=== PATIENT | male | born 1945 | race Caucasian/White ===

== ENCOUNTER → 2016-10-19 | Outpatient (CLI) | payer OTHER ==
[~2016-10-19] MED LIST: ASPI81TA28 PO; ATOR-22 PO; DOCU-94 PO; LPT10 PO; PLV75 PO; SENN-65 PO
[2016-10-20 09:28] LABS: URINE APPEARANCE CLEAR (CLEAR); URINE BILIRUBIN NEG (NEG); URINE COLOR YELLOW; URINE EPITHELIAL CELL AUTO 20-30 /lpf (0-5); URINE NITRITE NEG (NEG); URINE PH 5.5 (4.5-7.5); URINE SPECIFIC GRAVITY 1.011 (1.000-1.030); UROBILINOGEN NEG (NEG)
[2016-10-20 09:30] LABS: MANUAL MICROSCOPIC REQUIRED? NO; REVIEW REQ? NO
== END ==
LOC: C.LABCC 14:24
PROVIDERS: ATTEND Internal Medicine
DX: R35.0 Frequency of micturition (principal)

== ENCOUNTER → 2016-10-28 | Outpatient (CLI) | payer OTHER ==
[2016-10-28 08:20] LABS: BASO % 0.3 %; BASO ABS # 0.03 K/uL (0-0.2); COMPLETE YES; EOS % 2.7 %; HEMATOCRIT 37.1 % (42-52); IG% 0.3 %; LYMPH % 29.9 %; LYMPH ABS # 2.67 K/uL (1.2-3.4); MEAN CELL VOLUME 93.2 fL (80-100); MEAN CORPUSCULAR HEMOGLOBIN 31.9 pg (25-34); MEAN CORPUSCULAR HGB CONC 34.2 g/dl (32-36); MEAN PLATELET VOLUME 9.6 fL (7.4-10.4); MONO % 8.3 %; NEUT % 58.5 %; PLATELET COUNT 250 K/uL (130-400); RED BLOOD COUNT 3.98 M/uL (4.7-6.1); WHITE BLOOD COUNT 8.92 K/uL (4.8-10.8)
[2016-10-28 08:27] LABS: ALT/SGPT 50 U/L (12-78); BLOOD UREA NITROGEN 18 mg/dl (7-18); BUN/CREATININE RATIO 23.6 (10-20); CALCIUM 8.3 mg/dl (8.5-10.1); CARBON DIOXIDE 28 mmol/L (21-32); CHLORIDE 108 mmol/L (98-107); CHOLESTEROL 141 mg/dl (0-200); CREATININE 0.76 mg/dl (0.60-1.40); GLUCOSE 89 mg/dl (70-99); SODIUM 143 mmol/L (136-145)
[2016-10-28 08:36] LABS: ALB/GLOB RATIO 1.3 (0.9-2); ALKALINE PHOSPHATASE 86 U/L (45-117); AST/SGOT 20 U/L (15-37); CHOLESTEROL/HDL RATIO 2.6; HDL CHOLESTEROL 54 mg/dl; LDL CHOLESTEROL CALCULATED 75 mg/dl; TRIGLYCERIDES 60 mg/dl (0-150); VERY LOW DENSITY LIPOPROT CALC 12 mg/dl
== END | disposition home or self-care (01) ==
LOC: C.LABCC 08:05
PROVIDERS: ATTEND Internal Medicine
DX: D64.9 Anemia, unspecified (principal); E87.6 Hypokalemia; E78.5 Hyperlipidemia, unspecified; E83.51 Hypocalcemia

== ENCOUNTER 2016-11-21 18:42 | Emergency (ER) | payer OTHER ==
[~2016-11-21] VITALS: Ht 165.1 cm; Wt 62.3 kg
[~2016-11-21 18:42] MED LIST changes: -DOCU-94 PO; -LPT10 PO; -SENN-65 PO
[2016-11-21 18:47] VITALS: TEMP 36.8; Ht 165.1 cm; Wt 62.3 kg
[2016-11-21] MEDS ORDERED: LPT10 PO (19:04)
[2016-11-21] MEDS ORDERED: DOCU-94 PO (19:10)
[2016-11-21] MEDS ORDERED: SENN-65 PO (19:10)
--- NOTE | 2016-11-21 19:41 | DIAGNOSTIC IMAGING REPORT ---
CT OF THE HEAD WITHOUT CONTRAST CLINICAL HISTORY: Fall. COMPARISON STUDY: Head CT July 19, 2016. CT DOSE: 601.98 mGy.cm TECHNIQUE: Helical axial images of the head were obtained without IV contrast. Automated exposure control was utilized for the study. FINDINGS: No acute intracranial hemorrhage, midline shift or mass effect is present. Old right basal ganglia and centrum semiovale infarcts are noted as well as an old infarct within the right parietal lobe. Ventricular system is unremarkable for age. Basilar cisterns are patent. There are no extra axial collections. The left globe is absent. No calvarial fracture is identified. IMPRESSION: 1. No acute intracranial findings. 2. No calvarial fracture. Electronically signed by: Adolfo Hernández M.D. 11/21/2016 7:40 PM Dictated Date/Time: 11/21/2016 7:37 PM
[2016-11-21] MEDS ORDERED: IBUPROFEN 200 MG TAB PO STA (20:06)
--- NOTE | 2016-11-21 20:12 | DIAGNOSTIC IMAGING REPORT ---
LEFT SHOULDER MIN 2 VIEWS ROUTINE CLINICAL HISTORY: Fall. COMPARISON: None FINDINGS: Alignment of the left shoulder is anatomic. There is no acute fracture. [id number]-[id number] arthritis is noted. There are several old left-sided rib fractures. IMPRESSION: No acute fracture or dislocation of the left shoulder. Electronically signed by: Adolfo Hernández M.D. 11/21/2016 8:10 PM Dictated Date/Time: 11/21/2016 8:09 PM
--- NOTE | 2016-11-21 20:13 | DIAGNOSTIC IMAGING REPORT ---
LEFT HUMERUS MIN 2 VIEWS ROUTINE CLINICAL HISTORY: Fall. Evaluate for fracture. COMPARISON: None FINDINGS: No acute fracture of the left humerus is identified. Alignment of the left elbow and shoulder is anatomic. There is soft tissue swelling overlying the olecranon. IMPRESSION: 1. No acute fracture of the left humerus. 2. Soft tissue swelling overlying the olecranon. Electronically signed by: Adolfo Hernández M.D. 11/21/2016 8:12 PM Dictated Date/Time: 11/21/2016 8:11 PM
--- NOTE | 2016-11-21 20:14 | DIAGNOSTIC IMAGING REPORT ---
LEFT ELBOW MIN 3 VIEWS ROUTINE CLINICAL HISTORY: Fall. Evaluate for fracture. COMPARISON: None FINDINGS: Alignment of left elbow is anatomic. There is no evidence for a joint effusion. There is extensive soft tissue swelling overlying the olecranon as well as the medial soft tissues of the left elbow. IMPRESSION: 1. No acute fracture or joint effusion of the left elbow. 2. Pronounced soft tissue swelling overlying the olecranon. This could reflect a contusion or olecranon bursitis. Electronically signed by: Adolfo Hernández M.D. 11/21/2016 8:13 PM Dictated Date/Time: 11/21/2016 8:12 PM
--- NOTE | 2016-11-21 20:17 | DIAGNOSTIC IMAGING REPORT ---
L-SPINE MIN 4 VIEWS ROUTINE CLINICAL HISTORY: Fall. COMPARISON: None FINDINGS: There is a suspected 6 mm left renal calculus. Alignment of lumbar spine is anatomic. There is a transitional vertebra at the lumbosacral junction which is designated as L5 on this exam. This is likely partially sacralized. When utilizing this numbering scheme, there is slight loss of height of the superior endplate of L4 with concavity. Mild multilevel degenerative changes are present. IMPRESSION: 1. Concavity with slight loss of height of the superior endplate of L4. This is likely old although a mild acute compression fracture could appear similar. 2. 6 mm left renal calculus. 3. Please see above numbering scheme of the lumbar spine with transitional vertebra at the lumbosacral junction. Electronically signed by: Adolfo Hernández M.D. 11/21/2016 8:16 PM Dictated Date/Time: 11/21/2016 8:13 PM
--- NOTE | 2016-11-21 20:19 | DIAGNOSTIC IMAGING REPORT ---
LEFT PELVIS/UNILATERAL HIP 2-3VIEWS CLINICAL HISTORY: Fall. COMPARISON: None FINDINGS: The sacroiliac joints and symphysis pubis are intact. No acute fracture within the pelvis or proximal right femur is identified. There is foreshortening of the left femoral neck. This may be technical. IMPRESSION: Foreshortening of the left femoral neck. This may be technical. However, a femoral neck fracture could appear similar. If persistent pain, a CT is recommended. Electronically signed by: Adolfo Hernández M.D. 11/21/2016 8:18 PM Dictated Date/Time: 11/21/2016 8:16 PM
--- NOTE | 2016-11-21 20:42 | EMERGENCY ROOM VISIT NOTE ---
History Report prepared by Viki: Nikolai Jain Under the Supervision of: Dr. Trevin Carter M.D. First contact with patient: 18:55 Chief Complaint: FALL Stated Complaint: FELL,HIT HEAD,HX STROKE History of Present Illness The patient is a 71 year old male who presents to the Emergency Room with complaints of constant left elbow and left hip pain due to a fall beginning just prior to arrival. He currently rates his discomfort as a 5/10 in severity. As per family, the patient complained of lower back pain following the fall. She notes the patient has a history of a stroke, in which, he has residual left sided weakness and short term memory issues. The patient states he was attempting to get out of the car, and when he went to grab the railing that he missed. He notes he hit his head but denies a loss of consciousness. The family member witnessed the fall, and states he was conscious throughout the event. She states the patient takes Aspirin and may be on Plavix. She notes the patient lives at [facility], and he was visiting them for the day. The patient denies a fever, vomiting, and chest pain. Source of History: patient, family Onset: just prior to arrival Position: elbow (left), pelvis (left hip) Symptom Intensity: 5/10 Timing: constant Associated Symptoms: + back pain, No chest pain, No fevers, No vomiting Note: Associated symptoms: left shoulder pain. Review of Systems See HPI for pertinent positives & negatives. A total of 10 systems reviewed and were otherwise negative. Past Medical & Surgical Medical Problems: (1) Acute right MCA stroke Surgical Problems: (1) History of enucleation of eye Family History Diabetes mellitus Social History Smoking Status: Never Smoker Drug Use: none Marital Status: Housing Status: other ([facility]) Occupation Status: retired Current/Historical Medications Scheduled Aspirin (Aspirin Ec), 81 MG PO DAILY Atorvastatin (Atorvastatin Calcium), 10 MG PO DAILY Clopidogrel Bisulfate (Clopidogrel), 75 MG PO QAM Docusate Sodium (Colace), 1 CAP PO BID Senna/Docusate Sod (Senokot S), 1 TAB PO BID Allergies Coded Allergies: No Known Allergies (Verified , 07/18/16) Physical Exam Vital Signs Date Time Temp Pulse Resp B/P Pulse Ox O2 Delivery O2 Flow Rate FiO2 11/21/16 18:47 36.8 74 20 129/72 96 Room Air Physical Exam Constitutional: Vital signs reviewed. Eyes: Pupils are equal round reactive to light. Conjunctiva are noninjected. ENT: Pharynx is clear without erythema or exudate. Mucous membranes are moist. Neck supple without meningeal signs. No midline tenderness to the cervical spine. Respiratory: Clear to auscultation bilaterally. Breath sounds are equal bilaterally. Cardiovascular: Regular rate and rhythm. No rubs or gallops. GI: Soft, nondistended and nontender. Bowel sounds are present. Musculoskeletal: Tenderness and swelling to the olecranon process of the left elbow. No deformity is noted. Tenderness and swelling to the left hip. No deformity or shortening. Integumentary: No cyanosis. Neurological: The patient is awake and alert. Left sided weakness from prior stroke. Psychiatric: Normal affect. Medical Decision & Procedures ER Provider Diagnostic Interpretation: Radiology results as stated below per my review and the radiologist's interpretation: CT OF THE HEAD WITHOUT CONTRAST CLINICAL HISTORY: Fall. COMPARISON STUDY: Head CT July 19, 2016. CT DOSE: 601.98 mGy.cm TECHNIQUE: Helical axial images of the head were obtained without IV contrast. Automated exposure control was utilized for the study. FINDINGS: No acute intracranial hemorrhage, midline shift or mass effect is present. Old right basal ganglia and centrum semiovale infarcts are noted as well as an old infarct within the right parietal lobe. Ventricular system is unremarkable for age. Basilar cisterns are patent. There are no extra axial collections. The left globe is absent. No calvarial fracture is identified. IMPRESSION: 1. No acute intracranial findings. 2. No calvarial fracture. Electronically signed by: Adolfo Hernández M.D. 11/21/2016 7:40 PM LEFT SHOULDER MIN 2 VIEWS ROUTINE CLINICAL HISTORY: Fall. COMPARISON: None FINDINGS: Alignment of the left shoulder is anatomic. There is no acute fracture. Xlop-vu-dnrfvopw arthritis is noted. There are several old left-sided rib fractures. IMPRESSION: No acute fracture or dislocation of the left shoulder. Electronically signed by: Adolfo Hernández M.D. 11/21/2016 8:10 PM LEFT HUMERUS MIN 2 VIEWS ROUTINE CLINICAL HISTORY: Fall. Evaluate for fracture. COMPARISON: None FINDINGS: No acute fracture of the left humerus is identified. Alignment of the left elbow and shoulder is anatomic. There is soft tissue swelling overlying the olecranon. IMPRESSION: 1. No acute fracture of the left humerus. 2. Soft tissue swelling overlying the olecranon. Electronically signed by: Adolfo Hernández M.D. 11/21/2016 8:12 PM LEFT ELBOW MIN 3 VIEWS ROUTINE CLINICAL HISTORY: Fall. Evaluate for fracture. COMPARISON: None FINDINGS: Alignment of left elbow is anatomic. There is no evidence for a joint effusion. There is extensive soft tissue swelling overlying the olecranon as well as the medial soft tissues of the left elbow. IMPRESSION: 1. No acute fracture or joint effusion of the left elbow. 2. Pronounced soft tissue swelling overlying the olecranon. This could reflect a contusion or olecranon bursitis. Electronically signed by: Adolfo Hernández M.D. 11/21/2016 8:13 PM L-SPINE MIN 4 VIEWS ROUTINE CLINICAL HISTORY: Fall. COMPARISON: None FINDINGS: There is a suspected 6 mm left renal calculus. Alignment of lumbar spine is anatomic. There is a transitional vertebra at the lumbosacral junction which is designated as L5 on this exam. This is likely partially sacralized. When utilizing this numbering scheme, there is slight loss of height of the superior endplate of L4 with concavity. Mild multilevel degenerative changes are present. IMPRESSION: 1. Concavity with slight loss of height of the superior endplate of L4. This is likely old although a mild acute compression fracture could appear similar. 2. 6 mm left renal calculus. 3. Please see above numbering scheme of the lumbar spine with transitional vertebra at the lumbosacral junction. Electronically signed by: Adolfo Hernández M.D. 11/21/2016 8:16 PM LEFT PELVIS/UNILATERAL HIP 2-3VIEWS CLINICAL HISTORY: Fall. COMPARISON: None FINDINGS: The sacroiliac joints and symphysis pubis are intact. No acute fracture within the pelvis or proximal right femur is identified. There is foreshortening of the left femoral neck. This may be technical. IMPRESSION: Foreshortening of the left femoral neck. This may be technical. However, a femoral neck fracture could appear similar. If persistent pain, a CT is recommended. Electronically signed by: Adolfo Hernández M.D. 11/21/2016 8:18 PM Medications Administered Medications (Trade) Dose Ordered Sig/Bashir Route Start Time Stop Time Status Last Admin Dose Admin Ibuprofen (Advil Tab) 400 mg NOW STAT PO 11/21/16 20:06 4/30/17 20:07 DC 11/21/16 20:06 400 MG ED Course 1857: The patient was evaluated in room D7. A complete history and physical exam was performed. 2004: As per nurse, the patient went to the bathroom and ambulated with assistance without difficulty. He is requesting Advil. 2005: Ordered Advil Tab 400 mg PO. 2021: Reevaluated and updated the patient at this time. He agrees with further imaging. Medical Decision This is a 71-year-old male who presents with injuries after fall. Differential diagnosis: Contusion, concussion, intracranial hemorrhage, hip fracture, elbow fracture. I did perform a limited focused review of portions of the patient's old chart on the electronic medical record. The patient has a history of a stroke in June. Blood work was done on October 28 that was fairly unremarkable other than some mild anemia. I did evaluate the patient as noted above. I did obtain history from the patient as well as his family. He did have a mechanical fall without LOC. I did order a CT of the head. I did review the images myself as well as the radiology report as described above. There is no ICH. I did order and personally review the patient's x-rays as described above. There appears to be an old compression fracture in the lumbar spine and a possible hip fracture. I did order a CT of the hip and lumbar spine. I did treat patient with Motrin per his request. The CAT scans are pending at this time. The patient was signed out to Dr. Pepper. Impression Primary Impression: Contusion of multiple sites Additional Impressions: Fall Acute head injury Injury of left hip Injury of left elbow Scribe Attestation The scribe's documentation has been prepared under my direct and personally reviewed by me in its entirety. I confirm that the note above accurately reflects all work, treatment, procedures, and medical decision making performed by me. Departure Information Dispostion Still a Patient (signed out to Dr. Pepper) Referrals RV. Nicholas MD (PCP) Patient Instructions [facility] Problem Qualifiers Additional Impressions: Fall Encounter type: initial encounter Qualified Codes: W19.XXXA - Unspecified fall, initial encounter Acute head injury Encounter type: initial encounter Qualified Codes: S09.90XA - Unspecified injury of head, initial encounter Injury of left hip Encounter type: initial encounter Qualified Codes: S79.912A - Unspecified injury of left hip, initial encounter Injury of left elbow Encounter type: initial encounter Qualified Codes: S59.902A - Unspecified injury of left elbow, initial encounter
--- NOTE | 2016-11-21 21:01 | DIAGNOSTIC IMAGING REPORT ---
CT LUMBAR SPINE WITHOUT CT DOSE: 1045.53 mGy.cm CLINICAL HISTORY: Fall. Evaluate for fracture. TECHNIQUE: Axial images of the lumbar spine were obtained without IV contrast. Sagittal and coronal reconstructions were viewed. COMPARISON STUDY: Lumbar spine radiographs performed earlier today. FINDINGS: Multiple bilateral renal calculi are noted. There is no hydronephrosis. Alignment of the lumbar spine is anatomic with the exception of slight anterolisthesis of L5 on S1. There is a right sided L5 pars defect. No acute lumbar spine fracture is identified. The possible fracture of L4 shown on prior radiograph was artifactual. Paravertebral soft tissues are unremarkable by CT. Mild to moderate multilevel degenerative disc disease and facet arthrosis is present. IMPRESSION: 1. No acute lumbar spine fracture or subluxation. 2. Mild to moderate multilevel degenerative disc disease and facet arthrosis. 3. Bilateral nephrolithiasis. Electronically signed by: Adolfo Hernández M.D. 11/21/2016 9:00 PM Dictated Date/Time: 11/21/2016 8:55 PM
--- NOTE | 2016-11-21 21:08 | DIAGNOSTIC IMAGING REPORT ---
CT OF THE LEFT HIP WITHOUT CONTRAST CLINICAL HISTORY: Left hip pain following fall. TECHNIQUE: Axial images of the left hip were obtained without IV contrast. Sagittal and coronal reconstructions were obtained. COMPARISON STUDY: Left hip and pelvis radiographs performed earlier today. FINDINGS: Alignment of the left hip is anatomic. There is no acute fracture of the proximal left femur or visualized portions of the left hemipelvis. There is a subcutaneous contusion of the lateral left thigh. No large hematoma is present. IMPRESSION: 1. No acute fracture or dislocation of the left hip. 2. Lateral left thigh subcutaneous contusion. Electronically signed by: Adolfo Hernández M.D. 11/21/2016 9:06 PM Dictated Date/Time: 11/21/2016 9:02 PM
--- NOTE | 2016-11-21 21:50 | EMERGENCY ROOM VISIT NOTE ---
ED Visit Note First contact with patient: 20:34 I assumed care at the change of shift. The patient was awaiting a CT of his lumbar spine and left hip. The CTs have returned, there is no acute fracture of the lumbar spine. No acute fracture of the left hip. A left hip hematoma was noted. The patient was told the results of his tests, he was reassured. He is being discharged back to rehabilitation. Ice and Tylenol were suggested. If worsening, he can return.
[2016-11-21 21:55] VITALS: BP 118/66; PULSE 69; O2SAT 96
== END 2016-11-21 21:57 ==
LOC: C.EDB 18:43 → C.EDD 21:57
DX: S59.902A Unspecified injury of left elbow, initial encounter (principal); S09.90XA Unspecified injury of head, initial encounter; S79.912A Unspecified injury of left hip, initial encounter; T14.8 Other injury of unspecified body region; W19.XXXA Unspecified fall, initial encounter; Z86.73 Personal history of transient ischemic attack (TIA), and cerebral infarction without residual deficits; Z79.82 Long term (current) use of aspirin; Z90.01 Acquired absence of eye; Z83.3 Family history of diabetes mellitus; Z79.899 Other long term (current) drug therapy

== ENCOUNTER → 2016-12-27 | Outpatient (CLI) | payer OTHER ==
[~2016-12-27] MED LIST changes: -ATOR-22 PO; +DOCU-94 PO; +LPT10 PO; +SENN-65 PO
[2016-12-27 14:54] LABS: BASO % 0.3 %; BASO ABS # 0.03 K/uL (0-0.2); COMPLETE YES; HEMATOCRIT 42.7 % (42-52); IG% 0.2 %; LYMPH % 25.6 %; LYMPH ABS # 2.59 K/uL (1.2-3.4); MEAN CELL VOLUME 95.1 fL (80-100); MEAN CORPUSCULAR HEMOGLOBIN 31.8 pg (25-34); MEAN CORPUSCULAR HGB CONC 33.5 g/dl (32-36); MONO % 7.3 %; NEUT % 64.6 %; PLATELET COUNT 264 K/uL (130-400); RED BLOOD COUNT 4.49 M/uL (4.7-6.1)
[2016-12-27 15:21] LABS: ALT/SGPT 60 U/L (12-78); BLOOD UREA NITROGEN 20 mg/dl (7-18); BUN/CREATININE RATIO 27.2 (10-20); CARBON DIOXIDE 28 mmol/L (21-32); CHLORIDE 103 mmol/L (98-107); CHOLESTEROL 171 mg/dl (0-200); CREATININE 0.74 mg/dl (0.60-1.40); GLUCOSE 91 mg/dl (70-99); POTASSIUM 4.1 mmol/L (3.5-5.1); SODIUM 139 mmol/L (136-145); TRIGLYCERIDES 117 mg/dl (0-150); VERY LOW DENSITY LIPOPROT CALC 23 mg/dl
[2016-12-27 15:24] LABS: ALB/GLOB RATIO 1.2 (0.9-2); ALKALINE PHOSPHATASE 96 U/L (45-117); AST/SGOT 30 U/L (15-37); CHOLESTEROL/HDL RATIO 3.1; HDL CHOLESTEROL 56 mg/dl; LDL CHOLESTEROL CALCULATED 92 mg/dl
== END | disposition home or self-care (01) ==
LOC: C.LAB1850 12:28
PROVIDERS: ATTEND Internal Medicine
DX: I63.231 Cerebral infarction due to unspecified occlusion or stenosis of right carotid arteries (principal)

== ENCOUNTER 2021-08-18 13:19 | Inpatient (IN) ==
[2021-08-18] MEDS ORDERED: SODIUM CHLORIDE 0.9% 500 ML IV STA (14:09)
[2021-08-18] MEDS ORDERED: OXYMETAZOLINE 0.05% 30 ML BTL ONE (14:09)
[2021-08-18] MEDS ORDERED: ONDANSETRON INJ 2 MG/ML 2 ML VIAL IV STA (14:09)
--- NOTE | 2021-08-18 14:16 | Emergency Department Note ---
Impression & Plan Leukocytosis, Epistaxis, Tachycardia, Anemia, Diarrhea ED Provider Note NAME: ONEIL LIVINGSTON AGE: 75 SEX: M : 1945 ARRIVES VIA: Ambulance INFORMANT: [Patient][daughter] ED PROVIDER(S): [Nickolas Pepper MD] CHIEF COMPLAINT: Nosebleed, diarrhea HISTORY OF PRESENT ILLNESS: The patient is a 75-year-old male who began with an intermittent left-sided nosebleed yesterday. It worsened quite a bit today. He vomited some blood and has swallowed some blood. Most of blood though he believes has come out the front. The patient in addition complains of some diarrhea, especially today. He has noticed the diarrhea for about 3 days or so. It is not black or bloody but loose and watery. He has diffuse abdominal cramping as well. The patient is here with his daughter. The patient is on aspirin and Plavix. The nosebleed now seems to have stopped. There was no intervention by EMS. The patient has history of stroke, his left arm is basically paralyzed. His left leg has some movement. Patient denies shortness of breath, chest pain or fever. There has been no cough or congestion. He has not felt chills. REVIEW OF SYSTEMS: See HPI for pertinent positives and negatives. A total of ten systems were reviewed and were otherwise negative. PMHx/PSHx: See Below SOCIAL HISTORY: See Below. PHYSICAL EXAM: GENERAL: Patient is in no acute distress. HEENT: No acute trauma, normocephalic atraumatic, mucous membranes moist, no nasal congestion, no scleral icterus. There is dried blood on his face. There is no active bleeding to the right or left side of the nose. There is a clot hanging down the back of the throat. NECK: No stridor, no adenopathy, no meningismus, trachea is midline. LUNGS: Clear to auscultation bilaterally, no wheeze, no rhonchi, breath sounds equal. Breath sounds diminished bilaterally. HEART: Tachycardic, distant tones, regular rhythm, no murmurs. ABDOMEN: Soft, mildly diffusely tender, bowel sounds positive, no hernias, no peritonitis. EXTREMITIES: No cyanosis or edema, full range of motion of all the joints with out pain or difficulty, no signs for acute trauma. NEUROLOGIC: Oriented x 3, basically no movement of the left upper extremity. Minimal movement of the left lower extremity. The right arm and leg are strong. SKIN: No rash, no jaundice, no diaphoresis. Pale. DIFFERENTIAL DIAGNOSIS: Anterior and posterior epistaxis, coagulopathy, anemia, electrolyte imbalance, dehydration, GI bleeding, diverticulitis, colitis, pancreatitis, generalized viral illness, bacterial or viral intestinal infection, among others. EMERGENCY DEPARTMENT COURSE/PROCEDURES: ECG: Indication was tachycardia. The ECG shows a sinus tachycardia with a rate of 102. There is a potential old septal infarct. There is no ST elevation, no PVCs. The QTc is 427. Continuous Cardiac Monitoring: An order was placed for continuous cardiac mon itoring. The monitor shows a rate of 99 with normal sinus rhythm. Critical Care Note: I have personally spent 41 minutes of critical care time in the direct management of this patient. This includes bedside care, interpretation of diagnostic studies, and testing, discussion with consultants, patient, and family members, and other required patient management activities. This 41 minutes is in excess of all separately billable procedures. Bladder scan showed over 400 cc, moderate retention. The patient was not able to urinate on his own, a straight cath urine was obtained. MEDICAL DECISION MAKING: There is a significant leukocytosis at 20,000, this certainly could be consistent with infection. The patient does have a mild anemia. His hemoglobin has dropped around 2 points compared to his baseline. There is a normal platelet count. INR slightly elevated at 1.2. Potassium slightly high at 5.3. No kidney failure. Lactic acid level is not elevated making severe sepsis less likely. No worrisome liver enzyme elevation. No evidence for pancreatitis. Urinalysis is suggestive of infection. Covid testing returned negative. Chest film does not show pneumonia or CHF. Abdominal and pelvis CT does not show any evidence for acute surgical pathology. No diverticulitis or colitis noted. On exam, the patient was not actively bleeding from his nose any longer. He appeared dehydrated clinically. He was tachycardic. The patient received IV saline, 1 L. Afrin spray was applied to both sides of his nose to prevent any further bleeding. He received IV Zofran for nausea. He was given IV cefepime as empiric antibiotic coverage. The patient's heart rate has improved. He does seem more comfortable. The patient requires a hospital stay. He has a marked leukocytosis. He has a UTI. He presents tachycardic and has lost some blood as a result of his epistaxis. I spoke with the patient and his daughter, I talked to case management, the on- call hospitalist was consulted. 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 Diverticulosis Internal hemorrhoids Tubular adenoma of colon Surgical History H/O eye surgery Family History Other No significant family history Denies family history of Ovarian cancer Prostate cancer Breast cancer Lung cancer Colorectal cancer Social History Smoking Status: Current every day smoker Tobacco Type: Cigarettes and Cigars Age Started Using Tobacco: 14; Cigarettes Per Day: 10; Second Hand Exposure: No; Hx Alcohol Use: Yes Alcohol type: beer Alcohol Intake Frequency: Monthly or Less Hx Substance Use: No Preferred Language: Arabic Communication Ability: Effective Visual Impairment: Limited Hearing Ability: Hard of Hearing marital status: / Current Living Situation: Family current occupational status: retired Feels Safe at Home: Yes Childhood Exposure to Second-Hand Smoke: Yes caffeine: No Dental Care, Regularly: No Physical Activity Frequency: Does not Exercise Seatbelt Use: always Sunscreen Use: No Allergies Allergies Allergy/AdvReac Type Severity Reaction Status Date / Time No Known Allergies Allergy Verified 03/26/21 14:54 Home Meds Home Medications Medication Instructions Recorded Confirmed cholecalciferol (vitamin D3) 25 1,000 units PO QAM 09/13/19 08/18/21 mcg (1,000 unit) capsule aspirin 81 mg tablet,delayed 81 mg PO QAM 08/18/21 08/18/21 release (Adult Aspirin Regimen) atorvastatin 80 mg tablet 80 mg PO HS 08/18/21 08/18/21 clopidogrel 75 mg tablet 75 mg PO HS 08/18/21 08/18/21 gabapentin 300 mg capsule 300 mg PO HS 08/18/21 08/18/21 Previous Rx's Medication Instructions Recorded diclofenac sodium 1 % topical gel 2 gm TOP QID #100 gm 04/03/19 bupropion HCl 100 mg tablet,12 hr 100 mg PO QAM #90 ea 01/30/21 sustained-release albuterol sulfate 90 mcg/actuation 1 inh INHALATION QID #8.5 g 02/13/21 aerosol inhaler Results & Data (ED) Vital Signs Vital Signs - 24 hr 08/18/21 13:20 08/18/21 15:00 08/18/21 15:49 Temperature 36.7 C Temperature Source Oral Pulse Rate 108 H 119 H Pulse Rate from SpO2 Sensor Respiratory Rate 20 24 Respiratory Effort / Characteristics Non-Labored Spontaneous Respiratory Depth Normal Respiratory Pattern Regular Blood Pressure 102/71 110/72 Blood Pressure Mean 81 84 Blood Pressure Position Sitting Pulse Oximetry 95 97 95 Oxygen Delivery Method Room Air Room Air Room Air Sepsis Recent Fever Within 48 Hours No Sepsis New/Unexplained Change in Mental Status No Sepsis Action Taken by Nursing No Action Required 08/18/21 16:00 08/18/21 17:00 08/18/21 17:30 Temperature Temperature Source Pulse Rate 99 H 94 H 91 H Pulse Rate from SpO2 Sensor 108 H 95 H Respiratory Rate 21 24 22 Respiratory Effort / Characteristics Respiratory Depth Respiratory Pattern Blood Pressure 114/79 141/90 H 123/77 Blood Pressure Mean 90 107 92 Blood Pressure Position Pulse Oximetry 94 98 98 Oxygen Delivery Method Room Air Room Air Room Air Sepsis Recent Fever Within 48 Hours Sepsis New/Unexplained Change in Mental Status Sepsis Action Taken by Nursing 08/18/21 18:30 08/18/21 19:00 08/18/21 19:05 Temperature Temperature Source Pulse Rate 86 88 85 Pulse Rate from SpO2 Sensor Respiratory Rate 21 21 20 Respiratory Effort / Characteristics Respiratory Depth Respiratory Pattern Blood Pressure 114/88 115/88 Blood Pressure Mean 96 97 Blood Pressure Position Pulse Oximetry 97 96 99 Oxygen Delivery Method Room Air Room Air Room Air Sepsis Recent Fever Within 48 Hours Sepsis New/Unexplained Change in Mental Status Sepsis Action Taken by Nursing 08/18/21 19:30 08/18/21 19:31 08/18/21 20:00 Temperature Temperature Source Pulse Rate 87 85 83 Pulse Rate from SpO2 Sensor Respiratory Rate 19 20 20 Respiratory Effort / Characteristics Respiratory Depth Respiratory Pattern Blood Pressure 126/79 126/79 127/67 Blood Pressure Mean 94 94 87 Blood Pressure Position Pulse Oximetry 98 98 Oxygen Delivery Method Room Air Room Air Sepsis Recent Fever Within 48 Hours Sepsis New/Unexplained Change in Mental Status Sepsis Action Taken by Nursing 08/18/21 20:30 08/18/21 20:31 08/18/21 21:00 Temperature Temperature Source Pulse Rate 90 92 H Pulse Rate from SpO2 Sensor Respiratory Rate 24 22 19 Respiratory Effort / Characteristics Respiratory Depth Respiratory Pattern Blood Pressure 117/65 122/78 Blood Pressure Mean 82 92 Blood Pressure Position Pulse Oximetry 99 Oxygen Delivery Method Room Air Sepsis Recent Fever Within 48 Hours Sepsis New/Unexplained Change in Mental Status Sepsis Action Taken by Jail Medications Current Medication List: was personally reviewed by me Laboratory Data Attestation: I reviewed the patient's lab results. Result diagrams: 08/18/21 14:46 08/18/21 14:46 Lab Results 08/18/21 08/18/21 08/18/21 Range/Units 14:46 14:46 14:46 WBC 20.46 H (4.8-10.8) K/uL RBC 3.62 L (4.7-6.1) M/uL Hgb 11.3 L (14.0-18.0) g/dL Hct 35.2 L (42-52) % MCV 97.2 (80-100) fL MCH 31.2 (25-34) pg MCHC 32.1 (32-36) g/dL RDW Std Deviation 48.4 H (36.4-46.3) fL RDW Coeff of Kailey 13.6 (11.5-14.5) % Plt Count 362 (130-400) K/uL MPV 10.3 (7.4-10.4) fL Immature Gran % (Auto) 0.6 % Neut % (Auto) 87.0 % Lymph % (Auto) 6.8 % [place] % (Auto) 5.5 % Eos % (Auto) 0.0 % Baso % (Auto) 0.1 % Neut # (Auto) 17.76 H (1.4-6.5) K/uL Lymph # (Auto) 1.40 (1.2-3.4) K/uL [place] # (Auto) 1.13 H (0.11-0.59) K/uL Eos # (Auto) 0.01 (0-0.5) K/uL Baso # (Auto) 0.03 (0-0.2) K/uL Immature Gran # (Auto) 0.13 H (0.00-0.02) K/uL PT 11.6 (9.0-12.0) Seconds INR 1.2 H (0.9-1.1) APTT 30.7 (21.0-31.0) Seconds PTT Ratio 1.2 Sodium (136-145) mmol/L Potassium (3.5-5.1) mmol/L Chloride (98-107) mmol/L Carbon Dioxide (21-32) mmol/L Anion Gap (3-11) BUN (6-23) mg/dl Creatinine (0.6-1.4) mg/dl Est Cr Clr Drug Dosing ml/min Est GFR ( Amer) ml/min Est GFR (Non-Af Amer) ml/min BUN/Creatinine Ratio (10-20) Glucose (70-99(Fasting)) mg/dl Lactate (0.4-2.0) mmol/L Calcium (8.5-10.1) mg/dl Total Bilirubin (0.2-1.0) mg/dl AST (13-39) U/L ALT (7-52) U/L Alkaline Phosphatase (34-104) U/L Troponin I (0-0.04) ng/ml Total Protein (6.0-8.3) gm/dl Albumin (3.4-5.0) gm/dl Globulin (2.5-4.0) gm/dl Albumin/Globulin Ratio (0.9-2) Lipase (11-82) U/L Urine Color Urine Appearance (Clear) Urine pH (4.5-7.5) Ur Specific [place] (1.000-1.030) Urine Protein (Negative) Urine Glucose (UA) (Negative) Urine Ketones (Negative) Urine Blood (Negative) Urine Nitrite (Negative) Urine Bilirubin (Negative) Urine Urobilinogen (Negative) Ur Leukocyte Esterase (Negative) Urine WBC (Auto) (0-5) /hpf Urine RBC (Auto) (0-4) /hpf U Hyaline Cast (Auto) (0-5) /lpf U Epithel Cells (Auto) (0-5) /lpf Urine Bacteria (Auto) (Negative) Urine Yeast SARS-CoV-2, RNA, NAAT (NEGATIVE) Blood Type A Negative Antibody Screen NEGATIVE 08/18/21 08/18/21 08/18/21 Range/Units 14:46 15:34 15:59 WBC (4.8-10.8) K/uL RBC (4.7-6.1) M/uL Hgb (14.0-18.0) g/dL Hct (42-52) % MCV (80-100) fL MCH (25-34) pg MCHC (32-36) g/dL RDW Std Deviation (36.4-46.3) fL RDW Coeff of Kailey (11.5-14.5) % Plt Count (130-400) K/uL MPV (7.4-10.4) fL Immature Gran % (Auto) % Neut % (Auto) % Lymph % (Auto) % [place] % (Auto) % Eos % (Auto) % Baso % (Auto) % Neut # (Auto) (1.4-6.5) K/uL Lymph # (Auto) (1.2-3.4) K/uL [place] # (Auto) (0.11-0.59) K/uL Eos # (Auto) (0-0.5) K/uL Baso # (Auto) (0-0.2) K/uL Immature Gran # (Auto) (0.00-0.02) K/uL PT (9.0-12.0) Seconds INR (0.9-1.1) APTT (21.0-31.0) Seconds PTT Ratio Sodium 139 (136-145) mmol/L Potassium 5.3 H (3.5-5.1) mmol/L Chloride 106 (98-107) mmol/L Carbon Dioxide 26 (21-32) mmol/L Anion Gap 7 (3-11) BUN 49 H (6-23) mg/dl Creatinine 1.13 (0.6-1.4) mg/dl Est Cr Clr Drug Dosing 49.1 ml/min Est GFR ( Amer) 73.3 ml/min Est GFR (Non-Af Amer) 63.2 ml/min BUN/Creatinine Ratio 43.4 H (10-20) Glucose 132 H (70-99(Fasting)) mg/dl Lactate 1.5 (0.4-2.0) mmol/L Calcium 8.7 (8.5-10.1) mg/dl Total Bilirubin 0.5 (0.2-1.0) mg/dl AST 24 (13-39) U/L ALT 32 (7-52) U/L Alkaline Phosphatase 109 H (34-104) U/L Troponin I < 0.03 (0-0.04) ng/ml Total Protein 6.6 (6.0-8.3) gm/dl Albumin 3.9 (3.4-5.0) gm/dl Globulin 2.7 (2.5-4.0) gm/dl Albumin/Globulin Ratio 1.4 (0.9-2) Lipase 35 (11-82) U/L Urine Color Urine Appearance (Clear) Urine pH (4.5-7.5) Ur Specific [place] (1.000-1.030) Urine Protein (Negative) Urine Glucose (UA) (Negative) Urine Ketones (Negative) Urine Blood (Negative) Urine Nitrite (Negative) Urine Bilirubin (Negative) Urine Urobilinogen (Negative) Ur Leukocyte Esterase (Negative) Urine WBC (Auto) (0-5) /hpf Urine RBC (Auto) (0-4) /hpf U Hyaline Cast (Auto) (0-5) /lpf U Epithel Cells (Auto) (0-5) /lpf Urine Bacteria (Auto) (Negative) Urine Yeast SARS-CoV-2, RNA, NAAT NEGATIVE (NEGATIVE) Blood Type Antibody Screen 08/18/21 Range/Units 16:50 WBC (4.8-10.8) K/uL RBC (4.7-6.1) M/uL Hgb (14.0-18.0) g/dL Hct (42-52) % MCV (80-100) fL MCH (25-34) pg MCHC (32-36) g/dL RDW Std Deviation (36.4-46.3) fL RDW Coeff of Kailey (11.5-14.5) % Plt Count (130-400) K/uL MPV (7.4-10.4) fL Immature Gran % (Auto) % Neut % (Auto) % Lymph % (Auto) % [place] % (Auto) % Eos % (Auto) % Baso % (Auto) % Neut # (Auto) (1.4-6.5) K/uL Lymph # (Auto) (1.2-3.4) K/uL [place] # (Auto) (0.11-0.59) K/uL Eos # (Auto) (0-0.5) K/uL Baso # (Auto) (0-0.2) K/uL Immature Gran # (Auto) (0.00-0.02) K/uL PT (9.0-12.0) Seconds INR (0.9-1.1) APTT (21.0-31.0) Seconds PTT Ratio Sodium (136-145) mmol/L Potassium (3.5-5.1) mmol/L Chloride (98-107) mmol/L Carbon Dioxide (21-32) mmol/L Anion Gap (3-11) BUN (6-23) mg/dl Creatinine (0.6-1.4) mg/dl Est Cr Clr Drug Dosing ml/min Est GFR ( Amer) ml/min Est GFR (Non-Af Amer) ml/min BUN/Creatinine Ratio (10-20) Glucose (70-99(Fasting)) mg/dl Lactate (0.4-2.0) mmol/L Calcium (8.5-10.1) mg/dl Total Bilirubin (0.2-1.0) mg/dl AST (13-39) U/L ALT (7-52) U/L Alkaline Phosphatase (34-104) U/L Troponin I (0-0.04) ng/ml Total Protein (6.0-8.3) gm/dl Albumin (3.4-5.0) gm/dl Globulin (2.5-4.0) gm/dl Albumin/Globulin Ratio (0.9-2) Lipase (11-82) U/L Urine Color Yellow Urine Appearance Clear (Clear) Urine pH 6.0 (4.5-7.5) Ur Specific [place] 1.021 (1.000-1.030) Urine Protein Negative (Negative) Urine Glucose (UA) Negative (Negative) Urine Ketones Trace H (Negative) Urine Blood Negative (Negative) Urine Nitrite Positive A (Negative) Urine Bilirubin Negative (Negative) Urine Urobilinogen Negative (Negative) Ur Leukocyte Esterase Trace H (Negative) Urine WBC (Auto) 5-10 H (0-5) /hpf Urine RBC (Auto) 0-4 (0-4) /hpf U Hyaline Cast (Auto) 1-5 (0-5) /lpf U Epithel Cells (Auto) 10-20 H (0-5) /lpf Urine Bacteria (Auto) 1+ H (Negative) Urine Yeast Not Reportable SARS-CoV-2, RNA, NAAT (NEGATIVE) Blood Type Antibody Screen Administered Medications Discontinued Medications Sodium Chloride (Nss) 500 mls @ 999 mls/hr IV .Q31M STA Stop: 08/18/21 14:39 Last Infusion: 08/18/21 16:08 Dose: 0 mls/hr Documented by: [id number] Admin: 08/18/21 15:32 Dose: 999 mls/hr Documented by: [id number] Sodium Chloride (Nss 1000ml) 500 mls @ 999 mls/hr IV .Q31M ONE Stop: 08/18/21 15:43 Last Infusion: 08/18/21 16:08 Dose: 0 mls/hr Documented by: [id number] Admin: 08/18/21 15:32 Dose: 999 mls/hr Documented by: [id number] Cefepime HCl (Maxipime) 2,000 mg in 20 mls @ 5 mls/min IV NOW STA; Protocol Stop: 08/18/21 15:16 Last Admin: 08/18/21 15:33 Dose: 5 mls/min Documented by: [id number] Ioversol (Optiray 320 100ml) 94 ml IV ONCE ONE Stop: 08/18/21 15:51 Last Admin: 08/18/21 15:50 Dose: 94 ml Documented by: [id number] Ondansetron HCl (Ondansetron Inj 2 Mg/Ml 2 Ml Vial) 4 mg IV NOW STA Stop: 08/18/21 14:10 Last Admin: 08/18/21 15:33 Dose: 4 mg Documented by: [id number] Oxymetazoline HCl (Oxymetazoline 0.05% 30 Ml Btl) 3 sprays NA NOW ONE Stop: 08/18/21 14:10 Last Admin: 08/18/21 14:50 Dose: 3 sprays Documented by: [id number] Imaging Data Radiologist's Impression: Abdomen/Pelvis CT 08/18/21 14:09 CT SCAN OF THE ABDOMEN AND PELVIS WITH IV CONTRAST CLINICAL HISTORY: Generalized abdominal pain. Diarrhea. COMPARISON STUDY: No priors. TECHNIQUE: Following the IV administration of 94 cc of Optiray 320, CT scan of the abdomen and pelvis is performed from the lung bases to the proximal femora. Images are reviewed in the axial, sagittal, and coronal planes. IV contrast was administered without complication. A dose lowering technique was utilized adhering to the principles of ALARA. The examination is compromised by motion artifact. CT DOSE: 381.91 mGy.cm FINDINGS: Lung bases: The heart is normal in size and without pericardial effusion. The coronary arteries are densely calcified. A tiny hiatal hernia is noted. Evaluation of the lung bases is compromised by motion artifact. There is no airspace consolidation or pleural effusion identified. Liver: The contrast-enhanced liver is normal in size, contour, and attenuation. There is no intrahepatic biliary ductal dilatation. The hepatic veins and portal veins are patent. Gallbladder: Unremarkable. Spleen: There is an approximately 3 cm perfusion defect seen in the superior pole of the spleen on axial image #59. This is also seen on the sagittal reformats and is suspicious for an age indeterminant splenic infarct. Pancreas: Unremarkable. Adrenal glands: Unremarkable. Kidneys: The contrast enhanced kidneys demonstrate cortical atrophy and are without hydronephrosis. The kidneys enhance symmetrically. Bilateral renal calculi are noted. Abdominal vasculature: There is advanced atherosclerotic calcification and ectasia of the abdominal aorta. Bowel: There is mild colonic diverticulosis without CT evidence of acute diverticulitis. No bowel obstruction is seen. Moderate fecal retention is noted throughout the colon. The appendix is well-visualized and normal. Peritoneum: There is no intraperitoneal free air or abdominal ascites. A fat-containing umbilical hernia is noted. Lymphadenopathy: None. Pelvic viscera: The prostate gland is enlarged and heterogeneous noting median lobe hypertrophy. The bladder wall is thickened and trabeculated indicating chronic outlet obstruction. The bladder is mildly distended. Tiny layering bladder calculi are suggested on image #345. There is a fat-containing left inguinal hernia. Skeletal structures: The skeletal structures are osteopenic. There is mild lumbosacral spondylosis. No lytic or blastic lesions are seen. IMPRESSION: 1. Motion compromised examination. 2. There is an approximately 3 cm perfusion defect in the upper pole of the spleen suspicious for an age indeterminant splenic infarct. Clinical correlation will be required. 3. Moderate constipation. 4. Bilateral nephrolithiasis. 5. Tiny bladder calculi are noted. 6. Additional findings as above. ACT 112: Negative or not required by law. Electronically signed by: Nickolas Madison M.D. 08/18/2021 4:03 PM Chest X-Ray 08/18/21 14:09 XR chest 1V portable CLINICAL HISTORY: abd pain TECHNIQUE: Single frontal radiograph of the chest was obtained. Comparison: Comparison is made to chest 2 views 11/17/2020 FINDINGS: No lines and tubes are seen. Calcified aortic knob is seen. The lungs are clear. No evidence of pleural effusion or pneumothorax. IMPRESSION: No acute chest disease. No evidence of pneumoperitoneum. ACT 112: Negative or not required by law. Electronically signed by: Joselito Ortiz M.D. 08/18/2021 2:54 PM Discharge Plan Visit Data Chief Complaint: Nose Bleed (Minor) Stated Complaint: NOSE BLEED ED Provider: Nickolas Pepper Patient Disposition: Admitted As Inpatient Condition: Fair Prescriptions Prescriptions: No Action diclofenac sodium 1 % gel 2 gm TOP QID Qty: 100 RF: 2 bupropion HCl 100 mg tablet sustained-release 12 hr 100 mg PO QAM Qty: 90 RF: 3 albuterol sulfate 90 mcg/actuation HFA aerosol inhaler 1 inh inhalation QID Qty: 8.5 RF: 2 cholecalciferol (vitamin D3) 25 mcg (1,000 unit) capsule 1,000 units PO QAM RF: 0 atorvastatin 80 mg tablet 80 mg PO HS RF: 0 clopidogrel 75 mg tablet 75 mg PO HS RF: 0 aspirin [Adult Aspirin Regimen] 81 mg tablet,delayed release (DR/EC) 81 mg PO QAM RF: 0 gabapentin 300 mg capsule 300 mg PO HS RF: 0
--- NOTE | 2021-08-18 14:55 | XRay Report ---
XR chest 1V portable CLINICAL HISTORY: abd pain TECHNIQUE: Single frontal radiograph of the chest was obtained. Comparison: Comparison is made to chest 2 views 11/17/2020 FINDINGS: No lines and tubes are seen. Calcified aortic knob is seen. The lungs are clear. No evidence of pleur al effusion or pneumothorax. IMPRESSION: No acute chest disease. No evidence of pneumoperitoneum. ACT 112: Negative or not required by law. Electronically signed by: Joselito Ortiz M.D. 08/18/2021 2:54 PM
[2021-08-18 14:57] LABS: Basophils # (auto) 0.03 K/uL (0-0.2); Basophils % (auto) 0.1 %; Eosinophils # (auto) 0.01 K/uL (0-0.5); Hematocrit (blood only) 35.2 % (42-52); Hemoglobin 11.3 g/dL (14.0-18.0); Immature Granulocytes # (auto) 0.13 K/uL (0.00-0.02); Immature Granulocytes % (auto) 0.6 %; Lymphocytes % (auto) 6.8 %; Mean Corpuscular Hemoglobin 31.2 pg (25-34); Mean Corpuscular Hgb Conc 32.1 g/dL (32-36); Mean Corpuscular Volume 97.2 fL (80-100); Mean Platelet Volume 10.3 fL (7.4-10.4); Monocytes # (auto) 1.13 K/uL (0.11-0.59); Monocytes % (auto) 5.5 %; Neutrophils # (auto) 17.76 K/uL (1.4-6.5); Platelet Count 362 K/uL (130-400); RDW Coefficient of Variation 13.6 % (11.5-14.5); RDW Standard Deviation 48.4 fL (36.4-46.3); Red Blood Count 3.62 M/uL (4.7-6.1); White Blood Count 20.46 K/uL (4.8-10.8)
[2021-08-18 15:09] LABS: INR 1.2 (0.9-1.1); Partial Thromboplastin Ratio 1.2; Partial Thromboplastin Time 30.7 Seconds (21.0-31.0); Prothrombin Time 11.6 Seconds (9.0-12.0)
[2021-08-18] MEDS ORDERED: CEFEPIME 2,000 MG/20 ML VIAL IV STA (15:13)
[2021-08-18] MEDS ORDERED: SODIUM CHLORIDE 0.9% 1000ML 500 ML IV ONE (15:13)
[2021-08-18 15:22] LABS: Alanine Aminotransferase 32 U/L (7-52); Albumin Globulin Ratio 1.4 (0.9-2); Albumin Level 3.9 gm/dl (3.4-5.0); Alkaline Phosphatase 109 U/L (34-104); Anion Gap 7 (3-11); Aspartate Aminotransferase 24 U/L (13-39); BUN Creatinine Ratio 43.4 (10-20); Bilirubin,Total 0.5 mg/dl (0.2-1.0); Blood Urea Nitrogen 49 mg/dl (6-23); Calcium 8.7 mg/dl (8.5-10.1); Carbon Dioxide 26 mmol/L (21-32); Chloride 106 mmol/L (98-107); Creatinine Clr Calc Pharmacy 49.1 ml/min; Est GFR (African American) 73.3 ml/min; Est GFR (Non-African American) 63.2 ml/min; Globulin 2.7 gm/dl (2.5-4.0); Glucose 132 mg/dl (70-99(Fasting)); Lipase 35 U/L (11-82); Potassium 5.3 mmol/L (3.5-5.1); Sodium 139 mmol/L (136-145); Total Protein 6.6 gm/dl (6.0-8.3)
[2021-08-18 15:23] LABS: Troponin I < 0.03 ng/ml (0-0.04)
[2021-08-18] MEDS ORDERED: OPTIRAY 320 100ml IV ONE (15:50)
--- NOTE | 2021-08-18 16:04 | CT Scan Report ---
CT SCAN OF THE ABDOMEN AND PELVIS WITH IV CONTRAST CLINICAL HISTORY: Generalized abdominal pain. Diarrhea. COMPARISON STUDY: No priors. TECHNIQUE: Following the IV administration of 94 cc of Optiray 320, CT scan of the abdomen and pelvi s is performed from the lung bases to the proximal femora. Images are reviewed in the axial, sagittal , and coronal planes. IV contrast was administered without complication. A dose lowering technique wa s utilized adhering to the principles of ALARA. The examination is compromised by motion artifact. CT DOSE: 381.91 mGy.cm FINDINGS: Lung bases: The heart is normal in size and without pericardial effusion. The coronary arteries are d ensely calcified. A tiny hiatal hernia is noted. Evaluation of the lung bases is compromised by motio n artifact. There is no airspace consolidation or pleural effusion identified. Liver: The contrast-enhanced liver is normal in size, contour, and attenuation. There is no intrahepa tic biliary ductal dilatation. The hepatic veins and portal veins are patent. Gallbladder: Unremarkable. Spleen: There is an approximately 3 cm perfusion defect seen in the superior pole of the spleen on ax ial image #59. This is also seen on the sagittal reformats and is suspicious for an age indeterminant splenic infarct. Pancreas: Unremarkable. Adrenal glands: Unremarkable. Kidneys: The contrast enhanced kidneys demonstrate cortical atrophy and are without hydronephrosis. T he kidneys enhance symmetrically. Bilateral renal calculi are noted. Abdominal vasculature: There is advanced atherosclerotic calcification and ectasia of the abdominal a hyacinth. Bowel: There is mild colonic diverticulosis without CT evidence of acute diverticulitis. No bowel obs truction is seen. Moderate fecal retention is noted throughout the colon. The appendix is well-visua lized and normal. Peritoneum: There is no intraperitoneal free air or abdominal ascites. A fat-containing umbilical her lesly is noted. Lymphadenopathy: None. Pelvic viscera: The prostate gland is enlarged and heterogeneous noting median lobe hypertrophy. The bladder wall is thickened and trabeculated indicating chronic outlet obstruction. The bladder is mild ly distended. Tiny layering bladder calculi are suggested on image #345. There is a fat-containing le ft inguinal hernia. Skeletal structures: The skeletal structures are osteopenic. There is mild lumbosacral spondylosis. N o lytic or blastic lesions are seen. IMPRESSION: 1. Motion compromised examination. 2. There is an approximately 3 cm perfusion defect in the upper pole of the spleen suspicious for an age indeterminant splenic infarct. Clinical correlation will be required. 3. Moderate constipation. 4. Bilateral nephrolithiasis. 5. Tiny bladder calculi are noted. 6. Additional findings as above. ACT 112: Negative or not required by law. Electronically signed by: Nickolas Madison M.D. 08/18/2021 4:03 PM
[2021-08-18 17:15] LABS: Appearance Urine Clear (Clear); Bacteria Urine Automated 1+ (Negative); Bilirubin Urine Negative (Negative); Blood Urine Negative (Negative); Color Urine Yellow; Glucose Urine UA Negative (Negative); Ketones Urine Trace (Negative); Leukocyte Esterase Urine Trace (Negative); Nitrite Urine Positive (Negative); Protein Urine Negative (Negative); RBC Urine Automated 0-4 /hpf (0-4); Specific Gravity Urine 1.021 (1.000-1.030); Urobilinogen Urine Negative (Negative)
--- NOTE | 2021-08-18 17:52 | History & Physical Report ---
Date of Service August 18, 2021 Assessment & Plan (1) Nasal bleeding: Plan: 75 yo male with PMHx of stroke and emphysema presented to ER for nose bleed and diarrhea. (1) Nose Bleed -left nostril since afternoon, stable, does not appear to be actively bleeding -Hgb: 11.3, baseline ~14 -INR 1.2 -Hold aspirin, Plavix. Will use SCD for DVT ppx. -Nose bleed protocol PRN -repeat CBC am (2) Watery Diarrhea -intermittent loose water stools since 2-3 weeks ago; tested positive for COVID around onset (now COVID negative) -likely ddx infection vs constipation -CT abd/pelvis: moderate constipation, mild colonic diverticulosis w/o evidence of diverticulitis -GI biofire ordered to r/o infection -miralax TID for overflow diarrhea -repeat BMP am (4) UTI, uncomplicated -WBC 20k -UA: trace leuk esterase + nitrites -CT abd/pelvis: enlarged prostate, bilateral nephrolithiasis, tiny bladder calculi, bladder wall thickened indicated chronic outlet obstruction; straight cath PRN -cefepime x1 given in ER -begin Rocephin tomorrow (5) Hyperkalemia, elevated BUN -likely secondary to swallowing blood -Cr 1.3 -repeat BMP am (6) Splenic infarct, age indeterminate -incidental finding on CT abd/pelvis -h/o of stroke; consider putting back on anti-platelet therapy once bleeding stable (7) H/o stroke w/ neuropathy -hold aspirin, plavix due to bleed. SCDs for DVT ppx. -cont. home gabapentin (8) Emphysema -cont. home albuterol DVT ppx: SCDs FEN/GI: Regular Code Status: DNR/DNI Dispo: med/surg History of Present Illness Chief Complaint: Nosebleed, Diarrhea Primary Care Provider: Job Bernabe DO 75 yo male with PMHx of stroke presented to ER for nose bleed and diarrhea. Daughter at bedside with patient. Patient is a poor historian so much of history obtained by daughter. Patient lives in an apartment by himself but his sisters rotate looking after him so he is never by himself. His nose bleed began through his left nostril, off and on since 3pm. Patient had been swallowing blood as well and had an episode of projectile vomiting. When walking over to the bathroom his nose continued to bleed and he had profuse diarrhea. His bleeds are worse when he sits up or stands up. They did try using cold ice packs at home for relief. He is currently on aspirin and plavix due to h/o stroke. Denies family history of bleeding disorders. His nose has never bled like this before. Drinks about 2 beers per week. At bedside, patient got up and sat on side of bed to pee and subsequently dripped blood through his left nostril. His diarrhea has been off and on for the last 2-3 weeks. Intermittent, not getting better or worse. Denies blood in stool, has been brown, loose and watery. He did test positive for COVID via home test around onset of diarrhea, otherwise reports no recent illness. Allergies Allergy/AdvReac Type Severity Reaction Status Date / Time No Known Allergies Allergy Verified 03/26/21 14:54 Home Medications Medication Instructions Recorded Confirmed Type diclofenac sodium 1 % topical gel 2 gm TOP QID #100 gm 04/03/19 08/18/21 Rx cholecalciferol (vitamin D3) 25 1,000 units PO QAM 09/13/19 08/18/21 History mcg (1,000 unit) capsule bupropion HCl 100 mg tablet,12 hr 100 mg PO QAM #90 ea 01/30/21 08/18/21 Rx sustained-release albuterol sulfate 90 mcg/actuation 1 inh INHALATION QID #8.5 g 02/13/21 08/18/21 Rx aerosol inhaler aspirin 81 mg tablet,delayed 81 mg PO QAM 08/18/21 08/18/21 History release (Adult Aspirin Regimen) atorvastatin 80 mg tablet 80 mg PO HS 08/18/21 08/18/21 History clopidogrel 75 mg tablet 75 mg PO HS 08/18/21 08/18/21 History gabapentin 300 mg capsule 300 mg PO HS 08/18/21 08/18/21 History 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 Diverticulosis Internal hemorrhoids Tubular adenoma of colon Surgical History H/O eye surgery Family History Other No significant family history Denies family history of Ovarian cancer Prostate cancer Breast cancer Lung cancer Colorectal cancer Social History Smoking Status: Current every day smoker Tobacco Type: Cigarettes and Cigars Age Started Using Tobacco: 14; Cigarettes Per Day: 10; Second Hand Exposure: Yes; Hx Alcohol Use: Yes Alcohol type: beer Alcohol Intake Frequency: Monthly or Less Hx Substance Use: No Preferred Language: Armenian Communication Ability: Effective Visual Impairment: Limited Hearing Ability: Hard of Hearing Graduate Rn Required: No Beliefs That Will Affect Care: None marital status: / Current Living Situation: Alone current occupational status: retired Feels Safe at Home: Yes Childhood Exposure to Second-Hand Smoke: Yes caffeine: No Dental Care, Regularly: No Physical Activity Frequency: Does not Exercise Seatbelt Use: always Sunscreen Use: No Assistive Devices: Wheelchair Review of Systems Review of Systems: Constitutional: +chronic fatigue, +chronic night sweats. denies fevers, chills, headache HEENT: denies difficulty swallowing CV: denies chest pain, palpitations Resp: +SOB with movements (chronic from emphysema), +cough (chronic from emphysema) GI: +abdominal pain when he has to poop. denies nausea : +urinary hesitancy. denies pain with urination, change in urinary frequency Musculoskeletal: denies recent injury Skin: denies new rash Neuro: denies new numbness, tingling, weakness Physical Exam Physical Exam: Constitutional: in no acute distress, pleasant, Vitals as below. HEENT: Glass left eye. Right eye PERRL. No scleral injection or discharge. Bright red blood in posterior oropharynx. No exudate. Dry blood in left nostril without obstruction. Tympanic membranes not visualized due to cerumen impaction. Neck: Supple without lymphadenopathy or thyromegaly. Trachea midline. Lungs: Wheezing heard in upper airways Cardiac: Regular rate and rhythm.No murmurs.No extremity edema. Abdomen: Bowel sounds present. Soft, nondistended, mild diffuse tenderness.No guarding. No hepatosplenomegaly. 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 Left leg stiff and weak as well. Right arm/leg: full ROM, good strength. Skin: No rashes, warm, dry. No ecchymoses or petechiae. Neurologic: Grossly intact cranial nerves. 2+ patellar reflex right leg. Not able to elicit reflex on left leg. Results & Data Results & Data ([place]) Vital Signs (Past 12 Hours) Vital Signs Temp Pulse Resp BP Pulse Ox 08/18/21 16:00 99 H 21 114/79 94 08/18/21 15:49 95 08/18/21 15:00 119 H 24 110/72 97 08/18/21 13:20 36.7 C 108 H 20 102/71 95 Supervising Physician Co-Signing Physician Notes Resident Physician Supervision Note: I interviewed and examined the patient. Discussed with Dr. Eliseo Ellis and agree with findings and plan as documented in the note. Any exceptions or clarifications are listed here PT is mildly confused, his epistaxis has stopped, mild right mid abdomen abdomen pain, no current diarrhea, seems comfortable Epistaxis on asa/plavix, mild acute blood loss anemia, hold asa/Plavix, nose bleed protocol, if not helpful use nasal packing leukocytosis with urinary symptoms, check ua, given cefepime, will use Rocephin, also with diarrhea check for infectious etiology stool load with diarrhea, will use laxative and follow Documented By: Trevin Estes MD Resident Activity Tracking Resident Involvement: Resident Care Provided Care Provided: Adult Hospital Medicine
--- NOTE | 2021-08-18 20:04 | Billing Data ---
Date of Service August 18, 2021 Coding Level of Care Code 58679 Subseq Hosp Care Lvl 2
[2021-08-18] MEDS ORDERED: MoRPHine SULFATE 2 MG/ML CARP IV PRN (21:57)
[2021-08-18] MEDS ORDERED: ONDANSETRON INJ 2 MG/ML 2 ML VIAL IV PRN (21:57)
[2021-08-18] MEDS ORDERED: ALUMINUM/MAGNESIUM SUSP 30 ML UDC PO PRN (21:57)
[2021-08-18] MEDS ORDERED: NITROGLYCERIN SL 0.4 MG/TAB TAB SL PRN (21:57)
[2021-08-18] MEDS ORDERED: OXYMETAZOLINE 0.05% 30 ML BTL PRN (21:57)
[2021-08-18] MEDS ORDERED: ACETAMINOPHEN 325 MG TAB PO PRN (21:57)
[2021-08-19] MEDS: POLYETHYLENE (MIRALAX) 17 GM PACK PO SCH ×4 (00:09→20:49)
[2021-08-19] MEDS: ATORVASTATIN 40 MG TAB PO SCH ×2 (00:09→20:48)
[2021-08-19] MEDS: GABAPENTIN 300 MG CAP PO SCH ×2 (00:09→20:48)
[2021-08-19] MEDS: ALBUTEROL HFA 8 GM INHALER INH SCH ×5 (00:26→19:40)
[2021-08-19 06:22] LABS: Albumin Globulin Ratio 1.5 (0.9-2); Bilirubin,Total 0.3 mg/dl (0.2-1.0); Calcium 7.5 mg/dl (8.5-10.1); Creatinine Clr Calc Pharmacy 54.7 ml/min; Est GFR (African American) 84.4 ml/min; Est GFR (Non-African American) 72.8 ml/min; Potassium 3.6 mmol/L (3.5-5.1)
[2021-08-19 07:39] LABS: Hemoglobin 7.6 g/dL (14.0-18.0); Mean Corpuscular Hemoglobin 32.1 pg (25-34); Mean Platelet Volume 10.2 fL (7.4-10.4); Platelet Count 264 K/uL (130-400); RDW Coefficient of Variation 13.7 % (11.5-14.5); RDW Standard Deviation 48.1 fL (36.4-46.3); Red Blood Count 2.37 M/uL (4.7-6.1); White Blood Count 11.21 K/uL (4.8-10.8)
[2021-08-19 08:07] LABS: Basophils # (auto) 0.01 K/uL (0-0.2); Basophils % (auto) 0.1 %; Eosinophils # (auto) 0.04 K/uL (0-0.5); Eosinophils % (auto) 0.4 %; Immature Granulocytes # (auto) 0.03 K/uL (0.00-0.02); Immature Granulocytes % (auto) 0.3 %; Lymphocytes # (auto) 3.65 K/uL (1.2-3.4); Lymphocytes % (auto) 32.6 %; Monocytes # (auto) 1.06 K/uL (0.11-0.59); Monocytes % (auto) 9.5 %; Neutrophils # (auto) 6.42 K/uL (1.4-6.5); Neutrophils % (auto) 57.1 %; RBC Morphology Unremarkable
[2021-08-19] MEDS ORDERED: SODIUM CHLORIDE 0.9% 250 ML IV PRN (08:11)
[2021-08-19] MEDS ORDERED: SODIUM CHLORIDE 0.9% 1000ML 500 ML IV ONE (08:24)
[2021-08-19] MEDS: cefTRIAXone SODIUM 1,000 MG in DEXTROSE 5% 50 ML IV SCH (08:43)
[2021-08-19] MEDS: buPROPion SR 100 MG TABCR PO SCH (08:43)
[2021-08-19] MEDS: PANTOprazole 40 MG in SYRINGE 0 ML IV SCH ×2 (09:26→20:49)
--- NOTE | 2021-08-19 15:50 | Electrocardiogram Report ---
Test Reason : Blood Pressure : / mmHG Vent. Rate : 102 BPM Atrial Rate : 102 BPM P-R Int : 202 ms QRS Dur : 072 ms QT Int : 328 ms P-R-T Axes : 073 074 089 degrees QTc Int : 427 ms Sinus tachycardia Abnormal ECG When compared with ECG of 20-JUL-2016 06:31, Vent. rate has increased BY 48 BPM Nonspecific T wave abnormality now evident in Anterior leads Confirmed by Josafat Zhou ([id number]) on 08/19/2021 3:50:26 PM Referred By: REFERRED SELF Confirmed By:Kenn Zhou
--- NOTE | 2021-08-19 19:02 | Hospitalist Progress Note ---
Date of Service August 19, 2021 Assessment & Plan (1) Nasal bleeding: Plan: 75 yo male with PMHx of stroke and emphysema presented to ER for nose bleed and diarrhea. Nose Bleed -No recurrence, hemoglobin decreased will transfuse 1 unit packed red blood cells -Holding aspirin, Plavix. SCD for DVT ppx. -Nose bleed protocol PRN Unsuspecting decrease in hemoglobin is from bleed Watery Diarrhea -intermittent loose water stools since 2-3 weeks ago; tested positive for COVID around onset (now COVID negative) -CT abd/pelvis: moderate constipation, mild colonic diverticulosis w/o evidence of diverticulitis -GI negative for infection -miralax TID for overflow diarrhea UTI, uncomplicated -WBC 20k -UA: trace leuk esterase + nitrites -CT abd/pelvis: enlarged prostate, bilateral nephrolithiasis, tiny bladder calculi, bladder wall thickened indicated chronic outlet obstruction; straight cath PRN Rocephin pinpoint growth re incubating Hyperkalemia, elevated BUN, potassium improved, BUN remains elevated -likely secondary to swallowing blood -Cr 1.3 -repeat BMP am Splenic infarct, age indeterminate -incidental finding on CT abd/pelvis -h/o of stroke; consider putting back on anti-platelet therapy once bleeding stable H/o stroke w/ neuropathy -hold aspirin, plavix due to bleed. SCDs for DVT ppx. -cont. home gabapentin Emphysema, stable -cont. home albuterol DVT ppx: SCDs Code Status: DNR/DNI Admission and Anticipated Discharge Date Admission Date: August 18, 2021 Subjective pt is doing well, no further bleeding, has declined rbc and will have transfusion, due to blood bank shortages was given A+ blood although is A-. otherwise no additional concern for bleeding or GI bleeding Review of Systems Review of Systems: Mild distress and fatigue no headache, has have a artificial eye no speech or swallowing issues no chest pain, pressure or palpitations no shortness of breath, cough or wheezes no abdominal pain, nausea or vomiting, diarrhea or constipation no dysuria, hematuria or frequency no focal joint pain or swelling no back pain, CVA tenderness or radicular pain no bruising, bleeding or rashes no focal signs of weakness or numbness or altered sensation no complaints of anxiety or depression.. Physical Exam Physical Exam: The patient appeared well Vital signs as documented. Lungs are clear to auscultation and appear unlabored Cardiac exam, Rhythm is regular.. No murmurs, rubs or gallops. Abdominal exam reveals normal bowel sounds, soft non tender, no masses Extremities are nonedematous and both pedal pulses are normal. Neurologic exam is alert and oriented, no focal loss of strength or sensation Skin is without bruises or rashes Psychologically is without concerns for anxiety or depression. Results & Data Results & Data ([facility]) Vital Signs (Past 12 Hours) Vital Signs Temp Pulse Pulse Resp BP BP Pulse Ox 08/19/21 18:05 97.9 F 60 18 98/66 L 95 08/19/21 16:20 98.2 F 58 L 18 101/60 98 08/19/21 16:06 98.6 F 58 L 106/58 L 97 08/19/21 15:50 98.2 F 54 L 18 96/58 L 95 08/19/21 15:28 59 L 18 95 08/19/21 15:20 98.6 F 58 L 18 106/52 L 99 08/19/21 14:50 97.9 F 60 18 99/57 L 99 08/19/21 14:35 98.2 F 59 L 18 103/58 L 08/19/21 14:18 98.1 F 60 18 103/58 L 96 08/19/21 11:06 97.7 F 57 L 18 93/53 L 95 08/19/21 11:01 70 18 90 08/19/21 07:36 77 18 95 08/19/21 07:00 98.4 F 77 18 92/58 L 92 PG Care Time/CCT Total # of Minutes Spent Total Time Spent with Patient: Total time spent is greater than 50% in coordination of care (as documented) at patient's floor/unit and/or counseling patient: Coding Level of Care Code 00756 Subseq Hosp Care Lvl 2 Diagnoses Nasal bleeding R04.0
[2021-08-20] MEDS: ALBUTEROL HFA 8 GM INHALER INH SCH ×3 (07:12→15:16)
[2021-08-20 07:46] VITALS: BP 111/52; TEMP 98.2
[2021-08-20 08:11] LABS: Hematocrit (blood only) 23.7 % (42-52); Hemoglobin 7.8 g/dL (14.0-18.0); Mean Corpuscular Hemoglobin 31.5 pg (25-34); Mean Corpuscular Hgb Conc 32.9 g/dL (32-36); Mean Corpuscular Volume 95.6 fL (80-100); Mean Platelet Volume 10.1 fL (7.4-10.4); Platelet Count 219 K/uL (130-400); RDW Coefficient of Variation 15.3 % (11.5-14.5); RDW Standard Deviation 53.1 fL (36.4-46.3); Red Blood Count 2.48 M/uL (4.7-6.1); White Blood Count 10.26 K/uL (4.8-10.8)
[2021-08-20] MEDS: cefTRIAXone SODIUM 1,000 MG in DEXTROSE 5% 50 ML IV SCH (08:45)
[2021-08-20] MEDS: buPROPion SR 100 MG TABCR PO SCH (08:46)
[2021-08-20] MEDS: PANTOprazole 40 MG in SYRINGE 0 ML IV SCH (08:46)
[2021-08-20] MEDS: POLYETHYLENE (MIRALAX) 17 GM PACK PO SCH (08:46)
[2021-08-20] MEDS ORDERED: guaiFENesin/DEXTROM SYRUP 200MG/20MG 10ML UDC PO PRN (08:59)
--- NOTE | 2021-08-20 10:40 | XRay Report ---
XR chest 2V PA/lateral HISTORY: 76 years-old Male r/o infiltrate follow-up study in a patient with possible pneumonia COMPARISON: Chest radiograph and CT abdomen and pelvis 08/18/2021, chest CT 02/03/2021 TECHNIQUE: Portable AP view of the chest FINDINGS: Calcified plaque of the thoracic aorta. The heart is normal in size. No pneumothorax or large pleural effusion. Linear airspace opacity of the lateral right midlung redemonstrated. Mild bilateral inters titial coarsening. Degenerative changes of the shoulders and spine. Limited lateral view secondary to upper extremity positioning. Lungs are hyperinflated with diaphragmatic flattening. IMPRESSION: Linear lateral right midlung airspace opacities have mildly progressed suggestive of atel ectasis versus pneumonia. ACT 112: Negative or not required by law. The above report was generated using voice recognition software. It may contain grammatical, syntax o r spelling errors. Electronically signed by: Danny Elizabeth M.D. 08/20/2021 10:39 AM
[2021-08-20 11:34] VITALS: PULSE 75
[2021-08-20 15:17] VITALS: O2SAT 97
--- NOTE | 2021-08-20 17:43 | Discharge Summary ---
Date of Service August 20, 2021 Admission HPI Per Admitting Provider 75 yo male with PMHx of stroke presented to ER for nose bleed and diarrhea. Daughter at bedside with patient. Patient is a poor historian so much of history obtained by daughter. Patient lives in an apartment by himself but his sisters rotate looking after him so he is never by himself. His nose bleed began through his left nostril, off and on since 3pm. Patient had been swallowing blood as well and had an episode of projectile vomiting. When walking over to the bathroom his nose continued to bleed and he had profuse diarrhea. His bleeds are worse when he sits up or stands up. They did try using cold ice packs at home for relief. He is currently on aspirin and plavix due to h/o stroke. Denies family history of bleeding disorders. His nose has never bled like this before. Drinks about 2 beers per week. At bedside, patient got up and sat on side of bed to pee and subsequently dripped blood through his left nostril. His diarrhea has been off and on for the last 2-3 weeks. Intermittent, not getting better or worse. Denies blood in stool, has been brown, loose and watery. He did test positive for COVID via home test around onset of diarrhea, otherwise reports no recent illness. Principal Diagnosis acute blood loss anemia, epistaxis bph with uti poa possible bronchitis Discharge Exam The patient appeared well Vital signs as documented. Lungs are rhonchi at the base the clear Cardiac exam, Rhythm is regular.. No murmurs, rubs or gallops. Abdominal exam reveals normal bowel sounds, soft non tender, no masses Extremities are nonedematous and both pedal pulses are normal. Neurologic exam is alert and oriented, no focal loss of strength or sensation Skin is without bruises or rashes Psychologically is without concerns for anxiety or depression. Discharge Data Allergies Allergy/AdvReac Type Severity Reaction Status Date / Time No Known Allergies Allergy Verified 03/26/21 14:54 Consultations 08/18/21 17:37 ED Decision to Admit Stat Ordered Studies 08/18/21 14:09 CT abd pelvis IV con only Stat Hospital Course (1) Nasal bleedin yo male with PMHx of stroke and emphysema presented to ER for nose bleed and diarrhea. Nose Bleed -No recurrence, hemoglobin decreased s/p transfuse 1 unit packed red blood cells -Holding aspirin, Plavix. start plavix in 5 days and aspirin 5 days later humidify room, use saline or lubricant to nares, use nasonex, Acute blood loss anemia, use multivitamin with iron and have recheck of blood work next week Watery Diarrhea, none since admission -CT abd/pelvis: moderate constipation, mild colonic diverticulosis w/o evidence of diverticulitis -GI negative for infection UTI, uncomplicated -WBC 20k -UA: trace leuk esterase + nitrites -CT abd/pelvis: enlarged prostate, bilateral nephrolithiasis, tiny bladder calculi, bladder wall thickened indicated chronic outlet obstruction; straight cath PRN Rocephin pinpoint growth re incubating.discharge on cefdinir Hyperkalemia, elevated BUN, potassium improved, BUN remains elevated -likely secondary to swallowing blood -Cr 1.3 -improvd Splenic infarct, age indeterminate -incidental finding on CT abd/pelvis -h/o of stroke; consider putting back on anti-platelet therapy once bleeding stable H/o stroke w/ neuropathy restart plavix first, then aspirin later -cont. home gabapentin Emphysema, stable -cont. home albuterol Code Status: DNR/DNI Total Time Total Time Spent Total Time Spent (In Minutes): It required greater than 30 minutes to prepare this patient for discharge Discharge Plan Discharge Items Patient Disposition: Home - Self-Care Reason For Visit: NOSE BLEED, DIARRHEA Discharge Diagnosis: acute blood loss anemia epistaxis bronchitis Condition on Discharge: Fair Activity: Per Instructions section Non-emergency contact: Primary Care Provider Call non-emergency contact if: your symptoms worsen and you have a fever Follow-up/Referrals: Job Bernabe DO [Primary Care Provider] - 08/24/21 11:30 am Diet: Regular Addtl Attending Provider Instructions: please complete antibiotics, this will treat any urine or bronchitis issues For your lower blood count, please take a multiple vitamin with iron or a vitamin for a month or as long as Dr Bernabe recommends to you humidify your bedroom consider using a nasal saline spray or water based lubricant on a q tip for your nose we have started you on a medication to help reduce your prostate size, Discuss with Dr Bernabe about a referral to Urology if you are still having trouble after being on proscar for a while Pending Studies at Discharge: Yes (final urine culture) Stand-Alone Forms: My [facility], Smoking Cessation Medications and DC Order Prescriptions: New finasteride [Proscar] 5 mg tablet 5 mg PO DAILY Qty: 30 RF: 0 mometasone [Nasonex] 50 mcg/actuation spray,non-aerosol 2 spray intranasal DAILY Qty: 17 RF: 0 cefdinir 300 mg capsule 300 mg PO BID 5 Days Qty: 10 RF: 0 Continued diclofenac sodium 1 % gel 2 gm TOP QID Qty: 100 RF: 2 bupropion HCl 100 mg tablet sustained-release 12 hr 100 mg PO QAM Qty: 90 RF: 3 albuterol sulfate 90 mcg/actuation HFA aerosol inhaler 1 inh inhalation QID Qty: 8.5 RF: 2 cholecalciferol (vitamin D3) 25 mcg (1,000 unit) capsule 1,000 units PO QAM RF: 0 atorvastatin 80 mg tablet 80 mg PO HS RF: 0 clopidogrel 75 mg tablet 75 mg PO HS RF: 0 aspirin [Adult Aspirin Regimen] 81 mg tablet,delayed release (DR/EC) 81 mg PO QAM RF: 0 gabapentin 300 mg capsule 300 mg PO HS RF: 0 Discharge Orders: Discharge Order (Routine); Ordered 08/20/21 Ordered By: Trevin Estes Admission Data Admit Date/Time: 08/18/21 19:47 Attending Provider: Trevin Estes Admit Provider: Eliseo Ellis Primary Care Provider: Job Bernabe Other Providers: Trevin Estes Other Interventions: Discharge Summary Assessment (RN) Last Done: 08/20/21 12:13 Coding Level of Care Code D/C DAY MANAGEMENT >30 MINS Diagnoses Nasal bleeding R04.0
== END 2021-08-20 15:41 | disposition home or self-care (01) | DRG 151 ==
LOC: ED 13:19 → 2N 19:47

== ENCOUNTER 2022-02-25 18:06 | Inpatient (IN) ==
[2022-02-25] MEDS ORDERED: SODIUM CHLORIDE 0.9% 1000ML 1,000 ML IV ONE ×3 (18:33→22:31)
[2022-02-25] MEDS ORDERED: ACETAMINOPHEN 10MG/ML CUSTOM DOSING (PED, LOW WT) IV ONE (18:37)
[2022-02-25 18:43] LABS: Basophils # (auto) 0.04 K/uL (0-0.2); Basophils % (auto) 0.3 %; Eosinophils # (auto) 0.02 K/uL (0-0.50); Eosinophils % (auto) 0.2 %; Hematocrit (blood only) 37.3 % (40.1-51.0); Hemoglobin 12.3 g/dl (14.0-18.0); Immature Granulocytes # (auto) 0.07 K/uL (0.00-0.02); Immature Granulocytes % (auto) 0.6 %; Lymphocytes # (auto) 0.67 K/uL (1.2-3.4); Lymphocytes % (auto) 5.7 %; Mean Corpuscular Hemoglobin 32.3 pg (25.0-34.0); Mean Corpuscular Volume 97.9 fL (80.0-100.0); Mean Platelet Volume 10.4 fL (9.4-12.4); Monocytes # (auto) 1.07 K/uL (0.24-0.82); Neutrophils # (auto) 9.97 K/uL (1.4-6.5); Neutrophils % (auto) 84.2 %; Platelet Count 183 K/uL (130-400); RDW Coefficient of Variation 14.3 % (11.5-14.5); RDW Standard Deviation 51.7 fL (36.4-46.3); Red Blood Count 3.81 M/uL (4.63-6.08); White Blood Count 11.84 K/ul (4.8-10.8)
[2022-02-25] MEDS ORDERED: ACETAMINOPHEN 1000 MG/100 ML IV IV ONE (18:43)
--- NOTE | 2022-02-25 18:48 | Emergency Department Note ---
Impression & Plan COVID-19, Hypoxia, Fever, COPD (chronic obstructive pulmonary disease) ED Provider Note NAME: ONEIL LIVINGSTON AGE: 76 SEX: M : 1945 ARRIVES VIA: Ambulance INFORMANT: Patient, the patient's daughters ED PROVIDER(S): Grant Perdomo DO CHIEF COMPLAINT: Altered mental status HPI: The patient is a 76-year-old male who presented to the emergency department for an evaluation of altered mental status. The patient's daughters brought into the emergency department because they thought he was confused. He has a history of stroke in the past. He was trying to use his motorized scooter and kept running into a wall. He did not fall or strike his head. He denies having any headache. Upon arrival to the emergency department the patient was noted to have a fever. The family states has had a couple episodes of urinary incont inence today. He is also been complaining of some back pain. He had an episode of nausea. He denies having any chest pain. He does complain of a cough which has been nonproductive but his daughter states that his chest sounds full. There is been no lower extremity swelling. He has been compliant with his outpatient medications including to his daughter. ROS: See above HPI for pertinent positives & negatives. A total of 10 systems reviewed and were otherwise negative. PAST MEDICAL HISTORY: See Below PAST SURGICAL HISTORY: See Below FAMILY HISTORY: See Below SOCIAL HISTORY: See Below HOME MEDICATIONS: See Below ALLERGIES: See Below VITALS: See Below PHYSICAL EXAMINATION: GENERAL: The patient is awake and looking around the room. He appears to be somewhat listless. EYES: The conjunctivae are clear. The pupils are round and reactive. EARS, NOSE, MOUTH AND THROAT: The nose is without any evidence of any deformity. Mucous membranes are dry. NECK: The neck is nontender and supple. RESPIRATORY: Diminished breath sounds are noted throughout. Scattered rhonchi were noted in all lung murguia. CARDIOVASCULAR: Regular rate and rhythm noted there no murmurs rubs or gallops normal S1 normal S2. GASTROINTESTINAL: The abdomen was soft and nondistended. There is no specific guarding rigidity. MUSCULOSKELETAL/EXTREMITIES: There is no evidence of gross deformity full range of motion is noted in the hips and shoulders. SKIN: Skin is warm and dry. Pedal edema was noted bilaterally. NEUROLOGIC: Patient is awake and oriented to person and place. He does recognize his daughters. MEDICAL DECISION MAKING: The patient is a 76-year-old male who presented to the emergency department with family members for an evaluation of altered mental status. He has a history of stroke in the past and his family was concerned he may have a stroke. The patient was found of a fever upon arrival to the emergency department. Laboratory and radiographic studies were obtained. Chest x-ray was not consistent with pneumonia. Urinalysis did not appear to be consistent with urinary tract infection. There were nitrates in urine however there were not significant amounts of white cells. The patient was treated with IV fluids in the emergency department. He was having significant shortness of breath with any exertion and was placed on supplemental oxygen. I discussed the patient's laboratory and radiographic studies with his family members. Given his altered mental status and other findings I will [facility] Nursing notes reviewed. Prior medical records reviewed Vital Signs: reviewed and remarkable for hypoxia and hypotension. Differential diagnosis: Infection, hypoglycemia, electrolyte abnormalities, overdose, toxicologic, cardiac sources, intracerebral event, neurologic, trauma, as well as other pathologies. ER treatment provided: See below Diagnostics interpreted by me: ECG: EKG was obtained in the emergency department. My interpretation is normal sinus rhythm at 77 bpm. There is no ectopy. Nonspecific inferior ST segment abnormalities were noted. This was compared to a tracing from August 18, 2021. No changes were noted. Cardiac Monitoring: An order was placed for continuous cardiac monitoring. The monitor shows a rate of 63 bpm with sinus rhythm. Laboratory studies: As stated above and show below. Imaging studies: See below Consultation(s): I discussed this case with Dr. Alves who is [facility]. 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 Diverticulosis Internal hemorrhoids Tubular adenoma of colon Surgical History H/O eye surgery Family History Other No significant family history Denies family history of Ovarian cancer Prostate cancer Breast cancer Lung cancer Colorectal cancer Social History Smoking Status: Current every day smoker Tobacco Type: Cigarettes and Cigars Age Started Using Tobacco: 14; Cigarettes Per Day: 10; Second Hand Exposure: Yes; Hx Alcohol Use: Yes Alcohol type: beer Alcohol Intake Frequency: Monthly or Less Hx Substance Use: No Preferred Language: Romanian Communication Ability: Effective Visual Impairment: Limited Hearing Ability: Hard of Hearing Dress Fitter Required: No Beliefs That Will Affect Care: None marital status: / Current Living Situation: Alone current occupational status: retired Feels Safe at Home: Yes Childhood Exposure to Second-Hand Smoke: Yes caffeine: No Dental Care, Regularly: No Physical Activity Frequency: Does not Exercise Seatbelt Use: always Sunscreen Use: No Assistive Devices: Brace/Splint/Immobilizer and Walker Allergies Allergies Allergy/AdvReac Type Severity Reaction Status Date / Time No Known Allergies Allergy Verified 03/26/21 14:54 Home Meds Home Medications Medication Instructions Recorded Confirmed cholecalciferol (vitamin D3) 25 1,000 units PO QAM 09/13/19 08/21/21 mcg (1,000 unit) capsule aspirin 81 mg tablet,delayed 81 mg PO QAM 08/18/21 08/21/21 release (Adult Aspirin Regimen) gabapentin 300 mg capsule 300 mg PO HS 08/18/21 08/21/21 Previous Rx's Medication Instructions Recorded diclofenac sodium 1 % topical gel 2 gm topical QID #100 grams 04/03/19 finasteride 5 mg tablet (Proscar) 5 mg PO DAILY #30 tabs 08/20/21 mometasone 50 mcg/actuation nasal 2 spray intranasal DAILY #17 grams 08/20/21 spray (Nasonex) albuterol sulfate 90 mcg/actuation 1 inh inhalation QID #8.5 grams 10/14/21 aerosol inhaler atorvastatin 80 mg tablet See Rx Instructions .Route 01/26/22 .COMPLEX #90 tabs bupropion HCl 100 mg tablet,12 hr See Rx Instructions .Route 01/26/22 sustained-release .COMPLEX #90 tabs Shower Chair #1 ea 01/27/22 clopidogrel 75 mg tablet 75 mg PO HS #90 tabs 02/01/22 Results & Data (ED) Vital Signs Vital Signs - 24 hr 02/25/22 18:19 02/25/22 18:49 02/25/22 18:57 Temperature 39.5 C H Temperature Source Oral Pulse Rate 88 76 Pulse Rate [Right Finger] Pulse Rhythm [Right Finger] Pulse Strength [Right Finger] Respiratory Rate 28 H 27 H Respiratory Effort / Characteristics Respiratory Depth Respiratory Pattern Blood Pressure 109/83 Blood Pressure [Left Arm] Blood Pressure Mean 91 Blood Pressure Mean [Left Arm] Blood Pressure Position [Left Arm] Pulse Oximetry 93 96 Oxygen Delivery Method Room Air Room Air Oxygen Flow Rate Sepsis Recent Fever Within 48 Hours Yes Sepsis New/Unexplained Change in Mental Status Yes Sepsis Action Taken by Nursing No Action Required 02/25/22 19:00 02/25/22 19:15 02/25/22 19:15 Temperature Temperature Source Pulse Rate 75 80 Pulse Rate [Right Finger] Pulse Rhythm [Right Finger] Pulse Strength [Right Finger] Respiratory Rate 31 H 32 H Respiratory Effort / Characteristics Respiratory Depth Respiratory Pattern Blood Pressure 96/53 L Blood Pressure [Left Arm] Blood Pressure Mean 67 Blood Pressure Mean [Left Arm] Blood Pressure Position [Left Arm] Pulse Oximetry 95 95 Oxygen Delivery Method Oxygen Flow Rate Sepsis Recent Fever Within 48 Hours Sepsis New/Unexplained Change in Mental Status Sepsis Action Taken by Nursing 02/25/22 19:30 02/25/22 19:03 02/25/22 20:30 Temperature Temperature Source Pulse Rate 76 Pulse Rate [Right Finger] Pulse Rhythm [Right Finger] Pulse Strength [Right Finger] Respiratory Rate 16 18 Respiratory Effort / Characteristics Non-Labored Non-Labored Respiratory Depth Respiratory Pattern Blood Pressure Blood Pressure [Left Arm] Blood Pressure Mean Blood Pressure Mean [Left Arm] Blood Pressure Position [Left Arm] Pulse Oximetry 93 95 97 Oxygen Delivery Method Nasal Cannula Nasal Cannula Oxygen Flow Rate 4 3 Sepsis Recent Fever Within 48 Hours Sepsis New/Unexplained Change in Mental Status Sepsis Action Taken by Nursing 02/25/22 20:30 02/25/22 21:03 02/25/22 21:03 Temperature 37.1 C Temperature Source Oral Pulse Rate Pulse Rate [Right Finger] 75 75 Pulse Rhythm [Right Finger] Regular Regular Pulse Strength [Right Finger] Normal Normal Respiratory Rate 18 22 22 Respiratory Effort / Characteristics Non-Labored Spontaneous Non-Labored Spontaneous Non-Labored Respiratory Depth Normal Normal Respiratory Pattern Regular Regular Blood Pressure Blood Pressure [Left Arm] 104/54 L 99/57 L Blood Pressure Mean Blood Pressure Mean [Left Arm] 70 71 Blood Pressure Position [Left Arm] Lying Lying Pulse Oximetry 97 96 96 Oxygen Delivery Method Nasal Cannula Nasal Cannula Nasal Cannula Oxygen Flow Rate 3 3 3 Sepsis Recent Fever Within 48 Hours Sepsis New/Unexplained Change in Mental Status Sepsis Action Taken by Nursing 02/25/22 20:45 02/25/22 21:15 02/25/22 21:30 Temperature Temperature Source Pulse Rate Pulse Rate [Right Finger] 71 69 Pulse Rhythm [Right Finger] Regular Pulse Strength [Right Finger] Normal Respiratory Rate 21 25 H 16 Respiratory Effort / Characteristics Non-Labored Spontaneous Non-Labored Respiratory Depth Normal Respiratory Pattern Regular Blood Pressure Blood Pressure [Left Arm] 100/57 L 101/60 Blood Pressure Mean Blood Pressure Mean [Left Arm] 71 73 Blood Pressure Position [Left Arm] Lying Pulse Oximetry 97 97 96 Oxygen Delivery Method Nasal Cannula Nasal Cannula Nasal Cannula Oxygen Flow Rate 3 3 3 Sepsis Recent Fever Within 48 Hours Sepsis New/Unexplained Change in Mental Status Sepsis Action Taken by Nursing 02/25/22 21:30 02/25/22 22:00 02/25/22 22:00 Temperature Temperature Source Pulse Rate Pulse Rate [Right Finger] 66 67 Pulse Rhythm [Right Finger] Pulse Strength [Right Finger] Respiratory Rate 16 22 22 Respiratory Effort / Characteristics Non-Labored Respiratory Depth Normal Respiratory Pattern Blood Pressure Blood Pressure [Left Arm] 106/58 L 111/60 Blood Pressure Mean Blood Pressure Mean [Left Arm] 74 77 Blood Pressure Position [Left Arm] Pulse Oximetry 95 96 96 Oxygen Delivery Method Nasal Cannula Nasal Cannula Nasal Cannula Oxygen Flow Rate 3 3 3 Sepsis Recent Fever Within 48 Hours Sepsis New/Unexplained Change in Mental Status Sepsis Action Taken by Nursing 02/25/22 21:45 02/25/22 22:15 Temperature Temperature Source Pulse Rate Pulse Rate [Right Finger] 66 63 Pulse Rhythm [Right Finger] Pulse Strength [Right Finger] Respiratory Rate 23 21 Respiratory Effort / Characteristics Respiratory Depth Normal Respiratory Pattern Blood Pressure Blood Pressure [Left Arm] 105/58 L 101/55 L Blood Pressure Mean Blood Pressure Mean [Left Arm] 73 70 Blood Pressure Position [Left Arm] Lying Pulse Oximetry 96 97 Oxygen Delivery Method Nasal Cannula Nasal Cannula Oxygen Flow Rate 3 3 Sepsis Recent Fever Within 48 Hours Sepsis New/Unexplained Change in Mental Status Sepsis Action Taken by Skilled Nursing Medications Current Medication List: was personally reviewed by me Laboratory Data Attestation: I reviewed the patient's lab results. Result diagrams: 02/25/22 18:38 02/25/22 18:38 Lab Results 02/25/22 02/25/22 02/25/22 Range/Units 18:38 18:38 18:38 WBC 11.84 H (4.8-10.8) K/ul RBC 3.81 L (4.63-6.08) M/uL Hgb 12.3 L (14.0-18.0) g/dl Hct 37.3 L (40.1-51.0) % MCV 97.9 (80.0-100.0) fL MCH 32.3 (25.0-34.0) pg MCHC 33.0 (32.0-36.0) g/dL RDW Std Deviation 51.7 H (36.4-46.3) fL RDW Coeff of Kailey 14.3 (11.5-14.5) % Plt Count 183 (130-400) K/uL MPV 10.4 (9.4-12.4) fL Immature Gran % (Auto) 0.6 % Neut % (Auto) 84.2 % Lymph % (Auto) 5.7 % Valencia % (Auto) 9.0 % Eos % (Auto) 0.2 % Baso % (Auto) 0.3 % Neut # (Auto) 9.97 H (1.4-6.5) K/uL Lymph # (Auto) 0.67 L (1.2-3.4) K/uL Valencia # (Auto) 1.07 H (0.24-0.82) K/uL Eos # (Auto) 0.02 (0-0.50) K/uL Baso # (Auto) 0.04 (0-0.2) K/uL Immature Gran # (Auto) 0.07 H (0.00-0.02) K/uL ESR 8 (0-20) mm/hr PT (9.0-12.0) Seconds INR (0.9-1.1) APTT (21.0-31.0) Seconds PTT Ratio Sodium 136 (136-145) mmol/L Potassium 3.9 (3.5-5.1) mmol/L Chloride 105 (98-107) mmol/L Carbon Dioxide 24 (21-32) mmol/L Anion Gap 7 (3-11) BUN 21 (6-23) mg/dl Creatinine 1.05 (0.6-1.4) mg/dl Est Cr Clr Drug Dosing 57.4 ml/min Est GFR ( Amer) 79.5 ml/min Est GFR (Non-Af Amer) 68.6 ml/min BUN/Creatinine Ratio 20.0 (10-20) Glucose 113 H (70-99(Fasting)) mg/dl Lactate (0.4-2.0) mmol/L Calcium 8.3 L (8.5-10.1) mg/dl Magnesium 1.7 (1.7-2.4) mg/dl Total Bilirubin 0.4 (0.2-1.0) mg/dl AST 32 (13-39) U/L ALT 36 (7-52) U/L Alkaline Phosphatase 107 H (34-104) U/L Troponin I High Sens 8.7 (0-20) pg/ml C-Reactive Protein 0.93 H (0-0.5) mg/dl Total Protein 6.5 (6.0-8.3) gm/dl Albumin 4.0 (3.4-5.0) gm/dl Globulin 2.5 (2.5-4.0) gm/dl Albumin/Globulin Ratio 1.6 (0.9-2) Procalcitonin (0-0.5) ng/ml Urine Color Urine Appearance (Clear) Urine pH (4.5-7.5) Ur Specific Hort[place] (1.000-1.030) Urine Protein (Negative) Urine Glucose (UA) (Negative) Urine Ketones (Negative) Urine Blood (Negative) Urine Nitrite (Negative) Urine Bilirubin (Negative) Urine Urobilinogen (Negative) Ur Leukocyte Esterase (Negative) Urine WBC (Auto) (0-5) /hpf Urine RBC (Auto) (0-4) /hpf U Hyaline Cast (Auto) (0-5) /lpf U Epithel Cells (Auto) (0-5) /lpf Urine Bacteria (Auto) (Negative) Amorphous Sediment (None Prsent) Urine Yeast SARS-CoV-2 (PCR) (Negative) Influenza Type A (PCR) (Neg) Influenza Type B (PCR) (Neg) RSV (RT-PCR) (Neg) 02/25/22 02/25/22 02/25/22 Range/Units 18:38 18:55 18:55 WBC (4.8-10.8) K/ul RBC (4.63-6.08) M/uL Hgb (14.0-18.0) g/dl Hct (40.1-51.0) % MCV (80.0-100.0) fL MCH (25.0-34.0) pg MCHC (32.0-36.0) g/dL RDW Std Deviation (36.4-46.3) fL RDW Coeff of Kailey (11.5-14.5) % Plt Count (130-400) K/uL MPV (9.4-12.4) fL Immature Gran % (Auto) % Neut % (Auto) % Lymph % (Auto) % Valencia % (Auto) % Eos % (Auto) % Baso % (Auto) % Neut # (Auto) (1.4-6.5) K/uL Lymph # (Auto) (1.2-3.4) K/uL Valencia # (Auto) (0.24-0.82) K/uL Eos # (Auto) (0-0.50) K/uL Baso # (Auto) (0-0.2) K/uL Immature Gran # (Auto) (0.00-0.02) K/uL ESR (0-20) mm/hr PT 12.6 H (9.0-12.0) Seconds INR 1.2 H (0.9-1.1) APTT 28.0 (21.0-31.0) Seconds PTT Ratio 1.0 Sodium (136-145) mmol/L Potassium (3.5-5.1) mmol/L Chloride (98-107) mmol/L Carbon Dioxide (21-32) mmol/L Anion Gap (3-11) BUN (6-23) mg/dl Creatinine (0.6-1.4) mg/dl Est Cr Clr Drug Dosing ml/min Est GFR ( Amer) ml/min Est GFR (Non-Af Amer) ml/min BUN/Creatinine Ratio (10-20) Glucose (70-99(Fasting)) mg/dl Lactate 0.9 (0.4-2.0) mmol/L Calcium (8.5-10.1) mg/dl Magnesium (1.7-2.4) mg/dl Total Bilirubin (0.2-1.0) mg/dl AST (13-39) U/L ALT (7-52) U/L Alkaline Phosphatase (34-104) U/L Troponin I High Sens (0-20) pg/ml C-Reactive Protein (0-0.5) mg/dl Total Protein (6.0-8.3) gm/dl Albumin (3.4-5.0) gm/dl Globulin (2.5-4.0) gm/dl Albumin/Globulin Ratio (0.9-2) Procalcitonin 0.10 (0-0.5) ng/ml Urine Color Urine Appearance (Clear) Urine pH (4.5-7.5) Ur Specific [place] (1.000-1.030) Urine Protein (Negative) Urine Glucose (UA) (Negative) Urine Ketones (Negative) Urine Blood (Negative) Urine Nitrite (Negative) Urine Bilirubin (Negative) Urine Urobilinogen (Negative) Ur Leukocyte Esterase (Negative) Urine WBC (Auto) (0-5) /hpf Urine RBC (Auto) (0-4) /hpf U Hyaline Cast (Auto) (0-5) /lpf U Epithel Cells (Auto) (0-5) /lpf Urine Bacteria (Auto) (Negative) Amorphous Sediment (None Prsent) Urine Yeast SARS-CoV-2 (PCR) (Negative) Influenza Type A (PCR) (Neg) Influenza Type B (PCR) (Neg) RSV (RT-PCR) (Neg) 02/25/22 02/25/22 Range/Units 19:12 20:41 WBC (4.8-10.8) K/ul RBC (4.63-6.08) M/uL Hgb (14.0-18.0) g/dl Hct (40.1-51.0) % MCV (80.0-100.0) fL MCH (25.0-34.0) pg MCHC (32.0-36.0) g/dL RDW Std Deviation (36.4-46.3) fL RDW Coeff of Kailey (11.5-14.5) % Plt Count (130-400) K/uL MPV (9.4-12.4) fL Immature Gran % (Auto) % Neut % (Auto) % Lymph % (Auto) % Valencia % (Auto) % Eos % (Auto) % Baso % (Auto) % Neut # (Auto) (1.4-6.5) K/uL Lymph # (Auto) (1.2-3.4) K/uL Valencia # (Auto) (0.24-0.82) K/uL Eos # (Auto) (0-0.50) K/uL Baso # (Auto) (0-0.2) K/uL Immature Gran # (Auto) (0.00-0.02) K/uL ESR (0-20) mm/hr PT (9.0-12.0) Seconds INR (0.9-1.1) APTT (21.0-31.0) Seconds PTT Ratio Sodium (136-145) mmol/L Potassium (3.5-5.1) mmol/L Chloride (98-107) mmol/L Carbon Dioxide (21-32) mmol/L Anion Gap (3-11) BUN (6-23) mg/dl Creatinine (0.6-1.4) mg/dl Est Cr Clr Drug Dosing ml/min Est GFR ( Amer) ml/min Est GFR (Non-Af Amer) ml/min BUN/Creatinine Ratio (10-20) Glucose (70-99(Fasting)) mg/dl Lactate (0.4-2.0) mmol/L Calcium (8.5-10.1) mg/dl Magnesium (1.7-2.4) mg/dl Total Bilirubin (0.2-1.0) mg/dl AST (13-39) U/L ALT (7-52) U/L Alkaline Phosphatase (34-104) U/L Troponin I High Sens (0-20) pg/ml C-Reactive Protein (0-0.5) mg/dl Total Protein (6.0-8.3) gm/dl Albumin (3.4-5.0) gm/dl Globulin (2.5-4.0) gm/dl Albumin/Globulin Ratio (0.9-2) Procalcitonin (0-0.5) ng/ml Urine Color Yellow Urine Appearance Clear (Clear) Urine pH 5.5 (4.5-7.5) Ur Specific [place] 1.021 (1.000-1.030) Urine Protein 1+ H (Negative) Urine Glucose (UA) Negative (Negative) Urine Ketones Trace H (Negative) Urine Blood 2+ H (Negative) Urine Nitrite Positive A (Negative) Urine Bilirubin Negative (Negative) Urine Urobilinogen Negative (Negative) Ur Leukocyte Esterase Negative (Negative) Urine WBC (Auto) 1-5 (0-5) /hpf Urine RBC (Auto) 0-4 (0-4) /hpf U Hyaline Cast (Auto) 0 (0-5) /lpf U Epithel Cells (Auto) 0-5 (0-5) /lpf Urine Bacteria (Auto) Negative (Negative) Amorphous Sediment Present A (None Prsent) Urine Yeast Not Reportable SARS-CoV-2 (PCR) POSITIVE A* (Negative) Influenza Type A (PCR) Negative (Neg) Influenza Type B (PCR) Negative (Neg) RSV (RT-PCR) Negative (Neg) Administered Medications Discontinued Medications Acetaminophen (Acetaminophen 10mg/Ml Pediatric Dosing) 1,000 mg IV ONCE ONE Stop: 02/25/22 18:38 Last Admin: 02/25/22 19:10 Dose: 1,000 mg Documented By: ILA Acetaminophen (Acetaminophen 1000 Mg/100 Ml Iv) Confirm Administered Dose 1,000 mg IV .STK-MED ONE Stop: 02/25/22 18:44 Last Admin: 02/25/22 19:11 Dose: Not Given Documented By: ILA Sodium Chloride (Nss 1000ml) 1,000 mls @ 999 mls/hr IV .Q1H1M ONE Stop: 02/25/22 19:33 Last Infusion: 02/25/22 21:34 Dose: 0 mls/hr Documented By: Admin: 02/25/22 19:10 Dose: 999 mls/hr Documented By: ILA Imaging Data Radiologist's Impression: Chest X-Ray 02/25/22 18:33 XR chest 1V portable HISTORY: SEPSIS COMPARISON: Chest 08/20/2021. FINDINGS: No pneumothorax. No pleural effusions. The cardiac silhouette is borderline enlarged. Mild interstitial thickening at the right lung base, unchanged. No new focal lung consolidations to suggest pneumonia. No evidence for pulmonary edema. Calcifications within the aortic knob. IMPRESSION: No acute process. ACT 112: Negative or not required by law. Electronically signed by: Yrn Collazo M.D. 02/25/2022 7:[address] 02/25/22 18:[address] DOSE: 614.27 mGy.cm HISTORY: Altered mental status. Fever. Weakness. TECHNIQUE: Multiaxial CT images of the head were performed without the use of intravenous contrast. Automated exposure control was utilized for this study. A dose lowering technique was utilized adhering to the principles of ALARA. Comparison: Head CT 08/06/2019. Findings: The paranasal sinuses and mastoid air cells are clear. The calvarium and skull base are intact. There is no mass, hematoma, midline shift, acute infarct. White matter hypodensity is nonspecific but suggestive of microvascular ischemic change. The ventricles and sulci demonstrate mild age-related involutional changes. Old right basal ganglia and old right occipital lobe infarct remains unchanged. 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 Impression: No significant change compared to the prior study. No acute intracranial abnormality. Old infarcts again noted. ACT 112: Negative or not required by law. Electronically signed by: Yrn Collazo M.D. 02/25/2022 8:27 PM Abdomen/Pelvis CT 02/25/22 18:[address] WITHOUT CONTRAST CT DOSE: 310.37 mGy.cm HISTORY: Weakness. Altered mental status. fever TECHNIQUE: Multiaxial CT images of the abdomen and pelvis were performed without contrast. A dose lowering technique was utilized adhering to the principles of ALARA. COMPARISON STUDY: Abdomen and pelvis CT 08/18/2021. FINDINGS: Right basilar linear densities consistent with subsegmental atelectasis. The left lung base is clear. No pneumoperitoneum. No pneumatosis. No fractures within the visualized osseous structures. Moderate coronary artery calcifications are noted. Mild motion artifact. Small fat-containing left inguinal hernia. Mild bladder wall thickening. This is likely due to chronic outlet obstruction from the enlarged prostate gland. This remains unchanged. The unenhanced liver, spleen, adrenal glands, and pancreas are unremarkable. No retroperitoneal lymphadenopathy. Moderate calcified plaque within the mildly ec tatic abdominal aorta measuring up to 2.4 cm in diameter. Bilateral nephrolithiasis, unchanged. No ureteral stones. No hydronephrosis. No pelvic lymphadenopathy. Suboptimal evaluation for bowel pathology due to the lack of intravenous and oral contrast. However, there is no definite bowel wall thick ening or obstruction. Colonic diverticulosis. No evidence for acute diverticulitis. Moderate well-formed stool within the colon. Normal appendix. There is a punctate stone within the bladder. IMPRESSION: 1. No definite bowel wall thickening or obstruction. 2. Colonic diverticulosis. No evidence for acute diverticulitis. 3. Normal appendix. 4. Moderate well-formed stool within the colon. 5. Bilateral nephrolithiasis. No ureteral stones. No hydronephrosis. 6. Mild bladder wall thickening, unchanged. This is likely due to chronic outlet obstruction from the prostate gland. 7. Bladder calculus. ACT 112: Negative or not required by law. Electronically signed by: Yrn Collazo M.D. 02/25/2022 8:18 PM Discharge Plan Visit Data Chief Complaint: Illness Stated Complaint: UTI? hx of stroke symptoms ED Provider: Grant Perdomo Discharge Problem: COVID-19, Hypoxia, Fever, COPD (chronic obstructive pulmonary disease) Forms Stand Alone Forms: My [facility] [employer] Prescriptions Prescriptions: No Action diclofenac sodium 1 % gel 2 gm TOP QID Qty: 100 2RF Rx Instructions: apply to single elbow, wrist or hand; for hand includes palm/fingers/back of hand albuterol sulfate 90 mcg/actuation HFA aerosol inhaler 1 inh inhalation QID Qty: 8.5 2RF bupropion HCl 100 mg tablet sustained-release 12 hr See Rx Instructions .ROUTE .COMPLEX Qty: 90 0RF Dose Instruction: TAKE 1 TABLET BY MOUTH IN THE MORNING Rx Instructions: TAKE 1 TABLET BY MOUTH IN THE MORNING atorvastatin 80 mg tablet See Rx Instructions .ROUTE .COMPLEX Qty: 90 0RF Dose Instruction: Take 1 tablet by mouth once daily Rx Instructions: Take 1 tablet by mouth once daily (DME) Shower Chair [facility] [place] See Rx Instructions .Route Qty: 1 0RF Rx Instructions: SHOWER TRANSFER BENCH DX: G81.94, I69.30, Z74.09 LENGTH OF NEED: 99 MONTHS clopidogrel 75 mg tablet 75 mg PO HS Qty: 90 3RF cholecalciferol (vitamin D3) 25 mcg (1,000 unit) capsule 1,000 units PO QAM aspirin [Adult Aspirin Regimen] 81 mg tablet,delayed release (DR/EC) 81 mg PO QAM gabapentin 300 mg capsule 300 mg PO HS finasteride [Proscar] 5 mg tablet 5 mg PO DAILY Qty: 30 0RF mometasone [Nasonex] 50 mcg/actuation spray,non-aerosol 2 spray intranasal DAILY Qty: 17 0RF Rx Instructions: administer into each nostril Referrals Referrals: Job Bernabe DO [Primary Care Provider] -
[2022-02-25 19:17] LABS: Troponin I High Sensitivity 8.7 pg/ml (0-20)
[2022-02-25 19:29] LABS: INR 1.2 (0.9-1.1); Prothrombin Time 12.6 Seconds (9.0-12.0)
[2022-02-25 19:36] LABS: Albumin Globulin Ratio 1.6 (0.9-2); Bilirubin,Total 0.4 mg/dl (0.2-1.0); C Reactive Protein 0.93 mg/dl (0-0.5); Calcium 8.3 mg/dl (8.5-10.1); Creatinine Clr Calc Pharmacy 57.4 ml/min; Est GFR (African American) 79.5 ml/min; Est GFR (Non-African American) 68.6 ml/min; Globulin 2.5 gm/dl (2.5-4.0); Magnesium 1.7 mg/dl (1.7-2.4); Total Protein 6.5 gm/dl (6.0-8.3)
--- NOTE | 2022-02-25 19:37 | XRay Report ---
XR chest 1V portable HISTORY: SEPSIS COMPARISON: Chest 08/20/2021. FINDINGS: No pneumothorax. No pleural effusions. The cardiac silhouette is borderline enlarged. Mild interstitial thickening at the right lung base, unchanged. No new focal lung consolidations to sugges t pneumonia. No evidence for pulmonary edema. Calcifications within the aortic knob. IMPRESSION: No acute process. ACT 112: Negative or not required by law. Electronically signed by: Yrn Collazo M.D. 02/25/2022 7:35 PM
[2022-02-25 19:51] LABS: Potassium 3.9 mmol/L (3.5-5.1)
[2022-02-25 20:10] LABS: Influenza A virus by PCR Negative (Neg); Influenza B virus by PCR Negative (Neg); RSV by PCR Negative (Neg)
--- NOTE | 2022-02-25 20:20 | CT Scan Report ---
ABDOMEN AND PELVIS CT WITHOUT CONTRAST CT DOSE: 310.37 mGy.cm HISTORY: Weakness. Altered mental status. fever TECHNIQUE: Multiaxial CT images of the abdomen and pelvis were performed without contrast. A dose lo wering technique was utilized adhering to the principles of ALARA. COMPARISON STUDY: Abdomen and pelvis CT 08/18/2021. FINDINGS: Right basilar linear densities consistent with subsegmental atelectasis. The left lung base is clear. No pneumoperitoneum. No pneumatosis. No fractures within the visualized osseous structures . Moderate coronary artery calcifications are noted. Mild motion artifact. Small fat-containing left inguinal hernia. Mild bladder wall thickening. This is likely due to chronic outlet obstruction from the enlarged prostate gland. This remains unchanged. The unenhanced liver, spleen, adrenal glands, an d pancreas are unremarkable. No retroperitoneal lymphadenopathy. Moderate calcified plaque within the mildly ectatic abdominal aorta measuring up to 2.4 cm in diameter. Bilateral nephrolithiasis, unchan ged. No ureteral stones. No hydronephrosis. No pelvic lymphadenopathy. Suboptimal evaluation for kristian l pathology due to the lack of intravenous and oral contrast. However, there is no definite bowel wal l thickening or obstruction. Colonic diverticulosis. No evidence for acute diverticulitis. Moderate w ell-formed stool within the colon. Normal appendix. There is a punctate stone within the bladder. IMPRESSION: 1. No definite bowel wall thickening or obstruction. 2. Colonic diverticulosis. No evidence for acute diverticulitis. 3. Normal appendix. 4. Moderate well-formed stool within the colon. 5. Bilateral nephrolithiasis. No ureteral stones. No hydronephrosis. 6. Mild bladder wall thickening, unchanged. This is likely due to chronic outlet obstruction from the prostate gland. 7. Bladder calculus. ACT 112: Negative or not required by law. Electronically signed by: Yrn Collazo M.D. 02/25/2022 8:18 PM
--- NOTE | 2022-02-25 20:29 | CT Scan Report ---
HEAD CT NONCONTRAST CT DOSE: 614.27 mGy.cm HISTORY: Altered mental status. Fever. Weakness. TECHNIQUE: Multiaxial CT images of the head were performed without the use of intravenous contrast. A utomated exposure control was utilized for this study. A dose lowering technique was utilized adheri ng to the principles of ALARA. Comparison: Head CT 08/06/2019. Findings: The paranasal sinuses and mastoid air cells are clear. The calvarium and skull base are int act. There is no mass, hematoma, midline shift, acute infarct. White matter hypodensity is nonspecifi c but suggestive of microvascular ischemic change. The ventricles and sulci demonstrate mild age-rela manny involutional changes. Old right basal ganglia and old right occipital lobe infarct remains unchan ged. 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 Impression: No significant change compared to the prior study. No acute intracranial abnormality. Old infarcts ag ain noted. ACT 112: Negative or not required by law. Electronically signed by: Yrn Collazo M.D. 02/25/2022 8:27 PM
[2022-02-25 21:01] LABS: Appearance Urine Clear (Clear); Bacteria Urine Automated Negative (Negative); Bilirubin Urine Negative (Negative); Blood Urine 2+ (Negative); Cast Urine Automated 0 /lpf (0-5); Color Urine Yellow; Epithelial Cell Urine Auto 0-5 /lpf (0-5); Glucose Urine UA Negative (Negative); Ketones Urine Trace (Negative); Leukocyte Esterase Urine Negative (Negative); Nitrite Urine Positive (Negative); Protein Urine 1+ (Negative); RBC Urine Automated 0-4 /hpf (0-4); Specific Gravity Urine 1.021 (1.000-1.030); Urobilinogen Urine Negative (Negative); pH Urine 5.5 (4.5-7.5)
[2022-02-25 21:12] LABS: SARS CoV2 RNA(COVID-19) InHosp POSITIVE (Negative)
[2022-02-25 21:32] LABS: Amorphous Sediment Urine Present (None Prsent)
[2022-02-25] MEDS ORDERED: dexAMETHasone**PF** 10 MG/ML VIAL IV ONE (22:31)
[2022-02-25] MEDS ORDERED: cefTRIAXone SODIUM 2,000 MG/70 ML BAG IV STA (22:50)
--- NOTE | 2022-02-25 22:58 | History & Physical Report ---
Date of Service February 25, 2022 History of Present Illness Primary Care Provider: Job Bernabe DO Allergies Allergy/AdvReac Type Severity Reaction Status Date / Time No Known Allergies Allergy Verified 03/26/21 14:54 Home Medications Medication Instructions Recorded Confirmed Type diclofenac sodium 1 % topical gel 2 gm topical QID #100 grams 04/03/19 08/21/21 Rx cholecalciferol (vitamin D3) 25 1,000 units PO QAM 09/13/19 08/21/21 History mcg (1,000 unit) capsule aspirin 81 mg tablet,delayed 81 mg PO QAM 08/18/21 08/21/21 History release (Adult Aspirin Regimen) gabapentin 300 mg capsule 300 mg PO HS 08/18/21 08/21/21 History finasteride 5 mg tablet (Proscar) 5 mg PO DAILY #30 tabs 08/20/21 08/21/21 Rx mometasone 50 mcg/actuation nasal 2 spray intranasal DAILY #17 grams 08/20/21 08/21/21 Rx spray (Nasonex) albuterol sulfate 90 mcg/actuation 1 inh inhalation QID #8.5 grams 10/14/21 Rx aerosol inhaler atorvastatin 80 mg tablet See Rx Instructions .Route 01/26/22 Rx .COMPLEX #90 tabs bupropion HCl 100 mg tablet,12 hr See Rx Instructions .Route 01/26/22 Rx sustained-release .COMPLEX #90 tabs Shower Chair #1 ea 01/27/22 Rx clopidogrel 75 mg tablet 75 mg PO HS #90 tabs 02/01/22 Rx 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 Diverticulosis Internal hemorrhoids Tubular adenoma of colon Surgical History H/O eye surgery Family History Other No significant family history Denies family history of Ovarian cancer Prostate cancer Breast cancer Lung cancer Colorectal cancer Social History Smoking Status: Current every day smoker Tobacco Type: Cigarettes and Cigars Age Started Using Tobacco: 14; Cigarettes Per Day: 10; Second Hand Exposure: Yes; Hx Alcohol Use: Yes Alcohol type: beer Alcohol Intake Frequency: Monthly or Less Hx Substance Use: No Preferred Language: Nepali Communication Ability: Effective Visual Impairment: Limited Hearing Ability: Hard of Hearing Tester Food Products Required: No Beliefs That Will Affect Care: None marital status: / Current Living Situation: Alone current occupational status: retired Feels Safe at Home: Yes Childhood Exposure to Second-Hand Smoke: Yes caffeine: No Dental Care, Regularly: No Physical Activity Frequency: Does not Exercise Seatbelt Use: always Sunscreen Use: No Assistive Devices: Brace/Splint/Immobilizer and Walker Results & Data Results & Data ([facility]) Vital Signs (Past 12 Hours) Vital Signs Temp Pulse Pulse Resp BP BP Pulse Ox 02/25/22 22:30 66 18 101/59 L 97 02/25/22 22:15 63 21 101/55 L 97 02/25/22 21:45 66 23 105/58 L 96 02/25/22 22:00 67 22 111/60 96 02/25/22 22:00 22 96 02/25/22 21:30 66 16 106/58 L 95 02/25/22 21:30 16 96 02/25/22 21:15 69 25 H 101/60 97 02/25/22 20:45 71 21 100/57 L 97 02/25/22 21:03 22 96 02/25/22 21:03 75 22 99/57 L 96 02/25/22 20:30 37.1 C 75 18 104/54 L 97 02/25/22 20:30 18 97 02/25/22 19:03 95 02/25/22 19:30 76 16 93 02/25/22 19:15 80 32 H 95 02/25/22 19:15 96/53 L 02/25/22 19:00 75 31 H 95 02/25/22 18:57 76 27 H 96 02/25/22 18:49 02/25/22 18:19 39.5 C H 88 28 H 109/83 93 O2 Del Method O2 Flow Rate 02/25/22 22:30 Nasal Cannula 3 02/25/22 22:15 Nasal Cannula 3 02/25/22 21:45 Nasal Cannula 3 02/25/22 22:00 Nasal Cannula 3 02/25/22 22:00 Nasal Cannula 3 02/25/22 21:30 Nasal Cannula 3 02/25/22 21:30 Nasal Cannula 3 02/25/22 21:15 Nasal Cannula 3 02/25/22 20:45 Nasal Cannula 3 02/25/22 21:03 Nasal Cannula 3 02/25/22 21:03 Nasal Cannula 3 02/25/22 20:30 Nasal Cannula 3 02/25/22 20:30 Nasal Cannula 3 02/25/22 19:03 Nasal Cannula 4 02/25/22 19:30 02/25/22 19:15 02/25/22 19:15 02/25/22 19:00 02/25/22 18:57 02/25/22 18:49 Room Air 02/25/22 18:19 Room Air
--- NOTE | 2022-02-25 23:43 | History & Physical Report ---
Date of Service February 25, 2022 Assessment & Plan (1) Confusion and disorientation: Plan: Multifactorial Contributing factors: COPD exacerbation, COVID-19 infection, BPH with LUTS and probable prostatitis, left great toe mild cellulitis, dehydration Given NSS 3 L with improvement in mentation (2) COPD exacerbation: Plan: Dexamethasone 6 mg IV Ceftriaxone 1 g IV daily Azithromycin 500 mg IV daily Guaifenesin extended release 12 mg p.o. twice daily Albuterol HFA 1 puff 4 times daily (3) COVID-19: Plan: Dexamethasone 10 mg IV given in ED Dexamethasone 6 mg IV every morning Continue vitamin D (4) Hypoxia: Plan: Hypoxia, with pulse ox 92% on room air Clinically appears to be more COPD exacerbation than COVID-19 infection, as both chest x-ray and CT abdomen pelvis shows clear lungs Oxygen nasal cannula titrate to keep pulse ox 92-94% (5) Left hemiplegia: Plan: Chronic issue since previous CVA He did run over his toe with his scooter, and was having difficulty riding a scooter earlier today Antibiotics as noted above to cover potential cellulitis (6) BPH w urinary obs/LUTS: Plan: Follow urinalysis, urine culture sensitivity Antibiotics to treat potential prostatitis as noted above (7) Depression: Plan: Continue bupropion and gabapentin (8) Hyperlipidemia: Plan: Continue atorvastatin 80 mg daily History of Present Illness Chief Complaint: The patient presents to the emergency department due to his daughter's concerns regarding confusion, with history of CVA, and patient will try and use his motorized scooter and Running into a wall. Primary Care Provider: Job Bernabe DO The patient is a 76-year-old male with a past medical history including COPD, left hemiplegia, impaired fasting glucose, urinary urge incontinence, depression, hyperlipidemia, nicotine dependence, right internal carotid artery occlusion and stroke with residual deficits. Upon arrival to the emergency department, he was noted to have a temperature. Work-up included the following abnormal findings: COVID-19 test positivity, hypoxia with pulse ox to 92% on room air, productive cough, urinary frequency, and injury to left big toe when he ran over it with the scooter. From the ED he was given the following treatment: Normal saline 3 L, dexamethasone 10 mg IV, and Tylenol 1 g IV. Of note, he does have chronic lower extremity/ankle swelling that family associates with him wearing a brace to walk with. Allergies Allergy/AdvReac Type Severity Reaction Status Date / Time No Known Allergies Allergy Verified 02/25/22 23:16 Home Medications Medication Instructions Recorded Confirmed Type diclofenac sodium 1 % topical gel 2 gm topical QID #100 grams 04/03/19 02/25/22 Rx cholecalciferol (vitamin D3) 25 1,000 units PO QAM 09/13/19 02/25/22 History mcg (1,000 unit) capsule aspirin 81 mg tablet,delayed 81 mg PO QAM 08/18/21 02/25/22 History release (Adult Aspirin Regimen) gabapentin 300 mg capsule 300 mg PO HS 08/18/21 02/25/22 History albuterol sulfate 90 mcg/actuation 1 inh inhalation QID #8.5 grams 10/14/21 02/25/22 Rx aerosol inhaler atorvastatin 80 mg tablet See Rx Instructions .Route 01/26/22 02/25/22 Rx .COMPLEX #90 tabs bupropion HCl 100 mg tablet,12 hr See Rx Instructions .Route 01/26/22 02/25/22 Rx sustained-release .COMPLEX #90 tabs Shower Chair #1 ea 01/27/22 02/25/22 Rx clopidogrel 75 mg tablet 75 mg PO HS #90 tabs 02/01/22 02/25/22 Rx sodium chloride 0.65 % nasal spray 2 spray intranasal DAILY 02/25/22 02/25/22 History aerosol ([place]) Past Med/Surg History Medical History (Updated 02/26/22 @ 02:36 by Vineet Broussard MD) 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 Acute right MCA stroke BPH w urinary obs/LUTS Diverticulosis Internal hemorrhoids Tubular adenoma of colon Surgical History H/O eye surgery Family History Other No significant family history Denies family history of Ovarian cancer Prostate cancer Breast cancer Lung cancer Colorectal cancer Social History Smoking Status: Current every day smoker Tobacco Type: Cigarettes and Cigars Age Started Using Tobacco: 14; Cigarettes Per Day: 10; Second Hand Exposure: Yes; Hx Alcohol Use: No Hx Substance Use: No Preferred Language: Tajik Communication Ability: Impaired Visual Impairment: Limited Hearing Ability: Hard of Hearing Director Sales Required: No Beliefs That Will Affect Care: None marital status: / Current Living Situation: Alone Current Living Situation Comment: Lives alone. Daughters assist in evenings and aids come in during the day. current occupational status: retired Feels Safe at Home: Yes Safety Concerns: Feels Safe At This Time Childhood Exposure to Second-Hand Smoke: Yes caffeine: No Dental Care, Regularly: No Physical Activity Frequency: Does not Exercise Seatbelt Use: always Sunscreen Use: No Assistive Devices: Brace/Splint/Immobilizer and Walker Assistive Devices Comment: Left Glass Eye Review of Systems Review of Systems: The patient denies chest pain, palpitations, lower extremity swelling, sore throat, fevers, chills, sweats, nausea, vomiting, diarrhea , constipation, abdominal pain, pelvic pain, blood in urine or stool, dysuria, urinary frequency or urgency, lightheadedness, dizziness, headache, memory loss, loss of consciousness, rash, abnormal bruising or bleeding, focal or generalized weakness, numbness or tingling in right arm or leg, generalized arthralgias or myalgias, back or neck pain, or night sweats. The review of systems is otherwise negative other than for that already noted above, and at least 10 systems have been reviewed. Physical Exam Physical Exam: The patient is awake, alert and oriented 3, well developed and well nourished, normocephalic and atraumatic, lying in bed and in no acute distress. HEENT--PERRL, EOMI, mucous membranes and oropharynx dry. Neck--supple. No JVD. No bruits. Thyroid normal, trachea midline, no adenopathy. Heart--normal S1 and S2. No murmurs, rubs or gallops. Lungs--few coarse breath sounds with scattered wheezes bilaterally. No respiratory distress, no accessory muscle use. Abdomen--normal bowel sounds and soft. Nontender. Nondistended, no hernias or masses, no organomegaly. Extremities--1+ pedal edema on left only Dermatologic--normal skin turgor, normal color, no abnormal lymph nodes, no rash. Neurologic--cranial nerves II through XII grossly intact. Left hemiplegia Rheumatologic--left hemiplegia Psychiatric--normal affect. Results & Data Results & Data ([facility]) Vital Signs (Past 12 Hours) Vital Signs Temp Pulse Pulse Resp BP BP Pulse Ox 02/25/22 23:30 71 27 H 94 02/25/22 23:30 124/71 02/25/22 23:15 62 22 92 02/25/22 23:15 106/59 L 02/25/22 23:00 63 22 94 02/25/22 23:00 103/60 02/25/22 22:45 63 24 97 02/25/22 22:45 98/56 L 02/25/22 23:18 92 02/25/22 22:30 66 18 101/59 L 97 02/25/22 22:15 63 21 101/55 L 97 02/25/22 21:45 66 23 105/58 L 96 02/25/22 22:00 67 22 111/60 96 02/25/22 22:00 22 96 02/25/22 21:30 66 16 106/58 L 95 02/25/22 21:30 16 96 02/25/22 21:15 69 25 H 101/60 97 02/25/22 20:45 71 21 100/57 L 97 02/25/22 21:03 22 96 02/25/22 21:03 75 22 99/57 L 96 02/25/22 20:30 37.1 C 75 18 104/54 L 97 02/25/22 20:30 18 97 02/25/22 19:03 95 02/25/22 19:30 76 16 93 02/25/22 19:15 80 32 H 95 02/25/22 19:15 96/53 L 02/25/22 19:00 75 31 H 95 02/25/22 18:57 76 27 H 96 02/25/22 18:49 02/25/22 18:19 39.5 C H 88 28 H 109/83 93 O2 Del Method O2 Flow Rate 02/25/22 23:30 02/25/22 23:30 02/25/22 23:15 02/25/22 23:15 02/25/22 23:00 02/25/22 23:00 02/25/22 22:45 02/25/22 22:45 02/25/22 23:18 Room Air 02/25/22 22:30 Nasal Cannula 3 02/25/22 22:15 Nasal Cannula 3 02/25/22 21:45 Nasal Cannula 3 02/25/22 22:00 Nasal Cannula 3 02/25/22 22:00 Nasal Cannula 3 02/25/22 21:30 Nasal Cannula 3 02/25/22 21:30 Nasal Cannula 3 02/25/22 21:15 Nasal Cannula 3 02/25/22 20:45 Nasal Cannula 3 02/25/22 21:03 Nasal Cannula 3 02/25/22 21:03 Nasal Cannula 3 02/25/22 20:30 Nasal Cannula 3 02/25/22 20:30 Nasal Cannula 3 02/25/22 19:03 Nasal Cannula 4 02/25/22 19:30 02/25/22 19:15 02/25/22 19:15 02/25/22 19:00 02/25/22 18:57 02/25/22 18:49 Room Air 02/25/22 18:19 Room Air Laboratory Results Laboratory Results WBC 11.84 K/ul (4.8-10.8) H 02/25/22 18:38 RBC 3.81 M/uL (4.63-6.08) L 02/25/22 18:38 Hgb 12.3 g/dl (14.0-18.0) L 02/25/22 18:38 Hct 37.3 % (40.1-51.0) L 02/25/22 18:38 MCV 97.9 fL (80.0-100.0) 02/25/22 18:38 MCH 32.3 pg (25.0-34.0) 02/25/22 18:38 MCHC 33.0 g/dL (32.0-36.0) 02/25/22 18:38 RDW Std Deviation 51.7 fL (36.4-46.3) H 02/25/22 18:38 RDW Coeff of Kailey 14.3 % (11.5-14.5) 02/25/22 18:38 Plt Count 183 K/uL (130-400) 02/25/22 18:38 MPV 10.4 fL (9.4-12.4) 02/25/22 18:38 Immature Gran % (Auto) 0.6 % 02/25/22 18:38 Neut % (Auto) 84.2 % 02/25/22 18:38 Lymph % (Auto) 5.7 % 02/25/22 18:38 Bee % (Auto) 9.0 % 02/25/22 18:38 Eos % (Auto) 0.2 % 02/25/22 18:38 Baso % (Auto) 0.3 % 02/25/22 18:38 Neut # (Auto) 9.97 K/uL (1.4-6.5) H 02/25/22 18:38 Lymph # (Auto) 0.67 K/uL (1.2-3.4) L 02/25/22 18:38 Bee # (Auto) 1.07 K/uL (0.24-0.82) H 02/25/22 18:38 Eos # (Auto) 0.02 K/uL (0-0.50) 02/25/22 18:38 Baso # (Auto) 0.04 K/uL (0-0.2) 02/25/22 18:38 Immature Gran # (Auto) 0.07 K/uL (0.00-0.02) H 02/25/22 18:38 ESR 8 mm/hr (0-20) 02/25/22 18:38 PT 12.6 Seconds (9.0-12.0) H 02/25/22 18:55 INR 1.2 (0.9-1.1) H 02/25/22 18:55 APTT 28.0 Seconds (21.0-31.0) 02/25/22 18:55 PTT Ratio 1.0 02/25/22 18:55 Sodium 136 mmol/L (136-145) 02/25/22 18:38 Potassium 3.9 mmol/L (3.5-5.1) 02/25/22 18:38 Chloride 105 mmol/L (98-107) 02/25/22 18:38 Carbon Dioxide 24 mmol/L (21-32) 02/25/22 18:38 Anion Gap 7 (3-11) 02/25/22 18:38 BUN 21 mg/dl (6-23) 02/25/22 18:38 Creatinine 1.05 mg/dl (0.6-1.4) 02/25/22 18:38 Est Cr Clr Drug Dosing 57.4 ml/min 02/25/22 18:38 Est GFR ( Amer) 79.5 ml/min 02/25/22 18:38 Est GFR (Non-Af Amer) 68.6 ml/min 02/25/22 18:38 BUN/Creatinine Ratio 20.0 (10-20) 02/25/22 18:38 Glucose 113 mg/dl (70-99(Fasting)) H 02/25/22 18:38 Lactate 0.9 mmol/L (0.4-2.0) 02/25/22 18:55 Calcium 8.3 mg/dl (8.5-10.1) L 02/25/22 18:38 Magnesium 1.7 mg/dl (1.7-2.4) 02/25/22 18:38 Total Bilirubin 0.4 mg/dl (0.2-1.0) 02/25/22 18:38 AST 32 U/L (13-39) 02/25/22 18:38 ALT 36 U/L (7-52) 02/25/22 18:38 Alkaline Phosphatase 107 U/L (34-104) H 02/25/22 18:38 Troponin I High Sens 8.7 pg/ml (0-20) 02/25/22 18:38 C-Reactive Protein 0.93 mg/dl (0-0.5) H 02/25/22 18:38 Total Protein 6.5 gm/dl (6.0-8.3) 02/25/22 18:38 Albumin 4.0 gm/dl (3.4-5.0) 02/25/22 18:38 Globulin 2.5 gm/dl (2.5-4.0) 02/25/22 18:38 Albumin/Globulin Ratio 1.6 (0.9-2) 02/25/22 18:38 Procalcitonin 0.10 ng/ml (0-0.5) 02/25/22 18:38 Urine Color Yellow 02/25/22 20:41 Urine Appearance Clear (Clear) 02/25/22 20:41 Urine pH 5.5 (4.5-7.5) 02/25/22 20:41 Ur Specific [place] 1.021 (1.000-1.030) 02/25/22 20:41 Urine Protein 1+ (Negative) H 02/25/22 20:41 Urine Glucose (UA) Negative (Negative) 02/25/22 20:41 Urine Ketones Trace (Negative) H 02/25/22 20:41 Urine Blood 2+ (Negative) H 02/25/22 20:41 Urine Nitrite Positive (Negative) A 02/25/22 20:41 Urine Bilirubin Negative (Negative) 02/25/22 20:41 Urine Urobilinogen Negative (Negative) 02/25/22 20:41 Ur Leukocyte Esterase Negative (Negative) 02/25/22 20:41 Urine WBC (Auto) 1-5 /hpf (0-5) 02/25/22 20:41 Urine RBC (Auto) 0-4 /hpf (0-4) 02/25/22 20:41 U Hyaline Cast (Auto) 0 /lpf (0-5) 02/25/22 20:41 U Epithel Cells (Auto) 0-5 /lpf (0-5) 02/25/22 20:41 Urine Bacteria (Auto) Negative (Negative) 02/25/22 20:41 Amorphous Sediment Present (None Prsent) A 02/25/22 20:41 Urine Yeast Not Reportable 02/25/22 20:41 SARS-CoV-2 (PCR) POSITIVE (Negative) A* 02/25/22 19:12 Influenza Type A (PCR) Negative (Neg) 02/25/22 19:12 Influenza Type B (PCR) Negative (Neg) 02/25/22 19:12 RSV (RT-PCR) Negative (Neg) 02/25/22 19:12 Impressions Chest X-Ray 02/25/22 18:33 XR chest 1V portable HISTORY: SEPSIS COMPARISON: Chest 08/20/2021. FINDINGS: No pneumothorax. No pleural effusions. The cardiac silhouette is borderline enlarged. Mild interstitial thickening at the right lung base, unchanged. No new focal lung consolidations to suggest pneumonia. No evidence for pulmonary edema. Calcifications within the aortic knob. IMPRESSION: No acute process. ACT 112: Negative or not required by law. Electronically signed by: Yrn Collazo M.D. 02/25/2022 7:[address] 02/25/22 18:[address] DOSE: 614.27 mGy.cm HISTORY: Altered mental status. Fever. Weakness. TECHNIQUE: Multiaxial CT images of the head were performed without the use of intravenous contrast. Automated exposure control was utilized for this study. A dose lowering technique was utilized adhering to the principles of ALARA. Comparison: Head CT 08/06/2019. Findings: The paranasal sinuses and mastoid air cells are clear. The calvarium and skull base are intact. There is no mass, hematoma, midline shift, acute i nfarct. White matter hypodensity is nonspecific but suggestive of microvascular ischemic change. The ventricles and sulci demonstrate mild age-related involutional changes. Old right basal ganglia and old right occipital lobe infarct remains unchanged. 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 Impression: No significant change compared to the prior study. No acute intracranial abnormality. Old infarcts again noted. ACT 112: Negative or not required by law. Electronically signed by: Yrn Collazo M.D. 02/25/2022 8:27 PM Abdomen/Pelvis CT 02/25/22 18:[address] WITHOUT CONTRAST CT DOSE: 310.37 mGy.cm HISTORY: Weakness. Altered mental status. fever TECHNIQUE: Multiaxial CT images of the abdomen and pelvis were performed without contrast. A dose lowering technique was utilized adhering to the principles of ALARA. COMPARISON STUDY: Abdomen and pelvis CT 08/18/2021. FINDINGS: Right basilar linear densities consistent with subsegmental atelectasis. The left lung base is clear. No pneumoperitoneum. No pneumatosis. No fractures within the visualized osseous structures. Moderate coronary artery calcifications are noted. Mild motion artifact. Small fat-containing left inguinal hernia. Mild bladder wall thickening. This is likely due to chronic outlet obstruction from the enlarged prostate gland. This remains unchanged. The unenhanced liver, spleen, adrenal glands, and pancreas are unremarkable. No retroperitoneal lymphadenopathy. Moderate calcified plaque within the mildly ectatic abdominal aorta measuring up to 2.4 cm in diameter. Bilateral nephrolithiasis, unchanged. No ureteral stones. No hydronephrosis. No pelvic lymphadenopathy. Suboptimal evaluation for bowel pathology due to the lack of intravenous and oral contrast. However, there is no definite bowel wall thickening or obstruction. Colonic diverticulosis. No evidence for acute diverticulitis. Moderate well-formed stool within the colon. Normal appendix. There is a punctate stone within the bladder. IMPRESSION: 1. No definite bowel wall thickening or obstruction. 2. Colonic diverticulosis. No evidence for acute diverticulitis. 3. Normal appendix. 4. Moderate well-formed stool within the colon. 5. Bilateral nephrolithiasis. No ureteral stones. No hydronephrosis. 6. Mild bladder wall thickening, unchanged. This is likely due to chronic outlet obstruction from the prostate gland. 7. Bladder calculus. ACT 112: Negative or not required by law. Electronically signed by: Yrn Collazo M.D. 02/25/2022 8:18 PM Code Status & VTE Plan Code Status Full code VTE Prophylaxis Plan VTE Prophylaxis will be ordered: Yes PG Care Time/CCT Total # of Minutes Spent Total Time Spent with Patient: Total time spent is greater than 50% in coordination of care (as documented) at patient's floor/unit and/or counseling patient: Coding Level of Care Code 85667 Initial Inpt Care Lvl 3 Diagnoses Confusion and disorientation R41.0 COPD exacerbation J44.1 COVID-19 U07.1 Hypoxia R09.02 Left hemiplegia G81.94 BPH w urinary obs/LUTS N40.1; N13.8 Depression F32.9 Hyperlipidemia E78.5
[2022-02-26] MEDS ORDERED: ONDANSETRON INJ 2 MG/ML 2 ML VIAL IV PRN (00:41)
[2022-02-26] MEDS: AZITHROMYCIN 500 MG in DEXTROSE 5% 250 ML IV SCH (02:12)
[2022-02-26] MEDS ORDERED: ACETAMINOPHEN 325 MG TAB PO PRN (06:00)
[2022-02-26] MEDS: ALBUTEROL HFA 8 GM INHALER INH SCH ×5 (07:11→23:59)
[2022-02-26] MEDS: dexAMETHasone 6 MG in SYRINGE 0 ML IV SCH (09:27)
[2022-02-26] MEDS: ENOXAPARIN INJ 40 MG/0.4 ML SYR SQ SCH (09:27)
[2022-02-26] MEDS: buPROPion SR 100 MG TABCR PO SCH (09:29)
[2022-02-26] MEDS: ATORVASTATIN 40 MG TAB PO SCH (09:29)
[2022-02-26] MEDS: guaiFENesin 600 MG TABCR PO SCH ×2 (09:29→21:27)
[2022-02-26] MEDS: CHOLECALCIFEROL 1,000 UNITS 25 MCG TAB PO SCH (09:30)
[2022-02-26] MEDS: ASPIRIN 81 MG ECTAB PO SCH (09:30)
[2022-02-26] MEDS: cefTRIAXone SODIUM 1,000 MG in DEXTROSE 5% 50 ML IV SCH (09:56)
[2022-02-26] MEDS: SODIUM CHLORIDE 0.65% NA SOLN 45 ML (OCEAN) NAE SCH (09:56)
--- NOTE | 2022-02-26 15:16 | Electrocardiogram Report ---
Test Reason : Blood Pressure : / mmHG Vent. Rate : 077 BPM Atrial Rate : 077 BPM P-R Int : 188 ms QRS Dur : 082 ms QT Int : 360 ms P-R-T Axes : 017 051 089 degrees QTc Int : 407 ms Normal sinus rhythm When compared with ECG of 18-AUG-2021 15:54, No significant change was found Confirmed by Josafat Zhou ([id number]) on 02/26/2022 3:16:30 PM Referred By: REFERRED SELF Confirmed By:Kenn Zhou
--- NOTE | 2022-02-26 16:27 | Hospitalist Progress Note ---
Date of Service February 26, 2022 Assessment & Plan (1) Confusion and disorientation: Plan: Multifactorial Contributing factors: COPD exacerbation, COVID-19 infection, BPH with LUTS and probable prostatitis, UTI, left great toe mild cellulitis, dehydration Given NSS 3 L with improvement in mentation CT head did not show any acute pathology, only chronic infarct (2) COPD exacerbation: Plan: Dexamethasone 6 mg IV Ceftriaxone 1 g IV daily Azithromycin 500 mg IV daily Guaifenesin extended release 12 mg p.o. twice daily Albuterol HFA 1 puff 4 times daily (3) COVID-19: Plan: Dexamethasone 10 mg IV given in ED Dexamethasone 6 mg IV every morning Continue vitamin D (4) Hypoxia: Plan: Hypoxia, with pulse ox 92% on room air Clinically appears to be more COPD exacerbation than COVID-19 infection, as both chest x-ray and CT abdomen pelvis shows clear lungs Oxygen nasal cannula titrate to keep pulse ox 92-94% (5) Left hemiplegia: Plan: Chronic issue since previous CVA He did run over his toe with his scooter, and was having difficulty riding a scooter earlier today Antibiotics as noted above to cover potential cellulitis (6) BPH w urinary obs/LUTS: Plan: Urinalysis suggests UTI currently on Ceftriaxone, will continue urine cultures pending (7) Depression: Plan: Continue bupropion and gabapentin (8) Hyperlipidemia: Plan: Continue atorvastatin 80 mg daily Admission and Anticipated Discharge Date Admission Date: February 25, 2022 Subjective patient seen and examined, still sob, but denies chest pain, still some confusion Review of Systems Review of Systems: All systems reviewed are negative, apart from the ones contained in the history. Physical Exam Physical Exam: The patient is awake, alert and oriented 3, well developed and well nourished, normocephalic and atraumatic, lying in bed and in no acute distress. HEENT--PERRL, EOMI, mucous membranes and oropharynx mildly dry Neck--supple. No JVD. No bruits. Thyroid normal, trachea midline, no adenopathy. Heart--normal S1 and S2. No murmurs, rubs or gallops. Lungs--clear bilaterally, no respiratory distress, no accessory muscle use. Abdomen--normal bowel sounds and soft. Mild epigastric and left sided abdominal pain Extremities--no cyanosis or clubbing. No edema. Dermatologic--normal skin turgor, normal color, no abnormal lymph nodes, no rash. Neurologic--cranial nerves II through XII grossly intact. Rheumatologic--normal range of motion. Psychiatric--normal affect. Results & Data Results & Data ([facility]) Vital Signs (Past 12 Hours) Vital Signs Pulse Resp BP Pulse Ox O2 Del Method O2 Flow Rate 02/26/22 15:19 55 L 16 92 Room Air 02/26/22 15:12 49 L 16 111/60 92 Room Air 02/26/22 11:05 50 L 20 96 Nasal Cannula 1 02/26/22 10:00 51 L 17 121/58 L 98 Nasal Cannula 2 02/26/22 07:09 63 18 93 Nasal Cannula 1.5 02/26/22 06:16 47 L 16 113/55 L 95 Nasal Cannula 1 PG Care Time/CCT Total # of Minutes Spent Total Time Spent with Patient: Total time spent is greater than 50% in coordination of care (as documented) at patient's floor/unit and/or counseling patient: Coding Level of Care Code 61772 Subseq Hosp Care Lvl 2 Diagnoses Confusion and disorientation R41.0 COPD exacerbation J44.1 COVID-19 U07.1 Hypoxia R09.02 Left hemiplegia G81.94 BPH w urinary obs/LUTS N40.1; N13.8 Depression F32.9 Hyperlipidemia E78.5 Time Spent (min) 35
[2022-02-26] MEDS: CLOPIDOGREL BISULFATE 75 MG TAB PO SCH (21:28)
[2022-02-26] MEDS: GABAPENTIN 300 MG CAP PO SCH (21:28)
[2022-02-27] MEDS: ALBUTEROL HFA 8 GM INHALER INH SCH ×5 (05:05→18:57)
[2022-02-27] MEDS ORDERED: BENZONATATE 100 MG CAPSULE PO PRN (05:05)
[2022-02-27 07:38] LABS: Hematocrit (blood only) 31.8 % (40.1-51.0); Hemoglobin 10.9 g/dl (14.0-18.0); Mean Corpuscular Hemoglobin 32.6 pg (25.0-34.0); Mean Corpuscular Hgb Conc 34.3 g/dL (32.0-36.0); Mean Corpuscular Volume 95.2 fL (80.0-100.0); Mean Platelet Volume 10.5 fL (9.4-12.4); Platelet Count 167 K/uL (130-400); RDW Coefficient of Variation 14.3 % (11.5-14.5); RDW Standard Deviation 49.8 fL (36.4-46.3); Red Blood Count 3.34 M/uL (4.63-6.08); White Blood Count 12.66 K/ul (4.8-10.8)
[2022-02-27] MEDS: guaiFENesin 600 MG TABCR PO SCH ×2 (08:04→19:53)
[2022-02-27] MEDS: buPROPion SR 100 MG TABCR PO SCH (08:05)
[2022-02-27] MEDS: SODIUM CHLORIDE 0.65% NA SOLN 45 ML (OCEAN) NAE SCH (08:05)
[2022-02-27] MEDS: ATORVASTATIN 40 MG TAB PO SCH (08:05)
[2022-02-27] MEDS: ENOXAPARIN INJ 40 MG/0.4 ML SYR SQ SCH (08:05)
[2022-02-27] MEDS: CHOLECALCIFEROL 1,000 UNITS 25 MCG TAB PO SCH (08:05)
[2022-02-27] MEDS: ASPIRIN 81 MG ECTAB PO SCH (08:05)
[2022-02-27] MEDS: cefTRIAXone SODIUM 1,000 MG in DEXTROSE 5% 50 ML IV SCH (08:06)
[2022-02-27] MEDS: dexAMETHasone 6 MG in SYRINGE 0 ML IV SCH (08:06)
[2022-02-27 08:08] LABS: BUN Creatinine Ratio 21.8 (10-20); Calcium 7.7 mg/dl (8.5-10.1); Creatinine Clr Calc Pharmacy 62.8 ml/min; Est GFR (African American) 97.2 ml/min; Est GFR (Non-African American) 83.8 ml/min
[2022-02-27] MEDS: AZITHROMYCIN 500 MG in DEXTROSE 5% 250 ML IV SCH (09:16)
[2022-02-27] MEDS ORDERED: STAT IV STA (12:44)
--- NOTE | 2022-02-27 12:53 | Hospitalist Progress Note ---
Date of Service February 27, 2022 Assessment & Plan (1) Confusion and disorientation: Plan: Multifactorial Contributing factors: COPD exacerbation, COVID-19 infection, BPH with LUTS and probable prostatitis, UTI, left great toe mild cellulitis, dehydration CT head did not show any acute pathology, only chronic infarct However, some improvement in mentation following treatment (2) COPD exacerbation: Plan: Dexamethasone 6 mg IV Ceftriaxone 1 g IV daily Azithromycin 500 mg IV daily Guaifenesin extended release 12 mg p.o. twice daily Albuterol HFA 1 puff 4 times daily (3) COVID-19: Plan: Dexamethasone 10 mg IV given in ED Dexamethasone 6 mg IV every morning Continue vitamin D (4) Hypoxia: Plan: Hypoxia, with pulse ox 92% on room air Clinically appears to be more COPD exacerbation than COVID-19 infection, as both chest x-ray and CT abdomen pelvis shows clear lungs Oxygen nasal cannula titrate to keep pulse ox 92-94% (5) Left hemiplegia: Plan: Chronic issue since previous CVA He did run over his toe with his scooter, and was having difficulty riding a scooter earlier today Antibiotics as noted above to cover potential cellulitis (6) BPH w urinary obs/LUTS: Plan: Urinalysis suggests UTI currently on Ceftriaxone, will continue urine cultures pending (7) Depression: Plan: Continue bupropion and gabapentin (8) Hyperlipidemia: Plan: Continue atorvastatin 80 mg daily Plan D/C to SNF when accepted Admission and Anticipated Discharge Date Admission Date: February 25, 2022 Subjective patient seen and examined, no new complaints, denies sob or chest pain Review of Systems Review of Systems: All systems reviewed are negative, apart from the ones contained in the history. Physical Exam Physical Exam: The patient is awake, alert and oriented 3, well developed and well nourished, normocephalic and atraumatic, lying in bed and in no acute distress. HEENT--PERRL, EOMI, mucous membranes and oropharynx mildly dry Neck--supple. No JVD. No bruits. Thyroid normal, trachea midline, no adenopathy. Heart--normal S1 and S2. No murmurs, rubs or gallops. Lungs--clear bilaterally, no respiratory distress, no accessory muscle use. Abdomen--normal bowel sounds and soft. Mild epigastric and left sided abdominal pain Extremities--no cyanosis or clubbing. No edema. Dermatologic--normal skin turgor, normal color, no abnormal lymph nodes, no rash. Neurologic--cranial nerves II through XII grossly intact. left hemiparesis Rheumatologic--normal range of motion. Psychiatric--normal affect. Results & Data Results & Data ([facility]) Vital Signs (Past 12 Hours) Vital Signs Temp Pulse Pulse Resp BP Pulse Ox O2 Del Method 02/27/22 11:55 51 L 18 92 Room Air 02/27/22 11:38 98.2 F 55 L 16 115/61 96 Room Air 02/27/22 08:49 97.9 F 58 L 18 118/64 95 Room Air 02/27/22 07:27 58 L 18 95 Room Air 02/27/22 07:12 54 L 02/27/22 05:05 52 L 18 96 Room Air 02/27/22 04:11 53 L 02/27/22 02:54 97.9 F 57 L 18 108/60 95 Room Air 02/27/22 03:21 55 L 24 95 Room Air PG Care Time/CCT Total # of Minutes Spent Total Time Spent with Patient: Total time spent is greater than 50% in coordination of care (as documented) at patient's floor/unit and/or counseling patient: Coding Level of Care Code 82471 Subseq Hosp Care Lvl 2 Diagnoses Confusion and disorientation R41.0 COPD exacerbation J44.1 COVID-19 U07.1 Hypoxia R09.02 Left hemiplegia G81.94 BPH w urinary obs/LUTS N40.1; N13.8 Depression F32.9 Hyperlipidemia E78.5 Time Spent (min) 35
[2022-02-27] MEDS ORDERED: CALCIUM GLUCONATE 10% 1,000 MG in DEXTROSE 5% 50 ML IV ONE (13:00)
[2022-02-27] MEDS: GABAPENTIN 300 MG CAP PO SCH (19:54)
[2022-02-27] MEDS: CLOPIDOGREL BISULFATE 75 MG TAB PO SCH (19:54)
[2022-02-28 06:15] LABS: BUN Creatinine Ratio 19.6 (10-20); Calcium 7.9 mg/dl (8.5-10.1); Creatinine Clr Calc Pharmacy 56.4 ml/min; Est GFR (African American) 87.5 ml/min; Est GFR (Non-African American) 75.5 ml/min
[2022-02-28] MEDS: ALBUTEROL HFA 8 GM INHALER INH SCH ×2 (07:39→11:37)
[2022-02-28] MEDS: ASPIRIN 81 MG ECTAB PO SCH (08:19)
[2022-02-28] MEDS: buPROPion SR 100 MG TABCR PO SCH (08:19)
[2022-02-28] MEDS: guaiFENesin 600 MG TABCR PO SCH (08:19)
[2022-02-28] MEDS: cefTRIAXone SODIUM 1,000 MG in DEXTROSE 5% 50 ML IV SCH (08:20)
[2022-02-28] MEDS: SODIUM CHLORIDE 0.65% NA SOLN 45 ML (OCEAN) NAE SCH (08:20)
[2022-02-28] MEDS: ATORVASTATIN 40 MG TAB PO SCH (08:20)
[2022-02-28] MEDS: CHOLECALCIFEROL 1,000 UNITS 25 MCG TAB PO SCH (08:20)
[2022-02-28] MEDS: dexAMETHasone 6 MG in SYRINGE 0 ML IV SCH (08:20)
[2022-02-28] MEDS: AZITHROMYCIN 500 MG in DEXTROSE 5% 250 ML IV SCH (09:05)
[2022-02-28] MEDS: ENOXAPARIN INJ 40 MG/0.4 ML SYR SQ SCH (09:13)
--- NOTE | 2022-02-28 13:56 | Discharge Summary ---
Date of Service February 28, 2022 Admission HPI Per Admitting Provider The patient is a 76-year-old male with a past medical history including COPD, left hemiplegia, impaired fasting glucose, urinary urge incontinence, depression, hyperlipidemia, nicotine dependence, right internal carotid artery occlusion and stroke with residual deficits. Upon arrival to the emergency department, he was noted to have a temperature. Work-up included the following abnormal findings: COVID-19 test positivity, hypoxia with pulse ox to 92% on room air, productive cough, urinary frequency, and injury to left big toe when he ran over it with the scooter. From the ED he was given the following treatme nt: Normal saline 3 L, dexamethasone 10 mg IV, and Tylenol 1 g IV. Of note, he does have chronic lower extremity/ankle swelling that family associates with him wearing a brace to walk with. Principal Diagnosis PNA, UTI Discharge Exam The patient is awake, alert and oriented 3, well developed and well nourished, normocephalic and atraumatic, lying in bed and in no acute distress. HEENT--PERRL, EOMI, mucous membranes and oropharynx mildly dry Neck--supple. No JVD. No bruits. Thyroid normal, trachea midline, no adenopathy. Heart--normal S1 and S2. No murmurs, rubs or gallops. Lungs--clear bilaterally, no respiratory distress, no accessory muscle use. Abdomen--normal bowel sounds and soft. Mild epigastric and left sided abdominal pain Extremities--no cyanosis or clubbing. No edema. Dermatologic--normal skin turgor, normal color, no abnormal lymph nodes, no rash. Neurologic--cranial nerves II through XII grossly intact. left hemiparesis Rheumatologic--normal range of motion. Psychiatric--normal affect. Discharge Data Allergies Allergy/AdvReac Type Severity Reaction Status Date / Time No Known Allergies Allergy Verified 02/25/22 23:16 Consultations 02/25/22 22:34 ED Decision to Admit Stat Ordered Studies 02/25/22 18:33 CT head/brain wo con Stat 02/25/22 18:35 CT abd pelvis wo con Stat Hospital Course (1) Confusion and disorientation: Multifactorial Contributing factors: COPD exacerbation, COVID-19 infection, BPH with LUTS and probable prostatitis, UTI, left great toe mild cellulitis, dehydration CT head did not show any acute pathology, only chronic infarct However, some improvement in mentation following treatment (2) COPD exacerbation: Dexamethasone 6 mg IV Ceftriaxone 1 g IV daily Azithromycin 500 mg IV daily Guaifenesin extended release 12 mg p.o. twice daily Albuterol HFA 1 puff 4 times daily (3) COVID-19: Dexamethasone 10 mg IV given in ED Dexamethasone 6 mg IV every morning Continue vitamin D (4) Hypoxia: Hypoxia, with pulse ox 92% on room air Clinically appears to be more COPD exacerbation than COVID-19 infection, as both chest x-ray and CT abdomen pelvis shows clear lungs Oxygen nasal cannula titrate to keep pulse ox 92-94% (5) Left hemiplegia: Chronic issue since previous CVA He did run over his toe with his scooter, and was having difficulty riding a scooter earlier today Antibiotics as noted above to cover potential cellulitis (6) BPH w urinary obs/LUTS: Urinalysis suggests UTI urine culture positive for coagulase negative staph discharge on DS Bactrim for 5 days (7) Depression: Continue bupropion and gabapentin (8) Hyperlipidemia: Continue atorvastatin 80 mg daily Plan D/C to SNF when accepted Total Time Total Time Spent Total Time Spent (In Minutes): 35 Discharge Plan Discharge Items Patient Disposition: Home - Self-Care Reason For Visit: COPD EXACERBATION,COVID 19 INFECTION Discharge Diagnosis: UTI, COVID Activity: Resume your previous activity Non-emergency contact: Primary Care Provider Call non-emergency contact if: you have any medication questions Follow-up/Referrals: Job Bernabe DO [Primary Care Provider] - 03/04/22 2:00 pm Diet: Regular Addtl Attending Provider Instructions: please make appointmeent to follow up with your pcp Pending Studies at Discharge: No Stand-Alone Forms: My [employer], Smoking Cessation Medications and DC Order Prescriptions: New sulfamethoxazole-trimethoprim [Bactrim DS] 800-160 mg tablet 1 tab PO DAILY 5 Days Qty: 5 0RF Continued diclofenac sodium 1 % gel 2 gm TOP QID Qty: 100 2RF Rx Instructions: apply to single elbow, wrist or hand; for hand includes palm/fingers/back of hand albuterol sulfate 90 mcg/actuation HFA aerosol inhaler 1 inh inhalation QID Qty: 8.5 2RF bupropion HCl 100 mg tablet sustained-release 12 hr See Rx Instructions .ROUTE .COMPLEX Qty: 90 0RF Dose Instruction: TAKE 1 TABLET BY MOUTH IN THE MORNING Rx Instructions: TAKE 1 TABLET BY MOUTH IN THE MORNING atorvastatin 80 mg tablet See Rx Instructions .ROUTE .COMPLEX Qty: 90 0RF Dose Instruction: Take 1 tablet by mouth once daily Rx Instructions: Take 1 tablet by mouth once daily (DME) Shower Chair Misc See Rx Instructions .Route Qty: 1 0RF Rx Instructions: SHOWER TRANSFER BENCH DX: G81.94, I69.30, Z74.09 LENGTH OF NEED: 99 MONTHS clopidogrel 75 mg tablet 75 mg PO HS Qty: 90 3RF cholecalciferol (vitamin D3) 25 mcg (1,000 unit) capsule 1,000 units PO QAM aspirin [Adult Aspirin Regimen] 81 mg tablet,delayed release (DR/EC) 81 mg PO QAM gabapentin 300 mg capsule 300 mg PO HS [place] Saline 0.65 % Aerosol,[place] 2 spray INTRANASAL DAILY Rx Instructions: while awake Discharge Orders: Discharge Order (Routine); Ordered 02/28/22 Ordered By: Muona Caba Admission Data Admit Date/Time: 02/25/22 23:41 Attending Provider: Mouna Caba Admit Provider: Vineet Broussard Primary Care Provider: Job Bernabe Other Providers: Vineet Broussard Other Interventions: Discharge Summary Assessment (RN) Last Done: 02/28/22 13:17 Coding Level of Care Code D/C DAY MANAGEMENT >30 MINS Diagnoses Confusion and disorientation R41.0 COPD exacerbation J44.1 COVID-19 U07.1 Hypoxia R09.02 Left hemiplegia G81.94 BPH w urinary obs/LUTS N40.1; N13.8 Depression F32.9 Hyperlipidemia E78.5 Time Spent (min) 35
--- NOTE | 2022-03-09 09:15 | Coding Query ---
PRESENT ON ADMISSION QUERY To promote full compliance with coding requirements relating to pateint care, physician participation is requested in all cases of tallow refiner uncertainty. Please assist us with the question(s) below: Please place an X within the parenthesis (x). The following diagnosis listed in this patient's medical record require physician assistance to determine if they were present on admission (POA) or not. Please advise for each diagnosis whether it was present on admission, not present on admission, or if it was clinically undetermined. 1. PNA (which is in our list of abbreviations as to mean Pneumonia) - is documented only on the Principal Diagnosis area of the Discharge Summary. ( ) Present On Admission (x ) Not Present On Admission ( ) Clinically Undetermined Thank you Hermila Linares *Definition of the present on admission (POA)-Present on admission is defined as present at the time the order for inpatient admission occurs. Conditions that develop during an outpatient encounter prior to a written order for inpatient admission (including emergency department, observation, or outpatient surgery) are considered present on admission. [facility]
== END 2022-02-28 14:26 | disposition home or self-care (01) | DRG 177 ==
LOC: ED 18:06 → SUATTDRO 23:41 → EDINP 23:41 → 2N 02-26 00:44

== ENCOUNTER 2024-08-08 22:30 | Inpatient (IN) ==
--- NOTE | 2024-08-08 23:08 | Emergency Department Note ---
Impression & Plan Sepsis, Complicated urinary tract infection, Encephalopathy acute, LUIS (acute kidney injury), Acute dehydration ED Provider Note NAME: ONEIL LIVINGSTON AGE: 78 SEX: M : 1945 ARRIVES VIA: Walk-In INFORMANT: Patient, family ED PROVIDER(S): Nolan Larson MD CHIEF COMPLAINT: Change in behavior, hand tingling MEDICAL DECISION MAKING: Patient presents for the above. IV was established and blood work is obtained. Sepsis protocols initiated as the patient did have a recent procedure completed. Daptomycin initiated given review of the patient's most recent culture which was to Staph epidermidis. Patient's blood work showed a white count of 15 with a hemoglobin of 12. This is chronic and stable. Platelet count is unremarkable. Kidney function with LUIS baseline creatinine of around 1 today almost 2. Sugar 135 but nonfasting and not DKA. Procalcitonin not elevated. Urinalysis and signs of infection. Patient's chest x-ray does not show any acute findings. CT head shows some encephalomalacia likely from prior stroke. CT abdomen pelvis right kidney shows mild hydronephrosis due to 10 mm stone in the right pelvis. Also seen on the left side. I did inform the patient the patient's family the findings do believe that his symptoms are secondary to his UTI this with the on-call hospital service Dr. Alves and the patient was admitted to the medicine service. Note the patient did have lower blood pressures but did improve after 30 cc/kg bolus which was 2500 total ordered. The patient's lactate was normal. Discussion w/ other healthcare providers: Dr. Alves inpatient medicine service Prior /Outside records reviewed: I reviewed the patient's most recent urine culture showed Staph epidermidis. Differential diagnosis: Dehydration, UTI, pneumonia, metabolic derangment, electrolyte abnormalities, hypovolemia, anemia, cellulitis among others were considered. Diagnostics, as interpreted by me: ECG: Sinus with first-degree AV block, rate of 72 prolonged TN, normal QRS, normal axis no obvious STEMI. Q wave noted in V2. Cardiac monitoring: An order was placed for continuous cardiac monitoring. The monitor shows a rate of 75 with sinus rhythm. Patient was placed on pulse oximetry Medical decision rules: None Imaging studies: I informally interpreted the patient's chest x-ray does not show obvious pneumonia or pneumothorax with formal report to follow. HPI: Patient presents due to concern for change in behavior. Patient reportedly was diagnosed with a UTI on Tuesday and started on Bactrim. Family does report that the patient has been acting more differently sometimes will thinking that things are there that are not and sometimes talking. I did report the patient had been complaining of some right hand tingling. No recent falls or trauma. They do believe he takes aspirin and Plavix but no other blood thinners. Prior history of stroke 7 years prior which left him with deficits of the left side. They do report that he has had some increasing weakness and cannot sit up on his own. No reported chest pains or shortness of breath. The patient is a smoker and does have chronic cough. They were concerned as he has had this change in behavior and were concerned about a possible stroke. PAST MEDICAL HISTORY: See Below PAST SURGICAL HISTORY: See Below SOCIAL HISTORY: See Below HOME MEDICATIONS: See Below ALLERGIES: See Below VITALS: See Below PHYSICAL EXAMINATION: GENERAL: NAD, non-toxic. EYE EXAM: Normal conjunctiva. PERRL, no anisocoria and EOM's grossly intact w/o pain. Prosthetic left eye. OROPHARYNX: Moist mucus membranes, grossly normal dentition. NECK: Trachea midline, no stridor. Supple, no nuchal rigidity, no adenopathy, non-tender. No signs of meningismus. FROM of the neck with good chin to chest and neck extension. LUNGS: Clear to auscultation. Normal chest wall mechanics. HEART: NSR, no MRG. ABDOMEN: Abdomen soft, non-tender, no masses, no rebound or guarding. BACK: No CVA TTP. SKIN: No rashes and no bruising. UPPER EXTREMITIES: Upper extremities are grossly normal. LOWER EXTREMITIES: Grossly normal, no edema. NEURO EXAM: A&O x3, cranial nerves II-XII grossly intact, normal speech, decreased motor function left upper extremity with 3-5 strength left lower extremity, 5 out of 5 strength right upper and right lower extremity. Normal sensation. 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 Impaired fasting glucose (Acute) Depression (Acute) Hyperlipidemia (Acute) Nicotine dependence (Acute) H/O: stroke with residual effects (Chronic) Medical History COPD (chronic obstructive pulmonary disease) seen 09/21/22 by PCP for COPD exacerbation: given medrol dose pack and zpack and encouraged to increase albuterol inhaler usage; pt still smoking Left hemiplegia s/p CVA 06/2016 Bladder cancer hx- turbt 2022 Neuropathy due to herpes zoster Kidney stone HTN (hypertension) Hyperlipidemia Depression BPH (benign prostatic hyperplasia) Acquired left foot drop Chronic cough History of anemia Occlusion of right internal carotid artery Elevated glucose hx of slightly elevated glucose; PCP monitoring Right internal carotid occlusion R ICA CVA 06/2016 Prosthetic eye globe left eye History of COVID-19 admitted [facility] 02/25-02/28/22; on [place] O2 while inpt; not D/C on any home O2 Diverticulosis Internal hemorrhoids Tubular adenoma of colon 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 uses a scooter to get around, able to stand and pivot with assistance if needed. and has mild short term memory loss. Surgical History History of colonoscopy H/O eye surgery lost his left eye (20+ years ago) at a work accident -- has a left glass eye Family History Other No significant family history Denies family history of Ovarian cancer Prostate cancer Breast cancer Lung cancer Colorectal cancer Social History Smoking Status: Never smoker Tobacco Type: Cigarettes Age Started Using Tobacco: 14; Cigarettes Per Day: 8 PER DAY - ADVISED; Second Hand Exposure: Yes (HX); Do You Dip or Chew Tobacco: No; Hx Alcohol Use: Yes Alcohol type: beer Alcohol Intake Frequency: Monthly or Less Hx Substance Use: No Preferred Language: Persian Communication Ability: Effective Visual Impairment: Limited Hearing Ability: Hard of Hearing Dealer Relationship Manager Required: No Beliefs That Will Affect Care: None marital status: / Current Living Situation: Alone Current Living Situation Comment: Lives alone. Daughters assist in evenings and aids come in during the day. current occupational status: retired Feels Safe at Home: Yes Childhood Exposure to Second-Hand Smoke: Yes Diet: regular caffeine: No Dental Care, Regularly: No Physical Activity Frequency: Does not Exercise Seatbelt Use: always Sunscreen Use: No Assistive Devices: Glasses, Hearing Aid - Bilateral, Prosthesis and Scooter/Electric Scooter Allergies Allergies Allergy/AdvReac Type Severity Reaction Status Date / Time No Known Drug Allergies Allergy Verified 08/03/24 08:07 Home Meds Home Medications Medication Instructions Recorded Confirmed cholecalciferol (vitamin D3) 25 1,000 units PO QAM 09/13/19 08/09/24 mcg (1,000 unit) capsule aspirin 81 mg tablet,delayed 81 mg PO QAM 08/18/21 08/09/24 release (Adult Aspirin Regimen) ibuprofen 200 mg tablet (Advil) 400 - 600 mg PO Q6H PRN Pain 06/01/22 08/09/24 multivitamin 1 tab PO QAM 06/01/22 08/09/24 cranberry 500 mg capsule 500 mg PO HS 09/27/22 08/09/24 sodium chloride 0.65 % nasal spray 2 spray intranasal DAILY PRN 07/15/23 08/09/24 aerosol ([place] Saline) Congestion albuterol sulfate 90 mcg/actuation 2 inh inhalation QID PRN Shortness 08/09/24 08/09/24 aerosol inhaler Of Breath Or Wheezing atorvastatin 80 mg tablet 80 mg PO HS 08/09/24 08/09/24 diclofenac sodium 1 % topical gel 2 gm topical QID PRN Pain 08/09/24 08/09/24 finasteride 5 mg tablet 5 mg PO QAM 08/09/24 08/09/24 lisinopril 10 mg tablet 10 mg PO QAM 08/09/24 08/09/24 mirabegron 50 mg tablet,extended 50 mg PO QAM 08/09/24 08/09/24 release 24 hr (Myrbetriq) tamsulosin 0.4 mg capsule 0.4 mg PO QAM 08/09/24 08/09/24 Previous Rx's Medication Instructions Recorded Shower Chair #1 ea 03/10/23 diaper,brief,adult,disposable #60 ea 10/20/22 bupropion HCl 100 mg tablet,12 hr 100 mg PO QAM #90 ea 11/22/22 sustained-release gabapentin 300 mg capsule 300 mg PO BID #120 caps 01/28/23 clopidogrel 75 mg tablet 75 mg PO HS #90 tabs 07/15/23 tiotropium bromide 2.5 2 puff inhalation QAM #4 grams 07/15/23 mcg/actuation mist for inhalation (Spiriva Respimat) sulfamethoxazole 800 1 tab PO BID 7 days #14 tabs 08/03/24 mg-trimethoprim 160 mg tablet (Bactrim DS) Results & Data (ED) Vital Signs Vital Signs - 24 hr 08/08/24 22:33 08/08/24 22:54 08/08/24 23:10 Temperature 36.5 C Temperature Source Temporal Artery Scan Pulse Rate 92 H 84 Pulse Rate [Apical] 78 Respiratory Rate 20 18 Respiratory Effort / Characteristics Non-Labored Spontaneous Spontaneous Respiratory Depth Normal Normal Respiratory Pattern Regular Regular Blood Pressure 94/62 L Blood Pressure [Right Arm] 82/70 L Blood Pressure Mean 72 Blood Pressure Mean [Right Arm] 74 Pulse Oximetry 94 92 Oxygen Delivery Method Room Air Room Air Sepsis Recent Fever Within 48 Hours No Sepsis New/Unexplained Change in Mental Status No Sepsis Action Taken by Nursing No Action Required 08/08/24 23:41 08/08/24 23:44 08/09/24 00:09 Temperature Temperature Source Pulse Rate Pulse Rate [Apical] 72 73 Respiratory Rate 20 18 Respiratory Effort / Characteristics Non-Labored Spontaneous Respiratory Depth Normal Respiratory Pattern Regular Blood Pressure Blood Pressure [Right Arm] 80/63 L 99/70 L Blood Pressure Mean Blood Pressure Mean [Right Arm] 68 79 Pulse Oximetry 92 93 93 Oxygen Delivery Method Room Air Room Air Room Air Sepsis Recent Fever Within 48 Hours Sepsis New/Unexplained Change in Mental Status Sepsis Action Taken by Nursing 08/09/24 00:30 08/09/24 01:00 08/09/24 01:30 Temperature Temperature Source Pulse Rate Pulse Rate [Apical] 73 75 79 Respiratory Rate 18 18 18 Respiratory Effort / Characteristics Respiratory Depth Respiratory Pattern Blood Pressure Blood Pressure [Right Arm] 113/79 119/73 115/75 Blood Pressure Mean Blood Pressure Mean [Right Arm] 90 88 88 Pulse Oximetry 93 93 95 Oxygen Delivery Method Room Air Room Air Room Air Sepsis Recent Fever Within 48 Hours Sepsis New/Unexplained Change in Mental Status Sepsis Action Taken by Nursing 08/09/24 02:15 08/09/24 02:45 08/09/24 03:00 Temperature Temperature Source Pulse Rate 78 Pulse Rate [Apical] 82 79 Respiratory Rate 18 20 14 Respiratory Effort / Characteristics Respiratory Depth Respiratory Pattern Blood Pressure 120/79 Blood Pressure [Right Arm] 124/86 107/63 Blood Pressure Mean Blood Pressure Mean [Right Arm] 98 77 Pulse Oximetry 93 91 93 Oxygen Delivery Method Room Air Room Air Room Air Sepsis Recent Fever Within 48 Hours Sepsis New/Unexplained Change in Mental Status Sepsis Action Taken by [place] Medications Current Medication List: was personally reviewed by me Laboratory Data Attestation: I reviewed the patient's lab results. 08/08/24 23:37 08/08/24 23:37 Lab Results 08/08/24 08/09/24 Range/Units 23:37 00:33 WBC 15.89 H (4.8-10.8) K/ul RBC 3.81 L (4.70-6.10) M/uL Hgb 12.1 L (14.0-18.0) g/dl Hct 36.3 L (42.0-52.0) % MCV 95.3 (80.0-100.0) fL MCH 31.8 (25.0-34.0) pg MCHC 33.3 (32.0-36.0) g/dL RDW Std Deviation 47.5 H (36.4-46.3) fL RDW Coeff of Kailey 13.6 (11.5-14.5) % Plt Count 278 (130-400) K/uL MPV 9.8 (9.4-12.4) fL Immature Gran % (Auto) 0.8 % Neut % (Auto) 84.9 % Lymph % (Auto) 8.1 % Heard % (Auto) 5.1 % Eos % (Auto) 0.8 % Baso % (Auto) 0.3 % Neut # (Auto) 13.51 H (1.40-6.50) K/uL Lymph # (Auto) 1.28 (1.20-3.40) K/uL Heard # (Auto) 0.81 H (0.11-0.59) K/uL Eos # (Auto) 0.12 (0.00-0.50) K/uL Baso # (Auto) 0.04 (0.00-0.20) K/uL Immature Gran # (Auto) 0.13 (0.01-0.20) K/uL Sodium 135 L (136-145) mmol/L Potassium 5.0 (3.5-5.1) mmol/L Chloride 102 (98-107) mmol/L Carbon Dioxide 26 (21-32) mmol/L Anion Gap 7 (3-11) BUN 21 (6-23) mg/dl Creatinine 1.96 H (0.6-1.4) mg/dl Est Cr Clr Drug Dosing 29.4 ml/min eGFR 34.35 BUN/Creatinine Ratio 10.7 (10-20) Glucose 135 H (70-99(Fasting)) mg/dl Lactate 1.9 (0.4-2.0) mmol/L Calcium 9.1 (8.6-10.3) mg/dl Magnesium 2.1 (1.7-2.4) mg/dl Total Bilirubin 0.3 (0.2-1.0) mg/dl Direct Bilirubin 0.1 (0-0.2) mg/dl AST 23 (13-39) U/L ALT 19 (7-52) U/L Alkaline Phosphatase 143 H (34-104) U/L Troponin I High Sens 4.8 (0-20) pg/ml Total Protein 6.6 (6.0-8.3) gm/dl Albumin 3.8 (3.4-5.0) gm/dl Procalcitonin 0.09 (0-0.5) ng/ml Urine Color [place] Urine Appearance Turbid A (Clear) Urine pH 6.5 (4.5-7.5) Ur Specific [place] 1.014 (1.000-1.030) Urine Protein 3+ H (Negative) Urine Glucose (UA) Negative (Negative) Urine Ketones Negative (Negative) Urine Blood 3+ H (Negative) Urine Nitrite Positive A (Negative) Urine Bilirubin 1+ H (Negative) Urine Urobilinogen Negative (Negative) Ur Leukocyte Esterase 3+ H (Negative) Urine WBC (Auto) >50 H (0-5) /hpf Urine RBC (Auto) >20 H (0-2) /hpf U Hyaline Cast (Auto) >20 H (0-2) /lpf U Epithel Cells (Auto) 0-2 (0-2) /hpf Urine Bacteria (Auto) None Seen (None Seen) Administered Medications Discontinued Medications Sodium Chloride (Nss) 500 mls @ 999 mls/hr IV .Q31M [place] Stop: 08/09/24 00:00 Last Infusion: 08/09/24 01:00 Dose: Infused Documented By: Admin: 08/09/24 00:11 Dose: 999 mls/hr Documented By: EMB Sodium Chloride (Nss) 1,000 mls @ 999 mls/hr IV .Q1H1M [place] Stop: 08/09/24 00:30 Last Infusion: 08/09/24 01:37 Dose: Infused Documented By: Admin: 08/09/24 00:10 Dose: 999 mls/hr Documented By: EMB Sodium Chloride (Nss) 1,000 mls @ 999 mls/hr IV .Q1H1M [facility] Stop: 08/09/24 01:30 Last Infusion: 08/09/24 01:37 Dose: Infused Documented By: Admin: 08/09/24 00:56 Dose: Not Given Documented By: Admin: 08/09/24 00:22 Dose: 999 mls/hr Documented By: EMB Daptomycin 375 mg/ Syringe 7.5 mls @ 3.75 mls/min IV NOW STA; Protocol Stop: 08/08/24 23:22 Last Admin: 08/09/24 00:19 Dose: 3.75 mls/min Documented By: EMB Doxycycline Hyclate 100 mg/ (Dextrose) 100 mls @ 50 mls/hr IV ONE ONE Stop: 08/09/24 02:59 Last Admin: 08/09/24 01:38 Dose: 50 mls/hr Documented By: EMB Imaging Data Radiologist's Impression: Chest X-Ray 08/08/24 23:18 EXAM: XR chest 1V portable CLINICAL HISTORY: SEPSIS F TECHNIQUE: An X-ray image of the chest is obtained using an AP projection. COMPARISON: No prior studies are available for comparison. FINDINGS: Pulmonary Parenchyma: Lungs are clear bilaterally. No evidence of consolidation, collapse, or focal opacities. No pulmonary nodules are identified. No evidence of pleural effusion or pleural thickening. Heart and Mediastinum: Heart size and shape are normal. No mediastinal widening or masses. No hilar or mediastinal lymphadenopathy. Bony Thorax: The bony thorax appears intact without fractures or deformities. Soft Tissues: Soft tissues overlying the chest wall are unremarkable. IMPRESSION: No acute cardiopulmonary abnormalities are identified. Electronically signed by Bebeto Damon 08-09-2024 02:[address] 08/08/24 23:18 EXAM: CT head/brain wo con CLINICAL HISTORY: CONFUSION TECHNIQUE: Multiple axial images are obtained from the skull base to the vertex without contrast. CT scan was performed according to ALARA (as low as reasonable achievable). COMPARISON: None. FINDINGS: Focal encephalomalacia/gliosis is noted involving right periventricular chairez radiata extending up to the basal ganglia causing ex vacuo dilatation of right lateral ventricle. There is cerebral atrophy. No evidence of space occupying lesion, hemorrhage, edema, mass effect, midline shift, extra axial collection, or hydrocephalus is noted. Basal cisterns are symmetric and normal in size and configuration. There are scattered periventricular hypodensities as can be seen with chronic microvascular ischemic changes. The browning-white matter differentiation is preserved. Visualized paranasal sinuses and mastoid air cells are well aerated. Orbital contents are within normal limits. Bony structures are intact. IMPRESSION: 1. No evidence of acute intracranial abnormality is demonstrated. 2. Chronic microvascular ischemic changes. 3. Cerebral atrophy. 4 Focal encephalomalacia/gliosis is noted involving right periventricular chairez radiata extending up to the basal ganglia causing ex vacuo dilatation of right lateral ventricle. - sequelae of previous insult. Electronically signed by Adarsh Bailey 08-09-2024 02:38 AM Abdomen/Pelvis CT 08/08/24 23:22 EXAM: CT abd pelvis wo con CLINICAL HISTORY: RECENT STENT REPLACEMENT, TECHNIQUE: Contiguous axial images were obtained from the level of the diaphragm to the pubic symphysis without intravenous or oral contrast. Coronal and sagittal reconstructions were likewise performed and indicated to increase the sensitivity for detecting clinically relevant pathology. CT scan was performed according to ALARA (as low as reasonable achievable). COMPARISON: None. FINDINGS: The visualized lung bases are clear. Evaluation of the abdominal and pelvic visceral organs is limited without intravenous contrast. The unenhanced liver, spleen, pancreas, and adrenal glands are grossly unremarkable. The gallbladder is present. The kidneys are normal in size and attenuation without obvious calcification Right kidney shows mild hydronephrosis due to a calculus of size 10 mm in right renal pelvis. Right kidney also shows multiple non-obstructing calculi of size 4-8 mm involving mid and lower calyx. DJ stent seen in-situ on left side. A calculus of size 8 mm and 10 mm is noted involving left upper ureter adjacent to the DJ stent. Left kidney shows non-obstructing calculi of size 6 mm in mid-calyx and 8 mm in lower calyx. No adenopathy or fluid collections are seen. No evidence of focal or diffuse bowel wall thickening or evidence of bowel obstruction is seen. The appendix is visualized in the right lower quadrant and appears within normal limits. The aorta is normal in caliber. The urinary bladder is normal in contour. Pelvic viscera are grossly unremarkable. No aggressive appearing osseous lesions are identified. Left sided fat containing inguinal hernia. IMPRESSION: Right kidney shows mild hydronephrosis due to a calculus of size 10 mm in right renal pelvis. Right kidney also shows multiple non-obstructing calculi of size 4-8 mm involving mid and lower calyx. DJ stent seen in-situ on left side. A calculus of size 8 mm and 10 mm is noted involving left upper ureter adjacent to the DJ stent. Left kidney shows non-obstructing calculi of size 6 mm in mid-calyx and 8 mm in lower calyx. Electronically signed by Adarsh Bailey 08-09-2024 02:47 AM Discharge Plan Visit Data Chief Complaint: TIA Symptoms Stated Complaint: STROKE ISSUE, HEADACHE, NO SPEECH AVAILABLE ED Provider: Nolan Larson Discharge Problem: Sepsis, Complicated urinary tract infection, Encephalopathy acute, LUIS (acute kidney injury), Acute dehydration Patient Disposition: Admitted As Inpatient Discharge Instructions Interventions: ED Discharge Assessment Last Done: 08/09/24 03:00 Forms Stand Alone Forms: [facility] Prescriptions Prescriptions: No Action (DME) Shower Chair Misc See Rx Instructions .Route Qty: 1 0RF Rx Instructions: As directed (DME) diaper,brief,adult,disposable Misc See Rx Instructions .Route Qty: 60 12RF Rx Instructions: As directed changing 1-2 times nightly bupropion HCl 100 mg tablet sustained-release 12 hr 100 mg PO QAM Qty: 90 3RF Rx Instructions: TAKE 1 TABLET BY MOUTH IN THE MORNING gabapentin 300 mg capsule 300 mg PO BID Qty: 120 1RF cholecalciferol (vitamin D3) 25 mcg (1,000 unit) capsule 1,000 units PO QAM clopidogrel 75 mg tablet 75 mg PO HS Qty: 90 3RF Spiriva Respimat 2.5 mcg/actuation mist 2 puff inhalation QAM Qty: 4 3RF aspirin [Adult Aspirin Regimen] 81 mg tablet,delayed release (DR/EC) 81 mg PO QAM [place] Saline 0.65 % aerosol,spray 2 spray INTRANASAL DAILY PRN (Reason: Congestion) Rx Instructions: while awake multivitamin Tablet 1 tab PO QAM ibuprofen [Advil] 200 mg Tablet 400 - 600 mg PO Q6H PRN (Reason: Pain) cranberry 500 mg Capsule 500 mg PO HS sulfamethoxazole-trimethoprim [Bactrim DS] 800-160 mg tablet 1 tab PO BID 7 Days Qty: 14 0RF albuterol sulfate 90 mcg/actuation HFA aerosol inhaler 2 inh inhalation QID PRN (Reason: Shortness Of Breath Or Wheezing) finasteride 5 mg tablet 5 mg PO QAM atorvastatin 80 mg tablet 80 mg PO HS Rx Instructions: Take 1 tablet by mouth once daily diclofenac sodium 1 % gel 2 gm TOP QID PRN (Reason: Pain) Rx Instructions: apply to single elbow, wrist or hand; for hand includes palm/fingers/back of hand lisinopril 10 mg tablet 10 mg PO QAM mirabegron [Myrbetriq] 50 mg tablet extended release 24 hr 50 mg PO QAM tamsulosin 0.4 mg capsule 0.4 mg PO QAM Referrals Referrals: Job Bernabe DO [Primary Care Provider] - Discharge Problem: Sepsis Qualifiers: Sepsis type: sepsis due to unspecified organism Sepsis acute organ dysfunction status: with acute organ dysfunction Severe sepsis acute organ dysfunction type: acute renal failure Acute renal failure type: unspecified Severe sepsis shock status: without septic shock Qualified Code(s): A41.9 - Sepsis, unspecified organism
[2024-08-08 23:55] LABS: Basophils # (auto) 0.04 K/uL (0.00-0.20); Basophils % (auto) 0.3 %; Eosinophils # (auto) 0.12 K/uL (0.00-0.50); Eosinophils % (auto) 0.8 %; Hematocrit (blood only) 36.3 % (42.0-52.0); Hemoglobin 12.1 g/dl (14.0-18.0); Immature Granulocytes # (auto) 0.13 K/uL (0.01-0.20); Immature Granulocytes % (auto) 0.8 %; Lymphocytes # (auto) 1.28 K/uL (1.20-3.40); Lymphocytes % (auto) 8.1 %; Mean Corpuscular Hemoglobin 31.8 pg (25.0-34.0); Mean Corpuscular Hgb Conc 33.3 g/dL (32.0-36.0); Mean Corpuscular Volume 95.3 fL (80.0-100.0); Mean Platelet Volume 9.8 fL (9.4-12.4); Monocytes # (auto) 0.81 K/uL (0.11-0.59); Monocytes % (auto) 5.1 %; Neutrophils # (auto) 13.51 K/uL (1.40-6.50); Neutrophils % (auto) 84.9 %; Platelet Count 278 K/uL (130-400); RDW Coefficient of Variation 13.6 % (11.5-14.5); RDW Standard Deviation 47.5 fL (36.4-46.3); Red Blood Count 3.81 M/uL (4.70-6.10); White Blood Count 15.89 K/ul (4.8-10.8)
[2024-08-09] MEDS: SODIUM CHLORIDE 0.9% 1,000 ML IV SCH ×3 (00:10→04:00)
[2024-08-09] MEDS: SODIUM CHLORIDE 0.9% 500 ML IV SCH (00:11)
[2024-08-09 00:13] LABS: Albumin Level 3.8 gm/dl (3.4-5.0); BUN Creatinine Ratio 10.7 (10-20); Bilirubin Direct 0.1 mg/dl (0-0.2); Bilirubin,Total 0.3 mg/dl (0.2-1.0); Calcium 9.1 mg/dl (8.6-10.3); Creatinine Clr Calc Pharmacy 29.4 ml/min; Magnesium 2.1 mg/dl (1.7-2.4); Total Protein 6.6 gm/dl (6.0-8.3)
[2024-08-09] MEDS: DAPTOmycin 375 MG in SYRINGE 0 ML IV STA (00:19)
[2024-08-09 00:20] LABS: Troponin I High Sensitivity 4.8 pg/ml (0-20)
--- NOTE | 2024-08-09 01:15 | History & Physical Report ---
Date of Service August 09, 2024 Assessment & Plan (1) LUIS (acute kidney injury): (2) Complicated urinary tract infection: (3) Hydronephrosis, left: (4) Left ureteral stone: Plan The patient is a 78-year-old male with a past medical history including complicated UTIs, ureteral stone, BPH with LUTS, hypertension, urothelial carcinoma of bladder, depression, hyperlipidemia, nicotine dependence, history of stroke with residual left-sided weakness, bladder spasm, COPD, and progress can generalized debilitation. The patient recently underwent a urologic procedure on 08/03/2024, where he underwent a cystoscopy, ureteral nephroscopy, retrograde pyelogram, and insertion of left catheter stent. Urinalysis at that time did ultimately grow Staph epidermidis, for which he had been placed on Bactrim DS, has not taken 3 days of pills twice daily. Due to worsening symptoms of confusion, generalized fatigue, decreased oral intake and concerns regarding recurrence of acute encephalopathy, patient's family arranged for him to come to the emergency department for assessment. #Acute kidney injury/dehydration/BPH with LUTS- N.p.o. except essential medications Creatinine 1.96 on admission, with base 1.01 Secondary to UTI and ureteral obstruction, now treated with ureteral stent vera cement on the left on 08/03/2024 Ureteral stone 8 and 10 mm noted adjacent to left ureteral stent on CT Status post 2.5 L normal saline boluses in the ED Also received daptomycin 375 mg IV x 1 from the ED, Continue on NSS 80 mL/h x 1 L Repeat CBC with differential, renal function panel and magnesium level in the a.m. Acetaminophen 650 mg by mouth every 6 hours as needed for mild pain or fever Continue tamsulosin 0.4 mg p.o. daily, vibegron 75 mg p.o. daily and finasteride 5 mg p.o. every morning Hold lisinopril Hold antiplatelet agents, aspirin and clopidogrel until determine whether a procedure will be performed #Staph epidermidis UTI- From urine culture on 08/03/2024 Received Bactrim DS twice daily x 3 days completed so far as outpatient of a potential 5-day course Concern whether part of his encephalopathy may be associated with reaction to Bactrim Placed on doxycycline 100 mg IV every 12 hours after having received daptomycin 375 mg IV as noted above #Sepsis with improving hypotension- Blood pressure was as low as 80/63 in the ED Symptoms did improve with 2.5 L IV fluid bolus as noted, to 122/71 Will follow on telemetry for potential recurrence of hypotension Mild right hydronephrosis- Associated with 10 mm right renal pelvis calculus. Right kidney also shows multiple nonobstructing calculi of size 4-8 mm involving the mid and lower calyx #Chronic medical issues: COPD-continue albuterol sulfate HFA 2 puffs 4 times daily as needed and Spiriva Anxiety and depression-continue bupropion when taking p.o. regularly Hyperlipidemia-continue atorvastatin when taking p.o. Cerebrovascular disease with left hemiparesis History of Present Illness Chief Complaint: The patient presents to the emergency department via Family concerns regarding worsening confusion, generalized fatigue, history of encephalopathy with concerns regarding reoccurrence, and having had recent urologic procedure performed. Primary Care Provider: Job Bernabe DO The patient is a 78-year-old male with a past medical history including complicated UTIs, ureteral stone, BPH with LUTS, hypertension, urothelial carcinoma of bladder, depression, hyperlipidemia, nicotine dependence, history of stroke with residual left-sided weakness, bladder spasm, COPD, and progressive generalized debilitation. The patient recently underwent a urologic procedure on 08/03/2024, where he underwent a cystoscopy, ureteral nephroscopy, retrograde pyelogram, and insertion of left catheter stent. Urinalysis at that time did ultimately grow Staph epidermidis, for which he had been placed on Bactrim DS, has not taken 3 days of pills twice daily. Due to worsening symptoms of confusion, generalized fatigue, decreased oral intake and concerns regarding recurrence of acute encephalopathy, patient's family arranged for him to come to the emergency department for assessment. Allergies Allergy/AdvReac Type Severity Reaction Status Date / Time No Known Drug Allergies Allergy Verified 08/03/24 08:07 Home Medications Medication Instructions Recorded Confirmed Type cholecalciferol (vitamin D3) 25 1,000 units PO QAM 09/13/19 08/09/24 History mcg (1,000 unit) capsule aspirin 81 mg tablet,delayed 81 mg PO QAM 08/18/21 08/09/24 History release (Adult Aspirin Regimen) ibuprofen 200 mg tablet (Advil) 400 - 600 mg PO Q6H PRN Pain 06/01/22 08/09/24 History multivitamin 1 tab PO QAM 06/01/22 08/09/24 History cranberry 500 mg capsule 500 mg PO HS 09/27/22 08/09/24 History Shower Chair #1 ea 10/01/22 08/09/24 Rx diaper,brief,adult,disposable #60 ea 10/20/22 08/09/24 Rx bupropion HCl 100 mg tablet,12 hr 100 mg PO QAM #90 ea 11/22/22 08/09/24 Rx sustained-release gabapentin 300 mg capsule 300 mg PO BID #120 caps 01/28/23 08/09/24 Rx clopidogrel 75 mg tablet 75 mg PO HS #90 tabs 07/15/23 08/09/24 Rx sodium chloride 0.65 % nasal spray 2 spray intranasal DAILY PRN 07/15/23 08/09/24 History aerosol ([place]mes Saline) Congestion tiotropium bromide 2.5 2 puff inhalation QAM #4 grams 07/15/23 08/09/24 Rx mcg/actuation mist for inhalation (Spiriva Respimat) sulfamethoxazole 800 1 tab PO BID 7 days #14 tabs 08/03/24 08/09/24 Rx mg-trimethoprim 160 mg tablet (Bactrim DS) albuterol sulfate 90 mcg/actuation 2 inh inhalation QID PRN Shortness 08/09/24 08/09/24 History aerosol inhaler Of Breath Or Wheezing atorvastatin 80 mg tablet 80 mg PO HS 08/09/24 08/09/24 History diclofenac sodium 1 % topical gel 2 gm topical QID PRN Pain 08/09/24 08/09/24 History finasteride 5 mg tablet 5 mg PO QAM 08/09/24 08/09/24 History lisinopril 10 mg tablet 10 mg PO QAM 08/09/24 08/09/24 History mirabegron 50 mg tablet,extended 50 mg PO QAM 08/09/24 08/09/24 History release 24 hr (Myrbetriq) tamsulosin 0.4 mg capsule 0.4 mg PO QAM 08/09/24 08/09/24 History 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 Impaired fasting glucose (Acute) Depression (Acute) Hyperlipidemia (Acute) Nicotine dependence (Acute) H/O: stroke with residual effects (Chronic) Medical History COPD (chronic obstructive pulmonary disease) seen 09/21/22 by PCP for COPD exacerbation: given medrol dose pack and zpack and encouraged to increase albuterol inhaler usage; pt still smoking Left hemiplegia s/p CVA 06/2016 Bladder cancer hx- turbt 2022 Neuropathy due to herpes zoster Kidney stone HTN (hypertension) Hyperlipidemia Depression BPH (benign prostatic hyperplasia) Acquired left foot drop Chronic cough History of anemia Occlusion of right internal carotid artery Elevated glucose hx of slightly elevated glucose; PCP monitoring Right internal carotid occlusion R ICA CVA 06/2016 Prosthetic eye globe left eye History of COVID-19 admitted [facility] 02/25-02/28/22; on [place] O2 while inpt; not D/C on any home O2 Diverticulosis Internal hemorrhoids Tubular adenoma of colon 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 uses a scooter to get around, able to stand and pivot with assistance if needed. and has mild short term memory loss. Surgical History History of colonoscopy H/O eye surgery lost his left eye (20+ years ago) at a work accident -- has a left glass eye Family History Other No significant family history Denies family history of Ovarian cancer Prostate cancer Breast cancer Lung cancer Colorectal cancer Social History Smoking Status: Current every day smoker Tobacco Type: Cigarettes Age Started Using Tobacco: 14; Cigarettes Per Day: 10; Second Hand Exposure: Yes (HX); Do You Dip or Chew Tobacco: No; Hx Alcohol Use: Yes Alcohol type: hard liquor Alcohol Intake Frequency: Monthly or Less Hx Substance Use: Yes Last Used Substance: Just Prior to Arrival Preferred Language: Azeri Communication Ability: Impaired Visual Impairment: Limited Hearing Ability: Hard of Hearing Meat Cutter Required: No Beliefs That Will Affect Care: None marital status: / Current Living Situation: Family Current Living Situation Comment: Lives alone. Daughters assist in evenings and aids come in during the day. current occupational status: retired Other Information That Helps Us Care for You: No Feels Safe at Home: Yes Safety Concerns: Feels Safe At This Time Childhood Exposure to Second-Hand Smoke: Yes Diet: regular caffeine: No Dental Care, Regularly: No Physical Activity Frequency: Does not Exercise Seatbelt Use: always Sunscreen Use: No Assistive Devices: Scooter/Electric Scooter and Wheelchair Review of Systems Review of Systems: The patient denies chest pain, palpitations, shortness of breath, dyspnea on exertion, cough, lower extremity swelling, sore throat, fevers, chills, sweats, vomiting, diarrhea , constipation, abdominal pain, pelvic pain, blood in urine or stool, lightheadedness, dizziness, headache, memory loss, loss of consciousness, rash, abnormal bruising or bleeding, focal weakness, numbness or tingling in arms or legs, generalized arthralgias or myalgias, back or neck pain, or night sweats. The review of systems is otherwise negative other than for that already noted above, and at least 10 systems have been reviewed. Physical Exam Physical Exam: The patient is awake, alert and oriented 3, well developed and well nourished, normocephalic and atraumatic, lying in bed and in no acute distress. HEENT--PERRL, EOMI, mucous membranes and oropharynx mildly dry. Neck--supple. No JVD. No bruits. Thyroid normal, trachea midline, no adenopathy. Heart--normal S1 and S2. No murmurs, rubs or gallops. Lungs--clear bilaterally, no respiratory distress, no accessory muscle use. Abdomen--normal bowel sounds and soft. Nontender. Nondistended, no hernias or masses, no organomegaly. Extremities--no cyanosis or clubbing. No edema. Dermatologic--normal skin turgor, normal color, no abnormal lymph nodes, no rash. Neurologic--cranial nerves II through XII grossly intact. Rheumatologic--normal range of motion. Psychiatric--normal affect. Results & Data Results & Data Vital Signs (Past 12 Hours) Vital Signs Temp Pulse Pulse Resp BP BP Pulse Ox 08/09/24 01:00 75 18 119/73 93 08/09/24 00:30 73 18 113/79 93 08/09/24 00:09 73 18 99/70 L 93 08/08/24 23:44 72 20 80/63 L 93 08/08/24 23:41 92 08/08/24 23:10 78 18 82/70 L 92 08/08/24 22:54 84 08/08/24 22:33 36.5 C 92 H 20 94/62 L 94 O2 Del Method 08/09/24 01:00 Room Air 08/09/24 00:30 Room Air 08/09/24 00:09 Room Air 08/08/24 23:44 Room Air 08/08/24 23:41 Room Air 08/08/24 23:10 Room Air 08/08/24 22:54 08/08/24 22:33 Room Air Laboratory Results Laboratory Results WBC 15.89 K/ul (4.8-10.8) H 08/08/24 23:37 RBC 3.81 M/uL (4.70-6.10) L 08/08/24 23:37 Hgb 12.1 g/dl (14.0-18.0) L 08/08/24 23:37 Hct 36.3 % (42.0-52.0) L 08/08/24 23:37 MCV 95.3 fL (80.0-100.0) 08/08/24 23:37 MCH 31.8 pg (25.0-34.0) 08/08/24 23:37 MCHC 33.3 g/dL (32.0-36.0) 08/08/24 23:37 RDW Std Deviation 47.5 fL (36.4-46.3) H 08/08/24 23:37 RDW Coeff of Kailey 13.6 % (11.5-14.5) 08/08/24 23:37 Plt Count 278 K/uL (130-400) 08/08/24 23:37 MPV 9.8 fL (9.4-12.4) 08/08/24 23:37 Immature Gran % (Auto) 0.8 % 08/08/24 23:37 Neut % (Auto) 84.9 % 08/08/24 23:37 Lymph % (Auto) 8.1 % 08/08/24 23:37 Reynolds % (Auto) 5.1 % 08/08/24 23:37 Eos % (Auto) 0.8 % 08/08/24 23:37 Baso % (Auto) 0.3 % 08/08/24 23:37 Neut # (Auto) 13.51 K/uL (1.40-6.50) H 08/08/24 23:37 Lymph # (Auto) 1.28 K/uL (1.20-3.40) 08/08/24 23:37 Reynolds # (Auto) 0.81 K/uL (0.11-0.59) H 08/08/24 23:37 Eos # (Auto) 0.12 K/uL (0.00-0.50) 08/08/24 23:37 Baso # (Auto) 0.04 K/uL (0.00-0.20) 08/08/24 23:37 Immature Gran # (Auto) 0.13 K/uL (0.01-0.20) 08/08/24 23:37 Sodium 135 mmol/L (136-145) L 08/08/24 23:37 Potassium 5.0 mmol/L (3.5-5.1) 08/08/24 23:37 Chloride 102 mmol/L (98-107) 08/08/24 23:37 Carbon Dioxide 26 mmol/L (21-32) 08/08/24 23:37 Anion Gap 7 (3-11) 08/08/24 23:37 BUN 21 mg/dl (6-23) 08/08/24 23:37 Creatinine 1.96 mg/dl (0.6-1.4) H 08/08/24 23:37 Est Cr Clr Drug Dosing 29.4 ml/min 08/08/24 23:37 eGFR 34.35 08/08/24 23:37 BUN/Creatinine Ratio 10.7 (10-20) 08/08/24 23:37 Glucose 135 mg/dl (70-99(Fasting)) H 08/08/24 23:37 Lactate 1.9 mmol/L (0.4-2.0) 08/08/24 23:37 Calcium 9.1 mg/dl (8.6-10.3) 08/08/24 23:37 Magnesium 2.1 mg/dl (1.7-2.4) 08/08/24 23:37 Total Bilirubin 0.3 mg/dl (0.2-1.0) 08/08/24 23:37 Direct Bilirubin 0.1 mg/dl (0-0.2) 08/08/24 23:37 AST 23 U/L (13-39) 08/08/24 23:37 ALT 19 U/L (7-52) 08/08/24 23:37 Alkaline Phosphatase 143 U/L (34-104) H 08/08/24 23:37 Troponin I High Sens 4.8 pg/ml (0-20) 08/08/24 23: Total Protein 6.6 gm/dl (6.0-8.3) 08/08/24 23:37 Albumin 3.8 gm/dl (3.4-5.0) 08/08/24 23:37 Procalcitonin 0.09 ng/ml (0-0.5) 08/08/24 23:37 Urine Color [place] 08/09/24 00:33 Urine Appearance Turbid (Clear) A 08/09/24 00: Urine pH 6.5 (4.5-7.5) 08/09/24 00:33 Ur Specific [place] 1.014 (1.000-1.030) 08/09/24 00:33 Urine Protein 3+ (Negative) H 08/09/24 00:33 Urine Glucose (UA) Negative (Negative) 08/09/24 00: Urine Ketones Negative (Negative) 08/09/24 00: Urine Blood 3+ (Negative) H 08/09/24 00:33 Urine Nitrite Positive (Negative) A 08/09/24 00: Urine Bilirubin 1+ (Negative) H 08/09/24 00:33 Urine Urobilinogen Negative (Negative) 08/09/24 00: Ur Leukocyte Esterase 3+ (Negative) H 08/09/24 00:33 Urine WBC (Auto) >50 /hpf (0-5) H 08/09/24 00:33 Urine RBC (Auto) >20 /hpf (0-2) H 08/09/24 00:33 U Hyaline Cast (Auto) >20 /lpf (0-2) H 08/09/24 00:33 U Epithel Cells (Auto) 0-2 /hpf (0-2) 08/09/24 00:33 Urine Bacteria (Auto) None Seen (None Seen) 08/09/24 00:33 Impressions Chest X-Ray 08/08/24 23:18 EXAM: XR chest 1V portable CLINICAL HISTORY: SEPSIS JMF TECHNIQUE: An X-ray image of the chest is obtained using an AP projection. COMPARISON: No prior studies are available for comparison. FINDINGS: Pulmonary Parenchyma: Lungs are clear bilaterally. No evidence of consolidation, collapse, or focal opacities. No pulmonary nodules are identified. No evidence of pleural effusion or pleural thickening. Heart and Mediastinum: Heart size and shape are normal. No mediastinal widening or masses. No hilar or mediastinal lymphadenopathy. Bony Thorax: The bony thorax appears intact without fractures or deformities. Soft Tissues: Soft tissues overlying the chest wall are unremarkable. IMPRESSION: No acute cardiopulmonary abnormalities are identified. Electronically signed by Bebeto Damon 08-09-2024 02:[address] 08/08/24 23:18 EXAM: CT head/brain wo con CLINICAL HISTORY: CONFUSION TECHNIQUE: Multiple axial images are obtained from the skull base to the vertex without contrast. CT scan was performed according to ALARA (as low as reasonable achievable). COMPARISON: None. FINDINGS: Focal encephalomalacia/gliosis is noted involving right periventricular chairez radiata extending up to the basal ganglia causing ex vacuo dilatation of right lateral ventricle. There is cerebral atrophy. No evidence of space occupying lesion, hemorrhage, edema, mass effect, midline shift, extra axial collection, or hydrocephalus is noted. Basal cisterns are symmetric and normal in size and configuration. There are scattered periventricular hypodensities as can be seen with chronic microvascular ischemic changes. The browning-white matter differentiation is preserved. Visualized paranasal sinuses and mastoid air cells are well aerated. Orbital contents are within normal limits. Bony structures are intact. IMPRESSION: 1. No evidence of acute intracranial abnormality is demonstrated. 2. Chronic microvascular ischemic changes. 3. Cerebral atrophy. 4 Focal encephalomalacia/gliosis is noted involving right periventricular chairez radiata extending up to the basal ganglia causing ex vacuo dilatation of right lateral ventricle. - sequelae of previous insult. Electronically signed by Adarsh Bailey 08-09-2024 02:38 AM Abdomen/Pelvis CT 08/08/24 23:22 EXAM: CT abd pelvis wo con CLINICAL HISTORY: RECENT STENT REPLACEMENT, TECHNIQUE: Contiguous axial images were obtained from the level of the diaphragm to the pubic symphysis without intravenous or oral contrast. Coronal and sagittal reconstructions were likewise performed and indicated to increase the sensitivity for detecting clinically relevant pathology. CT scan was performed according to ALARA (as low as reasonable achievable). COMPARISON: None. FINDINGS: The visualized lung bases are clear. Evaluation of the abdominal and pelvic visceral organs is limited without intravenous contrast. The unenhanced liver, spleen, pancreas, and adrenal glands are grossly unremarkable. The gallbladder is present. The kidneys are normal in size and attenuation without obvious calcification Right kidney shows mild hydronephrosis due to a calculus of size 10 mm in right renal pelvis. Right kidney also shows multiple non-obstructing calculi of size 4-8 mm involving mid and lower calyx. DJ stent seen in-situ on left side. A calculus of size 8 mm and 10 mm is noted involving left upper ureter adjacent to the DJ stent. Left kidney shows non-obstructing calculi of size 6 mm in mid-calyx and 8 mm in lower calyx. No adenopathy or fluid collections are seen. No evidence of focal or diffuse bowel wall thickening or evidence of bowel obstruction is seen. The appendix is visualized in the right lower quadrant and appears within normal limits. The aorta is normal in caliber. The urinary bladder is normal in contour. Pelvic viscera are grossly unremarkable. No aggressive appearing osseous lesions are identified. Left sided fat containing inguinal hernia. IMPRESSION: Right kidney shows mild hydronephrosis due to a calculus of size 10 mm in right renal pelvis. Right kidney also shows multiple non-obstructing calculi of size 4-8 mm involving mid and lower calyx. DJ stent seen in-situ on left side. A calculus of size 8 mm and 10 mm is noted involving left upper ureter adjacent to the DJ stent. Left kidney shows non-obstructing calculi of size 6 mm in mid-calyx and 8 mm in lower calyx. Electronically signed by Adarsh Bailey 08-09-2024 02:47 AM Code Status & VTE Plan Code Status Full code VTE Prophylaxis Plan VTE Prophylaxis will be ordered: Yes PG Care Time/CCT Total # of Minutes Spent Total Time Spent with Patient: Total time spent is greater than 50% in coordination of care (as documented) at patient's floor/unit and/or counseling patient: Coding Level of Care Code 73868 INT INP/OBS CARE MIN Diagnoses LUIS (acute kidney injury) N17.9 Complicated urinary tract infection N39.0 Hydronephrosis, left N13.30 Left ureteral stone N20.1
[2024-08-09 01:28] LABS: Appearance Urine Turbid (Clear); Bacteria Urine Automated None Seen (None Seen); Bilirubin Urine 1+ (Negative); Blood Urine 3+ (Negative); Cast Urine Automated >20 /lpf (0-2); Color Urine Orange; Epithelial Cell Urine Auto 0-2 /hpf (0-2); Glucose Urine UA Negative (Negative); Ketones Urine Negative (Negative); Leukocyte Esterase Urine 3+ (Negative); Nitrite Urine Positive (Negative); Protein Urine 3+ (Negative); RBC Urine Automated >20 /hpf (0-2); Specific Gravity Urine 1.014 (1.000-1.030); Urobilinogen Urine Negative (Negative); WBC Urine Automated >50 /hpf (0-5); pH Urine 6.5 (4.5-7.5)
[2024-08-09] MEDS: DOXYCYCLINE HYCLATE 100 MG in DEXTROSE 5% MINI-B 100 ML IV ONE (01:38)
--- NOTE | 2024-08-09 02:18 | XRay Report ---
EXAM: XR chest 1V portable CLINICAL HISTORY: SEPSIS JMF TECHNIQUE: An X-ray image of the chest is obtained using an AP projection. COMPARISON: No prior studies are available for comparison. FINDINGS: Pulmonary Parenchyma: Lungs are clear bilaterally. No evidence of consolidation, collapse, or focal opacities. No pulmonary nodules are identified. No evidence of pleural effusion or pleural thickening. Heart and Mediastinum: Heart size and shape are normal. No mediastinal widening or masses. No hilar or mediastinal lymphadenopathy. Bony Thorax: The bony thorax appears intact without fractures or deformities. Soft Tissues: Soft tissues overlying the chest wall are unremarkable. IMPRESSION: No acute cardiopulmonary abnormalities are identified. Electronically signed by Bebeto Damon 08-09-2024 02:16 AM
--- NOTE | 2024-08-09 02:39 | CT Scan Report ---
EXAM: CT head/brain wo con CLINICAL HISTORY: CONFUSION TECHNIQUE: Multiple axial images are obtained from the skull base to the vertex without contrast. CT scan was performed according to ALARA (as low as reasonable achievable). COMPARISON: None. FINDINGS: Focal encephalomalacia/gliosis is noted involving right periventricular chairez radiata extending up to the basal ganglia causing ex vacuo dilatation of right lateral ventricle. There is cerebral atrophy. No evidence of space occupying lesion, hemorrhage, edema, mass effect, midline shift, extra axial collection, or hydrocephalus is noted. Basal cisterns are symmetric and normal in size and configuration. There are scattered periventricular hypodensities as can be seen with chronic microvascular ischemic changes. The browning-white matter differentiation is preserved. Visualized paranasal sinuses and mastoid air cells are well aerated. Orbital contents are within normal limits. Bony structures are intact. IMPRESSION: 1. No evidence of acute intracranial abnormality is demonstrated. 2. Chronic microvascular ischemic changes. 3. Cerebral atrophy. 4 Focal encephalomalacia/gliosis is noted involving right periventricular chairez radiata extending up to the basal ganglia causing ex vacuo dilatation of right lateral ventricle. - sequelae of previous insult. Electronically signed by Adarsh Bailey 08-09-2024 02:38 AM
--- NOTE | 2024-08-09 02:48 | CT Scan Report ---
EXAM: CT abd pelvis wo con CLINICAL HISTORY: RECENT STENT REPLACEMENT, TECHNIQUE: Contiguous axial images were obtained from the level of the diaphragm to the pubic symphysis without intravenous or oral contrast. Coronal and sagittal reconstructions were likewise performed and indicated to increase the sensitivity for detecting clinically relevant pathology. CT scan was performed according to ALARA (as low as reasonable achievable). COMPARISON: None. FINDINGS: The visualized lung bases are clear. Evaluation of the abdominal and pelvic visceral organs is limited without intravenous contrast. The unenhanced liver, spleen, pancreas, and adrenal glands are grossly unremarkable. The gallbladder is present. The kidneys are normal in size and attenuation without obvious calcification Right kidney shows mild hydronephrosis due to a calculus of size 10 mm in right renal pelvis. Right kidney also shows multiple non-obstructing calculi of size 4-8 mm involving mid and lower calyx. DJ stent seen in-situ on left side. A calculus of size 8 mm and 10 mm is noted involving left upper ureter adjacent to the DJ stent. Left kidney shows non-obstructing calculi of size 6 mm in mid-calyx and 8 mm in lower calyx. No adenopathy or fluid collections are seen. No evidence of focal or diffuse bowel wall thickening or evidence of bowel obstruction is seen. The appendix is visualized in the right lower quadrant and appears within normal limits. The aorta is normal in caliber. The urinary bladder is normal in contour. Pelvic viscera are grossly unremarkable. No aggressive appearing osseous lesions are identified. Left sided fat containing inguinal hernia. IMPRESSION: Right kidney shows mild hydronephrosis due to a calculus of size 10 mm in right renal pelvis. Right kidney also shows multiple non-obstructing calculi of size 4-8 mm involving mid and lower calyx. DJ stent seen in-situ on left side. A calculus of size 8 mm and 10 mm is noted involving left upper ureter adjacent to the DJ stent. Left kidney shows non-obstructing calculi of size 6 mm in mid-calyx and 8 mm in lower calyx. Electronically signed by Adarsh Bailey 08-09-2024 02:47 AM
[2024-08-09] MEDS ORDERED: ACETAMINOPHEN 325 MG TAB PO PRN (03:37)
[2024-08-09] MEDS ORDERED: ONDANSETRON INJ 2 MG/ML 2 ML VIAL IV PRN ×2 (03:37→15:46)
[2024-08-09] MEDS ORDERED: ALBUTEROL HFA 8 GM INHALER INH PRN (03:37)
[2024-08-09 06:43] LABS: Basophils # (auto) 0.05 K/uL (0.00-0.20); Basophils % (auto) 0.3 %; Eosinophils # (auto) 0.18 K/uL (0.00-0.50); Eosinophils % (auto) 1.1 %; Hematocrit (blood only) 33.4 % (42.0-52.0); Hemoglobin 11.2 g/dl (14.0-18.0); Immature Granulocytes # (auto) 0.12 K/uL (0.01-0.20); Immature Granulocytes % (auto) 0.8 %; Lymphocytes # (auto) 2.74 K/uL (1.20-3.40); Lymphocytes % (auto) 17.4 %; Mean Corpuscular Hemoglobin 32.4 pg (25.0-34.0); Mean Corpuscular Hgb Conc 33.5 g/dL (32.0-36.0); Mean Corpuscular Volume 96.5 fL (80.0-100.0); Mean Platelet Volume 9.8 fL (9.4-12.4); Monocytes # (auto) 0.97 K/uL (0.11-0.59); Monocytes % (auto) 6.1 %; Neutrophils # (auto) 11.73 K/uL (1.40-6.50); Neutrophils % (auto) 74.3 %; Platelet Count 244 K/uL (130-400); RDW Coefficient of Variation 13.7 % (11.5-14.5); RDW Standard Deviation 48.7 fL (36.4-46.3); Red Blood Count 3.46 M/uL (4.70-6.10); White Blood Count 15.79 K/ul (4.8-10.8)
[2024-08-09 07:16] LABS: Albumin Level 3.2 gm/dl (3.4-5.0); BUN Creatinine Ratio 15.4 (10-20); Calcium 8.3 mg/dl (8.6-10.3); Creatinine Clr Calc Pharmacy 40.3 ml/min; Phosphorus 2.9 mg/dl (2.5-4.9); Potassium 4.5 mmol/L (3.5-5.1)
[2024-08-09] MEDS: UMECLIDINIUM BROMIDE 62.5MCG/BLISTER 7 PUFFS/INHALER INH SCH (09:42)
[2024-08-09] MEDS: TAMSULOSIN HCL 0.4 MG CAP PO SCH (09:43)
[2024-08-09] MEDS: FINASTERIDE 5 MG TAB PO SCH (09:43)
[2024-08-09] MEDS: CHOLECALCIFEROL 25 MCG (1000 UNITS) TAB PO SCH (09:43)
[2024-08-09] MEDS: GABAPENTIN 300 MG CAP PO SCH (09:43)
[2024-08-09] MEDS: VIBEGRON 75 MG TAB PO SCH (09:43)
--- NOTE | 2024-08-09 12:08 | Urology Consultation ---
<Statement entered by Forest Lopez MD - 08/09/24 13:04> I have discussed Mr. Evans's case with DAT Weeks and agree with the above documentation. Due to concern for infection in the urine and obstructing stone, we will plan on cystoscopy, right retrograde pyelogram and right ureteral stent placement under anesthesia. -Forest Lopez MD. Date of Consultation August 09, 2024 Assessment & Plan (1) Complicated urinary tract infection: (2) Sepsis: (3) Right ureteral stone: 78-year-old male admitted for acute encephalopathy, right ureteral stone and complicated UTI. CT on arrival showed an obstructing 10 mm calculus in the right renal pelvis with mild hydronephrosis. He is recently status post left ureteral stent placement on 08/03/24 due to left ureteral calculus, lithotripsy was not performed at that time due to concern for infection. He was initiated on Bactrim. Kidney aspirate grew out Staph epidermidis. Patient is currently afebrile and hemodynamically stable Labs reviewedcreatinine 1.43, WBC 15.79, hemoglobin 11.2 Urine and blood cultures are pending He was treated with daptomycin on arrival, transitioned to IV doxycycline Continue with antibiotics and narrow per sensitivity data when available CT reviewed and discussedan obstructing 10 mm calculus in the right renal pelvis with mild hydronephrosis; left stent in good position Given obstructing right ureteral calculus and concern for infection, recommend cystoscopy and right ureteral stent placement Patient is agreeable to proceed with surgical intervention Proceed to the OR today for cystoscopy and right ureteral stent placement Risks and benefits of procedure to be reviewed with patient by Dr. Lopez Keep NPO for procedure Continue supportive care, antibiotics and medical management per hospital medicine team Discussed plan of care with patient's daughter (Tia) History of Present Illness Reason for Consultation: recent stent, stone, flank pain Attending Physician: Mouna Caba MD History of Present Illness This is a 78-year-old male with past medical history of CVA, urothelial carcinoma of bladder, BPH with incomplete emptying, and nephrolithiasis who presented to the emergency department for evaluation of change in behavior and weakness. He is s/p scheduled cystoscopy, left ureteronephroscopy and left ureteral stent placement on 08/03/[address] Lopez. Lithotripsy was not performed because patient was noted to have cloudy urine in the bladder and turbid urine in the kidney, sent for culture. He was discharged with course of Bactrim. Kidney aspirate grew out Staph epidermidis. On arrival to ED, he was afebrile, mildly tachycardic and hypotensive. Lab work showed white count of 15.89, hemoglobin 12.1, creatinine 1.96, and sodium 135. Urinalysis showed 3+ blood, positive nitrates, 3+ LE, >50 WBC, >20 RBC, 0-2 epithelial cells and negative for bacteria. Workup included CT abdomen pelvis which showed an obstructing 10 mm stone in the right renal pelvis with mild hydronephrosis. Additional nonobstructing right renal calculi. Left ureteral stent in appropriate position, stone adjacent to the stent. Left kidney with nonobstructing renal calculi. ED course: 2500 mL of NSS, daptomycin, doxycycline. He was admitted to the hospital medicine service for left ureteral stone and complicated UTI. Urology is consulted for recent stent, stone, flank pain. Patient seen and examined at bedside this morning. He is awake and resting in bed. He is hard of hearing. Denies flank pain at present. He is voiding spontaneously, incontinent. Denies dysuria. No fever or chills. He is currently NPO. Allergies Allergy/AdvReac Type Severity Reaction Status Date / Time No Known Drug Allergies Allergy Verified 08/03/24 08:07 Home Medications Medication Instructions Recorded Confirmed Type cholecalciferol (vitamin D3) 25 1,000 units PO QAM 09/13/19 08/09/24 History mcg (1,000 unit) capsule aspirin 81 mg tablet,delayed 81 mg PO QAM 08/18/21 08/09/24 History release (Adult Aspirin Regimen) ibuprofen 200 mg tablet (Advil) 400 - 600 mg PO Q6H PRN Pain 06/01/22 08/09/24 History multivitamin 1 tab PO QAM 06/01/22 08/09/24 History cranberry 500 mg capsule 500 mg PO HS 09/27/22 08/09/24 History Shower Chair #1 ea 10/01/22 08/09/24 Rx diaper,brief,adult,disposable #60 ea 10/20/22 08/09/24 Rx bupropion HCl 100 mg tablet,12 hr 100 mg PO QAM #90 ea 11/22/22 08/09/24 Rx sustained-release gabapentin 300 mg capsule 300 mg PO BID #120 caps 01/28/23 08/09/24 Rx clopidogrel 75 mg tablet 75 mg PO HS #90 tabs 07/15/23 08/09/24 Rx sodium chloride 0.65 % nasal spray 2 spray intranasal DAILY PRN 07/15/23 08/09/24 History aerosol ([place] Saline) Congestion tiotropium bromide 2.5 2 puff inhalation QAM #4 grams 07/15/23 08/09/24 Rx mcg/actuation mist for inhalation (Spiriva Respimat) sulfamethoxazole 800 1 tab PO BID 7 days #14 tabs 08/03/24 08/09/24 Rx mg-trimethoprim 160 mg tablet (Bactrim DS) albuterol sulfate 90 mcg/actuation 2 inh inhalation QID PRN Shortness 08/09/24 08/09/24 History aerosol inhaler Of Breath Or Wheezing atorvastatin 80 mg tablet 80 mg PO HS 08/09/24 08/09/24 History diclofenac sodium 1 % topical gel 2 gm topical QID PRN Pain 08/09/24 08/09/24 History finasteride 5 mg tablet 5 mg PO QAM 08/09/24 08/09/24 History lisinopril 10 mg tablet 10 mg PO QAM 08/09/24 08/09/24 History mirabegron 50 mg tablet,extended 50 mg PO QAM 08/09/24 08/09/24 History release 24 hr (Myrbetriq) tamsulosin 0.4 mg capsule 0.4 mg PO QAM 08/09/24 08/09/24 History Patient History Medical History COPD (chronic obstructive pulmonary disease) seen 09/21/22 by PCP for COPD exacerbation: given medrol dose pack and zpack and encouraged to increase albuterol inhaler usage; pt still smoking Left hemiplegia s/p CVA 06/2016 Bladder cancer hx- turbt 2022 Neuropathy due to herpes zoster Kidney stone HTN (hypertension) Hyperlipidemia Depression BPH (benign prostatic hyperplasia) Acquired left foot drop Chronic cough History of anemia Occlusion of right internal carotid artery Elevated glucose hx of slightly elevated glucose; PCP monitoring Right internal carotid occlusion R ICA CVA 06/2016 Prosthetic eye globe left eye History of COVID-19 admitted [facility] 02/25-02/28/22; on [place] O[place] while inpt; not D/C on any home O2 Diverticulosis Internal hemorrhoids Tubular adenoma of colon 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 uses a scooter to get around, able to stand and pivot with assistance if needed. and has mild short term memory loss. Surgical History History of colonoscopy H/O eye surgery lost his left eye (20+ years ago) at a work accident -- has a left glass eye Family History Other No significant family history Denies family history of Ovarian cancer Prostate cancer Breast cancer Lung cancer Colorectal cancer Social History Smoking Status: Current every day smoker Tobacco Type: Cigarettes Age Started Using Tobacco: 14; Cigarettes Per Day: 10; Second Hand Exposure: Yes (HX); Do You Dip or Chew Tobacco: No; Hx Alcohol Use: Yes Alcohol type: hard liquor Alcohol Intake Frequency: Monthly or Less Hx Substance Use: Yes Last Used Substance: Just Prior to Arrival Preferred Language: French Communication Ability: Impaired Visual Impairment: Limited Hearing Ability: Hard of Hearing Financial Operations Consultant Required: No Beliefs That Will Affect Care: None marital status: / Current Living Situation: Family Current Living Situation Comment: Lives alone. Daughters assist in evenings and aids come in during the day. current occupational status: retired Other Information That Helps Us Care for You: No Feels Safe at Home: Yes Safety Concerns: Feels Safe At This Time Childhood Exposure to Second-Hand Smoke: Yes Diet: regular caffeine: No Dental Care, Regularly: No Physical Activity Frequency: Does not Exercise Seatbelt Use: always Sunscreen Use: No Assistive Devices: Scooter/Electric Scooter and Wheelchair Review of Systems Review of Systems: All systems reviewed & are unremarkable except as noted in HPI & below Physical Exam Constitutional: no acute distress Respiratory: normal respiratory effort; no respiratory distress and no labored breathing Gastrointestinal (Abdomen): Inspection/Auscultation: abdomen normal to inspection Musculoskeletal: Head/Neck/Chest: normocephalic Neurologic: moves all extremities and awake Psychiatric: Orientation: alert, oriented to person and cooperative Results & Data Vital Signs (Past 12 Hours) Vital Signs Temp Pulse Pulse Resp BP BP Pulse Ox 08/09/24 10:25 36.8 C 84 18 137/77 91 08/09/24 08:03 36.8 C 74 20 118/74 97 08/09/24 07:00 80 08/09/24 04:12 79 08/09/24 03:49 08/09/24 03:37 36.9 C 80 18 122/71 92 08/09/24 03:37 08/09/24 03:00 78 14 120/79 93 08/09/24 02:45 79 20 107/63 91 08/09/24 02:15 82 18 124/86 93 08/09/24 01:30 79 18 115/75 95 08/09/24 01:00 75 18 119/73 93 08/09/24 00:30 73 18 113/79 93 08/09/24 00:09 73 18 99/70 L 93 Pulse Ox O2 Del Method O2 Del Method 08/09/24 10:25 Room Air 08/09/24 08:03 Room Air 08/09/24 07:00 08/09/24 04:12 08/09/24 03:49 Room Air 08/09/24 03:37 Room Air 08/09/24 03:37 92 Room Air 08/09/24 03:00 Room Air 08/09/24 02:45 Room Air 08/09/24 02:15 Room Air 08/09/24 01:30 Room Air 08/09/24 01:00 Room Air 08/09/24 00:30 Room Air 08/09/24 00:09 Room Air PG Care Time/CCT Total # of Minutes Spent Total Time Spent with Patient: Total time spent is greater than 50% in coordination of care (as documented) at patient's floor/unit and/or counseling patient: Coding Level of Care Code 15913 INT INP/OBS CARE 2/55MIN Diagnoses Complicated urinary tract infection N39.0 Sepsis A41.9; R65.20; N17.9 Acute renal failure type: unspecified Sepsis acute organ dysfunction status: with acute organ dysfunction Sepsis type: sepsis due to unspecified organism Severe sepsis acute organ dysfunction type: acute renal failure Severe sepsis shock status: without septic shock Right ureteral stone N20.1 (2) Sepsis Acute renal failure type: unspecified Sepsis acute organ dysfunction status: with acute organ dysfunction Sepsis type: sepsis due to unspecified organism Severe sepsis acute organ dysfunction type: acute renal failure Severe sepsis shock status: without septic shock Qualified Code(s): A41.9 - Sepsis, unspecified organism; R65.20 - Severe sepsis without septic shock; N17.9 - Acute kidney failure, unspecified
[2024-08-09] MEDS: DOXYCYCLINE HYCLATE 100 MG in DEXTROSE 5% MINI-B 100 ML IV SCH (13:10)
[2024-08-09] MEDS ORDERED: ATROPINE SULFATE 0.1 MG/ML 10ML SYR IV PRN (15:46)
[2024-08-09] MEDS ORDERED: ePHEDrine sulfate 50 MG/ML AMP IV PRN (15:46)
[2024-08-09] MEDS ORDERED: fentaNYL citrate PF 100 MCG/2 ML VIAL IV PRN (15:46)
--- NOTE | 2024-08-09 15:46 | Anesthesiology Consultation ---
Date of Service August 09, 2024 Assessment & Plan (1) Encounter for pre-operative examination: Chart Review Chart Review: Acceptable Risk for Surgery and Patient NOT seen in Pre Admission Testing Consults Requested none ASA ASA3 Proposed Anesthesia Anesthesia Type: MAC Risk / Benefits Reviewed With: PT / POA / Parent / Guardian, Accepts Plan and Informed Consent Obtained History Surgery Operation Date: 08/09/24 10:25 Proposed Procedures p Cystoscopy, Right Ureteral Stent Placement - Forest Lopez MD Height/Weight Height: 5 ft 5 in Weight: 75 kg Allergies Allergy/AdvReac Type Severity Reaction Status Date / Time No Known Drug Allergies Allergy Verified 08/03/24 08:07 Medications Home Medications Medication Instructions Recorded Confirmed Last Taken cholecalciferol (vitamin D3) 25 1,000 units PO QAM 09/13/19 08/09/24 08/08/24 mcg (1,000 unit) capsule aspirin 81 mg tablet,delayed 81 mg PO QAM 08/18/21 08/09/24 08/08/24 release (Adult Aspirin Regimen) ibuprofen 200 mg tablet (Advil) 400 - 600 mg PO Q6H PRN Pain 06/01/22 08/09/24 10/03/22 18:00 multivitamin 1 tab PO QAM 06/01/22 08/09/24 08/08/24 cranberry 500 mg capsule 500 mg PO HS 09/27/22 08/09/24 08/07/24 Shower Chair #1 ea 10/01/22 08/09/24 Unknown diaper,brief,adult,disposable #60 ea 10/20/22 08/09/24 Unknown bupropion HCl 100 mg tablet,12 hr 100 mg PO QAM #90 ea 11/22/22 08/09/24 08/08/24 sustained-release gabapentin 300 mg capsule 300 mg PO BID #120 caps 01/28/23 08/09/24 08/08/24 clopidogrel 75 mg tablet 75 mg PO HS #90 tabs 07/15/23 08/09/24 08/08/24 sodium chloride 0.65 % nasal spray 2 spray intranasal DAILY PRN 07/15/23 08/09/24 Unknown aerosol ([place] Saline) Congestion tiotropium bromide 2.5 2 puff inhalation QAM #4 grams 07/15/23 08/09/24 08/08/24 mcg/actuation mist for inhalation (Spiriva Respimat) sulfamethoxazole 800 1 tab PO BID 7 days #14 tabs 08/03/24 08/09/24 08/08/24 mg-trimethoprim 160 mg tablet AM (Bactrim DS) albuterol sulfate 90 mcg/actuation 2 inh inhalation QID PRN Shortness 08/09/24 08/09/24 Unknown aerosol inhaler Of Breath Or Wheezing atorvastatin 80 mg tablet 80 mg PO HS 08/09/24 08/09/24 08/08/24 diclofenac sodium 1 % topical gel 2 gm topical QID PRN Pain 08/09/24 08/09/24 08/08/24 finasteride 5 mg tablet 5 mg PO QAM 08/09/24 08/09/24 08/09/24 lisinopril 10 mg tablet 10 mg PO QAM 08/09/24 08/09/24 08/08/24 mirabegron 50 mg tablet,extended 50 mg PO QAM 08/09/24 08/09/24 08/08/24 release 24 hr (Myrbetriq) tamsulosin 0.4 mg capsule 0.4 mg PO QAM 08/09/24 08/09/24 08/08/24 Active Medications Generic Name Dose Route Start Last Admin Trade Name Freq PRN Reason Stop Dose Admin Finasteride 5 mg 08/09/24 09:00 08/09/24 09:43 Finasteride 5 Mg Tab PO 09/08/24 08:59 5 mg QAM BROOKE Administration Gabapentin 300 mg 08/09/24 09:00 08/09/24 09:43 Gabapentin 300 Mg Cap PO 09/08/24 08:59 300 mg BID BROOKE Administration Doxycycline Hyclate 100 mg/ 100 mls @ 50 mls/hr 08/09/24 13:00 08/09/24 15:13 Dextrose IV 08/19/24 00:59 Infused Q12H BROOKE Infusion Sodium Chloride 1,000 mls @ 80 mls/hr 08/09/24 03:37 08/09/24 04:00 Nss IV 08/09/24 16:06 80 mls/hr .[id number] BROOKE Administration Tamsulosin HCl 0.4 mg 08/09/24 09:00 08/09/24 09:43 Tamsulosin Hcl 0.4 Mg Cap PO 09/08/24 08:59 0.4 mg DAILY BROOKE Administration Umeclidinium [place] 1 puffs 08/09/24 09:00 08/09/24 09:42 Umeclidinium [place] 62.5mcg/Blister 7 Puffs/Inhaler INH 09/08/24 08:59 1 puffs QAM BROOKE Administration Vibegron 75 mg 08/09/24 09:00 08/09/24 09:43 Vibegron 75 Mg Tab PO 09/08/24 08:59 75 mg DAILY BROOKE Administration Vitamin D 25 mcg 08/09/24 09:00 08/09/24 09:43 Cholecalciferol 25 Mcg (1000 Units) Tab PO 09/08/24 08:59 25 mcg QAM BROOKE Administration NPO Date Last Intake of Fluids: 08/09/24 Time Last Intake of Fluids: 02:00 Date Last Intake of Solids: 08/08/24 Time Last Intake of Solids: 19:00 Past Medical History Medical History COPD (chronic obstructive pulmonary disease) seen 09/21/22 by PCP for COPD exacerbation: given medrol dose pack and zpack and encouraged to increase albuterol inhaler usage; pt still smoking Left hemiplegia s/p CVA 06/2016 Bladder cancer hx- turbt 2022 Neuropathy due to herpes zoster Kidney stone HTN (hypertension) Hyperlipidemia Depression BPH (benign prostatic hyperplasia) Acquired left foot drop Chronic cough History of anemia Occlusion of right internal carotid artery Elevated glucose hx of slightly elevated glucose; PCP monitoring Right internal carotid occlusion R ICA CVA 06/2016 Prosthetic eye globe left eye History of COVID-19 admitted [facility] 02/25-02/28/22; on [place] O[place] while inpt; not D/C on any home O2 Diverticulosis Internal hemorrhoids Tubular adenoma of colon 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 uses a scooter to get around, able to stand and pivot with assistance if needed. and has mild short term memory loss. Exercise / Class Metabolic Activity II 4-5 Yardwork/Stairs/Walk up hill Past Family History Family History Other No significant family history Denies family history of Ovarian cancer Prostate cancer Breast cancer Lung cancer Colorectal cancer Past Surgical History Surgical History History of colonoscopy H/O eye surgery lost his left eye (20+ years ago) at a work accident -- has a left glass eye Past Anesthesia History No Hx of Anesthesia Complications and No Family Hx of Anesthesia Complications History of PONV No Hx of PONV and No Hx of Motion Sickness Social History Smoking Status: Current every day smoker tobacco type: cigarettes Smoking cigarettes per day: 10 Do You Dip or Chew Tobacco: No Hx Alcohol Use: Yes Alcohol type: hard liquor alcohol intake frequency: 3 or more drinks per day Alcohol Intake Frequency Comment: 3-4 [employer]als a day Hx Substance Use: Yes substance use type: marijuana Last Used Substance: Just Prior to Arrival Physical Exam Vital Signs Last Vital Signs Temp 99.0 F 08/09/24 15:26 Pulse 106 H 08/09/24 15:26 Resp 20 08/09/24 15:26 BP 158/94 H 08/09/24 15:26 Pulse Ox 93 08/09/24 15:26 O2 Del Method Room Air 08/09/24 15:26 ENMT Mouth: + edentulous; no dentition abnormality Thyromental Distance: > or= 3.5 Finger Breadths Mallampati Class: II Neck normal visual inspection and + facial hair Respiratory normal respiratory effort Auscultation: lungs clear to auscultation bilaterally Cardiovascular Rate/Rhythm: regular rate and regular rhythm Neurologic moves all extremities Psychiatric Orientation: alert; + not oriented x 3 Testing Laboratory Results 08/09/24 05:51 08/09/24 05:51 Urine Color [place] 08/09/24 00:33 Urine Appearance Turbid (Clear) A 08/09/24 00:33 Urine pH 6.5 (4.5-7.5) 08/09/24 00:33 Ur Specific [place] 1.014 (1.000-1.030) 08/09/24 00:33 Urine Protein 3+ (Negative) H 08/09/24 00:33 Urine Glucose (UA) Negative (Negative) 08/09/24 00:33 Urine Ketones Negative (Negative) 08/09/24 00:33 Urine Nitrite Positive (Negative) A 08/09/24 00:33 Ur Leukocyte Esterase 3+ (Negative) H 08/09/24 00:33 Urine WBC (Auto) >50 /hpf (0-5) H 08/09/24 00:33 Urine RBC (Auto) >20 /hpf (0-2) H 08/09/24 00:33 U Hyaline Cast (Auto) >20 /lpf (0-2) H 08/09/24 00:33 U Epithel Cells (Auto) 0-2 /hpf (0-2) 08/09/24 00:33 Urine Bacteria (Auto) None Seen (None Seen) 08/09/24 00:33 Electrocardiogram Date: 08/09/24 Findings: + NSR @ (1st degree AV block)
[2024-08-09] MEDS ORDERED: LIDOCAINE 2% 2 ML VIAL/AMP(20MG/ML) INFIL ONE (15:49)
[2024-08-09] MEDS ORDERED: PROPOFOL IV EMULSION 10 MG/ML 20 ML VIAL IV ONE ×2 (15:49→16:52)
[2024-08-09] MEDS ORDERED: fentaNYL citrate PF 100 MCG/2 ML VIAL ONE (16:05)
[2024-08-09] MEDS ORDERED: PHENYLEPHRINE 100MCG/ML 5ML SYR ONE (16:43)
[2024-08-09] MEDS: DIATRIZOATE MEGLUMINE 30% 100ML VIAL INSTIL ONE (16:50)
[2024-08-09] MEDS ORDERED: ONDANSETRON INJ 2 MG/ML 2 ML VIAL ONE (16:54)
--- NOTE | 2024-08-09 16:57 | Operative Report ---
PG Post Operative Report Pre & Post Diagnosis Operation Date: 08/09/24 10:25 Pre-Op Diagnosis: (1) LUIS (acute kidney injury): (2) Complicated urinary tract infection: (3) Hydronephrosis, left: (4) Left ureteral stone: Post-Op Diagnosis: (1) LUIS (acute kidney injury): (2) Complicated urinary tract infection: (3) Hydronephrosis, left: (4) Left ureteral stone: I identified the patient and participated in the time-out.: Yes Procedure Operation Date: 08/09/24 10:25 Cystoscopy, right retrograde pyelogram, right ureteral stent placement Surgeon Forest Lopez MD Truck Trailer Final Inspector None Estimated Blood Loss 0 Findings Consistent with Post-Op Diagnosis Specimens None Drains 6 Iranian x 26 cm double-J ureteral stent in the right ureter Anesthesia Type MAC Complications none Disposition Accompanied Patient To Recovery: Yes Disposition: Recovery Room Indications This is a 78-year-old male followed by urology for nephrolithiasis. He recently underwent left ureteral stent placement, however started to pass a stone on the right side. Due to concern for concurrent infection, he presents to the OR for right ureteral stent placement. Description of Procedure The patient was identified in the holding area and informed consent was confirmed. He was marked on the right side, then was taken to the operating room where anesthesia was initiated. He was placed in the dorsal lithotomy position with all pressure points appropriately padded. He was prepped and draped in the usual sterile fashion and a preoperative timeout was performed. A well-lubricated cystoscope was inserted per urethra and panendoscopy was performed. The pendulous urethra was normal with no strictures or mucosal abnormalities. The prostate was of normal size. Bladder was somewhat irritated. The stent on the left side was present. A 5 [place] open-ended catheter was inserted and used to intubate the right ureteral orifice. A retrograde pyelogram was performed using Cystografin. There was some J hooking near the ureteral orifice, but otherwise the ureter appeared normal in course and caliber. In the proximal ureter was a shadow suggesting the stone with hydronephrosis in the kidney. A 0.038 inch zip wire was advanced up to the kidney under fluoroscopic guidance. Over the wire, a 6 Iranian x 26 cm double-J ureteral stent was advanced. When the wire was removed, there was a good curl in the kidney under fluoroscopic guidance. A curl was visualized in the bladder with the cystoscope. Due to concern for incomplete emptying, I left an 18 Iranian coud catheter with 10 cc in the balloon. Catheter was attached to gravity drainage. The patient was then awakened from anesthesia and was brought to the PACU in stable condition. I attest to the content of the Intraoperative Record and any orders documented therein. Any exceptions are noted below.
--- NOTE | 2024-08-09 18:23 | Anesthesiology Progress Note ---
Date of Service August 09, 2024 Anesthesia Post Procedure Vital Signs Vital Signs: Temp Pulse Pulse Resp BP BP Pulse Ox 08/09/24 17:20 98.1 F 90 16 154/84 H 96 08/09/24 17:10 94 H 16 132/92 93 08/09/24 17:03 97.0 F L 95 H 18 131/88 95 08/09/24 15:26 99.0 F 106 H 20 158/94 H 93 08/09/24 15:13 98.5 F 99 H 18 164/78 H 92 08/09/24 10:25 98.2 F 84 18 137/77 91 08/09/24 08:03 98.2 F 74 20 118/74 97 08/09/24 07:00 80 08/09/24 04:12 79 08/09/24 03:49 08/09/24 03:37 98.4 F 80 18 122/71 92 08/09/24 03:37 08/09/24 03:00 78 14 120/79 93 08/09/24 02:45 79 20 107/63 91 08/09/24 02:15 82 18 124/86 93 08/09/24 01:30 79 18 115/75 95 08/09/24 01:00 75 18 119/73 93 08/09/24 00:30 73 18 113/79 93 08/09/24 00:09 73 18 99/70 L 93 08/08/24 23:44 72 20 80/63 L 93 08/08/24 23:41 92 08/08/24 23:10 78 18 82/70 L 92 08/08/24 22:54 84 08/08/24 22:33 97.7 F 92 H 20 94/62 L 94 Pulse Ox O2 Del Method O2 Del Method O2 Flow Rate 08/09/24 17:20 Nasal Cannula 2 08/09/24 17:10 Nasal Cannula 2 08/09/24 17:03 Nasal Cannula 2 08/09/24 15:26 Room Air 08/09/24 15:13 Room Air 08/09/24 10:25 Room Air 08/09/24 08:03 Room Air 08/09/24 07:00 08/09/24 04:12 08/09/24 03:49 Room Air 08/09/24 03:37 Room Air 08/09/24 03:37 92 Room Air 08/09/24 03:00 Room Air 08/09/24 02:45 Room Air 08/09/24 02:15 Room Air 08/09/24 01:30 Room Air 08/09/24 01:00 Room Air 08/09/24 00:30 Room Air 08/09/24 00:09 Room Air 08/08/24 23:44 Room Air 08/08/24 23:41 Room Air 08/08/24 23:10 Room Air 08/08/24 22:54 08/08/24 22:33 Room Air Transfer of Care Handoff Completed per policy Notes Mental Status: alert / awake / arousable and participated in evaluation Patient Amnestic to Procedure: Yes Nausea / Vomiting: adequately controlled Pain: adequately controlled Airway Patency, RR, SpO2: stable & adequate BP & HR: stable & adequate Hydration State: stable & adequate Anesthetic Complications: no major complications apparent and Pt Satisfied with anesthetic care
[2024-08-09] MEDS: MoRPHine SULFATE 2 MG/ML CARP IV STA (18:40)
[2024-08-10 07:39] LABS: Basophils # (auto) 0.05 K/uL (0.00-0.20); Basophils % (auto) 0.4 %; Eosinophils # (auto) 0.33 K/uL (0.00-0.50); Eosinophils % (auto) 2.5 %; Hematocrit (blood only) 34.5 % (42.0-52.0); Hemoglobin 11.6 g/dl (14.0-18.0); Immature Granulocytes # (auto) 0.07 K/uL (0.01-0.20); Immature Granulocytes % (auto) 0.5 %; Lymphocytes # (auto) 1.67 K/uL (1.20-3.40); Lymphocytes % (auto) 12.7 %; Mean Corpuscular Hgb Conc 33.6 g/dL (32.0-36.0); Mean Corpuscular Volume 95.3 fL (80.0-100.0); Monocytes % (auto) 6.8 %; Neutrophils # (auto) 10.15 K/uL (1.40-6.50); Neutrophils % (auto) 77.1 %; Platelet Count 277 K/uL (130-400); RDW Coefficient of Variation 13.2 % (11.5-14.5); RDW Standard Deviation 46.8 fL (36.4-46.3); Red Blood Count 3.62 M/uL (4.70-6.10); White Blood Count 13.17 K/ul (4.8-10.8)
--- NOTE | 2024-08-10 07:53 | Fluoroscopy Report ---
FL retrograde includes kub CLINICAL HISTORY: RIGHT STENTstatus post placement of a right ureteral stent COMPARISON STUDY: CT 08/08/2024 FLUOROSCOPY TIME: 11.7 seconds FLUOROSCOPY IMAGES: 4 EXPOSURE DOSE: 2.78 mGy FINDINGS: Bilateral ureteral stents are present which appear to be in satisfactory positioning. The p roximal left ureteral stent was not imaged. IMPRESSION: Fluoroscopic assistance as above. ACT 112: Negative or not required by law. Electronically signed by: Danny Elizabeth M.D. 08/10/2024 7:52 AM
[2024-08-10 08:06] LABS: Albumin Level 3.6 gm/dl (3.4-5.0); BUN Creatinine Ratio 12.7 (10-20); Calcium 8.7 mg/dl (8.6-10.3); Creatinine Clr Calc Pharmacy 52.4 ml/min; Magnesium 1.8 mg/dl (1.7-2.4); Phosphorus 2.1 mg/dl (2.5-4.9); Potassium 4.3 mmol/L (3.5-5.1)
--- NOTE | 2024-08-10 08:56 | Hospitalist Progress Note ---
Date of Service August 10, 2024 Assessment & Plan (1) LUIS (acute kidney injury): (2) Complicated urinary tract infection: (3) Hydronephrosis, left: (4) Left ureteral stone: Plan The patient is a 78-year-old male with a past medical history including complicated UTIs, ureteral stone, BPH with LUTS, hypertension, urothelial carcinoma of bladder, depression, hyperlipidemia, nicotine dependence, history of stroke with residual left-sided weakness, bladder spasm, COPD, and progress can generalized debilitation. The patient recently underwent a urologic procedure on 08/03/2024, where he underwent a cystoscopy, ureteral nephroscopy, retrograde pyelogram, and insertion of left catheter stent. Urinalysis at that time did ultimately grow Staph epidermidis, for which he had been placed on Bactrim DS, has only taken 3 days of pills twice daily. Due to worsening symptoms of confusion, generalized fatigue, decreased oral intake and concerns regarding recurrence of acute encephalopathy, patient's family arranged for him to come to the emergency department for assessment. #Acute kidney injury/dehydration/BPH with LUTS- - Creatinine 1.96 on admission, now at baseline (1.1) - Secondary to UTI and ureteral obstruction, now treated with ureteral stent placement on the left on 08/03/2024 - Ureteral stone 8 and 10 mm noted adjacent to left ureteral stent on CT, also r ight kidney shows mild hydronephrosis due to a calculus of size 10 mm in right renal pelvis - Status post 2.5 L normal saline boluses in the ED - Also received daptomycin 375 mg IV x 1 from the ED, continue on NSS 80 mL/h x 1 L - Acetaminophen 650 mg by mouth every 6 hours as needed for mild pain or fever, prn tramadol for mod to severe pain - Continue tamsulosin 0.4 mg p.o. daily, vibegron 75 mg p.o. daily and finasteride 5 mg p.o. every morning - Hold lisinopril - resumed DAPT #Mild right hydronephrosis- - Associated with 10 mm right renal pelvis calculus. - Right kidney also shows multiple nonobstructing calculi of size 4-8 mm involving the mid and lower calyx - Urology recs appreciated, s/p right ureteral stent placement , maintain brown, cleared for d/c on 08/11/24 #Staph epidermidis UTI- - From urine culture on 08/03/2024 - Received Bactrim DS twice daily x 3 days completed so far as outpatient of a potential 5-day course - Concern whether part of his encephalopathy may be associated with reaction to Bactrim - Placed on doxycycline 100 mg IV every 12 hours after having received daptomycin 375 mg IV as noted above #Sepsis with improving hypotension- - Blood pressure was as low as 80/63 in the ED - Symptoms did improve with 2.5 L IV fluid bolus as noted, to 122/71 - Will follow on telemetry for potential recurrence of hypotension - BCx NGTD #Chronic medical issues: - COPD-continue albuterol sulfate HFA 2 puffs 4 times daily as needed and Spiriva - Anxiety and depression-continue bupropion when taking p.o. regularly - Hyperlipidemia-continue atorvastatin when taking p.o. - Cerebrovascular disease with left hemiparesis Admission and Anticipated Discharge Date Admission Date: August 09, 2024 Subjective No acute events overnight Some right flank pain with urination Mild blood in the urine Pt counseled on keeping brown catheter below the bladder Review of Systems Review of Systems: Comprehensive ROS neg Physical Exam Physical Exam: Gen: NAD HEENT: NC/AT, MMM Lungs: CTAB CVS: s1s2nl, RRR Abd: soft, nT, nl bowel sounds : +brown with blood in the urine Ext: no edema Results & Data Results & Data Vital Signs (Past 12 Hours) Vital Signs Temp Pulse Resp BP Pulse Ox Pulse Ox O2 Del Method 08/10/24 03:37 94 08/10/24 02:14 36.9 C 70 16 137/76 96 Nasal Cannula 08/09/24 23:18 94 08/09/24 22:00 37.0 C 109 H 21 133/87 94 Nasal Cannula 08/09/24 21:00 Nasal Cannula O2 Del Method O2 Flow Rate O2 Flow Rate 08/10/24 03:37 Nasal Cannula 2 08/10/24 02:14 2 08/09/24 23:18 Nasal Cannula 2 08/09/24 22:00 2 08/09/24 21:00 2 PG Care Time/CCT Total # of Minutes Spent Total Time Spent with Patient: Total time spent is greater than 50% in coordination of care (as documented) at patient's floor/unit and/or counseling patient: Coding Level of Care Code 18963 SUB INP/OBS CARE 235MIN Diagnoses LUIS (acute kidney injury) N17.9 Complicated urinary tract infection N39.0 Hydronephrosis, left N13.30 Left ureteral stone N20.1
--- NOTE | 2024-08-10 16:15 | Urology Progress Note ---
<Statement entered by Forest Lopez MD - 08/10/24 18:28> SHould have adequate source control with bilateral stents in place. I suspect he does not consistently empty his bladder to completion, however as he is improving clinically, voiding trial can be performed, would recommend on 08/11/2024. We will arrange outpatient follow up to coordinate stone removal. Date of Service August 10, 2024 Assessment & Plan (1) LUIS (acute kidney injury): (2) Complicated urinary tract infection: (3) Right ureteral stone: Plan Postop day #1 status post cystoscopy and right ureteral stent placement He is afebrile and hemodynamically stable Labs show a white count of 13.17, hemoglobin 11.6, creatinine 1.10 Urine and blood cultures preliminary no growth Leigh intact and draining pink-tinged urine No further intervention warranted Continue antibiotics and tailor per culture sensitivities Maintain Leigh catheter Anticoagulation per primary team Will arrange outpatient follow-up with our service Urology to sign off. Please call with any further questions or concerns Admission and Anticipated Discharge Date Admission Date: August 09, 2024 Subjective Pt seen at bedside today Awake and resting in bed on arrival No acute distress Leigh intact draining pink tinged urine Review of Systems Constitutional: as per Subjective / HPI Genitourinary: + as per Subjective / HPI Physical Exam Constitutional: no acute distress Respiratory: no respiratory distress and no labored breathing Neurologic: awake Psychiatric: Orientation: alert, oriented to person and cooperative Genitourinary: Leigh intact Results & Data Vital Signs (Past 12 Hours) Vital Signs Temp Pulse Pulse Resp BP Pulse Ox O2 Del Method 08/10/24 15:32 36.6 C 77 18 127/72 94 Room Air 08/10/24 15:26 105 H 08/10/24 10:56 36.6 C 94 H 18 154/83 H 94 Room Air 08/10/24 08:59 36.4 C L 76 18 156/77 H 91 Room Air 08/10/24 07:00 88 PG Care Time/CCT Total # of Minutes Spent Total Time Spent with Patient: Total time spent is greater than 50% in coordination of care (as documented) at patient's floor/unit and/or counseling patient: Coding Level of Care Code 60013 SUB INP/OBS CARE 2/35MIN Diagnoses LUIS (acute kidney injury) N17.9 Complicated urinary tract infection N39.0 Right ureteral stone N20.1
[2024-08-10] MEDS: traMADol HCL 50 MG TABLET PO PRN (17:45)
--- NOTE | 2024-08-10 21:56 | Electrocardiogram Report ---
Test Reason : Blood Pressure : */* mmHG Vent. Rate : 72 BPM Atrial Rate : 72 BPM P-R Int : 210 ms QRS Dur : 74 ms QT Int : 376 ms P-R-T Axes : 86 58 70 degrees QTcB Int : 411 ms Sinus rhythm with 1st degree A-V block Low voltage QRS Septal infarct (cited on or before 18-Aug-2021) Abnormal ECG When compared with ECG of 19-Nov-2023 13:36, No significant change was found Confirmed by Edgar Mosley ([id number]) on 08/10/2024 9:56:07 PM Referred By: REFERRED SELF Confirmed By: Edgar Mosley
[2024-08-11 07:56] LABS: Basophils # (auto) 0.04 K/uL (0.00-0.20); Basophils % (auto) 0.3 %; Eosinophils # (auto) 0.57 K/uL (0.00-0.50); Eosinophils % (auto) 4.9 %; Hematocrit (blood only) 36.2 % (42.0-52.0); Hemoglobin 12.3 g/dl (14.0-18.0); Immature Granulocytes # (auto) 0.04 K/uL (0.01-0.20); Immature Granulocytes % (auto) 0.3 %; Lymphocytes # (auto) 2.41 K/uL (1.20-3.40); Lymphocytes % (auto) 20.8 %; Mean Corpuscular Hemoglobin 32.1 pg (25.0-34.0); Mean Corpuscular Volume 94.5 fL (80.0-100.0); Mean Platelet Volume 10.1 fL (9.4-12.4); Monocytes # (auto) 0.99 K/uL (0.11-0.59); Monocytes % (auto) 8.5 %; Neutrophils # (auto) 7.54 K/uL (1.40-6.50); Neutrophils % (auto) 65.2 %; Platelet Count 282 K/uL (130-400); RDW Coefficient of Variation 13.3 % (11.5-14.5); RDW Standard Deviation 45.6 fL (36.4-46.3); Red Blood Count 3.83 M/uL (4.70-6.10); White Blood Count 11.59 K/ul (4.8-10.8)
[2024-08-11 08:16] LABS: Albumin Level 3.6 gm/dl (3.4-5.0); BUN Creatinine Ratio 14.5 (10-20); Calcium 8.8 mg/dl (8.6-10.3); Creatinine Clr Calc Pharmacy 48.1 ml/min; Magnesium 1.9 mg/dl (1.7-2.4); Phosphorus 2.4 mg/dl (2.5-4.9)
--- NOTE | 2024-08-11 08:24 | Hospitalist Progress Note ---
Date of Service August 11, 2024 Assessment & Plan (1) LUIS (acute kidney injury): (2) Complicated urinary tract infection: (3) Hydronephrosis, left: (4) Left ureteral stone: Plan The patient is a 78-year-old male with a past medical history including complicated UTIs, ureteral stone, BPH with LUTS, hypertension, urothelial carcinoma of bladder, depression, hyperlipidemia, nicotine dependence, history of stroke with residual left-sided weakness, bladder spasm, COPD, and progress can generalized debilitation. The patient recently underwent a urologic procedure on 08/03/2024, where he underwent a cystoscopy, ureteral nephroscopy, retrograde pyelogram, and insertion of left catheter stent. Urinalysis at that time did ultimately grow Staph epidermidis, for which he had been placed on Bactrim DS, has only taken 3 days of pills twice daily. Due to worsening symptoms of confusion, generalized fatigue, decreased oral intake and concerns regarding recurrence of acute encephalopathy, patient's family arranged for him to come to the emergency department for assessment. #Acute kidney injury/dehydration/BPH with LUTS- - Creatinine 1.96 on admission, now at baseline (1.1) - Secondary to UTI and ureteral obstruction, now treated with ureteral stent placement on the left on 08/03/2024 - Ureteral stone 8 and 10 mm noted adjacent to left ureteral stent on CT, also r ight kidney shows mild hydronephrosis due to a calculus of size 10 mm in right renal pelvis - Status post 2.5 L normal saline boluses in the ED - Also received daptomycin 375 mg IV x 1 from the ED, continue on NSS 80 mL/h x 1 L - Acetaminophen 650 mg by mouth every 6 hours as needed for mild pain or fever, prn tramadol for mod to severe pain - Continue tamsulosin 0.4 mg p.o. daily, vibegron 75 mg p.o. daily and finasteride 5 mg p.o. every morning - Hold lisinopril - resumed DAPT #Mild right hydronephrosis- - Associated with 10 mm right renal pelvis calculus. - Right kidney also shows multiple nonobstructing calculi of size 4-8 mm involving the mid and lower calyx - Urology recs appreciated, s/p right ureteral stent placement , maintain brown, cleared for d/c on 08/11/24 #Staph epidermidis UTI- - From urine culture on 08/03/2024 - Received Bactrim DS twice daily x 3 days completed so far as outpatient of a potential 5-day course - Concern whether part of his encephalopathy may be associated with reaction to Bactrim - Placed on doxycycline 100 mg IV every 12 hours after having received daptomycin 375 mg IV as noted above #Sepsis with improving hypotension- - Blood pressure was as low as 80/63 in the ED - Symptoms did improve with 2.5 L IV fluid bolus as noted, to 122/71 - Will follow on telemetry for potential recurrence of hypotension - BCx NGTD #Chronic medical issues: - COPD-continue albuterol sulfate HFA 2 puffs 4 times daily as needed and Spiriva - Anxiety and depression-continue bupropion when taking p.o. regularly - Hyperlipidemia-continue atorvastatin when taking p.o. - Cerebrovascular disease with left hemiparesis Admission and Anticipated Discharge Date Admission Date: August 09, 2024 Subjective No acute events overnight Some right flank pain with urination Mild blood in the urine Pt counseled on keeping brown catheter below the bladder Review of Systems Review of Systems: Comprehensive ROS neg Physical Exam Physical Exam: Gen: NAD HEENT: NC/AT, MMM Lungs: CTAB CVS: s1s2nl, RRR Abd: soft, nT, nl bowel sounds : +brown with blood in the urine Ext: no edema Results & Data Results & Data Vital Signs (Past 12 Hours) Vital Signs Temp Pulse Pulse Resp BP Pulse Ox O2 Del Method 08/11/24 07:31 81 08/11/24 03:43 36.8 C 85 18 118/74 95 Room Air 08/10/24 23:16 85 08/10/24 23:00 36.9 C 84 18 119/73 94 Room Air PG Care Time/CCT Total # of Minutes Spent Total Time Spent with Patient: Total time spent is greater than 50% in coordination of care (as documented) at patient's floor/unit and/or counseling patient: Coding Diagnoses LUIS (acute kidney injury) N17.9 Complicated urinary tract infection N39.0 Hydronephrosis, left N13.30 Left ureteral stone N20.1
[2024-08-11] MEDS: CLOPIDOGREL BISULFATE 75 MG TAB PO SCH (08:28)
[2024-08-11] MEDS: ASPIRIN 81 MG ECTAB PO SCH (08:28)
[2024-08-11] MEDS: MAGNESIUM OXIDE 400 MG TAB PO ONE (09:41)
[2024-08-11] MEDS: POT PHOSPHATE MONOBASIC W/ SOD TAB PO ONE (09:41)
[2024-08-11 10:47] VITALS: BP 145/85; RESP 17; TEMP 98.4; O2SAT 95
--- NOTE | 2024-08-11 13:53 | Discharge Summary ---
Discharge Summary Date of Service August 11, 2024 Principal Dx & Hospital Course #1 = Principal Diagnosis (1) LUIS (acute kidney injury): (2) Complicated urinary tract infection: (3) Hydronephrosis, left: (4) Left ureteral stone: Plan The patient is a 78-year-old male with a past medical history including complicated UTIs, ureteral stone, BPH with LUTS, hypertension, urothelial carcinoma of bladder, depression, hyperlipidemia, nicotine dependence, history of stroke with residual left-sided weakness, bladder spasm, COPD, and progressive generalized debilitation. The patient recently underwent a urologic procedure on 08/03/2024, where he underwent a cystoscopy, ureteral nephroscopy, retrograde pyelogram, and insertion of left catheter stent. Urinalysis at that time did ultimately grow Staph epidermidis, for which he had been placed on Bactrim DS, has only taken 3 days of pills twice daily. Due to worsening symptoms of confusion, generalized fatigue, decreased oral intake and concerns regarding recurrence of acute encephalopathy, patient's family arranged for him to come to the emergency department for assessment. #Acute kidney injury/dehydration/BPH with LUTS- - Creatinine 1.96 on admission, now at baseline (1.1) - Secondary to UTI and ureteral obstruction, now treated with ureteral stent placement on the left on 08/03/2024 - Ureteral stone 8 and 10 mm noted adjacent to left ureteral stent on CT, also r ight kidney shows mild hydronephrosis due to a calculus of size 10 mm in right renal pelvis - Status post 2.5 L normal saline boluses in the ED - Also received daptomycin 375 mg IV x 1 from the ED, continue on NSS 80 mL/h x 1 L - Acetaminophen 650 mg by mouth every 6 hours as needed for mild pain or fever, prn tramadol for mod to severe pain - Continue tamsulosin 0.4 mg p.o. daily, vibegron 75 mg p.o. daily and finasteride 5 mg p.o. every morning - lisinopril resumed on discharge - brown to be maintained on discharge - resumed DAPT - tramadol prn for stent related pain #Mild right hydronephrosis- - Associated with 10 mm right renal pelvis calculus. - Right kidney also shows multiple nonobstructing calculi of size 4-8 mm involving the mid and lower calyx - Urology recs appreciated, s/p right ureteral stent placement , resume DAPT, maintain brown, cleared for d/c on 08/11/24 #Staph epidermidis UTI- - From urine culture on 08/03/2024 - Received Bactrim DS twice daily x 3 days completed so far as outpatient of a potential 5-day course - Concern whether part of his encephalopathy may be associated with reaction to Bactrim - Placed on doxycycline 100 mg IV every 12 hours after having received daptomycin 375 mg IV as noted above - pt will be discharged on 3 more days of doxycycline for a total of 7 days of abx course including bactrim #Sepsis with improving hypotension- resolved - Blood pressure was as low as 80/63 in the ED - Symptoms did improve with 2.5 L IV fluid bolus as noted, to 122/71 - BCx NGTD #Chronic medical issues: - COPD-continue albuterol sulfate HFA 2 puffs 4 times daily as needed and Spiriva - Anxiety and depression-continue bupropion when taking p.o. regularly - Hyperlipidemia-continue atorvastatin when taking p.o. - Cerebrovascular disease with left hemiparesis 08/10: daughter at bedside Admission HPI Per Admitting Provider The patient is a 78-year-old male with a past medical history including complicated UTIs, ureteral stone, BPH with LUTS, hypertension, urothelial carcinoma of bladder, depression, hyperlipidemia, nicotine dependence, history of stroke with residual left-sided weakness, bladder spasm, COPD, and progressive generalized debilitation. The patient recently underwent a urologic procedure on 08/03/2024, where he underwent a cystoscopy, ureteral nephroscopy, retrograde pyelogram, and insertion of left catheter stent. Urinalysis at that time did ultimately grow Staph epidermidis, for which he had been placed on Bactrim DS, has not taken 3 days of pills twice daily. Due to worsening symptoms of confusion, generalized fatigue, decreased oral intake and concerns regarding recurrence of acute encephalopathy, patient's family arranged for him to come to the emergency department for assessment. Discharge Plan Discharge Items Patient Disposition: Home - Self-Care Reason For Visit: SEPSIS DUE TO UTI, LUIS, L URETERAL STENT 08/03/24 Discharge Diagnosis: R ureteral stone / stent Activity: Resume your previous activity Non-emergency contact: Urologist Call non-emergency contact if: your symptoms worsen Follow-up/Referrals: Forest Lopez MD [Physician] - Job Bernabe DO [Primary Care Provider] - Diet: Heart Healthy Addtl Attending Provider Instructions: 1. follow up with your primary care doctor in about 7 to 10 days 2. follow up with urology team 3. you might still have blood tinged urine, however, if the bleeding gets worse, please call your urology team immediately 4. please ensure your brown bag is below your bladder level at all times to avoid infection Pending Studies at Discharge: No Stand-Alone Forms: My [facility] [employer], Smoking Cessation Medications and DC Order Prescriptions: New tramadol 50 mg Tablet 50 mg PO Q4H PRN (Reason: pain) 5 Days Qty: 20 0RF doxycycline hyclate 100 mg capsule 100 mg PO BID 3 Days Qty: 6 0RF Continued (DME) Shower Chair Misc See Rx Instructions .Route Qty: 1 0RF Rx Instructions: As directed (DME) diaper,brief,adult,disposable Misc See Rx Instructions .Route Qty: 60 12RF Rx Instructions: As directed changing 1-2 times nightly bupropion HCl 100 mg tablet sustained-release 12 hr 100 mg PO QAM Qty: 90 3RF Rx Instructions: TAKE 1 TABLET BY MOUTH IN THE MORNING gabapentin 300 mg capsule 300 mg PO BID Qty: 120 1RF cholecalciferol (vitamin D3) 25 mcg (1,000 unit) capsule 1,000 units PO QAM clopidogrel 75 mg tablet 75 mg PO HS Qty: 90 3RF Spiriva Respimat 2.5 mcg/actuation mist 2 puff inhalation QAM Qty: 4 3RF aspirin [Adult Aspirin Regimen] 81 mg tablet,delayed release (DR/EC) 81 mg PO QAM [place] Saline 0.65 % aerosol,spray 2 spray INTRANASAL DAILY PRN (Reason: Congestion) Rx Instructions: while awake multivitamin Tablet 1 tab PO QAM cranberry 500 mg Capsule 500 mg PO HS albuterol sulfate 90 mcg/actuation HFA aerosol inhaler 2 inh inhalation QID PRN (Reason: Shortness Of Breath Or Wheezing) finasteride 5 mg tablet 5 mg PO QAM atorvastatin 80 mg tablet 80 mg PO HS Rx Instructions: Take 1 tablet by mouth once daily lisinopril 10 mg tablet 10 mg PO QAM mirabegron [Myrbetriq] 50 mg tablet extended release 24 hr 50 mg PO QAM tamsulosin 0.4 mg capsule 0.4 mg PO QAM Discontinued ibuprofen [Advil] 200 mg Tablet 400 - 600 mg PO Q6H PRN (Reason: Pain) sulfamethoxazole-trimethoprim [Bactrim DS] 800-160 mg tablet 1 tab PO BID 7 Days Qty: 14 0RF diclofenac sodium 1 % gel 2 gm TOP QID PRN (Reason: Pain) Rx Instructions: apply to single elbow, wrist or hand; for hand includes palm/fingers/back of hand Discharge Orders: Discharge Order (Routine); Ordered 08/11/24 Ordered By: Yolanda Delgado Admission Data Admit Date/Time: 08/09/24 01:15 Attending Provider: Yolanda Delgado Admit Provider: Vineet Broussard Primary Care Provider: Job Bernabe Other Providers: Vineet Broussard; Forest Lopez Hospital Stay Data Consultations 08/09/24 00:31 ED Decision to Admit Stat 08/09/24 09:17 Consult Urology Routine Procedures Performed Operation Date: 08/09/24 10:25 Actual Procedures p Cystoscopy, Right Ureteral Stent Placement(Not Applicable) - Forest Lopez MD Diagnostic Imagining Performed 08/08/24 23:18 CT head/brain wo con Stat 08/08/24 23:22 CT abd pelvis wo con Stat 08/09/24 [place] retrograde includes kub Routine Pending Results Patient Have Any Pending Studies at Discharge: No Discharge Instructions Given to Patient (Per Discharging Provider) 1. follow up with your primary care doctor in about 7 to 10 days 2. follow up with urology team 3. you might still have blood tinged urine, however, if the bleeding gets worse, please call your urology team immediately 4. please ensure your brown bag is below your bladder level at all times to avoid infection Total Time Total Time Spent Total Time Spent (In Minutes): 45 Coding Level of Care Code 78030 INP/OBS DISCH >30 MIN Diagnoses LUIS (acute kidney injury) N17.9 Complicated urinary tract infection N39.0 Hydronephrosis, left N13.30 Left ureteral stone N20.1
[2024-08-11 16:06] VITALS: PULSE 87
== END 2024-08-11 17:47 | disposition home or self-care (01) | DRG 853 ==
LOC: ED 22:30 → 2S 08-09 01:15 → SUATTDRO 08-09 01:15 → 2S 08-09 03:00

== ENCOUNTER 2024-11-28 17:10 | Inpatient (IN) ==
--- NOTE | 2024-11-28 18:25 | Emergency Department Note ---
History of Present Illness General Chief complaint: Confusion Stated complaint: CONFUSION Time Seen by Provider: 11/28/24 18:04 History of Present Illness This is a 79-year-old male presenting to the emergency department from home via EMS for evaluation of worsening confusion. Patient is accompanied at bedside by family who primarily provides history. Patient does have a history of previous stroke with residual left-sided deficit. Patient evidently took a 300 mg marijuana edible gummy around lunchtime. Patient subsequently had several episodes of nausea, vomiting, and worsening slurring of speech from baseline. Patient seems to have more left-sided deficit than normal according to family. Patient does not report any pain himself. No recent fevers or chills. No falls. Discomfort is currently rated 2/10. Home Medications Medication Instructions Recorded Confirmed Type cholecalciferol (vitamin D3) 25 1,000 units PO QAM 09/13/19 11/28/24 History mcg (1,000 unit) capsule aspirin 81 mg tablet,delayed 81 mg PO QAM 08/18/21 11/28/24 History release (Adult Aspirin Regimen) multivitamin 1 tab PO QAM 06/01/22 11/28/24 History cranberry 500 mg capsule 500 mg PO HS 09/27/22 11/28/24 History Shower Chair #1 ea 10/01/22 09/07/24 Rx diaper,brief,adult,disposable #60 ea 10/20/22 09/07/24 Rx bupropion HCl 100 mg tablet,12 hr 100 mg PO QAM #90 ea 11/22/22 11/28/24 Rx sustained-release gabapentin 300 mg capsule 300 mg PO BID #120 caps 01/28/23 11/28/24 Rx clopidogrel 75 mg tablet 75 mg PO HS #90 tabs 07/15/23 11/28/24 Rx sodium chloride 0.65 % nasal spray 2 spray intranasal DAILY PRN 07/15/23 11/28/24 History aerosol (Ramona Saline) Congestion tiotropium bromide 2.5 2 puff inhalation QAM #4 grams 07/15/23 11/28/24 Rx mcg/actuation mist for inhalation (Spiriva Respimat) albuterol sulfate 90 mcg/actuation 2 inh inhalation QID PRN Shortness 08/09/24 11/28/24 History aerosol inhaler Of Breath Or Wheezing atorvastatin 80 mg tablet 80 mg PO HS 08/09/24 11/28/24 History finasteride 5 mg tablet 5 mg PO QAM 08/09/24 11/28/24 History lisinopril 10 mg tablet 10 mg PO QAM 08/09/24 11/28/24 History mirabegron 50 mg tablet,extended 50 mg PO QAM 08/09/24 11/28/24 History release 24 hr (Myrbetriq) tamsulosin 0.4 mg capsule 0.4 mg PO QAM 08/09/24 11/28/24 History Allergies Allergy/AdvReac Type Severity Reaction Status Date / Time No Known Allergies Allergy Verified 11/28/24 20:07 Past Med/Surg History Problem List (Updated 11/29/24 @ 00:50 by Rc Romero PA-C) Generalized weakness (Acute) Nausea vomiting and diarrhea (Acute) Right ureteral stone Acute dehydration (Acute) LUIS (acute kidney injury) (Acute) Encephalopathy acute (Acute) Complicated urinary tract infection (Acute) Sepsis (Acute) Hydronephrosis, left Left ureteral stone Incomplete bladder emptying Hypertension 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 gabapentin dosage increased at 09/21/22 PCP visit BPH w urinary obs/LUTS Abnormal liver function 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 Impaired fasting glucose (Acute) Depression (Acute) Hyperlipidemia (Acute) Nicotine dependence (Acute) H/O: stroke with residual effects (Chronic) Medical History COPD (chronic obstructive pulmonary disease) seen 09/21/22 by PCP for COPD exacerbation: given medrol dose pack and zpack and encouraged to increase albuterol inhaler usage; pt still smoking Left hemiplegia s/p CVA 06/2016 Bladder cancer hx- turbt 2022 Neuropathy due to herpes zoster Kidney stone HTN (hypertension) Hyperlipidemia Depression BPH (benign prostatic hyperplasia) Acquired left foot drop Chronic cough History of anemia Occlusion of right internal carotid artery Elevated glucose hx of slightly elevated glucose; PCP monitoring Right internal carotid occlusion R ICA CVA 06/2016 Prosthetic eye globe left eye History of COVID-19 admitted [facility] 02/25-02/28/22; on [place] O2 while inpt; not D/C on any home O2 Diverticulosis Internal hemorrhoids Tubular adenoma of colon 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 uses a scooter to get around, able to stand and pivot with assistance if needed. and has mild short term memory loss. Surgical History S/P cystoscopy with ureteral stent placement x2, most recent 08/09/24 [facility] History of transurethral resection of bladder tumor (TURBT) History of colonoscopy H/O eye surgery lost his left eye (20+ years ago) at a work accident -- has a left glass eye Family History Other No significant family history Denies family history of Ovarian cancer Prostate cancer Breast cancer Lung cancer Colorectal cancer Social History Smoking Status: Current every day smoker Tobacco Type: Cigarettes Age Started Using Tobacco: 14; Cigarettes Per Day: <5; Second Hand Exposure: Yes (hx); Do You Dip or Chew Tobacco: No; Tobacco Cessation Education Requested by Patient: No Hx Alcohol Use: Yes Alcohol type: beer and hard liquor Alcohol Intake Frequency: Monthly or Less Hx Substance Use: Yes Last Used Substance: Just Prior to Arrival Preferred Language: Mongolian Communication Ability: Impaired Visual Impairment: Limited Hearing Ability: Hard of Hearing Taxation Inspector Required: No Beliefs That Will Affect Care: None marital status: / Current Living Situation: Alone Current Living Situation Comment: Pt has 24 hour care givers current occupational status: retired Other Information That Helps Us Care for You: No Feels Safe at Home: Yes Safety Concerns: Feels Safe At This Time Childhood Exposure to Second-Hand Smoke: Yes Diet: regular caffeine: No Dental Care, Regularly: No Physical Activity Frequency: Does not Exercise Seatbelt Use: always Sunscreen Use: No Assistive Devices: Wheelchair Assistive Devices Comment: Glass eye in left Review of Systems A total of 10 systems reviewed and were otherwise negative Physical Exam Vital Signs Vital Signs - 24 hr 11/28/24 17:17 11/28/24 17:20 11/28/24 17:22 Temperature 36.5 C Temperature Source Oral Pulse Rate 68 67 Pulse Rate [Apical] Pulse Rate from SpO2 Sensor Respiratory Rate 16 Respiratory Effort / Characteristics Non-Labored Spontaneous Respiratory Depth Normal Respiratory Pattern Regular Blood Pressure 104/66 Blood Pressure [Right Arm] Blood Pressure Mean 78 Blood Pressure Mean [Right Arm] Pulse Oximetry 93 93 Oxygen Delivery Method Room Air Room Air Sepsis Recent Fever Within 48 Hours No Sepsis New/Unexplained Change in Mental Status No Sepsis Action Taken by Nursing No Action Required 11/28/24 17:27 11/28/24 17:33 11/28/24 18:03 Temperature Temperature Source Pulse Rate 67 68 59 L Pulse Rate [Apical] Pulse Rate from SpO2 Sensor 67 66 60 Respiratory Rate 18 16 15 Respiratory Effort / Characteristics Respiratory Depth Respiratory Pattern Blood Pressure Blood Pressure [Right Arm] Blood Pressure Mean Blood Pressure Mean [Right Arm] Pulse Oximetry 94 93 94 Oxygen Delivery Method Room Air Room Air Room Air Sepsis Recent Fever Within 48 Hours Sepsis New/Unexplained Change in Mental Status Sepsis Action Taken by Nursing 11/28/24 18:39 11/28/24 19:00 11/28/24 19:33 Temperature Temperature Source Pulse Rate 60 58 L Pulse Rate [Apical] 60 Pulse Rate from SpO2 Sensor 60 57 L Respiratory Rate 20 18 15 Respiratory Effort / Characteristics Non-Labored Spontaneous Respiratory Depth Normal Respiratory Pattern Regular Blood Pressure Blood Pressure [Right Arm] 119/80 Blood Pressure Mean Blood Pressure Mean [Right Arm] 93 Pulse Oximetry 95 95 96 Oxygen Delivery Method Room Air Sepsis Recent Fever Within 48 Hours Sepsis New/Unexplained Change in Mental Status Sepsis Action Taken by Nursing 11/28/24 20:06 11/28/24 20:30 11/28/24 21:04 Temperature Temperature Source Pulse Rate 60 61 Pulse Rate [Apical] Pulse Rate from SpO2 Sensor 61 61 Respiratory Rate 13 16 Respiratory Effort / Characteristics Respiratory Depth Respiratory Pattern Blood Pressure 127/85 Blood Pressure [Right Arm] Blood Pressure Mean 89 Blood Pressure Mean [Right Arm] Pulse Oximetry 95 95 Oxygen Delivery Method Sepsis Recent Fever Within 48 Hours Sepsis New/Unexplained Change in Mental Status Sepsis Action Taken by Nursing 11/28/24 21:06 11/28/24 21:16 11/28/24 22:12 Temperature Temperature Source Pulse Rate 64 67 60 Pulse Rate [Apical] Pulse Rate from SpO2 Sensor 64 61 Respiratory Rate 17 16 Respiratory Effort / Characteristics Respiratory Depth Respiratory Pattern Blood Pressure Blood Pressure [Right Arm] Blood Pressure Mean Blood Pressure Mean [Right Arm] Pulse Oximetry 96 94 Oxygen Delivery Method Sepsis Recent Fever Within 48 Hours Sepsis New/Unexplained Change in Mental Status Sepsis Action Taken by Nursing 11/28/24 22:15 11/28/24 22:30 11/28/24 22:42 Temperature Temperature Source Pulse Rate 63 Pulse Rate [Apical] Pulse Rate from SpO2 Sensor 62 Respiratory Rate 16 Respiratory Effort / Characteristics Respiratory Depth Respiratory Pattern Blood Pressure 142/90 H 115/74 Blood Pressure [Right Arm] Blood Pressure Mean 118 93 Blood Pressure Mean [Right Arm] Pulse Oximetry 94 Oxygen Delivery Method Sepsis Recent Fever Within 48 Hours Sepsis New/Unexplained Change in Mental Status Sepsis Action Taken by Nursing 11/29/24 00:06 Temperature Temperature Source Pulse Rate 77 Pulse Rate [Apical] Pulse Rate from SpO2 Sensor Respiratory Rate 16 Respiratory Effort / Characteristics Respiratory Depth Respiratory Pattern Blood Pressure 132/81 Blood Pressure [Right Arm] Blood Pressure Mean 98 Blood Pressure Mean [Right Arm] Pulse Oximetry 95 Oxygen Delivery Method Room Air Sepsis Recent Fever Within 48 Hours Sepsis New/Unexplained Change in Mental Status Sepsis Action Taken by Nursing VITALS: Vitals are noted on the nurse's note and reviewed by myself. Vital signs stable. GENERAL: White male appears in no acute distress HEAD: Normocephalic atraumatic. MOUTH: Mucous membranes moist. Tonsils are not enlarged. NECK: Supple without nuchal rigidity. No lymphadenopathy. No thyromegaly. Cervical spine is nontender. HEART: Regular rate and rhythm without murmurs gallops or rubs. LUNGS: Clear to auscultation bilaterally without wheezes, rales or rhonchi. No retractions or accessory muscle use. ABDOMEN: Positive normal bowel sounds x 4. Soft, nontender, without masses or organomegaly. No guarding or rebound tenderness. MUSCULOSKELETAL: No muscle atrophy, erythema, or edema noted. Mild decreased motor function to left upper and left lower extremity. NEURO: Patient was alert and oriented to person place and time. CN II through XII grossly intact. SKIN: The skin was without rashes, erythema, edema, or bruising. Course Administered Medications Aspirin (Aspirin 81 Mg Ectab) 81 mg PO QAM [facility] Stop: 12/29/24 08:59 Last Admin: 11/30/24 08:12 Dose: 81 mg Documented By: Admin: 11/29/24 09:58 Dose: 81 mg Documented By: DEEPA Atorvastatin Calcium (Atorvastatin 40 Mg Tab) 80 mg PO [facility] Stop: 12/29/24 20:59 Last Admin: 11/29/24 20:34 Dose: 80 mg Documented By: KELSI Bupropion HCl (Bupropion Sr 100 Mg Tabcr) 100 mg PO [facility] Stop: 12/29/24 08:59 Last Admin: 11/30/24 08:12 Dose: 100 mg Documented By: Admin: 11/29/24 09:58 Dose: 100 mg Documented By: DEEPA Clopidogrel Bisulfate (Clopidogrel Bisulfate 75 Mg Tab) 75 mg PO [facility] Stop: 12/29/24 20:59 Last Admin: 11/29/24 20:34 Dose: 75 mg Documented By: KELSI Finasteride (Finasteride 5 Mg Tab) 5 mg PO [facility] Stop: 12/29/24 08:59 Last Admin: 11/30/24 08:12 Dose: 5 mg Documented By: Admin: 11/29/24 09:58 Dose: 5 mg Documented By: DEEPA Gabapentin (Gabapentin 300 Mg Cap) 300 mg PO BID [facility] Stop: 12/29/24 08:59 Last Admin: 11/30/24 08:12 Dose: 300 mg Documented By: Admin: 11/29/24 20:34 Dose: 300 mg Documented By: Admin: 11/29/24 09:58 Dose: 300 mg Documented By: DEEPA Vancomycin HCl 1,250 mg/ (Sodium Chloride) 275 mls @ 200 mls/hr IV Q24H [facility] Stop: 12/09/24 17:59 Last Infusion: 11/29/24 19:18 Dose: Infused Documented By: Admin: 11/29/24 17:34 Dose: 200 mls/hr Documented By: DEEPA Lisinopril (Lisinopril 10 Mg Tab) 10 mg PO [facility] Stop: 12/29/24 08:59 Last Admin: 11/30/24 08:12 Dose: 10 mg Documented By: Admin: 11/29/24 09:58 Dose: 10 mg Documented By: DEEPA Tamsulosin HCl (Tamsulosin Hcl 0.4 Mg Cap) 0.4 mg PO [facility] Stop: 12/29/24 08:59 Last Admin: 11/30/24 08:12 Dose: 0.4 mg Documented By: Admin: 11/29/24 09:58 Dose: 0.4 mg Documented By: DEEPA Umeclidinium [place] (Umeclidinium [place] 62.5mcg/Blister 7 Puffs/Inhaler) 1 puffs INH [facility] Stop: 12/29/24 08:59 Last Admin: 11/30/24 08:12 Dose: 1 puffs Documented By: Admin: 11/29/24 09:58 Dose: 1 puffs Documented By: DEEPA Discontinued Medications Lactated Ringer's (Lr) 1,000 mls @ 100 mls/hr IV .Q10H [facility] Stop: 11/29/24 21:54 Last Infusion: 11/29/24 23:49 Dose: Infused Documented By: Admin: 11/29/24 13:46 Dose: 100 mls/hr Documented By: Infusion: 11/29/24 13:15 Dose: Infused Documented By: Admin: 11/29/24 03:15 Dose: 100 mls/hr Documented By: Vancomycin HCl 1,500 mg/ (Sodium Chloride) 530 mls @ 200 mls/hr IV NOW ONE Stop: 11/29/24 10:38 Last Infusion: 11/29/24 10:59 Dose: Infused Documented By: Admin: 11/29/24 08:20 Dose: 200 mls/hr Documented By: DEEPA Ioversol (Optiray 320 125ml) 115 ml IV ONCE ONE Stop: 11/28/24 18:47 Last Admin: 11/28/24 18:46 Dose: 115 ml Documented By: REECE Medical Decision Making Differential Diagnosis Differential diagnosis: Etiologies such as marijuana use, stroke, benign positional vertigo, labrynthitis, dehydration, hypovolemia, anemia, tumor, infection, hypoglycemia, electrolyte abnormalities, cardiac sources, toxicological sources, central neurologic process, as well as others were entertained. Laboratory Data 11/29/24 05:24 11/29/24 05:24 Lab Results 11/28/24 11/28/24 Range/Units 18:35 18:36 WBC 16.90 H (4.8-10.8) K/ul RBC 4.42 L (4.70-6.10) M/uL Hgb 13.8 L (14.0-18.0) g/dl Hct 41.7 L (42.0-52.0) % MCV 94.3 (80.0-100.0) fL MCH 31.2 (25.0-34.0) pg MCHC 33.1 (32.0-36.0) g/dL RDW Std Deviation 46.5 H (36.4-46.3) fL RDW Coeff of Kailey 13.4 (11.5-14.5) % Plt Count 188 (130-400) K/uL MPV 10.1 (9.4-12.4) fL Immature Gran % (Auto) 0.8 % Neut % (Auto) 89.2 % Lymph % (Auto) 5.6 % Louisa % (Auto) 4.1 % Eos % (Auto) 0.1 % Baso % (Auto) 0.2 % Neut # (Auto) 15.07 H (1.40-6.50) K/uL Lymph # (Auto) 0.94 L (1.20-3.40) K/uL Louisa # (Auto) 0.70 H (0.11-0.59) K/uL Eos # (Auto) 0.02 (0.00-0.50) K/uL Baso # (Auto) 0.04 (0.00-0.20) K/uL Immature Gran # (Auto) 0.13 (0.01-0.20) K/uL PT 11.7 (9.0-12.0) Seconds INR 1.1 (0.9-1.1) APTT 26 (21-31) Seconds PTT Ratio 1.0 Sodium 140 (136-145) mmol/L Potassium 4.4 (3.5-5.1) mmol/L Chloride 105 (98-107) mmol/L Carbon Dioxide 31 (21-32) mmol/L Anion Gap 4 (3-11) BUN 16 (6-23) mg/dl Creatinine 1.26 (0.6-1.4) mg/dl Est Cr Clr Drug Dosing Not Reportable eGFR 58.02 BUN/Creatinine Ratio 12.7 (10-20) Glucose 161 H (70-99(Fasting)) mg/dl POC Glucose 150 H (70-99) mg/dl Calcium 9.1 (8.6-10.3) mg/dl Magnesium 2.1 (1.7-2.4) mg/dl Total Bilirubin 0.4 (0.2-1.0) mg/dl AST 25 (13-39) U/L ALT 25 (7-52) U/L Alkaline Phosphatase 167 H (34-104) U/L Troponin I High Sens 5.0 (0-20) pg/ml Total Protein 7.0 (6.0-8.3) gm/dl Albumin 4.1 (3.4-5.0) gm/dl Globulin 2.9 (2.5-4.0) gm/dl Albumin/Globulin Ratio 1.4 (0.9-2) Imaging Data Radiologist's Impression: Head CT 11/28/24 18:18 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 TECHNIQUE: Axial computed tomography images of the head/brain without intravenous contrast. CTDI is 68.31 mGy and DLP is 1098.96 mGy-cm. Automated exposure control was utilized for the study. A dose lowering technique was utilized adhering to the principles of ALARA. COMPARISON: 08/08/2024 FINDINGS: Brain: Age-appropriate generalized atrophy. No acute stroke. Encephalomalacia within the right frontal, temporal and parietal lobes associated predominately frontal subcortical white matter changes. Old right basal ganglia and external capsule infarct. Dilatation of the ipsilateral right lateral ventricle. Consistent with remote infarcts. Old left caudate head lacunar infarct. Mild supratentorial periventricular and subcortical white matter changes. No acute hemorrhage or abnormal extra-axial fluid collection. Ventricles: No hydrocephalus. No midline shift. Bones/joints: Unremarkable. No acute fracture. Soft tissues: Unchanged left globe prosthesis. Sinuses: Unremarkable as visualized. No acute sinusitis. IMPRESSION: No acute stroke or hemorrhage. 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 Small old left caudate head lacunar infarct. Non-specific white matter changes, most commonly seen with small vessel disease. Electronically signed by: Dioni Padilla M.D. 11/28/24 22:06 PM Head CTA 11/28/24 18:18 CR 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 TECHNIQUE: Axial computed tomographic angiography images of the head with intravenous contrast. CTDI is 68.31 mGy and DLP is 1098.96 mGy-cm. Automated exposure control was utilized for the study. A dose lowering technique was utilized adhering to the principles of ALARA. 3D and MIP reconstructed images were created and reviewed. CONTRAST: Patient received 115 ml optiray 320 of IV contrast COMPARISON: CT Brain 11-28-2024. FINDINGS: Right internal carotid artery: Occluded right internal carotid artery from the skull base to the supraclinoid segment. Calcified plaque at the cavernous segment. Minimal retrograde flow through the supraclinoid segment from the anterior cerebral artery. Right anterior cerebral artery: Patent anterior communicating artery with opacification of the right anterior cerebral artery. No occlusion or significant stenosis. No aneurysm. Right middle cerebral artery: Filling via the right anterior cerebral artery with out acute thrombus. Relatively small and attenuated trifurcation vessel runoff. No aneurysm. Right posterior cerebral artery: Unremarkable. No occlusion or significant stenosis. No aneurysm. Right vertebral artery: Unremarkable as visualized. Left internal carotid artery: Mild calcified plaque at the cavernous internal carotid artery with intact distal runoff. No aneurysm. Left anterior cerebral artery: Unremarkable. No occlusion or significant stenosis. No aneurysm. Left middle cerebral artery: Unremarkable. No occlusion or significant stenosis. No aneurysm. Left posterior cerebral artery: origin. No occlusion or significant stenosis. No aneurysm. Left vertebral artery: Severely hypoplastic with near occlusion although intact distal runoff to the vertebral artery. Basilar artery: Unremarkable. No occlusion or significant stenosis. No aneurysm. 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 Patent anterior communicating artery supplying the right anterior cerebral artery as well as the right middle cerebral artery. Attenuated right middle cerebral artery trifurcation branches in the region of a old infarcts seen on noncontrast CT the head. 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 No definite acute large vessel occlusion. Communications: Call Doctor Above results Electronically signed by: Dioni Padilla M.D. 11/28/24 22:18 PM Neck CTA 11/28/24 18:18 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 TECHNIQUE: Routine carotid CT angiography protocol was performed with intravenous contrast. NASCET criteria using the distal ICAs for comparison were used for evaluation of stenoses. CTDI is 12.19 mGy and DLP is 460.79 mGy-cm. Automated exposure control was utilized for the study. A dose lowering technique was utilized adhering to the principles of ALARA. 3D and MIP reconstructed images were created and reviewed. CONTRAST: Patient received 115 ml optiray 320 of IV contrast COMPARISON: None. FINDINGS: VASCULATURE: Right common carotid artery: Unremarkable. No occlusion or significant stenosis. No dissection. Right internal carotid artery: Calcified and noncalcified plaque at the right carotid bulb with complete occlusion. No distal reconstitution. Right external carotid artery: Unremarkable. No occlusion. Right vertebral artery: Unremarkable. No occlusion or significant stenosis. No dissection. Left common carotid artery: Unremarkable. No occlusion or significant stenosis. No dissection. Left internal carotid artery: Mild calcified plaque at the carotid bulb without a hemodynamically significant stenosis. No dissection. Left external carotid artery: Unremarkable. No occlusion. Left vertebral artery: Diffusely hypoplastic from its origin with intact distal runoff. No dissection. NECK: Bones/joints: Degenerative changes of the spine. No acute fracture. Soft tissues: Unremarkable. Lung apices: Clear. CAROTID STENOSIS REFERENCE USING NASCET CRITERIA: % ICA stenosis = (1 - narrowest ICA diameter/diameter of distal cervical ICA) x 100. Mild - <50% stenosis. Moderate - 50-69% stenosis. Severe - 70-94% stenosis. Near occlusion - 95-99% stenosis. Occluded - 100% stenosis. 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 Mild calcified plaque at the left carotid bulb without a hemodynamically significant stenosis. 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 Electronically signed by: Dioni Padilla M.D. 11/28/24 22:21 PM [facility] Narrative Physical exam and history were performed. Nursing notes, EMR, and Medication List were personally reviewed. No social concerns were identified as barriers to patients care. History was provided by the Patient and family at bedside. Patient appears to have worsening slurring of speech and left-sided deficit. Patient has had nausea and vomiting today, and it is unknown if symptoms are related to exacerbation of chronic underlying medical disease, new event, or marijuana use. IV access was established and labs were obtained. Patient was sent to CT scan for stroke rule out. An order was placed for continuous cardiac monitoring. The monitor shows a rate of 77 with normal sinus rhythm. Patient's blood work is as above and was reviewed. He does have an elevated white count of 16. He does not have significant anemia or gross electrolyte imbalance. Transaminases not diagnostic. Troponin x 1 is negative. Urine has been ordered, but patient has not provided a sample at this point. CT scans were performed and independently reviewed by myself and radiology. He seems to have several chronic findings, but no distinctly acute findings. Escalation of care was considered, and seems to be necessary. The patient is different from his baseline, and it is unclear the etiology of this. Case was discussed with my attending, who remained involved in care decision making. Case was also discussed with the on-call hospitalist team, who agreed to evaluate the patient here in the ER. Please see their dictation for further patient course, plan, disposition. The chart was completed utilizing [employer] Speech Voice Recognition Software. Grammatical errors, random word insertions, pronoun errors, and incomplete sentences are an occasional consequence of this system due to software limitations, ambient noise, and hardware issues. Any formal questions or concerns about the content, text, or information contained within the body of this dictation should be directly addressed to the provider for clarification. Attending Attestation: I Antonio Paez MD I have reviewed the advanced practitioner's documentation and agree with the plan of care. Discussed with the radiologist CT findings appear chronic. I accept the responsibility for the associated risk of managing the patient. I performed a substantive portion of the visit including involvement in all aspects of medical decision making. Impression & Plan Generalized weakness, Nausea vomiting and diarrhea Discharge Plan Visit Data Chief Complaint: Confusion Stated Complaint: CONFUSION ED Provider: Antonio Paez ED Midlevel Provider: Rc Romero Discharge Problem: Generalized weakness, Nausea vomiting and diarrhea Patient Disposition: Admitted As Inpatient Condition: Fair Discharge Instructions Interventions: ED Discharge Assessment Last Done: 11/29/24 01:54
[2024-11-28] MEDS: OPTIRAY 320 125ml IV ONE (18:46)
[2024-11-28 19:03] LABS: Basophils # (auto) 0.04 K/uL (0.00-0.20); Basophils % (auto) 0.2 %; Eosinophils # (auto) 0.02 K/uL (0.00-0.50); Eosinophils % (auto) 0.1 %; Hematocrit (blood only) 41.7 % (42.0-52.0); Hemoglobin 13.8 g/dl (14.0-18.0); Immature Granulocytes # (auto) 0.13 K/uL (0.01-0.20); Immature Granulocytes % (auto) 0.8 %; Lymphocytes # (auto) 0.94 K/uL (1.20-3.40); Lymphocytes % (auto) 5.6 %; Mean Corpuscular Hemoglobin 31.2 pg (25.0-34.0); Mean Corpuscular Hgb Conc 33.1 g/dL (32.0-36.0); Mean Corpuscular Volume 94.3 fL (80.0-100.0); Mean Platelet Volume 10.1 fL (9.4-12.4); Monocytes % (auto) 4.1 %; Neutrophils # (auto) 15.07 K/uL (1.40-6.50); Neutrophils % (auto) 89.2 %; Platelet Count 188 K/uL (130-400); RDW Coefficient of Variation 13.4 % (11.5-14.5); RDW Standard Deviation 46.5 fL (36.4-46.3); Red Blood Count 4.42 M/uL (4.70-6.10)
[2024-11-28 19:17] LABS: Alanine Aminotransferase 25 U/L (7-52); Albumin Globulin Ratio 1.4 (0.9-2); Albumin Level 4.1 gm/dl (3.4-5.0); Alkaline Phosphatase 167 U/L (34-104); Anion Gap 4 (3-11); Aspartate Aminotransferase 25 U/L (13-39); BUN Creatinine Ratio 12.7 (10-20); Bilirubin,Total 0.4 mg/dl (0.2-1.0); Blood Urea Nitrogen 16 mg/dl (6-23); Calcium 9.1 mg/dl (8.6-10.3); Carbon Dioxide 31 mmol/L (21-32); Chloride 105 mmol/L (98-107); Globulin 2.9 gm/dl (2.5-4.0); Glucose 161 mg/dl (70-99(Fasting)); Magnesium 2.1 mg/dl (1.7-2.4); Potassium 4.4 mmol/L (3.5-5.1); Sodium 140 mmol/L (136-145)
[2024-11-28 19:42] LABS: INR 1.1 (0.9-1.1); Partial Thromboplastin Time 26 Seconds (21-31); Prothrombin Time 11.7 Seconds (9.0-12.0)
--- NOTE | 2024-11-28 22:06 | CT Scan Report ---
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 TECHNIQUE: Axial computed tomography images of the head/brain without intravenous contrast. CTDI is 68.31 mGy and DLP is 1098.96 mGy-cm. Automated exposure control was utilized for the study. A dose lowering technique was utilized adhering to the principles of ALARA. COMPARISON: 08/08/2024 FINDINGS: Brain: Age-appropriate generalized atrophy. No acute stroke. Encephalomalacia within the right frontal, temporal and parietal lobes associated predominately frontal subcortical white matter changes. Old right basal ganglia and external capsule infarct. Dilatation of the ipsilateral right lateral ventricle. Consistent with remote infarcts. Old left caudate head lacunar infarct. Mild supratentorial periventricular and subcortical white matter changes. No acute hemorrhage or abnormal extra-axial fluid collection. Ventricles: No hydrocephalus. No midline shift. Bones/joints: Unremarkable. No acute fracture. Soft tissues: Unchanged left globe prosthesis. Sinuses: Unremarkable as visualized. No acute sinusitis. IMPRESSION: No acute stroke or hemorrhage. 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 Small old left caudate head lacunar infarct. Non-specific white matter changes, most commonly seen with small vessel disease. Electronically signed by: Dioni Padilla M.D. 11/28/24 22:06 PM
--- NOTE | 2024-11-28 22:19 | CT Scan Report ---
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 TECHNIQUE: Axial computed tomographic angiography images of the head with intravenous contrast. CTDI is 68.31 mGy and DLP is 1098.96 mGy-cm. Automated exposure control was utilized for the study. A dose lowering technique was utilized adhering to the principles of ALARA. 3D and MIP reconstructed images were created and reviewed. CONTRAST: Patient received 115 ml optiray 320 of IV contrast COMPARISON: CT Brain 11-28-2024. FINDINGS: Right internal carotid artery: Occluded right internal carotid artery from the skull base to the supraclinoid segment. Calcified plaque at the cavernous segment. Minimal retrograde flow through the supraclinoid segment from the anterior cerebral artery. Right anterior cerebral artery: Patent anterior communicating artery with opacification of the right anterior cerebral artery. No occlusion or significant stenosis. No aneurysm. Right middle cerebral artery: Filling via the right anterior cerebral artery with out acute thrombus. Relatively small and attenuated trifurcation vessel runoff. No aneurysm. Right posterior cerebral artery: Unremarkable. No occlusion or significant stenosis. No aneurysm. Right vertebral artery: Unremarkable as visualized. Left internal carotid artery: Mild calcified plaque at the cavernous internal carotid artery with intact distal runoff. No aneurysm. Left anterior cerebral artery: Unremarkable. No occlusion or significant stenosis. No aneurysm. Left middle cerebral artery: Unremarkable. No occlusion or significant stenosis. No aneurysm. Left posterior cerebral artery: origin. No occlusion or significant stenosis. No aneurysm. Left vertebral artery: Severely hypoplastic with near occlusion although intact distal runoff to the vertebral artery. Basilar artery: Unremarkable. No occlusion or significant stenosis. No aneurysm. 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 Patent anterior communicating artery supplying the right anterior cerebral artery as well as the right middle cerebral artery. Attenuated right middle cerebral artery trifurcation branches in the region of a old infarcts seen on noncontrast CT the head. 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 No definite acute large vessel occlusion. Communications: Call Doctor Above results Electronically signed by: Dioni Padilla M.D. 11/28/24 22:18 PM
--- NOTE | 2024-11-28 22:22 | CT Scan Report ---
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 TECHNIQUE: Routine carotid CT angiography protocol was performed with intravenous contrast. NASCET criteria using the distal ICAs for comparison were used for evaluation of stenoses. CTDI is 12.19 mGy and DLP is 460.79 mGy-cm. Automated exposure control was utilized for the study. A dose lowering technique was utilized adhering to the principles of ALARA. 3D and MIP reconstructed images were created and reviewed. CONTRAST: Patient received 115 ml optiray 320 of IV contrast COMPARISON: None. FINDINGS: VASCULATURE: Right common carotid artery: Unremarkable. No occlusion or significant stenosis. No dissection. Right internal carotid artery: Calcified and noncalcified plaque at the right carotid bulb with complete occlusion. No distal reconstitution. Right external carotid artery: Unremarkable. No occlusion. Right vertebral artery: Unremarkable. No occlusion or significant stenosis. No dissection. Left common carotid artery: Unremarkable. No occlusion or significant stenosis. No dissection. Left internal carotid artery: Mild calcified plaque at the carotid bulb without a hemodynamically significant stenosis. No dissection. Left external carotid artery: Unremarkable. No occlusion. Left vertebral artery: Diffusely hypoplastic from its origin with intact distal runoff. No dissection. NECK: Bones/joints: Degenerative changes of the spine. No acute fracture. Soft tissues: Unremarkable. Lung apices: Clear. CAROTID STENOSIS REFERENCE USING NASCET CRITERIA: % ICA stenosis = (1 - narrowest ICA diameter/diameter of distal cervical ICA) x 100. Mild - <50% stenosis. Moderate - 50-69% stenosis. Severe - 70-94% stenosis. Near occlusion - 95-99% stenosis. Occluded - 100% stenosis. 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 Mild calcified plaque at the left carotid bulb without a hemodynamically significant stenosis. 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 Electronically signed by: Dioni Padilla M.D. 11/28/24 22:21 PM
--- NOTE | 2024-11-28 23:12 | History & Physical Report ---
Date of Service November 28, 2024 Assessment & Plan (1) Nausea vomiting and diarrhea: (2) Generalized weakness: (3) HTN (hypertension): (4) Hyperlipidemia: (5) Depression: Plan 79-year-old male with history of COPD, prior stroke with left hemiplegia, hypertension hyperlipidemia presenting from home after several episodes of diarrhea, nausea vomiting and generalized weakness. Patient appears mildly dehydrated on physical exam. Labs as above significant for WBC = 16.9, renal function electrolytes are within normal limits Family reports concern for ongoing slurred speech Patient reports he is almost near his baseline #Nausea/vomiting/diarrheahas resolved at this time Admit to medical telemetry Gentle IV fluidLR at 100 mL/h x 1 L Zofran as needed for nausea If recurrent symptoms will send stool sample #Generalized weaknesslikely secondary to episodes of nausea/vomiting/diarrhea mild dehydration Gentle hydration as above PT/OT evaluation Neurochecks given family concern for ongoing slurred speech #Prior stroke with left-sided hemiparesis Continue aspirin 81 mg p.o. every morning Continue Plavix 75 mg p.o. nightly Continue Lipitor 80 mg p.o. nightly #Depression/mental health Continue bupropion 100 mg p.o. every morning #COPD Continue Spiriva Albuterol as needed #BPH Continue Flomax Continue Proscar #Hypertension Continue lisinopril History of Present Illness Chief Complaint: Nausea, vomiting, diarrhea, weakness Primary Care Provider: Job Bernabe DO Milton Evans is a 79-year-old male with history of prior stroke with left hemiplegia (unable to use left upper extremity, minimal strength present in left lower extremity), hypertension, hyperlipidemia and COPD presenting from home with generalized weakness. Patient reports he had diarrhea yesterday - Two or possibly more episodes of watery, brown, nonbloody/nonmucoid diarrhea. This afternoon patient was outside with his aide when he developed acute onset of nausea with 1 episode of nonbloody/nonbilious vomiting. He came inside and was having difficulty transferring to his chair. Patient with chronic left-sided hemiparesis but can typically hold himself up and assist with transfers. Today he was unable to assist and had significant weakness. Patient then proceeded to have multiple additional episodes of nonbloody/nonbilious emesis. Last episode approximately 1620 hrs. Patient denies abdominal pain or fever. Denies chest pain, palpitations, shortness of breath Daughter is at bedside and reports that he still looks pale and states that his speech is not at baselinemore slurred than usual In the ER patient afebrile, hemodynamically stable and nontoxic in appearance Allergies Allergy/AdvReac Type Severity Reaction Status Date / Time No Known Allergies Allergy Verified 11/28/24 20:07 Home Medications Medication Instructions Recorded Confirmed Type cholecalciferol (vitamin D3) 25 1,000 units PO QAM 09/13/19 11/28/24 History mcg (1,000 unit) capsule aspirin 81 mg tablet,delayed 81 mg PO QAM 08/18/21 11/28/24 History release (Adult Aspirin Regimen) multivitamin 1 tab PO QAM 06/01/22 11/28/24 History cranberry 500 mg capsule 500 mg PO HS 09/27/22 11/28/24 History Shower Chair #1 ea 10/01/22 09/07/24 Rx diaper,brief,adult,disposable #60 ea 10/20/22 09/07/24 Rx bupropion HCl 100 mg tablet,12 hr 100 mg PO QAM #90 ea 11/22/22 11/28/24 Rx sustained-release gabapentin 300 mg capsule 300 mg PO BID #120 caps 01/28/23 11/28/24 Rx clopidogrel 75 mg tablet 75 mg PO HS #90 tabs 07/15/23 11/28/24 Rx sodium chloride 0.65 % nasal spray 2 spray intranasal DAILY PRN 07/15/23 11/28/24 History aerosol ([place] Saline) Congestion tiotropium bromide 2.5 2 puff inhalation QAM #4 grams 07/15/23 11/28/24 Rx mcg/actuation mist for inhalation (Spiriva Respimat) albuterol sulfate 90 mcg/actuation 2 inh inhalation QID PRN Shortness 08/09/24 11/28/24 History aerosol inhaler Of Breath Or Wheezing atorvastatin 80 mg tablet 80 mg PO HS 08/09/24 11/28/24 History finasteride 5 mg tablet 5 mg PO QAM 08/09/24 11/28/24 History lisinopril 10 mg tablet 10 mg PO QAM 08/09/24 11/28/24 History mirabegron 50 mg tablet,extended 50 mg PO QAM 08/09/24 11/28/24 History release 24 hr (Myrbetriq) tamsulosin 0.4 mg capsule 0.4 mg PO QAM 08/09/24 11/28/24 History Past Med/Surg History Problem List (Updated 11/29/24 @ 00:14 by Angela Gerard DO) Generalized weakness Nausea vomiting and diarrhea Right ureteral stone Acute dehydration (Acute) LUIS (acute kidney injury) (Acute) Encephalopathy acute (Acute) Complicated urinary tract infection (Acute) Sepsis (Acute) Hydronephrosis, left Left ureteral stone Incomplete bladder emptying Hypertension 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 gabapentin dosage increased at 09/21/22 PCP visit BPH w urinary obs/LUTS Abnormal liver function 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 Impaired fasting glucose (Acute) Depression (Acute) Hyperlipidemia (Acute) Nicotine dependence (Acute) H/O: stroke with residual effects (Chronic) Medical History COPD (chronic obstructive pulmonary disease) seen 09/21/22 by PCP for COPD exacerbation: given medrol dose pack and zpack and encouraged to increase albuterol inhaler usage; pt still smoking Left hemiplegia s/p CVA 06/2016 Bladder cancer hx- turbt 2022 Neuropathy due to herpes zoster Kidney stone HTN (hypertension) Hyperlipidemia Depression BPH (benign prostatic hyperplasia) Acquired left foot drop Chronic cough History of anemia Occlusion of right internal carotid artery Elevated glucose hx of slightly elevated glucose; PCP monitoring 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 uses a scooter to get around, able to stand and pivot with assistance if needed. and has mild short term memory loss. Surgical History S/P cystoscopy with ureteral stent placement x2, most recent 08/09/24 [facility] History of transurethral resection of bladder tumor (TURBT) History of colonoscopy H/O eye surgery lost his left eye (20+ years ago) at a work accident -- has a left glass eye Family History Other No significant family history Denies family history of Ovarian cancer Prostate cancer Breast cancer Lung cancer Colorectal cancer Social History Smoking Status: Current every day smoker Tobacco Type: Cigarettes Age Started Using Tobacco: 14; Cigarettes Per Day: <5; Second Hand Exposure: Yes (hx); Do You Dip or Chew Tobacco: No; Hx Alcohol Use: Yes Alcohol type: beer Alcohol Intake Frequency: Monthly or Less Hx Substance Use: No Preferred Language: Urdu Communication Ability: Effective Visual Impairment: Limited Hearing Ability: Hard of Hearing Kit Assembler Required: No Beliefs That Will Affect Care: None marital status: / Current Living Situation: Alone Current Living Situation Comment: dtr help in the evenings, care aids come during the day current occupational status: retired Feels Safe at Home: Yes Childhood Exposure to Second-Hand Smoke: Yes Diet: regular caffeine: No Dental Care, Regularly: No Physical Activity Frequency: Does not Exercise Seatbelt Use: always Sunscreen Use: No Assistive Devices: Glasses, Hearing Aid - Bilateral, Prosthesis and Scooter/Electric Scooter Review of Systems Review of Systems: All systems reviewed & are unremarkable except as noted in HPI & below Physical Exam Physical Exam: General: patient resting comfortably, NAD, non-toxic in appearance, AA&O x 4 Skin: warm, dry, intact, no rashes or lesions HEENT: NC/AT, patient with prosthetic left eye, anicteric sclera, conjunctiva without injection, external ear normal to inspection and nontender, nares patent, slightly dry mucus membranes, dentition intact, no oropharyngeal lesions, neck supple, trachea midline, no LAD, no thyromegaly, no JVD Heart: +S1/S2, regular, no m/r/g Lungs: equal air entry bilaterally, no rales/rhonchi/wheezes Abd: +BS, soft, NT/ND, no masses/organomegaly/ascites Ext: warm, 2+ pulses in UE/LE bilaterally, no clubbing/cyanosis or edema Neuro: left-sided hemiparesis with left upper extremity 0 out of 5 strength, left lower extremity 2 out of 5 strength, right upper extremity and right lower extremity 5 out of 5 Results & Data Results & Data Vital Signs (Past 12 Hours) Vital Signs Temp Pulse Pulse Resp BP BP Pulse Ox 11/28/24 22:42 63 16 94 11/28/24 22:30 115/74 11/28/24 22:15 142/90 H 11/28/24 22:12 60 16 94 11/28/24 21:16 67 11/28/24 21:06 64 17 96 11/28/24 21:04 127/85 11/28/24 20:30 61 16 95 11/28/24 20:06 60 13 95 11/28/24 19:33 58 L 15 96 11/28/24 19:00 60 18 95 11/28/24 18:39 60 20 119/80 95 11/28/24 18:03 59 L 15 94 11/28/24 17:33 68 16 93 11/28/24 17:27 67 18 94 11/28/24 17:22 93 11/28/24 17:20 67 11/28/24 17:17 36.5 C 68 16 104/66 93 O2 Del Method 11/28/24 22:42 11/28/24 22:30 11/28/24 22:15 11/28/24 22:12 11/28/24 21:16 11/28/24 21:06 11/28/24 21:04 11/28/24 20:30 11/28/24 20:06 11/28/24 19:33 11/28/24 19:00 11/28/24 18:39 Room Air 11/28/24 18:03 Room Air 11/28/24 17:33 Room Air 11/28/24 17:27 Room Air 11/28/24 17:22 Room Air 11/28/24 17:20 11/28/24 17:17 Room Air Laboratory Results Laboratory Results WBC 16.90 K/ul (4.8-10.8) H 11/28/24 18:36 RBC 4.42 M/uL (4.70-6.10) L 11/28/24 18:36 Hgb 13.8 g/dl (14.0-18.0) L 11/28/24 18:36 Hct 41.7 % (42.0-52.0) L 11/28/24 18:36 MCV 94.3 fL (80.0-100.0) 11/28/24 18:36 MCH 31.2 pg (25.0-34.0) 11/28/24 18:36 MCHC 33.1 g/dL (32.0-36.0) 11/28/24 18:36 RDW Std Deviation 46.5 fL (36.4-46.3) H 11/28/24 18:36 RDW Coeff of Kailey 13.4 % (11.5-14.5) 11/28/24 18:36 Plt Count 188 K/uL (130-400) 11/28/24 18:36 MPV 10.1 fL (9.4-12.4) 11/28/24 18:36 Immature Gran % (Auto) 0.8 % 11/28/24 18:36 Neut % (Auto) 89.2 % 11/28/24 18:36 Lymph % (Auto) 5.6 % 11/28/24 18:36 Parke % (Auto) 4.1 % 11/28/24 18:36 Eos % (Auto) 0.1 % 11/28/24 18:36 Baso % (Auto) 0.2 % 11/28/24 18:36 Neut # (Auto) 15.07 K/uL (1.40-6.50) H 11/28/24 18:36 Lymph # (Auto) 0.94 K/uL (1.20-3.40) L 11/28/24 18:36 Parke # (Auto) 0.70 K/uL (0.11-0.59) H 11/28/24 18:36 Eos # (Auto) 0.02 K/uL (0.00-0.50) 11/28/24 18:36 Baso # (Auto) 0.04 K/uL (0.00-0.20) 11/28/24 18:36 Immature Gran # (Auto) 0.13 K/uL (0.01-0.20) 11/28/24 18:36 PT 11.7 Seconds (9.0-12.0) 11/28/24 18:36 INR 1.1 (0.9-1.1) 11/28/24 18:36 APTT 26 Seconds (21-31) 11/28/24 18:36 PTT Ratio 1.0 11/28/24 18:36 Sodium 140 mmol/L (136-145) 11/28/24 18:36 Potassium 4.4 mmol/L (3.5-5.1) 11/28/24 18:36 Chloride 105 mmol/L (98-107) 11/28/24 18:36 Carbon Dioxide 31 mmol/L (21-32) 11/28/24 18:36 Anion Gap 4 (3-11) 11/28/24 18:36 BUN 16 mg/dl (6-23) 11/28/24 18:36 Creatinine 1.26 mg/dl (0.6-1.4) 11/28/24 18:36 Est Cr Clr Drug Dosing Not Reportable 11/28/24 18:36 eGFR 58.02 11/28/24 18:36 BUN/Creatinine Ratio 12.7 (10-20) 11/28/24 18:36 Glucose 161 mg/dl (70-99(Fasting)) H 11/28/24 18:36 POC Glucose 150 mg/dl (70-99) H 11/28/24 18:35 Calcium 9.1 mg/dl (8.6-10.3) 11/28/24 18:36 Magnesium 2.1 mg/dl (1.7-2.4) 11/28/24 18:36 Total Bilirubin 0.4 mg/dl (0.2-1.0) 11/28/24 18:36 AST 25 U/L (13-39) 11/28/24 18:36 ALT 25 U/L (7-52) 11/28/24 18:36 Alkaline Phosphatase 167 U/L (34-104) H 11/28/24 18:36 Troponin I High Sens 5.0 pg/ml (0-20) 11/28/24 18:36 Total Protein 7.0 gm/dl (6.0-8.3) 11/28/24 18:36 Albumin 4.1 gm/dl (3.4-5.0) 11/28/24 18:36 Globulin 2.9 gm/dl (2.5-4.0) 11/28/24 18:36 Albumin/Globulin Ratio 1.4 (0.9-2) 11/28/24 18:[address] 11/28/24 18:18 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 TECHNIQUE: Axial computed tomography images of the head/brain without intravenous contrast. CTDI is 68.31 mGy and DLP is 1098.96 mGy-cm. Automated exposure control was utilized for the study. A dose lowering technique was utilized adhering to the principles of ALARA. COMPARISON: 08/08/2024 FINDINGS: Brain: Age-appropriate generalized atrophy. No acute stroke. Encephalomalacia within the right frontal, temporal and parietal lobes associated predominately frontal subcortical white matter changes. Old right basal ganglia and external capsule infarct. Dilatation of the ipsilateral right lateral ventricle. Consistent with remote infarcts. Old left caudate head lacunar infarct. Mild supratentorial periventricular and subcortical white matter changes. No acute hemorrhage or abnormal extra-axial fluid collection. Ventricles: No hydrocephalus. No midline shift. Bones/joints: Unremarkable. No acute fracture. Soft tissues: Unchanged left globe prosthesis. Sinuses: Unremarkable as visualized. No acute sinusitis. IMPRESSION: No acute stroke or hemorrhage. 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 Small old left caudate head lacunar infarct. Non-specific white matter changes, most commonly seen with small vessel disease. Electronically signed by: Dioni Padilla M.D. 11/28/24 22:06 PM Head CTA 11/28/24 18:18 CR 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 TECHNIQUE: Axial computed tomographic angiography images of the head with intravenous contrast. CTDI is 68.31 mGy and DLP is 1098.96 mGy-cm. Automated exposure control was utilized for the study. A dose lowering technique was utilized adhering to the principles of ALARA. 3D and MIP reconstructed images were created and reviewed. CONTRAST: Patient received 115 ml optiray 320 of IV contrast COMPARISON: CT Brain 11-28-2024. FINDINGS: Right internal carotid artery: Occluded right internal carotid artery from the skull base to the supraclinoid segment. Calcified plaque at the cavernous segment. Minimal retrograde flow through the supraclinoid segment from the anterior cerebral artery. Right anterior cerebral artery: Patent anterior communicating artery with opacification of the right anterior cerebral artery. No occlusion or significant stenosis. No aneurysm. Right middle cerebral artery: Filling via the right anterior cerebral artery with out acute thrombus. Relatively small and attenuated trifurcation vessel runoff. No aneurysm. Right posterior cerebral artery: Unremarkable. No occlusion or significant stenosis. No aneurysm. Right vertebral artery: Unremarkable as visualized. Left internal carotid artery: Mild calcified plaque at the cavernous internal carotid artery with intact distal runoff. No aneurysm. Left anterior cerebral artery: Unremarkable. No occlusion or significant stenosis. No aneurysm. Left middle cerebral artery: Unremarkable. No occlusion or significant stenosis. No aneurysm. Left posterior cerebral artery: origin. No occlusion or significant stenosis. No aneurysm. Left vertebral artery: Severely hypoplastic with near occlusion although intact distal runoff to the vertebral artery. Basilar artery: Unremarkable. No occlusion or significant stenosis. No aneurysm. 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 Patent anterior communicating artery supplying the right anterior cerebral artery as well as the right middle cerebral artery. Attenuated right middle cerebral artery trifurcation branches in the region of a old infarcts seen on noncontrast CT the head. 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 No definite acute large vessel occlusion. Communications: Call Doctor Above results Electronically signed by: Dioni Padilla M.D. 11/28/24 22:18 PM Neck CTA 11/28/24 18:18 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 TECHNIQUE: Routine carotid CT angiography protocol was performed with intravenous contrast. NASCET criteria using the distal ICAs for comparison were used for evaluation of stenoses. CTDI is 12.19 mGy and DLP is 460.79 mGy-cm. Automated exposure control was utilized for the study. A dose lowering technique was utilized adhering to the principles of ALARA. 3D and MIP reconstructed images were created and reviewed. CONTRAST: Patient received 115 ml optiray 320 of IV contrast COMPARISON: None. FINDINGS: VASCULATURE: Right common carotid artery: Unremarkable. No occlusion or significant stenosis. No dissection. Right internal carotid artery: Calcified and noncalcified plaque at the right carotid bulb with complete occlusion. No distal reconstitution. Right external carotid artery: Unremarkable. No occlusion. Right vertebral artery: Unremarkable. No occlusion or significant stenosis. No dissection. Left common carotid artery: Unremarkable. No occlusion or significant stenosis. No dissection. Left internal carotid artery: Mild calcified plaque at the carotid bulb without a hemodynamically significant stenosis. No dissection. Left external carotid artery: Unremarkable. No occlusion. Left vertebral artery: Diffusely hypoplastic from its origin with intact distal runoff. No dissection. NECK: Bones/joints: Degenerative changes of the spine. No acute fracture. Soft tissues: Unremarkable. Lung apices: Clear. CAROTID STENOSIS REFERENCE USING NASCET CRITERIA: % ICA stenosis = (1 - narrowest ICA diameter/diameter of distal cervical ICA) x 100. Mild - <50% stenosis. Moderate - 50-69% stenosis. Severe - 70-94% stenosis. Near occlusion - 95-99% stenosis. Occluded - 100% stenosis. 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 Mild calcified plaque at the left carotid bulb without a hemodynamically significant stenosis. 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 Electronically signed by: Dioni Padilla M.D. 11/28/24 22:21 PM Code Status & VTE Plan VTE Prophylaxis Plan VTE Prophylaxis will be ordered: Yes PG Care Time/CCT Total # of Minutes Spent Total Time Spent with Patient: Total time spent is greater than 50% in coordination of care (as documented) at patient's floor/unit and/or counseling patient: Coding Level of Care Code 98911 INT INP/OBS CARE 3/75MIN Diagnoses Nausea vomiting and diarrhea R11.2; R19.7 Generalized weakness R53.1 HTN (hypertension) I10 Hyperlipidemia E78.5 Depression F32.A
[2024-11-29 00:12] LABS: Appearance Urine Clear (Clear); Bacteria Urine Automated 4+ (None Seen); Bilirubin Urine Negative (Negative); Blood Urine Negative (Negative); Calcium Oxalate Crystals Urine Present (None Prsent); Cast Urine Automated >20 /lpf (0-2); Color Urine Yellow; Epithelial Cell Urine Auto 0-2 /hpf (0-2); Glucose Urine UA Negative (Negative); Ketones Urine Trace (Negative); Leukocyte Esterase Urine 1+ (Negative); Nitrite Urine Positive (Negative); Protein Urine Trace (Negative); Specific Gravity Urine > 1.045 (1.000-1.030); Urobilinogen Urine Negative (Negative); WBC Urine Automated 21-50 /hpf (0-5)
[2024-11-29 00:31] LABS: Amphetamines+Metham, Urine Neg (Neg); Barbiturates, Urine Neg (Neg); Benzodiazepine, Urine Neg (Neg); Cocaine, Urine Neg (Neg); Fentanyl, Urine Neg (Neg); MDMA (Ecstacy), Urine Neg (Neg); Marijuana, Urine Pos (Neg); Methadone, Urine Neg (Neg); Opiate, Urine Neg (Neg); Phencyclidine, Urine Neg (Neg)
[2024-11-29] MEDS ORDERED: ONDANSETRON INJ 2 MG/ML 2 ML VIAL IV PRN (01:55)
[2024-11-29] MEDS ORDERED: ALBUTEROL HFA 8 GM INHALER INH PRN (01:55)
[2024-11-29] MEDS ORDERED: ACETAMINOPHEN 325 MG TAB PO PRN (01:55)
[2024-11-29] MEDS ORDERED: SODIUM CHLORIDE 0.65% NA SOLN 45 ML (OCEAN) PRN (01:55)
[2024-11-29] MEDS: LACTATED RINGER'S 1,000 ML IV SCH (03:15)
[2024-11-29 05:47] LABS: Mean Corpuscular Hemoglobin 31.8 pg (25.0-34.0); Mean Corpuscular Hgb Conc 34.3 g/dL (32.0-36.0); Mean Corpuscular Volume 92.8 fL (80.0-100.0); Mean Platelet Volume 10.3 fL (9.4-12.4); Platelet Count 163 K/uL (130-400); RDW Coefficient of Variation 13.2 % (11.5-14.5); RDW Standard Deviation 45.5 fL (36.4-46.3); Red Blood Count 3.77 M/uL (4.70-6.10); White Blood Count 10.71 K/ul (4.8-10.8)
[2024-11-29 06:04] LABS: Anion Gap 4 (3-11); BUN Creatinine Ratio 16.7 (10-20); Blood Urea Nitrogen 17 mg/dl (6-23); Calcium 8.3 mg/dl (8.6-10.3); Carbon Dioxide 28 mmol/L (21-32); Chloride 105 mmol/L (98-107); Glucose 99 mg/dl (70-99(Fasting)); Potassium 3.9 mmol/L (3.5-5.1); Sodium 137 mmol/L (136-145)
[2024-11-29] MEDS ORDERED: VANCOMYCIN CONSULT ACTIVE PRN (06:54)
[2024-11-29] MEDS ORDERED: VANCOMYCIN HCL 1,000 MG/270 ML BAG IV SCH (07:00)
[2024-11-29] MEDS ORDERED: Patient's HEIGHT &/or WEIGHT Needed SCH (07:15)
[2024-11-29] MEDS: VANCOMYCIN HCL 1,500 MG in SODIUM CHLORIDE 0.9% 500 ML IV ONE (08:20)
--- NOTE | 2024-11-29 09:48 | Pharmacy Report ---
Pharmacy PK ABX Note - Date of Service November 29, 2024 - Assessment and Plan Assessment 79 year old M receiving vancomycin for treatment of complicated UTI- history of stevenson-sensitive staph epidermiditis July 2024 treated with Bactrim. Pertinent microbiologic data includes: urine culture pending. Day # 1 of antimicrobial therapy. Plan Vancomycin * Loading dose: 1500 mg IV x 1 * Maintenance dose: 1250 mg IV every 24 hours * Regimen is predicted to achieve target AUC/RUDY of 400-600 mg/L.hr * Random level ordered for: 11/29/24 with AM labs to guide dosing Pharmacy will continue to follow and will adjust dose/frequency as necessary. Thank you. Pharmacy has transitioned to AUC monitoring for vancomycin. AUC/RUDY is the preferred PK/PD target and is associated with decreased risk of nephrotoxicity compared to traditional trough targets.
[2024-11-29] MEDS: FINASTERIDE 5 MG TAB PO SCH (09:58)
[2024-11-29] MEDS: UMECLIDINIUM BROMIDE 62.5MCG/BLISTER 7 PUFFS/INHALER INH SCH (09:58)
[2024-11-29] MEDS: TAMSULOSIN HCL 0.4 MG CAP PO SCH (09:58)
[2024-11-29] MEDS: ASPIRIN 81 MG ECTAB PO SCH (09:58)
[2024-11-29] MEDS: GABAPENTIN 300 MG CAP PO SCH (09:58)
[2024-11-29] MEDS: buPROPion SR 100 MG TABCR PO SCH (09:58)
[2024-11-29] MEDS: lisinopril 10 MG TAB PO SCH (09:58)
[2024-11-29] MEDS: VANCOMYCIN HCL 1,250 MG in SODIUM CHLORIDE 0.9% 250 ML IV SCH (17:34)
--- NOTE | 2024-11-29 18:51 | Hospitalist Progress Note ---
Date of Service November 29, 2024 Assessment & Plan (1) Nausea vomiting and diarrhea: (2) Generalized weakness: (3) HTN (hypertension): (4) Hyperlipidemia: (5) Depression: Plan 79 years old right-hand dominant male with PMH of FULL CODE @ home, overweight with BMI 25.6 (height 165.1 cm; weight 69.8 kg), hyperlipidemia, HTN, former tobacco abuse with subsequent diagnosis of COPD, not on home O2 or home steroids, CVD s/p right cerebral CVA, now with left arm paralysis, who presented to [facility] ER on 11/28/2024, after several episodes of nausea, non-bilious emesis without hematemesis, watery, non-bloody, non-oily diarrhea, and generalized weakness. Patient appeared mildly dehydrated on physical exam. Patient was subsequently admitted to the inpatient hospitalist service @ [facility] on 11/28/2024 with the following diagnoses: #Nausea/vomiting/diarrhea RESOLVED Admit to medical telemetry Gentle IV fluidLR at 100 mL/h x 1 L Zofran as needed for nausea If recurrent symptoms will send stool sample #Generalized weaknesslikely secondary to episodes of nausea/vomiting/diarrhea mild dehydration Gentle hydration as above Continue daily PT/OT evaluations Neurochecks given family concern for ongoing slurred speech #Prior stroke with left-sided hemiparesis Continue aspirin 81 mg p.o. every morning Continue Plavix 75 mg p.o. nightly Continue Lipitor 80 mg p.o. nightly #Depression/mental health Continue bupropion 100 mg p.o. every morning #COPD Continue Spiriva Albuterol as needed #BPH Continue Flomax Continue Proscar #Hypertension Continue lisinopril Admission and Anticipated Discharge Date Admission Date: November 28, 2024 Subjective "I feel fine. No complaints today." Review of Systems Constitutional: Negative for antecedent/coincident fevers, chills, diaphoresis, cough, wheeze, sore throat, hemoptysis, chest pains, palpitations, pleurisy, nausea, vomiting, diarrhea, abdominal pain, pelvic pain, hematemesis, hematochezia, melena, hematuria, dysuria, frequency, urgency, headaches, dizziness, lightheadedness, visual changes, hearing changes, weakness, falls, syncope, trauma, travel history, sick contacts, or food/drug ingestions novel or new. All other review of systems are reported as negative by the patient on 11/29/2024. Physical Exam Constitutional: General: Comfortable, coherent, cooperative. Wide awake and alert. Not confused, lethargic, or obtunded. Patient speaks in complete, fluent, and articulate sentences without pause, cough, or wheeze, with O2 sat 96% on room air (11/29/2024, 4:09 pm). HEENT: Normocephalic, atraumatic. Extra-ocular muscles intact. Pupils equally round and reactive to light. No nystagmus, gaze paresis, anisocoria, miosis, mydriasis, hyphema, scleral injection, conjunctivitis, or pterygium. No otorrhea or rhinorrhea. No pharyngeal erythema, edema, or di scharge. Neck: Supple, no stridor, bruit, goiter, or hepato-jugular reflux. Jugular venous pressure is estimated to be 3 cm above the sternal angle of Daniel, which in turn, is 5 cm above the level of the right atrium; with jugular venous pressure estimated to be 8 cm, then, there is no jugular venous distention on 11/29/2024. Lymphatics: No cervical (anterior/posterior), supraclavicular, infraclavicular, axillary, epitrochlear, or inguinal adenopathy. Chest: Symmetric rise and fall with respirations. Non-tender to palpation. Lungs: Coarse breath sounds bilaterally. Heart: Regular rate and rhythm. S1 and S2 noted. No S3 or S4 summation gallop. No tripartite friction rub. Grade II/ early systolic murmur @ LLSB without radiation to the carotids, axilla, or back, and which remains invariant in regards to the respiratory cycle. Abdomen: Soft, non-tender, non-distended. No rebound, guarding, Valera's sign, or organomegaly. Bowel sounds auscultated in all 4 quadrants. Drain in situ on right. Extremities: No clubbing, cyanosis, or edema. 2+ pedal pulses bilaterally. Skin: No decubitus ulcer, exanthem, or enanthem. Genito-urinary: No urethral discharge. No brown catheter. Urinal at bedside, empty on 11/29/2024. Neurology: Alert and oriented in regards to person, place, time, and situation. DTR+ and symmetric. 5/5 motor strength in LLE, RLE, RUE. 0/5 motor strength in LUE due to old R cerebral CVA. s/p left caudate head CVA. No pronator drift. No facial droop. No dysarthria. Psychiatry: No homicidal ideation. No suicidal ideation. No flat affect; smiles appropriately. Results & Data Results & Data Vital Signs (Past 12 Hours) Vital Signs Temp Pulse Pulse Resp BP Pulse Ox O2 Del Method 11/29/24 16:09 36.8 C 56 L 16 111/56 L 96 Room Air 11/29/24 13:11 61 11/29/24 11:38 36.7 C 83 16 164/81 H 95 Room Air 11/29/24 07:51 36.4 C L 64 16 134/76 94 Room Air 11/29/24 07:40 66 Laboratory Results Abnormal lab results 11/28/24 11/28/24 11/29/24 Range/Units 18:36 23:47 05:24 WBC 16.90 H (4.8-10.8) K/ul RBC 4.42 L 3.77 L (4.70-6.10) M/uL Hgb 13.8 L 12.0 L (14.0-18.0) g/dl Hct 41.7 L 35.0 L (42.0-52.0) % RDW Std Deviation 46.5 H (36.4-46.3) fL Neut # (Auto) 15.07 H (1.40-6.50) K/uL Lymph # (Auto) 0.94 L (1.20-3.40) K/uL [place] # (Auto) 0.70 H (0.11-0.59) K/uL Glucose 161 H (70-99(Fasting)) mg/dl Calcium 8.3 L (8.6-10.3) mg/dl Alkaline Phosphatase 167 H (34-104) U/L Ur Specific [place] > 1.045 H (1.000-1.030) Urine Protein Trace H (Negative) Urine Ketones Trace H (Negative) Urine Nitrite Positive A (Negative) Ur Leukocyte Esterase 1+ H (Negative) Urine WBC (Auto) 21-50 H (0-5) /hpf Urine RBC (Auto) 3-5 H (0-2) /hpf U Hyaline Cast (Auto) >20 H (0-2) /lpf Urine Bacteria (Auto) 4+ H (None Seen) Calcium Oxalate Crystal Present A (None Prsent) U Marijuana (THC) Screen Pos H (Neg) PG Care Time/CCT Total # of Minutes Spent Total Time Spent with Patient: Total time spent is greater than 50% in coordination of care (as documented) at patient's floor/unit and/or counseling patient: Coding Level of Care Code 38146 SUB INP/OBS CARE 2/35MIN Diagnoses Nausea vomiting and diarrhea R11.2; R19.7 Generalized weakness R53.1 HTN (hypertension) I10 Hyperlipidemia E78.5 Depression F32.A
[2024-11-29] MEDS: ATORVASTATIN 40 MG TAB PO SCH (20:34)
[2024-11-29] MEDS: CLOPIDOGREL BISULFATE 75 MG TAB PO SCH (20:34)
--- NOTE | 2024-11-29 23:07 | Electrocardiogram Report ---
Test Reason : Blood Pressure : */* mmHG Vent. Rate : 63 BPM Atrial Rate : 63 BPM P-R Int : 192 ms QRS Dur : 70 ms QT Int : 410 ms P-R-T Axes : 36 39 71 degrees QTcB Int : 419 ms Normal sinus rhythm Low voltage QRS Borderline ECG When compared with ECG of 09-Aug-2024 00:15, Criteria for Septal infarct are no longer Present Confirmed by Edgar Mosley ([id number]) on 11/29/2024 11:06:54 PM Referred By: REFERRED SELF Confirmed By: Edgar Mosley
[2024-11-30 08:14] VITALS: RESP 20
[2024-11-30 08:59] LABS: Creatinine Clr Calc Pharmacy 49.2 ml/min
[2024-11-30 11:28] VITALS: BP 124/69; TEMP 97.3; O2SAT 96
--- NOTE | 2024-11-30 14:13 | Discharge Summary ---
Discharge Summary Date of Service November 30, 2024 Principal Dx & Hospital Course #1 = Principal Diagnosis (1) Nausea vomiting and diarrhea: (2) Generalized weakness: (3) HTN (hypertension): (4) Hyperlipidemia: (5) Depression: Plan 79 years old right-hand dominant male with PMH of FULL CODE @ home, overweight with BMI 25.6 (height 165.1 cm; weight 69.8 kg), hyperlipidemia, HTN, former tobacco abuse with subsequent diagnosis of COPD, not on home O2 or home steroids, CVD s/p right cerebral CVA, now with left arm paralysis, who presented to [facility] ER on 11/28/2024, after several episodes of nausea, non-bilious emesis without hematemesis, watery, non-bloody, non-oily diarrhea, and generalized weakness. Patient appeared mildly dehydrated on physical exam. Patient was subsequently admitted to the inpatient hospitalist service @ [facility] on 11/28/2024 with the following diagnoses: #Nausea/vomiting/diarrhea RESOLVED Admit to medical telemetry Gentle IV fluidLR at 100 mL/h x 1 L Zofran as needed for nausea Of note, urine culture (11/28/2024, 11:47 pm) Corynebacterium striatum group is most likely a contaminant; patient received vancomycin 1.5g IV x 1 dose (11/29/2024, 8:20am) and vancomycin 1.25g IV x 1 dose (11/29/2024, 5:34am) empirically given past medical history of Staphylococcal epidermidis + urine culture (08/03/2024, 9:22 am). Patient will not continue empiric antibiotics on hospital discharge back to his home on 11/30/2024. #Generalized weaknesslikely secondary to episodes of nausea/vomiting/diarrhea mild dehydration; RESOLVED with daily PT/OT Service evaluations #Prior stroke with chronic left-sided hemiparesis Continue aspirin 81 mg p.o. every morning Continue Plavix 75 mg p.o. nightly Continue Lipitor 80 mg p.o. nightly #Depression/mental health Continue bupropion 100 mg p.o. every morning #COPD Continue Spiriva Albuterol as needed #BPH Continue Flomax Continue Proscar #Hypertension Continue lisinopril Patient was subsequently discharged back to his home on 11/30/2024 and will follow up with his PCP Dr. Job Bernabe within 5 days of hospital discharge. Admission HPI Per Admitting Provider Milton Evans is a 79-year-old male with history of prior stroke with left hemiplegia (unable to use left upper extremity, minimal strength present in left lower extremity), hypertension, hyperlipidemia and COPD presenting from home with generalized weakness. Patient reports he had diarrhea yesterday - Two or possibly more episodes of watery, brown, nonbloody/nonmucoid diarrhea. This afternoon patient was outside with his aide when he developed acute onset of nausea with 1 episode of nonbloody/nonbilious vomiting. He came inside and was having difficulty transferring to his chair. Patient with chronic left-sided hemiparesis but can typically hold himself up and assist with transfers. Today he was unable to assist and had significant weakness. Patient then proceeded to have multiple additional episodes of nonbloody/nonbilious emesis. Last episode approximately 1620 hrs. Patient denies abdominal pain or fever. Denies chest pain, palpitations, shortness of breath Daughter is at bedside and reports that he still looks pale and states that his speech is not at baselin[place] slurred than usual In the ER patient afebrile, hemodynamically stable and nontoxic in appearance Discharge Exam Constitutional General: Comfortable, coherent, cooperative. Wide awake and alert. Not confused, lethargic, or obtunded. Patient speaks in complete, fluent, and articulate sentences without pause, cough, or wheeze, with O2 sat 96% on room air (11/30/2024, 2:13 pm). HEENT: Normocephalic, atraumatic. Extra-ocular muscles intact. Pupils equally round and reactive to light. No nystagmus, gaze paresis, anisocoria, miosis, mydriasis, hyphema, scleral injection, conjunctivitis, or pterygium. No otorrhea or rhinorrhea. No pharyngeal erythema, edema, or discharge. Neck: Supple, no stridor, bruit, goiter, or hepato-jugular reflux. Jugular venous pressure is estimated to be 3 cm above the sternal angle of Daniel, which in turn, is 5 cm above the level of the right atrium; with jugular venous pressure estimated to be 8 cm, then, there is no jugular venous distention on 11/30/2024. Lymphatics: No cervical (anterior/posterior), supraclavicular, infraclavicular, axillary, epitrochlear, or inguinal adenopathy. Chest: Symmetric rise and fall with respirations. Non-tender to palpation. Lungs: Clear to auscultation and percussion. Heart: Regular rate and rhythm. S1 and S2 noted. No S3 or S4 summation gallop. No tripartite friction rub. Grade II/ early systolic murmur @ LLSB without radiation to the carotids, axilla, or back, and which remains invariant in regards to the respiratory cycle. Abdomen: Soft, non-tender, non-distended. No rebound, guarding, Valera's sign, or organomegaly. Bowel sounds auscultated in all 4 quadrants. Extremities: No clubbing, cyanosis, or edema. 2+ pedal pulses bilaterally. Skin: No decubitus ulcer, exanthem, or enanthem. Genito-urinary: No urethral discharge. No brown catheter. Urinal at bedside, empty on 11/30/2024. Neurology: Alert and oriented in regards to person, place, time, and situation. DTR+ and symmetric. 5/5 motor strength in LLE, RLE, RUE. 0/5 motor strength in LUE due to old R cerebral CVA. s/p left caudate head CVA. No pronator drift. No facial droop. No dysarthria. Psychiatry: No homicidal ideation. No suicidal ideation. No flat affect; smiles appropriately. Discharge Plan Discharge Items Patient Disposition: Home - Self-Care Reason For Visit: NAUSEA, VOMITING, WEAKNESS Discharge Diagnosis: Nausea, vomiting, generalized weakness Condition on Discharge: Fair Activity: Resume your previous activity Lifting: Gradually increase as tolerated Bathing: No limitations Sexual Activity: When tolerated Exercise/Sports: Gradually increase as tolerated Non-emergency contact: Primary Care Provider Call non-emergency contact if: you have any medication questions Follow-up/Referrals: Job Bernabe DO [Primary Care Provider] - 12/07/24 9:30 am Diet: Heart Healthy Addtl Attending Provider Instructions: See your PCP Dr. Job Bernabe within 5 days of hospital discharge. Pending Studies at Discharge: No Stand-Alone Forms: My [employer], Smoking Cessation Medications and DC Order Prescriptions: Continued (DME) Shower Chair Misc See Rx Instructions .Route Qty: 1 0RF Rx Instructions: As directed (DME) diaper,brief,adult,disposable Misc See Rx Instructions .Route Qty: 60 12RF Rx Instructions: As directed changing 1-2 times nightly bupropion HCl 100 mg tablet sustained-release 12 hr 100 mg PO QAM Qty: 90 3RF Rx Instructions: TAKE 1 TABLET BY MOUTH IN THE MORNING gabapentin 300 mg capsule 300 mg PO BID Qty: 120 1RF cholecalciferol (vitamin D3) 25 mcg (1,000 unit) capsule 1,000 units PO QAM clopidogrel 75 mg tablet 75 mg PO HS Qty: 90 3RF Patient Comments: Patient's daughter states may have taken no later than 2/10 Spiriva Respimat 2.5 mcg/actuation mist 2 puff inhalation QAM Qty: 4 3RF aspirin [Adult Aspirin Regimen] 81 mg tablet,delayed release (DR/EC) 81 mg PO QAM [place] Saline 0.65 % aerosol,spray 2 spray INTRANASAL DAILY PRN (Reason: Congestion) Rx Instructions: while awake multivitamin Tablet 1 tab PO QAM cranberry 500 mg Capsule 500 mg PO HS albuterol sulfate 90 mcg/actuation HFA aerosol inhaler 2 inh inhalation QID PRN (Reason: Shortness Of Breath Or Wheezing) finasteride 5 mg tablet 5 mg PO QAM atorvastatin 80 mg tablet 80 mg PO HS Rx Instructions: Take 1 tablet by mouth once daily lisinopril 10 mg tablet 10 mg PO QAM mirabegron [Myrbetriq] 50 mg tablet extended release 24 hr 50 mg PO QAM tamsulosin 0.4 mg capsule 0.4 mg PO QAM Discharge Orders: Discharge Order (Routine); Ordered 11/30/24 Ordered By: Forest Joshi Admission Data Admit Date/Time: 11/28/24 23:12 Attending Provider: Forest Joshi Admit Provider: Angela Gerard Primary Care Provider: Job Bernabe Other Providers: Angela Gerard Other Interventions: Discharge Summary Assessment (RN) Last Done: 11/30/24 14:13 Hospital Stay Data Consultations 11/28/24 22:51 ED Decision to Admit Stat Diagnostic Imagining Performed 11/28/24 18:18 CT angio head w con Stat CT angio neck with con Stat CT head/brain wo con Stat Pending Results Patient Have Any Pending Studies at Discharge: No Discharge Instructions Given to Patient (Per Discharging Provider) See your PCP Dr. Job Bernabe within 5 days of hospital discharge. Total Time Total Time Spent Total Time Spent (In Minutes): 35 minutes. Of this time period, 19 minutes were spent in coordinating patient's discharge. Coding Level of Care Code 30458 INP/OBS DISCH >30 MIN Diagnoses Nausea vomiting and diarrhea R11.2; R19.7 Generalized weakness R53.1 HTN (hypertension) I10 Hyperlipidemia E78.5 Depression F32.A
[2024-11-30 14:27] VITALS: PULSE 58
[2024-12-02 12:23] LABS: Marijuana Quant, GCMS Urine 149 ng/mL (<5)
== END 2024-11-30 16:06 | disposition home or self-care (01) | DRG 392 ==
LOC: ED 17:10 → SUATTDRO 23:12 → EDINP 23:12 → 2N 11-29 01:54

== ENCOUNTER 2025-02-20 15:11 | Inpatient (IN) ==
[2025-02-20 15:44] LABS: Hematocrit (blood only) 39.8 % (42.0-52.0); Hemoglobin 13.4 g/dl (14.0-18.0); Immature Granulocytes # (auto) 0.06 K/uL (0.01-0.20); Immature Granulocytes % (auto) 0.4 %; Mean Corpuscular Hemoglobin 31.2 pg (25.0-34.0); Mean Corpuscular Volume 92.8 fL (80.0-100.0); Platelet Count 252 K/uL (130-400); RDW Standard Deviation 47.5 fL (36.4-46.3); Red Blood Count 4.29 M/uL (4.70-6.10); White Blood Count 16.98 K/ul (4.8-10.8)
--- NOTE | 2025-02-20 15:44 | Emergency Department Note ---
Impression & Plan Generalized weakness, Sepsis, Acute confusion, Acute hypoxemic respiratory failure, Leukocytosis, Rhinovirus infection, Enterovirus infection, Pneumonia ED Provider Note HISTORY OF PRESENT ILLNESS: Patient is a 79-year-old male presenting with dizziness and shortness of breath. Daughter helps provide most of history. Reports that the patient was seen by DC nurse yesterday and the DC nurse thought that the patient had bronchitis. He was ordered a antibiotic and a steroid but they have not been delivered from the mail order pharmacy yet. Daughter reports that today the patient has been unable to get up and get around at home which is abnormal for him. States that the patient is stating that he feels very dizzy and weak. He has had a cough productive of green mucus over the last 3 days. His shortness of breath has progressively worsened over that timeframe. He has not been on any recent antibiotics or steroids. No reported DVT or PE history. He is not on any anticoagulation or antiplatelet therapy. He denies any history of cardiac stents. Patient states that when he gets up he feels very unsteady on his feet and very weak and woozy. Daughter reports that patient seems much more confused today than he normally does. He does not wear any supplemental oxygen at baseline. ROS: as above PHYSICAL EXAM: Constitutional: Patient appears in no acute distress. HENT: Head: Normocephalic and atraumatic. Eyes: EOMI, PERRL Mouth/Throat: Mucous membranes moist. Neck: Trachea midline. Neck supple. Cardiovascular: Tachycardic with regular rhythm. No murmurs, rubs or gallops. Intact distal pulses. Pulmonary/Chest: No respiratory distress. Breath sounds clear and equal bilaterally. No wheezes or rales. Abdominal: Abdomen soft, no tenderness, rebound or guarding. Musculoskeletal: No edema, tenderness or deformity noted. Skin: Warm and dry. No rash, erythema, pallor or cyanosis Psychiatric: Appropriate mood and affect for situation. Neurological: Alert and keenly responsive. Facies symmetric. MDM: - Vitals signs showed tachycardia and hypoxia. Patient placed on 2 L supplemental oxygen. - History obtained via patient and patient's daughter. History as above. - Chronic conditions affecting care: HLD; depression; HTN; urothelial carcinoma of bladder - Differential diagnoses include, but are not limited to: Congestive heart failure; acute coronary syndrome; COPD/asthma exacerbation; pulmonary edema; pulmonary embolism; pneumonia; pneumothorax; viral syndrome - Order placed for continuous cardiac monitoring. At this time, monitor showed rate of 104 bpm with normal sinus rhythm, per my interpretation. - External medical records reviewed. Discharge summary dated 11/30/2024 was reviewed. Patient was admitted at that time due to nausea, vomiting and diarrhea. - EKG image interpreted by myself showed normal sinus rhythm. Rate tachycardic at 123 bpm. QT 276. No acute ischemic changes. - Laboratory workup interpreted by myself showed leukocytosis (WBC 16.98); normal PT/INR; stable electrolytes; normal lactate; normal troponin; normal procalcitonin; normal BNP - Patient empirically given 2g IV rocephin and 100 mg doxycycline for antibiotic coverage. - Given patient's tachypnea, tachycardia and leukocytosis, and high concern for possible pneumonia - he meets sepsis criteria. - CXR image reviewed by myself is new for pneumonia, per my interpretation. - Viral respiratory panel positive for rhinovirus/enterovirus infections - CT head wo contrast negative for acute intracranial pathology. - CT PE shows no evidence of a PE. Noted to have severe coronary artery calcifications. Also noted to have mild patchy consolidation in the posterior right lower lobe concerning for potential pneumonitis versus pneumonia. This patchy consolidation is likely pneumonia in the setting of the patient's new hypoxia, cough and shortness of breath. - Blood cultures obtained - Given 2L NS. Patient's sepsis fluid volume calculation based on ideal body weight is 1854.30 mL. - Patient's tachycardia did improve after fluid resuscitation. - Discussion was had with case folder about patient's case and need for admission - Hospitalist consulted for admission - Patient admitted to [facility] for further evaluation and management. ASSESSMENT AND PLAN: Diagnosis: generalized weakness; acute confusion; sepsis; acute hypoxemic respiratory failure; leukocytosis; rhinovirus infection; enterovirus infection; pneumonia Plan: admit Past Med/Surg History Problem List (Updated 02/20/25 @ 18:05 by Rosana Lambert MD) Pneumonia (Acute) Enterovirus infection (Acute) Rhinovirus infection (Acute) Leukocytosis (Acute) Acute hypoxemic respiratory failure (Acute) Acute confusion (Acute) Sepsis (Acute) Generalized weakness (Acute) Right ureteral stone Acute dehydration (Acute) LUIS (acute kidney injury) (Acute) Encephalopathy acute (Acute) Complicated urinary tract infection (Acute) Sepsis (Acute) Hydronephrosis, left Left ureteral stone Incomplete bladder emptying Hypertension 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 gabapentin dosage increased at 09/21/22 PCP visit BPH w urinary obs/LUTS Abnormal liver function 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 Impaired fasting glucose (Acute) Depression (Acute) Hyperlipidemia (Acute) Nicotine dependence (Acute) H/O: stroke with residual effects (Chronic) Medical History COPD (chronic obstructive pulmonary disease) seen 09/21/22 by PCP for COPD exacerbation: given medrol dose pack and zpack and encouraged to increase albuterol inhaler usage; pt still smoking Left hemiplegia s/p CVA 06/2016 Bladder cancer hx- turbt 2022 Neuropathy due to herpes zoster Kidney stone HTN (hypertension) Hyperlipidemia Depression BPH (benign prostatic hyperplasia) Acquired left foot drop Chronic cough History of anemia Occlusion of right internal carotid artery Elevated glucose hx of slightly elevated glucose; PCP monitoring Right internal carotid occlusion R ICA CVA 06/2016 Prosthetic eye globe left eye History of COVID-19 admitted [facility] 02/25-02/28/22; on [place] O2 while inpt; not D/C on any home O2 Diverticulosis Internal hemorrhoids Tubular adenoma of colon 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 uses a scooter to get around, able to stand and pivot with assistance if needed. and has mild short term memory loss. Surgical History S/P cystoscopy with ureteral stent placement x2, most recent 08/09/24 [facility] History of transurethral resection of bladder tumor (TURBT) History of colonoscopy H/O eye surgery lost his left eye (20+ years ago) at a work accident -- has a left glass eye Family History Other No significant family history Denies family history of Ovarian cancer Prostate cancer Breast cancer Lung cancer Colorectal cancer Social History Smoking Status: Current every day smoker Tobacco Type: Cigarettes Age Started Using Tobacco: 14; Cigarettes Per Day: <5; Second Hand Exposure: Yes (hx); Do You Dip or Chew Tobacco: No; Hx Alcohol Use: Yes Alcohol type: beer and hard liquor Alcohol Intake Frequency: Monthly or Less Hx Substance Use: Yes Last Used Substance: Just Prior to Arrival Preferred Language: Norwegian Communication Ability: Impaired Visual Impairment: Limited Hearing Ability: Hard of Hearing Mattress Packer Required: No Beliefs That Will Affect Care: None marital status: / Current Living Situation: Alone Current Living Situation Comment: Pt has 24 hour care givers current occupational status: retired Feels Safe at Home: Yes Childhood Exposure to Second-Hand Smoke: Yes Diet: regular caffeine: No Dental Care, Regularly: No Physical Activity Frequency: Does not Exercise Seatbelt Use: always Sunscreen Use: No Assistive Devices: Wheelchair Allergies Allergies Allergy/AdvReac Type Severity Reaction Status Date / Time No Known Allergies Allergy Verified 11/28/24 20:07 Home Meds Home Medications Medication Instructions Recorded Confirmed cholecalciferol (vitamin D3) 25 1,000 units PO QAM 09/13/19 11/28/24 mcg (1,000 unit) capsule aspirin 81 mg tablet,delayed 81 mg PO QAM 08/18/21 11/28/24 release (Adult Aspirin Regimen) multivitamin 1 tab PO QAM 06/01/22 11/28/24 cranberry 500 mg capsule 500 mg PO 09/27/22 11/28/24 sodium chloride 0.65 % nasal spray 2 spray intranasal DAILY PRN 07/15/23 11/28/24 aerosol ([place] Saline) Congestion albuterol sulfate 90 mcg/actuation 2 inh inhalation QID PRN Shortness 08/09/24 11/28/24 aerosol inhaler Of Breath Or Wheezing atorvastatin 80 mg tablet 80 mg PO 08/09/24 11/28/24 finasteride 5 mg tablet 5 mg PO QAM 08/09/24 11/28/24 lisinopril 10 mg tablet 10 mg PO [facility] 08/09/24 11/28/24 mirabegron 50 mg tablet,extended 50 mg PO QA 08/09/24 11/28/24 release 24 hr (Myrbetriq) tamsulosin 0.4 mg capsule 0.4 mg PO QAM 08/09/24 11/28/24 Previous Rx's Medication Instructions Recorded Shower Chair #1 ea 10/01/22 diaper,brief,adult,disposable #60 ea 10/20/22 bupropion HCl 100 mg tablet,12 hr 100 mg PO QAM #90 ea 11/22/22 sustained-release gabapentin 300 mg capsule 300 mg PO BID #120 caps 01/28/23 clopidogrel 75 mg tablet 75 mg PO HS #90 tabs 07/15/23 tiotropium bromide 2.5 2 puff inhalation QAM #4 grams 07/15/23 mcg/actuation mist for inhalation (Spiriva Respimat) Results & Data (ED) Vital Signs Vital Signs - 24 hr 02/20/25 15:11 02/20/25 15:13 02/20/25 15:16 Temperature 37.3 C Temperature Source Oral Pulse Rate 127 H Pulse Rate from SpO2 Sensor Respiratory Rate 20 Respiratory Effort / Characteristics Non-Labored Spontaneous Respiratory Depth Normal Respiratory Pattern Regular Blood Pressure 126/68 Blood Pressure Mean 87 Blood Pressure Position Sitting Pulse Oximetry 89 L 91 Oxygen Delivery Method Nasal Cannula Room Air Nasal Cannula Oxygen Flow Rate 2 2 Sepsis Recent Fever Within 48 Hours No Sepsis New/Unexplained Change in Mental Status No Sepsis Action Taken by Nursing No Action Required Oxygen Flow Rate - Titration Pulse Oximetry Post Tiitration 02/20/25 15:18 02/20/25 16:13 02/20/25 16:41 Temperature Temperature Source Pulse Rate 114 H 104 H Pulse Rate from SpO2 Sensor 104 H Respiratory Rate 28 H Respiratory Effort / Characteristics Respiratory Depth Respiratory Pattern Blood Pressure 125/74 Blood Pressure Mean 91 Blood Pressure Position Pulse Oximetry 89 L 92 Oxygen Delivery Method Room Air Oxygen Flow Rate Sepsis Recent Fever Within 48 Hours Sepsis New/Unexplained Change in Mental Status Sepsis Action Taken by Nursing Oxygen Flow Rate - Titration 2 Pulse Oximetry Post Tiitration 91 Laboratory Data 02/20/25 15:23 02/20/25 15:23 Lab Results 02/20/25 Range/Units 15:23 WBC 16.98 H (4.8-10.8) K/ul RBC 4.29 L (4.70-6.10) M/uL Hgb 13.4 L (14.0-18.0) g/dl Hct 39.8 L (42.0-52.0) % MCV 92.8 (80.0-100.0) fL MCH 31.2 (25.0-34.0) pg MCHC 33.7 (32.0-36.0) g/dL RDW Std Deviation 47.5 H (36.4-46.3) fL RDW Coeff of Kailey 13.8 (11.5-14.5) % Plt Count 252 (130-400) K/uL MPV 9.8 (9.4-12.4) fL Immature Gran % (Auto) 0.4 % Neut % (Auto) 87.2 % Lymph % (Auto) 6.4 % [place] % (Auto) 5.7 % Eos % (Auto) 0.1 % Baso % (Auto) 0.2 % Neut # (Auto) 14.82 H (1.40-6.50) K/uL Lymph # (Auto) 1.08 L (1.20-3.40) K/uL [place] # (Auto) 0.97 H (0.11-0.59) K/uL Eos # (Auto) 0.02 (0.00-0.50) K/uL Baso # (Auto) 0.03 (0.00-0.20) K/uL Immature Gran # (Auto) 0.06 (0.01-0.20) K/uL PT 11.6 (9.0-12.0) Seconds INR 1.1 (0.9-1.1) APTT 26 (21-31) Seconds PTT Ratio 1.0 Sodium 136 (136-145) mmol/L Potassium 4.0 (3.5-5.1) mmol/L Chloride 103 (98-107) mmol/L Carbon Dioxide 25 (21-32) mmol/L Anion Gap 8 (3-11) BUN 17 (6-23) mg/dl Creatinine 0.99 (0.6-1.4) mg/dl Est Cr Clr Drug Dosing Not Reportable eGFR 77.49 BUN/Creatinine Ratio 17.2 (10-20) Glucose 116 H (70-99(Fasting)) mg/dl Lactate 1.5 (0.4-2.0) mmol/L Calcium 9.1 (8.6-10.3) mg/dl Magnesium 1.8 (1.7-2.4) mg/dl Total Bilirubin 0.6 (0.2-1.0) mg/dl AST 24 (13-39) U/L ALT 22 (7-52) U/L Alkaline Phosphatase 134 H (34-104) U/L Troponin I High Sens 7.3 (0-20) pg/ml B-Natriuretic Peptide 74 (0-100) pg/ml Total Protein 7.6 (6.0-8.3) gm/dl Albumin 4.3 (3.4-5.0) gm/dl Globulin 3.3 (2.5-4.0) gm/dl Albumin/Globulin Ratio 1.3 (0.9-2) Procalcitonin 0.12 (0-0.5) ng/ml Adenovirus (PCR) Not Detected (NotDetected) B. pertussis DNA (PCR) Not Detected (NotDetected) B.parapertussis DNA PCR Not Detected (NotDetected) C. pneumoniae DNA (PCR) Not Detected (NotDetected) Coronavirus OC43 (PCR) Not Detected (NotDetected) Coronavirus HKU1 (PCR) Not Detected (NotDetected) Coronavirus 229E (PCR) Not Detected (NotDetected) SARS-CoV-2 (PCR) Not Detected (NotDetected) Coronavirus NL63 (PCR) Not Detected (NotDetected) Human Metapneumovir PCR Not Detected (NotDetected) Influenza Type A (PCR) Not Detected (NotDetected) Influenza Type B (PCR) Not Detected (NotDetected) M. pneumoniae (PCR) Not Detected (NotDetected) Parainfluenza 1 (PCR) Not Detected (NotDetected) Parainfluenza 2 (PCR) Not Detected (NotDetected) Parainfluenza 3 (PCR) Not Detected (NotDetected) Parainfluenza 4 (PCR) Not Detected (NotDetected) RSV (PCR) Not Detected (NotDetected) Entero/Rhino (PCR) DETECTED A (NotDetected) Administered Medications Discontinued Medications Doxycycline Hyclate (Doxycycline Hyclate 100 Mg Cap) 100 mg PO NOW STA Stop: 02/20/25 16:14 Last Admin: 02/20/25 16:45 Dose: 100 mg Documented By: MONY Sodium Chloride (Nss) 1,000 mls @ 999 mls/hr IV .Q1H1M ONE Stop: 02/20/25 17:13 Last Admin: 02/20/25 17:09 Dose: 999 mls/hr Documented By: Infusion: 02/20/25 17:09 Dose: Infused Documented By: Admin: 02/20/25 16:51 Dose: 999 mls/hr Documented By: MONY Ceftriaxone Sodium (Rocephin) 2,000 mg in 50 mls @ 100 mls/hr IV NOW STA Stop: 02/20/25 16:42 Last Infusion: 02/20/25 17:29 Dose: Infused Documented By: Admin: 02/20/25 16:45 Dose: 100 mls/hr Documented By: MONY Sodium Chloride (Nss) 1,000 mls @ 999 mls/hr IV .Q1H1M ONE Stop: 02/20/25 17:52 Last Admin: 02/20/25 17:09 Dose: 999 mls/hr Documented By: MONY Ioversol (Optiray 320 125ml) 115 ml IV ONCE ONE Stop: 02/20/25 16:36 Last Admin: 02/20/25 16:36 Dose: 115 ml Documented By: REECE Imaging Data Radiologist's Impression: Chest X-Ray 02/20/25 15:16 Clinical History: Chest pain Technique: 2 frontal views of the chest were obtained Comparison is made to the prior examination dated 08/08/2024 Findings: There are no definite pulmonary infiltrates. The heart size is within normal limits. No pleural effusion or pneumothorax is seen. There is suspected mild right lung base atelectasis There are old fractures of the left fourth and fifth ribs Impression: Mild right lung base atelectasis Electronically signed by Adam Cisneros 02-20-2025 5:15 PM Chest CTA 02/20/25 15:44 Exam: CT angiogram chest, PE protocol. Reason for exam: Questionable pulmonary embolus. Previous :chest radiograph 02/20/2025 FINDINGS: There is good opacification of the pulmonary arteries. At this time no persistent filling defect to indicate pulmonary embolus is seen on either side. Pulmonary arteries do not appear enlarged and there is no suspicious evidence of right ventricular strain. The aorta shows moderately extensive atherosclerotic vascular calcification but no significant aneurysm or dissection at the examined levels. Moderately severe coronary calcification seen in the right and left coronary arterial systems. No significant stenosis noted in the great arteries. Mild patchy area of consolidation is seen in the posterior right lower lobe which might indicate minimal bronchopneumonia versus chronic interstitial lung opacity. Otherwise the lungs are free of active infiltrate or edema. No pleural effusion or pneumothorax is noted. IMPRESSION: 1. Negative for pulmonary embolus. 2. Negative for aortic dissection. 3. Moderately severe coronary artery calcification. 4. Mild patchy consolidation in the posterior basal right lower lobe. This may indicate mild or early pneumonitis and appears not to be present on a previous chest radiograph 12 08/08/2024. Lungs otherwise clear at this time. Electronically signed by Pepe Ray 02-20-2025 5:[address] 02/20/25 15:44 Clinical History: Dizziness and confusion Technique: Axial computed tomography images were obtained of the brain without intravenous contrast. Comparison is made to the prior CT dated 08/08/2024 Findings: There is unchanged cerebral atrophy, within expected limits for the patient's age. Areas of decreased attenuation are seen within the periventricular white matter, likely representing chronic small vessel ischemic disease. Again seen are old infarcts of the right thalamus, right basal ganglia, and right external capsule. There is also an apparent old infarct at the junction of the right parietal and right occipital lobes. There is no definite sign of acute infarction. No intracranial hemorrhage is evident. No definite mass lesion is seen on this noncontrast examination. There is no midline shift or other form of herniation. No hydrocephalus is seen. No fracture is identified. The orbits and the visualized paranasal sinuses appear unremarkable. The mastoid air cells appear clear. Impression: 1. Unchanged cerebral atrophy, old infarcts, and chronic small vessel ischemic disease 2. Otherwise unremarkable noncontrast CT of the brain Electronically signed by Adam Cisneros 02-20-2025 5:02 PM Discharge Plan Visit Data Chief Complaint: Shortness of Breath/Dyspnea Stated Complaint: TROUBLE BREATHING, LIGHTHEADED, DIZZY ED Provider: Rosana Lambert Discharge Problem: Generalized weakness, Sepsis, Acute confusion, Acute hypoxemic respiratory failure, Leukocytosis, Rhinovirus infection, Enterovirus infection, Pneumonia Condition: Fair Forms Stand Alone Forms: My [employer] Prescriptions Prescriptions: No Action (DME) Shower Chair Misc See Rx Instructions .Route Qty: 1 0RF Rx Instructions: As directed (DME) diaper,brief,adult,disposable Misc See Rx Instructions .Route Qty: 60 12RF Rx Instructions: As directed changing 1-2 times nightly bupropion HCl 100 mg tablet sustained-release 12 hr 100 mg PO QAM Qty: 90 3RF Rx Instructions: TAKE 1 TABLET BY MOUTH IN THE MORNING gabapentin 300 mg capsule 300 mg PO BID Qty: 120 1RF cholecalciferol (vitamin D3) 25 mcg (1,000 unit) capsule 1,000 units PO QAM clopidogrel 75 mg tablet 75 mg PO HS Qty: 90 3RF Patient Comments: Patient's daughter states may have taken no later than 2/ Spiriva Respimat 2.5 mcg/actuation mist 2 puff inhalation QAM Qty: 4 3RF aspirin [Adult Aspirin Regimen] 81 mg tablet,delayed release (DR/EC) 81 mg PO QAM [place] Saline 0.65 % aerosol,spray 2 spray INTRANASAL DAILY PRN (Reason: Congestion) Rx Instructions: while awake multivitamin Tablet 1 tab PO QAM cranberry 500 mg Capsule 500 mg PO HS albuterol sulfate 90 mcg/actuation HFA aerosol inhaler 2 inh inhalation QID PRN (Reason: Shortness Of Breath Or Wheezing) finasteride 5 mg tablet 5 mg PO QAM atorvastatin 80 mg tablet 80 mg PO HS Rx Instructions: Take 1 tablet by mouth once daily lisinopril 10 mg tablet 10 mg PO QAM mirabegron [Myrbetriq] 50 mg tablet extended release 24 hr 50 mg PO QAM tamsulosin 0.4 mg capsule 0.4 mg PO QAM Referrals Referrals: Job Bernabe DO [Primary Care Provider] -
[2025-02-20 16:01] LABS: Alanine Aminotransferase 22 U/L (7-52); Albumin Globulin Ratio 1.3 (0.9-2); Alkaline Phosphatase 134 U/L (34-104); Anion Gap 8 (3-11); Bilirubin,Total 0.6 mg/dl (0.2-1.0); Blood Urea Nitrogen 17 mg/dl (6-23); Calcium 9.1 mg/dl (8.6-10.3); Carbon Dioxide 25 mmol/L (21-32); Chloride 103 mmol/L (98-107); Globulin 3.3 gm/dl (2.5-4.0); Glucose 116 mg/dl (70-99(Fasting)); Magnesium 1.8 mg/dl (1.7-2.4); Potassium 4.0 mmol/L (3.5-5.1); Sodium 136 mmol/L (136-145); Total Protein 7.6 gm/dl (6.0-8.3)
[2025-02-20 16:12] LABS: INR 1.1 (0.9-1.1); Partial Thromboplastin Time 26 Seconds (21-31); Prothrombin Time 11.6 Seconds (9.0-12.0)
[2025-02-20] MEDS: OPTIRAY 320 125ml IV ONE (16:36)
[2025-02-20] MEDS: DOXYCYCLINE HYCLATE 100 MG CAP PO STA (16:45)
[2025-02-20] MEDS: cefTRIAXone SODIUM 2,000 MG/50 ML BAG IV STA (16:45)
[2025-02-20 16:48] LABS: Chlamydia pneumoniae PCR Not Detected (NotDetected); Coronavirus 229E PCR Not Detected (NotDetected); Coronavirus CoV-2 (COVID19)PCR Not Detected (NotDetected); Coronavirus HKU1 PCR Not Detected (NotDetected); Coronavirus NL63 PCR Not Detected (NotDetected); Coronavirus OC43PCR Not Detected (NotDetected); Human Metapneumovirus PCR Not Detected (NotDetected); Parainfluenza Virus 1 PCR Not Detected (NotDetected); Parainfluenza Virus 2 PCR Not Detected (NotDetected); Parainfluenza Virus 3 PCR Not Detected (NotDetected); Parainfluenza Virus 4 PCR Not Detected (NotDetected); Respiratory Syncytial VirusPCR Not Detected (NotDetected); Rhinovirus/Enterovirus PCR DETECTED (NotDetected)
[2025-02-20] MEDS: SODIUM CHLORIDE 0.9% 1,000 ML IV ONE ×2 (16:51→17:09)
--- NOTE | 2025-02-20 17:03 | CT Scan Report ---
Clinical History: Dizziness and confusion Technique: Axial computed tomography images were obtained of the brain without intravenous contrast. Comparison is made to the prior CT dated 08/08/2024 Findings: There is unchanged cerebral atrophy, within expected limits for the patient's age. Areas of decreased attenuation are seen within the periventricular white matter, likely representing chronic small vessel ischemic disease. Again seen are old infarcts of the right thalamus, right basal ganglia, and right external capsule. There is also an apparent old infarct at the junction of the right parietal and right occipital lobes. There is no definite sign of acute infarction. No intracranial hemorrhage is evident. No definite mass lesion is seen on this noncontrast examination. There is no midline shift or other form of herniation. No hydrocephalus is seen. No fracture is identified. The orbits and the visualized paranasal sinuses appear unremarkable. The mastoid air cells appear clear. Impression: 1. Unchanged cerebral atrophy, old infarcts, and chronic small vessel ischemic disease 2. Otherwise unremarkable noncontrast CT of the brain Electronically signed by Adam Cisneros 02-20-2025 5:02 PM
--- NOTE | 2025-02-20 17:16 | XRay Report ---
Clinical History: Chest pain Technique: 2 frontal views of the chest were obtained Comparison is made to the prior examination dated 08/08/2024 Findings: There are no definite pulmonary infiltrates. The heart size is within normal limits. No pleural effusion or pneumothorax is seen. There is suspected mild right lung base atelectasis There are old fractures of the left fourth and fifth ribs Impression: Mild right lung base atelectasis Electronically signed by Adam Cisneros 02-20-2025 5:15 PM
--- NOTE | 2025-02-20 17:40 | CT Scan Report ---
Exam: CT angiogram chest, PE protocol. Reason for exam: Questionable pulmonary embolus. Previous :chest radiograph 02/20/2025 FINDINGS: There is good opacification of the pulmonary arteries. At this time no persistent filling defect to indicate pulmonary embolus is seen on either side. Pulmonary arteries do not appear enlarged and there is no suspicious evidence of right ventricular strain. The aorta shows moderately extensive atherosclerotic vascular calcification but no significant aneurysm or dissection at the examined levels. Moderately severe coronary calcification seen in the right and left coronary arterial systems. No significant stenosis noted in the great arteries. Mild patchy area of consolidation is seen in the posterior right lower lobe which might indicate minimal bronchopneumonia versus chronic interstitial lung opacity. Otherwise the lungs are free of active infiltrate or edema. No pleural effusion or pneumothorax is noted. IMPRESSION: 1. Negative for pulmonary embolus. 2. Negative for aortic dissection. 3. Moderately severe coronary artery calcification. 4. Mild patchy consolidation in the posterior basal right lower lobe. This may indicate mild or early pneumonitis and appears not to be present on a previous chest radiograph 12 08/08/2024. Lungs otherwise clear at this time. Electronically signed by Pepe Ray 02-20-2025 5:40 PM
--- NOTE | 2025-02-20 18:17 | History & Physical Report ---
"Date of Service February 20, 2025 Assessment & Plan (1) Acute hypoxemic respiratory failure: (2) Rhinovirus infection: (3) Pneumonia: (4) COPD (chronic obstructive pulmonary disease): (5) Left hip pain: Plan 79-year-old male with history of COPD, prior stroke with left hemiplegia 06/25 016, hypertension hyperlipidemia presenting from home With worsening cough, fevers and chills. Initial evaluation positive for rhino enterovirus and concerning for possible concomitant pneumonia. Admitted for IV antibiotics, steroids and oxygen titration #Hypoxia | Rhino/enterovirus | PNA | Sepsis - febrile, leukocytosis and tachycardic on admission Received 2 L IV fluid boluscontinue maintenance fluid overnight with poor appetite Continue Ceftriaxone and doxycycline Methylpred 40mg IV now, continue qAM Continue home inhalers Blood Cultures pending Sputum culture ordered Supportive care: PRN nebs, IS, FV AM CBC and BMP #Left hip pain Check left hip x-ray wheelchair dependent but can transfer at baseline PT/OT #history of CVA Continue aspirin, atorvastatin and plavix (per last neurology note in 2019, which was 4 years after stroke continued DAPT was recommended) #Mental health - continue Wellbutrin #chronic paincontinue gabapentin and as needed tramadol #hypertensioncontinue lisinopril #BPHcontinue finasteride and Myrbetriq and Flomax Dispo: admit to med/tele DVT proh: sam daughters updated at bedside on admission Admission and Anticipated Discharge Date Admission Date: Attending Attestation & Admission Note: Pt seen/examined, chart reviewed, admit care plan d/w DIAMOND Myers. I agree w/ the de components of her admit documentation. 79yo male with COPD, ongoing tobacco dependence, h/o bladder cancer s/p TURBT, h/o right-sided MCA territory stroke with resulting left-sided hemiparesis. Presents with worsening cough, chest congestion, wheezing, sputum production, and dyspnea. Tested + for rhinovirus on respiratory [employer] today. CT chest with RLL infiltrates. He also c/o left hip pain. Hurts to lay on the left hip. Present for several days. No fall or injury to the left hip. PMH/PSH/allergies/meds/sochx - reviewed vitals - o2 sats 89% in RA, otherwise VSS gen - appears chronically unwell, severe bronchial cough with sputum production, mildly dysarthric speech neck - no JVD heart - RRR, s1 s2, no murmur lungs - extensive wheezing b/l, R basilar rales, coughing; no increased work of breathing abd - soft NT ND BS+ ext - no edema, pulses 2+ b/l neuro - left-sided hemiparesis musculo - left hip - no pain of hip joint with log-rolling; no pain with flexion of hip; left trochanteric bursa tender to palpation; pain with forced adduction of left hip/leg; left leg is shorter than right leg labs reviewed imaging reviewed biofire + for rhinovirus A/P: 1. acute hypoxic resp failure 2nd to COPD exacerbation from rhinovirus infection 2. probable RLL pneumonia - viral vs bacterial; favor latter 3. left hip pain - suspect trochanteric bursitis -IV steroids for COPD flare; nebs; etc. -rocephin/doxy for #2 -steroids being used for COPD should help #3 -droplet precautions for rhinovirus infection Alexis Billings MD History of Present Illness Primary Care Provider: Job Bernabe, 79-year-old male with history of COPD, prior stroke with left hemiplegia, hypertension hyperlipidemia presenting from home With worsening cough, fevers and chills. Daughters at bedside help to provide additional history. Milton reports that he is hide a productive cough for the last month, getting worse in the last 3 days. Reports green sputum production. He also reports fevers and chills for the last 3 days. Poor appetite and minimal p.o. intake in the last few days. [facility] Saw him yesterday and thought he had bronchitis yesterday ordered steroids and antiobiotics yesterday, but they were not delivered yet. also with weakness. Mainly wheelchair/scooter bound but is able to transfer. Family reports that today he was unable to stand or bear weight on his left leg and transfer, which is abnormal for him. They also report that he is been reporting increased left hip pain over the last few weeks. He did take his medications this morning ED course: NSS 2L doxcycline 100mg PO Ceftriaxone 2g IV Allergies Allergy/AdvReac Type Severity Reaction Status Date / Time No Known Allergies Allergy Verified 02/20/25 18:17 Home Medications Medication Instructions Recorded Confirmed Type cholecalciferol (vitamin D3) 25 1,000 units PO QAM 09/13/19 02/20/25 History mcg (1,000 unit) capsule aspirin 81 mg tablet,delayed 81 mg PO QAM 08/18/21 02/20/25 History release (Adult Aspirin Regimen) cranberry 500 mg capsule 500 mg PO DAILY 09/27/22 02/20/25 History Shower Chair #1 ea 10/01/22 09/07/24 Rx diaper,brief,adult,disposable #60 ea 10/20/22 09/07/24 Rx bupropion HCl 100 mg tablet,12 hr 100 mg PO QAM #90 ea 11/22/22 02/20/25 Rx sustained-release gabapentin 300 mg capsule 300 mg PO BID #120 caps 01/28/23 02/20/25 Rx clopidogrel 75 mg tablet 75 mg PO HS #90 tabs 07/15/23 02/20/25 Rx tiotropium bromide 2.5 2 puff inhalation QAM #4 grams 07/15/23 02/20/25 Rx mcg/actuation mist for inhalation (Spiriva Respimat) albuterol sulfate 90 mcg/actuation 2 inh inhalation Q6H PRN Shortness 08/09/24 02/20/25 History aerosol inhaler Of Breath Or Wheezing atorvastatin 80 mg tablet 80 mg PO HS 08/09/24 02/20/25 History finasteride 5 mg tablet 5 mg PO HS 08/09/24 02/20/25 History lisinopril 10 mg tablet 10 mg PO QAM 08/09/24 02/20/25 History mirabegron 50 mg tablet,extended 50 mg PO QAM 08/09/24 02/20/25 History release 24 hr (Myrbetriq) tamsulosin 0.4 mg capsule 0.4 mg PO QAM 08/09/24 02/20/25 History doxycycline hyclate 100 mg capsule 100 mg PO BID 02/20/25 02/20/25 History miconazole nitrate 2 % topical 1 applic topical DAILY PRN 02/20/25 02/20/25 History powder NEEDED multivitamin with minerals 1 tab PO DAILY 02/20/25 02/20/25 History prednisone 5 mg tablet 5 mg PO DIRECTED 02/20/25 02/20/25 History tramadol 50 mg tablet 50 mg PO Q4H PRN Pain 02/20/25 02/20/25 History Past Med/Surg History Problem List (Updated 02/20/25 @ 20:43 by Background Dalilli) Left hip pain Pneumonia (Acute) Enterovirus infection (Acute) Rhinovirus infection (Acute) Leukocytosis (Acute) Acute hypoxemic respiratory failure (Acute) Acute confusion (Acute) Sepsis (Acute) Generalized weakness (Acute) Right ureteral stone Acute dehydration (Acute) LUIS (acute kidney injury) (Acute) Encephalopathy acute (Acute) Complicated urinary tract infection (Acute) Sepsis (Acute) Hydronephrosis, left Left ureteral stone Incomplete bladder emptying Hypertension 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 gabapentin dosage increased at 09/21/22 PCP visit BPH w urinary obs/LUTS Abnormal liver function 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 Impaired fasting glucose (Acute) Depression (Acute) Hyperlipidemia (Acute) Nicotine dependence (Acute) H/O: stroke with residual effects (Chronic) Medical History COPD (chronic obstructive pulmonary disease) seen 09/21/22 by PCP for COPD exacerbation: given medrol dose pack and zpack and encouraged to increase albuterol inhaler usage; pt still smoking Left hemiplegia s/p CVA 06/2016 Bladder cancer hx- turbt 2022 Neuropathy due to herpes zoster Kidney stone HTN (hypertension) Hyperlipidemia Depression BPH (benign prostatic hyperplasia) Acquired left foot drop Chronic cough History of anemia Occlusion of right internal carotid artery Elevated glucose hx of slightly elevated glucose; PCP monitoring Right internal carotid occlusion R ICA CVA 06/2016 Prosthetic eye globe left eye History of COVID-19 admitted [facility] 02/25-02/28/22; on [place] O2 while inpt; not D/C on any home O2 Diverticulosis Internal hemorrhoids Tubular adenoma of colon 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 uses a scooter to get around, able to stand and pivot with assistance if needed. and has mild short term memory loss. Surgical History S/P cystoscopy with ureteral stent placement x2, most recent 08/09/24 [facility] History of transurethral resection of bladder tumor (TURBT) History of colonoscopy H/O eye surgery lost his left eye (20+ years ago) at a work accident -- has a left glass eye Family History Other No significant family history Denies family history of Ovarian cancer Prostate cancer Breast cancer Lung cancer Colorectal cancer Social History Smoking Status: Current every day smoker Tobacco Type: Cigarettes Age Started Using Tobacco: 14; Cigarettes Per Day: <5; Second Hand Exposure: Yes (hx); Do You Dip or Chew Tobacco: No; Hx Alcohol Use: Yes Alcohol type: beer and hard liquor Alcohol Intake Frequency: Monthly or Less Hx Substance Use: Yes Last Used Substance: Just Prior to Arrival Preferred Language: Croatian Communication Ability: Impaired Visual Impairment: Limited Hearing Ability: Hard of Hearing Geek [employer] Agent Required: No Beliefs That Will Affect Care: None marital status: / Current Living Situation: Alone Current Living Situation Comment: Pt has 24 hour care givers current occupational status: retired Other Information That Helps Us Care for You: No Feels Safe at Home: Yes Safety Concerns: Feels Safe At This Time Childhood Exposure to Second-Hand Smoke: Yes Diet: regular caffeine: No Dental Care, Regularly: No Physical Activity Frequency: Does not Exercise Seatbelt Use: always Sunscreen Use: No Assistive Devices: Wheelchair Review of Systems Review of Systems: All systems reviewed & are unremarkable except as noted in Subjective Physical Exam Physical Exam: General: NAD, VS as above Resp: normal respiratory effort, lungs coarse in bases, on 2L CV: RRR, no murmur, Abd: normal bowel sounds, non tender, Extremities: Moves all extremities, no LE edema Neuro: A&O x3, chronic left sided deficits from prior stroke Skin: intact, no lesions noted Results & Data Results & Data Vital Signs (Past 12 Hours) Vital Signs Temp Pulse Resp BP Pulse Ox O2 Del Method O2 Flow Rate 02/20/25 16:41 104 H 28 H 125/74 92 02/20/25 16:13 114 H 02/20/25 15:18 89 L Room Air 02/20/25 15:16 91 Nasal Cannula 2 02/20/25 15:13 99.1 F 127 H 20 126/68 89 L Room Air 02/20/25 15:11 Nasal Cannula 2 Laboratory Results cbc and chemistry reviewed PG Care Time/CCT Total # of Minutes Spent Total Time Spent with Patient: Total time spent is greater than 50% in coordination of care (as documented) at patient's floor/unit and/or counseling patient: Coding Level of Care Code 20479 INT INP/OBS CARE 75MIN Diagnoses Acute hypoxemic respiratory failure J96.01 Rhinovirus infection B34.8 Pneumonia J18.9 COPD (chronic obstructive pulmonary disease) J44.9 COPD type: unspecified COPD Left hip pain M25.552 (4) COPD (chronic obstructive pulmonary disease) COPD type: unspecified COPD Qualified Code(s): J44.9 - Chronic obstructive pulmonary disease, unspecified"
[2025-02-20] MEDS: Patient's HEIGHT &/or WEIGHT Needed STA (19:04)
[2025-02-20] MEDS ORDERED: ACETAMINOPHEN 500 MG TAB PO PRN (20:52)
[2025-02-20] MEDS ORDERED: ONDANSETRON INJ 2 MG/ML 2 ML VIAL IV PRN (20:52)
[2025-02-20] MEDS ORDERED: POLYETHYLENE (MIRALAX) 17 GM PACK PO PRN (20:52)
--- NOTE | 2025-02-20 21:14 | XRay Report ---
EXAM: XR hip LT 2V w pelvis CLINICAL HISTORY: L hip pain TECHNIQUE: X-ray images of the left hip joints in AP and lateral and pelvis were obtained in anteroposterior (AP) projection. COMPARISON: No prior studies available for comparison. FINDINGS: Pelvic Bones: No evidence of fractures, dislocations, or significant osseous lesions. Acetabular structures appear normal and intact. No signs of acetabular fracture or dysplasia. Femoral heads are normal and centered within the acetabulum. No evidence of fractures, avascular necrosis, or significant deformities. Hip Joints: Mild bilateral hip joints osteoarthritis are seen manifested by narrowing of joint space with sclerosis of the opposing articular surfaces. No evidence of hip dislocation, subluxation. Sacroiliac joints appear normal and unremarkable. No evidence of sacroiliitis or significant degenerative changes. Symphysis Pubis: Symphysis pubis is normal and intact. No evidence of separation or widening. Soft Tissues: Visualized soft tissues are normal and unremarkable. No soft tissue swelling, calcifications, or masses. IMPRESSION: 1. Mild bilateral hip joints osteoarthritis. 2. No evidence of acute fractures or dislocations. Disclaimer: A subtle bone abnormality or fracture may not be readily apparent on X-rays, thus clinical correlation and further imaging including follow-up CT, MRI, or follow-up X-rays are advised as needed. Electronically signed by Ruiz Little 02-20-2025 9:14 PM
[2025-02-20] MEDS: LACTATED RINGER'S 1,000 ML IV SCH (21:31)
[2025-02-20] MEDS: MICONAZOLE NITRATE POWDER 85 GM TOP PRN (21:35)
[2025-02-20] MEDS: CLOPIDOGREL BISULFATE 75 MG TAB PO SCH (21:37)
[2025-02-20] MEDS: ATORVASTATIN 40 MG TAB PO SCH (21:37)
[2025-02-20] MEDS: GABAPENTIN 300 MG CAP PO SCH (21:38)
[2025-02-20] MEDS: FINASTERIDE 5 MG TAB PO SCH (22:04)
[2025-02-20] MEDS: ALBUT/IPRATROP 3MG/0.5MG NEB 3 ML VIAL NEB PRN (23:39)
[2025-02-21] MEDS: DOXYCYCLINE HYCLATE 100 MG in DEXTROSE 5% MINI-B 100 ML IV SCH (03:46)
[2025-02-21 09:47] LABS: Hematocrit (blood only) 32.0 % (42.0-52.0); Hemoglobin 10.8 g/dl (14.0-18.0); Immature Granulocytes # (auto) 0.10 K/uL (0.01-0.20); Immature Granulocytes % (auto) 0.6 %; Mean Corpuscular Hemoglobin 31.4 pg (25.0-34.0); Mean Corpuscular Volume 93.0 fL (80.0-100.0); Platelet Count 222 K/uL (130-400); RDW Standard Deviation 46.7 fL (36.4-46.3); Red Blood Count 3.44 M/uL (4.70-6.10); White Blood Count 16.15 K/ul (4.8-10.8)
[2025-02-21 10:08] LABS: Anion Gap 6.0 (3-11); Blood Urea Nitrogen 18.0 mg/dl (6-23); Calcium 8.2 mg/dl (8.6-10.3); Carbon Dioxide 23.0 mmol/L (21-32); Chloride 109.0 mmol/L (98-107); Creatinine Clr Calc Pharmacy 56.5 ml/min; Glucose 130.0 mg/dl (70-99(Fasting)); Magnesium 1.9 mg/dl (1.7-2.4); Potassium 3.6 mmol/L (3.5-5.1); Sodium 138.0 mmol/L (136-145)
--- NOTE | 2025-02-21 11:00 | Hospitalist Progress Note ---
"Date of Service February 21, 2025 Assessment & Plan (1) Acute hypoxemic respiratory failure: (2) Rhinovirus infection: (3) Pneumonia: (4) COPD (chronic obstructive pulmonary disease): (5) Left hip pain: Plan 79-year-old male with history of COPD, prior stroke with left hemiplegia 06/25 016, hypertension hyperlipidemia presenting from home With worsening cough, fevers and chills. Initial evaluation positive for rhino enterovirus and concerning for possible concomitant pneumonia. Admitted for IV antibiotics, steroids and oxygen titration #Hypoxia | Rhino/enterovirus | PNA | Sepsis - febrile, leukocytosis and tachycardic on admission Received 2 L IV fluid bolus with 1 L additional maintenance fluids. Appetite is improving, no further IV fluids needed at this time Continue Ceftriaxone and doxycycline Methylpred 40mg IV qAM Continue home inhalers Blood Cultures pending Sputum culture plan Supportive care: PRN nebs, IS, FV Baseline is room air continue to wean O2, goal greater than 90% overall lung sounds are improving, sputum production is less. Will continue course. with frequent loose stools will check C. difficile #Left hip pain left hip x-ray showing osteoarthritis but no fracture wheelchair dependent but can transfer at baseline PT/OT - think that patient is pretty close to his baseline and safe to return home with his caregivers #history of CVA Continue aspirin, atorvastatin and plavix (per last neurology note in 2019, which was 4 years after stroke continued DAPT was recommended) #Mental health - continue Wellbutrin #chronic paincontinue gabapentin and as needed tramadol #hypertensioncontinue lisinopril #BPHcontinue finasteride and Myrbetriq and Flomax Dispo: continued inpatient stay for IV antibiotics and oxygen titration, stable for downgrade to medical DVT proh: lovenox daughters updated at bedside on admission and 02/21 Admission and Anticipated Discharge Date Admission Date: February 20, 2025 Subjective Patient seen lying in bed, daughter present at bedside. Reports that his chest is feeling better. Eager to go home, however, still requiring oxygen sputum production is less has not been seen by PT/OT yet multiple loose stools - diarrhea is abnormal for him telemetry sinus rhythm in the 70s Review of Systems Review of Systems: All systems reviewed & are unremarkable except as noted in Subjective Physical Exam Physical Exam: General: NAD, VS as above Resp: normal respiratory effort, lungs coarse in bases - improved from yesterday. on 1.5L CV: RRR, no murmur, Abd: normal bowel sounds, non tender, Extremities: Moves all extremities, no LE edema Neuro: A&O x3, chronic left sided deficits from prior stroke Skin: intact, no lesions noted Results & Data Results & Data Vital Signs (Past 12 Hours) Vital Signs Temp Pulse Pulse Resp BP Pulse Ox O2 Del Method 02/21/25 08:56 97.7 F 67 18 112/62 95 Nasal Cannula 02/21/25 07:17 64 02/21/25 03:15 97.9 F 63 20 107/65 93 Nasal Cannula 02/20/25 23:40 61 15 99 Nasal Cannula O2 Flow Rate 02/21/25 08:56 3 02/21/25 07:17 02/21/25 03:15 3 02/20/25 23:40 2 Laboratory Results CBC and chemistry reviewed Diagnostic Findings hip x-ray reviewed PG Care Time/CCT Total # of Minutes Spent Total Time Spent with Patient: Total time spent is greater than 50% in coordination of care (as documented) at patient's floor/unit and/or counseling patient: Coding Level of Care Code 13603 SUB INP/OBS CARE 3/50MIN Diagnoses Acute hypoxemic respiratory failure J96.01 Rhinovirus infection B34.8 Pneumonia J18.9 COPD (chronic obstructive pulmonary disease) J44.9 COPD type: unspecified COPD Left hip pain M25.552 (4) COPD (chronic obstructive pulmonary disease) COPD type: unspecified COPD Qualified Code(s): J44.9 - Chronic obstructive pulmonary disease, unspecified"
[2025-02-21] MEDS: TAMSULOSIN HCL 0.4 MG CAP PO SCH (11:11)
[2025-02-21] MEDS: ASPIRIN 81 MG ECTAB PO SCH (11:11)
[2025-02-21] MEDS: UMECLIDINIUM BROMIDE 62.5MCG/BLISTER 7 PUFFS/INHALER INH SCH (11:11)
[2025-02-21] MEDS: VIBEGRON 75 MG TAB PO SCH (11:12)
[2025-02-21] MEDS: ENOXAPARIN INJ 40 MG/0.4 ML SYR SQ SCH (11:13)
[2025-02-21 13:30] LABS: Cdiff Toxin B Gene (2yr or >) Negative Cdiff Gene (Neg)
[2025-02-21] MEDS: cefTRIAXone SODIUM 2,000 MG/50 ML BAG IV SCH (15:35)
[2025-02-21 19:59] VITALS: RESP 18
[2025-02-22 07:47] VITALS: BP 118/66; TEMP 99.5
[2025-02-22 09:46] VITALS: PULSE 69; O2SAT 91
--- NOTE | 2025-02-22 09:51 | Discharge Summary ---
"Discharge Summary Date of Service February 22, 2025 Principal Dx & Hospital Course #1 = Principal Diagnosis (1) Acute hypoxemic respiratory failure: (2) Rhinovirus infection: (3) Pneumonia: (4) COPD (chronic obstructive pulmonary disease): (5) Left hip pain: Plan #Hypoxia | Rhino/enterovirus | PNA | Sepsis - 79-year-old male with history of COPD, prior stroke with left hemiplegia 06/2016, hypertension hyperlipidemia presenting from home With worsening cough, fevers and chills. Initial evaluation positive for rhino enterovirus and concerning for possible concomitant pneumonia. received his sepsis fluid bolu s. Did well with IV troxidone, doxycycline and methylprednisolone. Sputum culture grew normal didi. Discharged with doxycycline, cefpodoxime and a prednisone taper. Continue to use home inhalers and as needed albuterol inhaler. Confirmed with daughter that he has plenty of albuterol inhaler at home. doing well on room air and stable for discharge home. Blood cultures negative at 24 hours #Left hip pain left hip x-ray showing osteoarthritis but no fracture wheelchair dependent but can transfer at baseline PT/OT - think that patient is pretty close to his baseline and safe to return home with his caregivers #history of CVA Continue aspirin, atorvastatin and plavix (per last neurology note in 2019, which was 4 years after stroke continued DAPT was recommended) #Mental health - continue Wellbutrin #chronic paincontinue gabapentin and as needed tramadol #hypertensioncontinue lisinopril #BPHcontinue finasteride and Myrbetriq and Flomax Dispo: discharged home today with caregivers daughters updated at bedside on admission and 02/21 and via phone 02/22 Admission HPI Per Admitting Provider 79-year-old male with history of COPD, prior stroke with left hemiplegia, hypertension hyperlipidemia presenting from home With worsening cough, fevers and chills. Daughters at bedside help to provide additional history. Milton reports that he is hide a productive cough for the last month, getting worse in the last 3 days. Reports green sputum production. He also reports fevers and chills for the last 3 days. Poor appetite and minimal p.o. intake in the last few days. [facility] yesterday and thought he had bronchitis yesterday ordered steroids and antiobiotics yesterday, but they were not delivered yet. also with weakness. Mainly wheelchair/scooter bound but is able to transfer. Family reports that today he was unable to stand or bear weight on his left leg and transfer, which is abnormal for him. They also report that he is been reporting increased left hip pain over the last few weeks. He did take his medications this morning ED course: NSS 2L doxcycline 100mg PO Ceftriaxone 2g IV Discharge Exam General: NAD, VS as above , sitting up in bed, hard of hearing Resp: normal respiratory effort, minimal expiratory wheezing, on room air CV: RRR, no murmur, Abd: normal bowel sounds, non tender, Extremities: Moves all extremities, no LE edema Neuro: A&O x3, chronic left sided deficits from prior stroke Skin: intact, no lesions noted Discharge Plan Discharge Items Patient Disposition: Home - Self-Care Reason For Visit: RHINO/ENTERO Discharge Diagnosis: Rhinovirus, pneumonia Condition on Discharge: Fair Activity: Resume your previous activity Weightbearing: Full weightbearing Non-emergency contact: Primary Care Provider Call non-emergency contact if: you have any medication questions, your symptoms worsen, your pain is worsening and your temperature is above 101 Follow-up/Referrals: Job Bernabe DO [Primary Care Provider] - 03/01/25 11:30 am () Diet: Regular Diet Texture: Easy to Chew Addtl Attending Provider Instructions: Mr. Evans, Mikael were hospitalized after having worsening shortness of breath and weakness this was found to be from pneumonia and Rhino-enterovirus. You have done well with IV antibiotics, steroids and nebulizer treatments. You will be discharged with oral antibiotics and a steroid taper. Recommendations: - Start doxycycline - first dose tonight 8/1PM. Please take this sitting up with a whole glass of water. This can cause upset stomach and should be also taken with meal - Start Cefpodoxime - first dose AM 8/2 - Start Prednisone taper - first dose AM 8/2 - Continue home inhalers - Continue to use albuterol inhaler every 4 hours as needed for shortness of breath or wheezing You have blood cultures pending at the time of discharge, they are negative at 24 hours but take 5 days to get final results. If they turn positive you will be notified, you can also check in with your PCP or the [facility] portal. However, given your symptoms I do not expect they will be positive. No changes to your home medications, please follow up with your PCP within one week. CONTACT YOUR PRIMARY CARE PROVIDER if you experience any of the following: Shortness of breath or difficulty breathing Fevers or chills Feeling tired with normal activity or experiencing dizziness or fainting Difficulty following your treatment plan, or difficulty taking medications CALL 911 OR GO TO THE EMERGENCY DEPARTMENT if you experience any of the followin g: Severe abdominal pain or nausea/vomiting Severe chest pain, or chest pain that radiates (moves) to your jaw or arm Sudden, severe shortness of breath or difficulty breathing Thank you for allowing us to participate in your care. Pending Studies at Discharge: Yes (blood cultures ) Stand-Alone Forms: My [facility] [employer], Smoking Cessation Medications and DC Order Prescriptions: New doxycycline hyclate 100 mg capsule 100 mg PO BID Qty: 11 0RF cefpodoxime 200 mg tablet 200 mg PO BID Qty: 10 0RF Rx Instructions: must administer with a meal/food prednisone 10 mg tablet See Taper PO DIRECTED Qty: 21 0RF Taper: Taper, Blank 40 mg DAILY for 3 Days 20 mg DAILY for 3 Days 10 mg DAILY for 3 Days Rx Instructions: see taper instructions Continued (DME) Shower Chair Misc See Rx Instructions .Route Qty: 1 0RF Rx Instructions: As directed (DME) diaper,brief,adult,disposable Misc See Rx Instructions .Route Qty: 60 12RF Rx Instructions: As directed changing 1-2 times nightly bupropion HCl 100 mg tablet sustained-release 12 hr 100 mg PO QAM Qty: 90 3RF gabapentin 300 mg capsule 300 mg PO BID Qty: 120 1RF cholecalciferol (vitamin D3) 25 mcg (1,000 unit) capsule 1,000 units PO QAM clopidogrel 75 mg tablet 75 mg PO HS Qty: 90 3RF Patient Comments: Patient's daughter states may have taken no later than 2/ Spiriva Respimat 2.5 mcg/actuation mist 2 puff inhalation QAM Qty: 4 3RF aspirin [Adult Aspirin Regimen] 81 mg tablet,delayed release (DR/EC) 81 mg PO QAM cranberry 500 mg Capsule 500 mg PO DAILY miconazole nitrate 2 % Powder 1 applic TOPICAL DAILY PRN (Reason: NEEDED) Rx Instructions: APPLY BETWEEN TOES NEEDED. tramadol 50 mg tablet 50 mg PO Q4H PRN (Reason: Pain) multivitamin with minerals Tablet 1 tab PO DAILY Rx Instructions: HOLD WHILE ON ANTIBIOTICS albuterol sulfate 90 mcg/actuation HFA aerosol inhaler 2 inh inhalation Q6H PRN (Reason: Shortness Of Breath Or Wheezing) finasteride 5 mg tablet 5 mg PO HS atorvastatin 80 mg tablet 80 mg PO HS lisinopril 10 mg tablet 10 mg PO QAM mirabegron [Myrbetriq] 50 mg tablet extended release 24 hr 50 mg PO QAM tamsulosin 0.4 mg capsule 0.4 mg PO QAM Discontinued doxycycline hyclate 100 mg Capsule 100 mg PO BID Rx Instructions: DATE RELEASED 02/20/25 FOR 7 DAYS, UNSURE IF STARTED. HOLD VITAMINS WHILE ON ANTIBIOTICS prednisone 5 mg Tablet 5 mg PO DIRECTED Rx Instructions: RELEASED 02/20/25---4 TABS X 2 DAYS, 3 TABS X 2 DAYS, 2 TABS X 2 DAYS, 1 TAB X 2 DAYS, THEN STOP. Discharge Orders: Discharge Order (Routine); Ordered 02/22/25 Ordered By: Claire Myers Admission Data Admit Date/Time: 02/20/25 18:48 Attending Provider: Abdulaziz Huang Admit Provider: Alexis Billings Primary Care Provider: Job Bernabe Other Providers: Alexis Billings Hospital Stay Data Consultations 02/20/25 18:06 ED Decision to Admit Stat Diagnostic Imagining Performed Chest X-Ray 02/20/25 15:16 Clinical History: Chest pain Technique: 2 frontal views of the chest were obtained Comparison is made to the prior examination dated 08/08/2024 Findings: There are no definite pulmonary infiltrates. The heart size is within normal limits. No pleural effusion or pneumothorax is seen. There is suspected mild right lung base atelectasis There are old fractures of the left fourth and fifth ribs Impression: Mild right lung base atelectasis Electronically signed by Adam Cisneros 02-20-2025 5:15 PM Chest CTA 02/20/25 15:44 Exam: CT angiogram chest, PE protocol. Reason for exam: Questionable pulmonary embolus. Previous :chest radiograph 02/20/2025 FINDINGS: There is good opacification of the pulmonary arteries. At this time no persistent filling defect to indicate pulmonary embolus is seen on either side. Pulmonary arteries do not appear enlarged and there is no suspicious evidence of right ventricular strain. The aorta shows moderately extensive atherosclerotic vascular calcification but no significant aneurysm or dissection at the examined levels. Moderately severe coronary calcification seen in the right and left coronary arterial systems. No significant stenosis noted in the great arteries. Mild patchy area of consolidation is seen in the posterior right lower lobe which might indicate minimal bronchopneumonia versus chronic interstitial lung opacity. Otherwise the lungs are free of active infiltrate or edema. No pleural effusion or pneumothorax is noted. IMPRESSION: 1. Negative for pulmonary embolus. 2. Negative for aortic dissection. 3. Moderately severe coronary artery calcification. 4. Mild patchy consolidation in the posterior basal right lower lobe. This may indicate mild or early pneumonitis and appears not to be present on a previous chest radiograph 12 08/08/2024. Lungs otherwise clear at this time. Electronically signed by Pepe Ray 02-20-2025 5:[address] 02/20/25 15:44 Clinical History: Dizziness and confusion Technique: Axial computed tomography images were obtained of the brain without intravenous contrast. Comparison is made to the prior CT dated 08/08/2024 Findings: There is unchanged cerebral atrophy, within expected limits for the patient's age. Areas of decreased attenuation are seen within the periventricular white matter, likely representing chronic small vessel ischemic disease. Again seen are old infarcts of the right thalamus, right basal ganglia, and right external capsule. There is also an apparent old infarct at the junction of the right parietal and right occipital lobes. There is no definite sign of acute infarction. No intracranial hemorrhage is evident. No definite mass lesion is seen on this noncontrast examination. There is no midline shift or other form of herniation. No hydrocephalus is seen. No fracture is identified. The orbits and the visualized paranasal sinuses appear unremarkable. The mastoid air cells appear clear. Impression: 1. Unchanged cerebral atrophy, old infarcts, and chronic small vessel ischemic disease 2. Otherwise unremarkable noncontrast CT of the brain Electronically signed by Adam Cisneros 02-20-2025 5:02 PM Hip/Pelvis X-Ray 02/20/25 18:14 EXAM: XR hip LT 2V w pelvis CLINICAL HISTORY: L hip pain TECHNIQUE: X-ray images of the left hip joints in AP and lateral and pelvis were obtained in anteroposterior (AP) projection. COMPARISON: No prior studies available for comparison. FINDINGS: Pelvic Bones: No evidence of fractures, dislocations, or significant osseous lesions. Acetabular structures appear normal and intact. No signs of acetabular fracture or dysplasia. Femoral heads are normal and centered within the acetabulum. No evidence of fractures, avascular necrosis, or significant deformities. Hip Joints: Mild bilateral hip joints osteoarthritis are seen manifested by narrowing of joint space with sclerosis of the opposing articular surfaces. No evidence of hip dislocation, subluxation. Sacroiliac joints appear normal and unremarkable. No evidence of sacroiliitis or significant degenerative changes. Symphysis Pubis: Symphysis pubis is normal and intact. No evidence of separation or widening. Soft Tissues: Visualized soft tissues are normal and unremarkable. No soft tissue swelling, calcifications, or masses. IMPRESSION: 1. Mild bilateral hip joints osteoarthritis. 2. No evidence of acute fractures or dislocations. Disclaimer: A subtle bone abnormality or fracture may not be readily apparent on X-rays, thus clinical correlation and further imaging including follow-up CT, MRI, or follow-up X-rays are advised as needed. Electronically signed by Ruiz Little 02-20-2025 9:14 PM Pending Results Patient Have Any Pending Studies at Discharge: Yes (blood cultures ) Discharge Instructions Given to Patient (Per Discharging Provider) Mr. Evans, Mikael were hospitalized after having worsening shortness of breath and weakness this was found to be from pneumonia and Rhino-enterovirus. You have done well with IV antibiotics, steroids and nebulizer treatments. You will be discharged with oral antibiotics and a steroid taper. Recommendations: - Start doxycycline - first dose tonight 8/1PM. Please take this sitting up with a whole glass of water. This can cause upset stomach and should be also taken with meal - Start Cefpodoxime - first dose AM 8/2 - Start Prednisone taper - first dose AM 8/2 - Continue home inhalers - Continue to use albuterol inhaler every 4 hours as needed for shortness of breath or wheezing You have blood cultures pending at the time of discharge, they are negative at 24 hours but take 5 days to get final results. If they turn positive you will be notified, you can also check in with your PCP or the [facility] portal. However, given your symptoms I do not expect they will be positive. No changes to your home medications, please follow up with your PCP within one week. CONTACT YOUR PRIMARY CARE PROVIDER if you experience any of the following: Shortness of breath or difficulty breathing Fevers or chills Feeling tired with normal activity or experiencing dizziness or fainting Difficulty following your treatment plan, or difficulty taking medications CALL 911 OR GO TO THE EMERGENCY DEPARTMENT if you experience any of the following: Severe abdominal pain or nausea/vomiting Severe chest pain, or chest pain that radiates (moves) to your jaw or arm Sudden, severe shortness of breath or difficulty breathing Thank you for allowing us to participate in your care. Total Time Total Time Spent Total Time Spent (In Minutes): Time spent day of discharge 36 minutes including direct patient care, medication reconciliation, documentation, review of labs and images, and coordination of care. Coding Level of Care Code 81205 INP/OBS DISCH >30 MIN Diagnoses Acute hypoxemic respiratory failure J96.01 Rhinovirus infection B34.8 Pneumonia J18.9 COPD (chronic obstructive pulmonary disease) J44.9 COPD type: unspecified COPD Left hip pain M25.552"
[2025-02-22] MEDS ORDERED: Nursing to Pharmacy Communication SCH (10:00)
--- NOTE | 2025-02-23 05:48 | Electrocardiogram Report ---
Test Reason : Blood Pressure : */* mmHG Vent. Rate : 123 BPM Atrial Rate : 123 BPM P-R Int : 192 ms QRS Dur : 74 ms QT Int : 276 ms P-R-T Axes : 48 37 46 degrees QTcB Int : 395 ms Sinus tachycardia Low voltage QRS Cannot rule out Anteroseptal infarct , age undetermined Nonspecific ST abnormality Abnormal ECG When compared with ECG of 28-Nov-2024 18:27, Vent. rate has increased by 60 bpm Minimal criteria for Anteroseptal infarct are now Present Nonspecific T wave abnormality no longer evident in Lateral leads Confirmed by Edgar Mosley ([id number]) on 02/23/2025 5:48:02 AM Referred By: Confirmed By: Edgar Mosley
== END 2025-02-22 15:22 | disposition home or self-care (01) | DRG 871 ==
LOC: ED 15:11 → 2W 18:48 → SUATTDRO 18:48 → 2W 20:25